=== PATIENT | male | born 1945 | race Hispanic/Latino ===

== ENCOUNTER 2020-06-26 00:04 | Inpatient (IN) | payer MEDICARE ==
[2020-06-26] MEDS ORDERED: SODIUM CHLORIDE 0.9% 1000 ML 1,000 ML IV ONE (00:20)
--- NOTE | 2020-06-26 00:20 | Emergency Department Report ---
ED Altered Mental Status HPI - General Chief Complaint: Neuro Symptoms/Deficit Stated Complaint: AMS PUI?: No Time Seen by Provider: 06/26/20 00:16 Source: EMS Mode of arrival: Stretcher Limitations: No Limitations - History of Present Illness Initial Comments: Patient is a 74-year-old male that presents via EMS for altered mental status. Patient is currently alert and oriented x1. Patient is disoriented to place, date and situation. Patient is oriented to self only. Patient states he is here for a pill to warm him up. Patient denies alcohol use. Patient denies smoking and drug use. Report received from EMS. EMS states the patient was [place] the edge of the tim with 2 full sixpacks of beer in the car but not open. Patient is 50 miles from home. Patient when questioned by the police, the patient did not know how he got here. Patient was found asleep in the car. MD Complaint: altered mental status, confusion -: Sudden Consistency of Symptoms: constant - Related Data Home Medications Medication Instructions Recorded Confirmed Last Taken Gabapentin 300 mg PO 06/26/20 Unknown Metoprolol [Lopressor TAB] 25 mg PO 06/26/20 Unknown lisinopriL [Zestril TAB] 20 mg PO 06/26/20 Unknown Allergies Allergy/AdvReac Type Severity Reaction Status Date / Time No Known Allergies Allergy Unverified 06/26/20 00:31 ED Review of Systems ROS: Stated complaint: AMS Other details as noted in HPI Comment: Unobtainable due to pts medical conditions ED Past Medical Hx - Past Medical History Previous Medical History?: Yes Hx Hypertension: Yes Hx Heart Attack/AMI: Yes - Surgical History Past Surgical History?: Yes Additional Surgical History: hip replacement - Family History Family history: no significant - Social History Smoking Status: Never Smoker Substance Use Type: None - Medications Home Medications: Home Medications Medication Instructions Recorded Confirmed Last Taken Type Gabapentin 300 mg PO 06/26/20 Unknown History Metoprolol [Lopressor TAB] 25 mg PO 06/26/20 Unknown History lisinopriL [Zestril TAB] 20 mg PO 06/26/20 Unknown History ED Physical Exam - General Limitations: No Limitations General appearance: alert, in no apparent distress - Head Head exam: Present: atraumatic, normocephalic - Eye Eye exam: Present: normal appearance - ENT ENT exam: Present: mucous membranes moist - Neck Neck exam: Present: normal inspection - Respiratory Respiratory exam: Present: normal lung sounds bilaterally. Absent: respiratory distress - Cardiovascular Cardiovascular Exam: Present: regular rate, normal rhythm. Absent: systolic murmur, diastolic murmur, rubs, gallop - GI/Abdominal GI/Abdominal exam: Present: soft, normal bowel sounds - Rectal Rectal exam: Present: deferred - Extremities Exam Extremities exam: Present: normal inspection - Back Exam Back exam: Present: normal inspection - Neurological Exam Neurological exam: Present: alert, altered - Skin Skin exam: Present: warm, dry, intact, normal color. Absent: rash - Assessment Assessment Interval: Baseline - Level of Consciousness 1a. Level of Consciousness: alert/keenly responsive - LOC Questions 1b. LOC Questions: answers 1 question correctly - LOC Command 1c. LOC Commands: performs tasks correctly - Best Gaze 2. Best Gaze: normal - Visual 3. Visual: no visual loss - Facial Palsy 4. Facial Palsy: normal symmetrical movement - Motor Arm 5a. Motor Arm Left: no drift 5b. Motor Arm Right: no drift - Motor Leg 6a. Motor Leg Left: no drift 6b. Motor Leg Right: no drift - Limb Ataxia 7. Limb Ataxia: absent - Sensory 8. Sensory: normal - Best Language 9. Best Language: no aphasia - Dysarthria 10. Dysarthria: normal - Extinction and Inattention 11. Extinction/Inattention: no abnormality - Scoring Total Score: 1 Stroke Severity: Minor Stroke ED Course Vital Signs 06/26/20 06/26/20 06/26/20 00:12 00:17 01:06 Temperature 98.3 F Pulse Rate 59 L Respiratory Rate Blood Pressure 135/77 135/77 Blood Pressure 135/77 [left arm] O2 Sat by Pulse 100 99 95 Oximetry 06/26/20 01:30 Temperature Pulse Rate 76 Respiratory 15 Rate Blood Pressure 158/71 Blood Pressure [left arm] O2 Sat by Pulse 98 Oximetry - Reevaluation(s) Reevaluation #1: Patient is still confused. 06/26/20 01:04 Reevaluation #2: I discussed all results with patient. I discussed plan of care with patient. Patient agrees with plan of care and admission. Patient to be admitted to the hospitalist service. 06/26/20 03:04 - Consultations Consultation #1: Hospitalist consulted for admission. Hospitalist to admit patient. 06/26/20 03:04 - Lab Data Result diagrams: 06/26/20 00:45 06/26/20 00:45 Lab Results 06/26/20 06/26/20 06/26/20 Range/Units 00:45 00:45 00:45 WBC 5.6 (4.5-11.0) K/mm3 RBC 3.44 L (3.65-5.03) M/mm3 Hgb 12.1 (11.8-15.2) gm/dl Hct 35.7 (35.5-45.6) % MCV 104 H (84-94) fl MCH 35 H (28-32) pg MCHC 34 (32-34) % RDW 14.8 (13.2-15.2) % Plt Count 279 (140-440) K/mm3 Lymph % (Auto) 16.0 (13.4-35.0) % [place] % (Auto) 8.1 H (0.0-7.3) % Eos % (Auto) 1.2 (0.0-4.3) % Baso % (Auto) 0.6 (0.0-1.8) % Lymph # (Auto) 0.9 L (1.2-5.4) K/mm3 [place] # (Auto) 0.5 (0.0-0.8) K/mm3 Eos # (Auto) 0.1 (0.0-0.4) K/mm3 Baso # (Auto) 0.0 (0.0-0.1) K/mm3 Seg Neutrophils % 74.1 H (40.0-70.0) % Seg Neutrophils # 4.1 (1.8-7.7) K/mm3 Sodium 144 (137-145) mmol/L Potassium 4.1 (3.6-5.0) mmol/L Chloride 104.7 (98-107) mmol/L Carbon Dioxide 19 L (22-30) mmol/L Anion Gap 24 mmol/L BUN 15 (9-20) mg/dL Creatinine 1.0 (0.8-1.3) mg/dL Estimated GFR > 60 ml/min BUN/Creatinine Ratio 15 % Glucose 103 H (75-100) mg/dL Lactic Acid 1.50 (0.7-2.0) mmol/L Calcium 9.8 (8.4-10.2) mg/dL Total Bilirubin 0.50 (0.1-1.2) mg/dL AST 20 (5-40) units/L ALT 13 (7-56) units/L Alkaline Phosphatase 100 (35-129) units/L Ammonia (25-60) umol/L Total Creatine Kinase 138 (55-170) units/L Troponin T < 0.010 (0.00-0.029) ng/mL Total Protein 7.2 (6.3-8.2) g/dL Albumin 4.5 (3.9-5) g/dL Albumin/Globulin Ratio 1.7 % Urine Color (Yellow) Urine Turbidity (Clear) Urine pH (5.0-7.0) Ur Specific [place] (1.003-1.030) Urine Protein (Negative) mg/dL Urine Glucose (UA) (Negative) mg/dL Urine Ketones (Negative) mg/dL Urine Blood (Negative) Urine Nitrite (Negative) Urine Bilirubin (Negative) Urine Urobilinogen (<2.0) mg/dL Ur Leukocyte Esterase (Negative) Urine WBC (Auto) (0.0-6.0) /HPF Urine RBC (Auto) (0.0-6.0) /HPF U Epithel Cells (Auto) (0-13.0) /HPF Urine Mucus /HPF Urine Opiates Screen Urine Methadone Screen Acetaminophen (10.0-30.0) ug/mL Ur Barbiturates Screen Ur Phencyclidine Scrn Ur Amphetamines Screen U Benzodiazepines Scrn Urine Cocaine Screen U Marijuana (THC) Screen Drugs of Abuse Note Plasma/Serum Alcohol (0-0.07) % 06/26/20 06/26/20 06/26/20 Range/Units 00:45 00:45 00:45 WBC (4.5-11.0) K/mm3 RBC (3.65-5.03) M/mm3 Hgb (11.8-15.2) gm/dl Hct (35.5-45.6) % MCV (84-94) fl MCH (28-32) pg MCHC (32-34) % RDW (13.2-15.2) % Plt Count (140-440) K/mm3 Lymph % (Auto) (13.4-35.0) % [place] % (Auto) (0.0-7.3) % Eos % (Auto) (0.0-4.3) % Baso % (Auto) (0.0-1.8) % Lymph # (Auto) (1.2-5.4) K/mm3 [place] # (Auto) (0.0-0.8) K/mm3 Eos # (Auto) (0.0-0.4) K/mm3 Baso # (Auto) (0.0-0.1) K/mm3 Seg Neutrophils % (40.0-70.0) % Seg Neutrophils # (1.8-7.7) K/mm3 Sodium (137-145) mmol/L Potassium (3.6-5.0) mmol/L Chloride (98-107) mmol/L Carbon Dioxide (22-30) mmol/L Anion Gap mmol/L BUN (9-20) mg/dL Creatinine (0.8-1.3) mg/dL Estimated GFR ml/min BUN/Creatinine Ratio % Glucose (75-100) mg/dL Lactic Acid (0.7-2.0) mmol/L Calcium (8.4-10.2) mg/dL Total Bilirubin (0.1-1.2) mg/dL AST (5-40) units/L ALT (7-56) units/L Alkaline Phosphatase (35-129) units/L Ammonia 33.0 (25-60) umol/L Total Creatine Kinase (55-170) units/L Troponin T (0.00-0.029) ng/mL Total Protein (6.3-8.2) g/dL Albumin (3.9-5) g/dL Albumin/Globulin Ratio % Urine Color (Yellow) Urine Turbidity (Clear) Urine pH (5.0-7.0) Ur Specific [place] (1.003-1.030) Urine Protein (Negative) mg/dL Urine Glucose (UA) (Negative) mg/dL Urine Ketones (Negative) mg/dL Urine Blood (Negative) Urine Nitrite (Negative) Urine Bilirubin (Negative) Urine Urobilinogen (<2.0) mg/dL Ur Leukocyte Esterase (Negative) Urine WBC (Auto) (0.0-6.0) /HPF Urine RBC (Auto) (0.0-6.0) /HPF U Epithel Cells (Auto) (0-13.0) /HPF Urine Mucus /HPF Urine Opiates Screen Urine Methadone Screen Acetaminophen 5.0 L (10.0-30.0) ug/mL Ur Barbiturates Screen Ur Phencyclidine Scrn Ur Amphetamines Screen U Benzodiazepines Scrn Urine Cocaine Screen U Marijuana (THC) Screen Drugs of Abuse Note Plasma/Serum Alcohol < 0.01 (0-0.07) % 06/26/20 06/26/20 Range/Units 01:59 01:59 WBC (4.5-11.0) K/mm3 RBC (3.65-5.03) M/mm3 Hgb (11.8-15.2) gm/dl Hct (35.5-45.6) % MCV (84-94) fl MCH (28-32) pg MCHC (32-34) % RDW (13.2-15.2) % Plt Count (140-440) K/mm3 Lymph % (Auto) (13.4-35.0) % [place] % (Auto) (0.0-7.3) % Eos % (Auto) (0.0-4.3) % Baso % (Auto) (0.0-1.8) % Lymph # (Auto) (1.2-5.4) K/mm3 [place] # (Auto) (0.0-0.8) K/mm3 Eos # (Auto) (0.0-0.4) K/mm3 Baso # (Auto) (0.0-0.1) K/mm3 Seg Neutrophils % (40.0-70.0) % Seg Neutrophils # (1.8-7.7) K/mm3 Sodium (137-145) mmol/L Potassium (3.6-5.0) mmol/L Chloride (98-107) mmol/L Carbon Dioxide (22-30) mmol/L Anion Gap mmol/L BUN (9-20) mg/dL Creatinine (0.8-1.3) mg/dL Estimated GFR ml/min BUN/Creatinine Ratio % Glucose (75-100) mg/dL Lactic Acid (0.7-2.0) mmol/L Calcium (8.4-10.2) mg/dL Total Bilirubin (0.1-1.2) mg/dL AST (5-40) units/L ALT (7-56) units/L Alkaline Phosphatase (35-129) units/L Ammonia (25-60) umol/L Total Creatine Kinase (55-170) units/L Troponin T (0.00-0.029) ng/mL Total Protein (6.3-8.2) g/dL Albumin (3.9-5) g/dL Albumin/Globulin Ratio % Urine Color Yellow (Yellow) Urine Turbidity Clear (Clear) Urine pH 6.0 (5.0-7.0) Ur Specific [place] 1.013 (1.003-1.030) Urine Protein <15 mg/dl (Negative) mg/dL Urine Glucose (UA) Neg (Negative) mg/dL Urine Ketones Neg (Negative) mg/dL Urine Blood Neg (Negative) Urine Nitrite Neg (Negative) Urine Bilirubin Neg (Negative) Urine Urobilinogen < 2.0 (<2.0) mg/dL Ur Leukocyte Esterase Neg (Negative) Urine WBC (Auto) 2.0 (0.0-6.0) /HPF Urine RBC (Auto) 2.0 (0.0-6.0) /HPF U Epithel Cells (Auto) 1.0 (0-13.0) /HPF Urine Mucus Few /HPF Urine Opiates Screen Presumptive negative Urine Methadone Screen Presumptive negative Acetaminophen (10.0-30.0) ug/mL Ur Barbiturates Screen Presumptive negative Ur Phencyclidine Scrn Presumptive negative Ur Amphetamines Screen Presumptive negative U Benzodiazepines Scrn Presumptive negative Urine Cocaine Screen Presumptive negative U Marijuana (THC) Screen Presumptive negative Drugs of Abuse Note Disclamer Plasma/Serum Alcohol (0-0.07) % - EKG Data -: EKG Interpreted by Oh EKG shows normal: sinus rhythm, axis, intervals, QRS complexes, ST-T waves Rate: normal - Radiology Data Radiology results: report reviewed CT head without contrast INDICATION : Altered mental status TECHNIQUE: Axial imaging performed from the skull apex through the skull base without the use of contrast. All CT examinations performed at this facility utilize dose modulation, iterative reconstruction or weight-based dosing, when appropriate, to reduce radiation dose to as low as reasonably achievable. COMPARISON: None FINDINGS: Mild diffuse cerebral atrophy with microangiopathic type periventricular white matter changes. No acute intracranial hemorrhage or parenchymal abnormality. Ventricles are normal in size and appear symmetric. Soft tissues including the orbits appear normal. No acute osseous abnormality. Sinuses and mastoid air cells are clear. IMPRESSION: No acute abnormality. CHEST 1 VIEW INDICATION / CLINICAL INFORMATION: Altered Mental Status. FINDINGS: SUPPORT DEVICES: None. HEART / MEDIASTINUM: No significant abnormality. LUNGS / PLEURA: Ill-defined densities within the right mid lung, nonspecific. The left lung is clear. - Medical Decision Making Patient is a 74-year-old male that presents emergency room with altered mental status and confusion. Patient was found asleep in his car at the edge of a [place] area. Patient patient was found by police and brought in by EMS. Report received from EMS. Patient has a past medical history of hypertension, [place]. Patient had labs done which were essentially unremarkable. Patient's chest x- ray was negative. Patient's head CT was negative for any patient is exact cause of his confusion is unknown. Patient require further evaluation and investigation.. Patient admitted to the hospitalist service for further evaluation and treatment. - Differential Diagnosis Altered mental status, encephalopathy, confusion, Critical Care Time: Yes Critical care time in (mins) excluding proc time.: 35 Critical care attestation.: If time is entered above; I have spent that time in minutes in the direct care of this critically ill patient, excluding procedure time. Critical Care Time: 35 minutes ED Disposition Clinical Impression: Confusion, Encephalopathy acute Altered mental state Qualifiers: Altered mental status type: unspecified Qualified Code(s): R41.82 - Altered mental status, unspecified Disposition: DC-09 OP ADMIT IP TO THIS HOSP Is pt being admited?: Yes Does the pt Need Aspirin: No Condition: Critical Time of Disposition: 03:04
[2020-06-26 01:04] LABS: Basophils % (Auto) 0.6 % (0.0-1.8); Eosinophils # (Auto) 0.1 K/mm3 (0.0-0.4); Eosinophils % (Auto) 1.2 % (0.0-4.3); Hematocrit 35.7 % (35.5-45.6); Hemoglobin 12.1 gm/dl (11.8-15.2); Lymphocytes # (Auto) 0.9 K/mm3 (1.2-5.4); Mean Corpuscular HGB Conc 34 % (32-34); Mean Corpuscular Volume 104 fl (84-94); Monocytes # (Auto) 0.5 K/mm3 (0.0-0.8); Monocytes % (Auto) 8.1 % (0.0-7.3); Platelet Count 279 K/mm3 (140-440); Red Blood Count 3.44 M/mm3 (3.65-5.03); Red Cell Distribution Width 14.8 % (13.2-15.2)
--- NOTE | 2020-06-26 01:19 | Cat Scan Report ---
CT head without contrast INDICATION : Altered mental status TECHNIQUE: Axial imaging performed from the skull apex through the skull base without the use of con trast. All CT examinations performed at this facility utilize dose modulation, iterative reconstruct ion or weight-based dosing, when appropriate, to reduce radiation dose to as low as reasonably achiev able. COMPARISON: None FINDINGS: Mild diffuse cerebral atrophy with microangiopathic type periventricular white matter cota es. No acute intracranial hemorrhage or parenchymal abnormality. Ventricles are normal in size and appear symmetric. Soft tissues including the orbits appear normal. No acute osseous abnormality. Sinuses and mastoid air cells are clear. IMPRESSION: No acute abnormality. Signer Name: Jose Kumar MD Signed: 06/26/2020 1:15 AM Workstation Name: [id number]
--- NOTE | 2020-06-26 01:35 | XRay Report ---
CHEST 1 VIEW INDICATION / CLINICAL INFORMATION: Altered Mental Status. FINDINGS: SUPPORT DEVICES: None. HEART / MEDIASTINUM: No significant abnormality. LUNGS / PLEURA: Ill-defined densities within the right mid lung, nonspecific. The left lung is clear. Signer Name: Jose Kumar MD Signed: 06/26/2020 1:30 AM Workstation Name: [id number]
[2020-06-26 02:29] LABS: Alanine Aminotransferase 13 units/L (7-56); Albumin 4.5 g/dL (3.9-5); BUN/Creatinine Ratio 15; Blood Urea Nitrogen 15 mg/dL (9-20); Calcium 9.8 mg/dL (8.4-10.2); Hemolysis Index 18
[2020-06-26 02:33] LABS: Bilirubin,Urine NEG (Negative); Blood,Urine NEG (Negative); Color,Urine Yellow (Yellow); Mucus,Urine FEW /HPF; Protein,Urine <15 mg/dL mg/dL (Negative); Urobilinogen,Urine < 2.0 mg/dL (<2.0)
[2020-06-26 02:42] LABS: Amphetamine Screen,Urine PRESUMPTIVE NEGATIVE; Benzodiazepines Screen,Urine PRESUMPTIVE NEGATIVE; Cannabinoid Screen,Urine PRESUMPTIVE NEGATIVE; Cocaine Screen,Urine PRESUMPTIVE NEGATIVE; Methadone Screen,Urine PRESUMPTIVE NEGATIVE; Opiate Screen,Urine PRESUMPTIVE NEGATIVE
--- NOTE | 2020-06-26 04:55 | History and Physical Report ---
History of Present Illness Date of examination: 06/26/20 Date of admission: 06/26/20 03:05 Chief complaint: ALTERED MENTAL STATUS History of present illness: 74 year old male who presented with altered mental status .There is no history of chest pain, fever, chills,nausea or vomiting. There is no history of dysuria. Past History Past Medical History: CAD, hypertension Past Surgical History: total hip replacement Social history: no significant social history Family history: no significant family history Medications and Allergies Allergies Allergy/AdvReac Type Severity Reaction Status Date / Time No Known Allergies Allergy Verified 06/26/20 04:20 Home Medications Medication Instructions Recorded Confirmed Last Taken Type Gabapentin 300 mg PO 06/26/20 Unknown History Metoprolol [Lopressor TAB] 25 mg PO 06/26/20 Unknown History lisinopriL [Zestril TAB] 20 mg PO 06/26/20 Unknown History Active Meds: Active Medications Acetaminophen (Tylenol) 650 mg PO Q4H PRN PRN Reason: Fever >101 Gabapentin (Gabapentin) 300 mg PO BID LILIAM Heparin Sodium (Porcine) (Heparin) 5,000 unit SUB-Q Q12HR [facility] Lisinopril (Zestril) 20 mg PO DAILY [facility] Metoprolol Tartrate (Metoprolol) 25 mg PO DAILY [facility] Review of Systems Constitutional: weakness, no fever, no chills, no sweats, no malaise Eyes: bilateral: other (NO BILATERAL EYE ) Cardiovascular: no chest pain, no orthopnea, no palpitations, no rapid/irregular heart beat, no syncope, no lightheadedness, no shortness of breath Respiratory: no cough, no cough with sputum, no excessive sputum, no hemoptysis, no shortness of breath, no dyspnea on exertion, no wheezing Gastrointestinal: no abdominal pain, no nausea, no vomiting, no diarrhea, no constipation, no change in bowel habits, no hematemesis Genitourinary Male: no hematuria, no flank pain, no discharge, no urinary frequency Rectal: no pain Musculoskeletal: no neck stiffness, no neck pain Integumentary: no rash, no pruritis, no redness, no sores, no wounds Neurological: no paralysis, no weakness, no seizures, no syncope, no tremors, no vertigo, no headaches Psychiatric: no anxiety, no depression Endocrine: no polyuria, no nocturia Hematologic/Lymphatic: no easy bruising, no easy bleeding Allergic/Immunologic: no persistent infections Exam - Constitutional Vitals: Temp Pulse Resp BP Pulse Ox 98.3 F 63 16 164/72 100 06/26/20 00:12 06/26/20 03:36 06/26/20 03:36 06/26/20 03:36 06/26/20 03:36 General appearance: Present: no acute distress - EENT Eyes: Present: PERRL, EOM intact ENT: hearing intact - Neck Neck: Present: supple, normal ROM - Respiratory Respiratory effort: normal - Cardiovascular Rhythm: regular Heart Sounds: Present: S1 & S2. Absent: gallop, systolic murmur, diastolic murmur - Extremities Extremities: no ischemia, No edema Peripheral Pulses: within normal limits - Abdominal General gastrointestinal: Present: soft, non-tender, non-distended. Absent: tender, distended, rigid, hepatomegaly, splenomegaly Male genitourinary: Present: deferred - Rectal Rectal Exam: deferred - Integumentary Integumentary: Present: clear, warm, dry - Musculoskeletal Musculoskeletal: strength equal bilaterally - Psychiatric Psychiatric: appropriate mood/affect HEART Score - HEART Score Risk factors: 1-2 risk factors Troponin: Troponin T < 0.010 ng/mL (0.00-0.029) 06/26/20 03:05 Troponin: < normal limit - Critical Actions Critical Actions: 0-3 pts:0.9-1.7%risk of adverse cardiac event.Candidate for discharge Results - Labs CBC & Chem 7: 06/26/20 00:45 06/26/20 00:45 Labs: Laboratory Last Values WBC 5.6 K/mm3 (4.5-11.0) 06/26/20 00:45 RBC 3.44 M/mm3 (3.65-5.03) L 06/26/20 00:45 Hgb 12.1 gm/dl (11.8-15.2) 06/26/20 00:45 Hct 35.7 % (35.5-45.6) 06/26/20 00:45 MCV 104 fl (84-94) H 06/26/20 00:45 MCH 35 pg (28-32) H 06/26/20 00:45 MCHC 34 % (32-34) 06/26/20 00:45 RDW 14.8 % (13.2-15.2) 06/26/20 00:45 Plt Count 279 K/mm3 (140-440) 06/26/20 00:45 Lymph % (Auto) 16.0 % (13.4-35.0) 06/26/20 00:45 [place] % (Auto) 8.1 % (0.0-7.3) H 06/26/20 00:45 Eos % (Auto) 1.2 % (0.0-4.3) 06/26/20 00:45 Baso % (Auto) 0.6 % (0.0-1.8) 06/26/20 00:45 Lymph # (Auto) 0.9 K/mm3 (1.2-5.4) L 06/26/20 00:45 [place] # (Auto) 0.5 K/mm3 (0.0-0.8) 06/26/20 00:45 Eos # (Auto) 0.1 K/mm3 (0.0-0.4) 06/26/20 00:45 Baso # (Auto) 0.0 K/mm3 (0.0-0.1) 06/26/20 00:45 Seg Neutrophils % 74.1 % (40.0-70.0) H 06/26/20 00:45 Seg Neutrophils # 4.1 K/mm3 (1.8-7.7) 06/26/20 00:45 Sodium 144 mmol/L (137-145) 06/26/20 00:45 Potassium 4.1 mmol/L (3.6-5.0) 06/26/20 00:45 Chloride 104.7 mmol/L (98-107) 06/26/20 00:45 Carbon Dioxide 19 mmol/L (22-30) L 06/26/20 00:45 Anion Gap 24 mmol/L 06/26/20 00:45 BUN 15 mg/dL (9-20) 06/26/20 00:45 Creatinine 1.0 mg/dL (0.8-1.3) 06/26/20 00:45 Estimated GFR > 60 ml/min 06/26/20 00:45 BUN/Creatinine Ratio 15 % 06/26/20 00:45 Glucose 103 mg/dL (75-100) H 06/26/20 00:45 Lactic Acid 1.50 mmol/L (0.7-2.0) 06/26/20 00:45 Calcium 9.8 mg/dL (8.4-10.2) 06/26/20 00:45 Total Bilirubin 0.50 mg/dL (0.1-1.2) 06/26/20 00:45 AST 20 units/L (5-40) 06/26/20 00:45 ALT 13 units/L (7-56) 06/26/20 00:45 Alkaline Phosphatase 100 units/L (35-129) 06/26/20 00:45 Ammonia 33.0 umol/L (25-60) 06/26/20 00:45 Total Creatine Kinase 138 units/L (55-170) 06/26/20 00:45 Troponin T < 0.010 ng/mL (0.00-0.029) 06/26/20 03:05 Total Protein 7.2 g/dL (6.3-8.2) 06/26/20 00:45 Albumin 4.5 g/dL (3.9-5) 06/26/20 00:45 Albumin/Globulin Ratio 1.7 % 06/26/20 00:45 Urine Color Yellow (Yellow) 06/26/20 01:59 Urine Turbidity Clear (Clear) 06/26/20 01:59 Urine pH 6.0 (5.0-7.0) 06/26/20 01:59 Ur Specific [place] 1.013 (1.003-1.030) 06/26/20 01:59 Urine Protein <15 mg/dl mg/dL (Negative) 06/26/20 01:59 Urine Glucose (UA) Neg mg/dL (Negative) 06/26/20 01:59 Urine Ketones Neg mg/dL (Negative) 06/26/20 01:59 Urine Blood Neg (Negative) 06/26/20 01:59 Urine Nitrite Neg (Negative) 06/26/20 01:59 Urine Bilirubin Neg (Negative) 06/26/20 01:59 Urine Urobilinogen < 2.0 mg/dL (<2.0) 06/26/20 01:59 Ur Leukocyte Esterase Neg (Negative) 06/26/20 01:59 Urine WBC (Auto) 2.0 /HPF (0.0-6.0) 06/26/20 01:59 Urine RBC (Auto) 2.0 /HPF (0.0-6.0) 06/26/20 01:59 U Epithel Cells (Auto) 1.0 /HPF (0-13.0) 06/26/20 01:59 Urine Mucus Few /HPF 06/26/20 01:59 Urine Opiates Screen Presumptive negative 06/26/20 01:59 Urine Methadone Screen Presumptive negative 06/26/20 01:59 Acetaminophen 5.0 ug/mL (10.0-30.0) L 06/26/20 00:45 Ur Barbiturates Screen Presumptive negative 06/26/20 01:59 Ur Phencyclidine Scrn Presumptive negative 06/26/20 01:59 Ur Amphetamines Screen Presumptive negative 06/26/20 01:59 U Benzodiazepines Scrn Presumptive negative 06/26/20 01:59 Urine Cocaine Screen Presumptive negative 06/26/20 01:59 U Marijuana (THC) Screen Presumptive negative 06/26/20 01:59 Drugs of Abuse Note Disclamer 06/26/20 01:59 Plasma/Serum Alcohol < 0.01 % (0-0.07) 06/26/20 00:45 [place]/IV: IV Catheter Type [right Peripheral IV forearm] Assessment and Plan - Patient Problems (1) Altered mental state Current Visit: Yes Status: Acute Qualifiers: Altered mental status type: unspecified Qualified Code(s): R41.82 - Altered mental status, unspecified Plan to address problem: 1. NEUROCHECKS 2. AMMONIA LEVEL
[2020-06-26] MEDS: GABAPENTIN 300 MG CAP PO SCH ×2 (10:04→22:13)
[2020-06-26] MEDS: LISINOPRIL 20 MG TAB PO SCH (10:04)
[2020-06-26] MEDS: HEPARIN 5,000 UNIT/1 ML VIAL SUB-Q SCH ×2 (10:05→22:13)
[2020-06-26] MEDS: METOPROLOL TARTRATE 25 MG TAB PO SCH (10:07)
--- NOTE | 2020-06-26 11:13 | Event Note ---
Date: 06/26/20 Patient was admitted earlier this morning for the management of altered mental status. We will do MRI of the brain. No family members to give more history. Continue management as outlined in H&P.
[2020-06-27 07:00] LABS: BUN/Creatinine Ratio 20; Blood Urea Nitrogen 16 mg/dL (9-20); Calcium 8.9 mg/dL (8.4-10.2); Hemolysis Index 14
[2020-06-27] MEDS: LISINOPRIL 20 MG TAB PO SCH (09:18)
[2020-06-27] MEDS: HEPARIN 5,000 UNIT/1 ML VIAL SUB-Q SCH ×2 (09:19→21:45)
[2020-06-27] MEDS: METOPROLOL TARTRATE 25 MG TAB PO SCH (09:19)
[2020-06-27] MEDS: GABAPENTIN 300 MG CAP PO SCH ×2 (09:19→21:45)
--- NOTE | 2020-06-27 10:25 | Cat Scan Report ---
CT CHEST WITH CONTRAST INDICATION / CLINICAL INFORMATION: ill defined desity in the right lung, shown on x-r. TECHNIQUE: Axial CT images were obtained through the chest after 100 mL Omnipaque [address]. [address] scans at this location are performed using CT dose reduction for ALARA by means of automated exposure contr ol. COMPARISON: Chest radiograph one day prior FINDINGS: HEART: Nonenlarged. Large amount of coronary artery calcification. THORACIC AORTA: No significant abnormality. MEDIASTINUM and GERI: No significant abnormality. LUNGS: No acute air space or interstitial disease. There is no pulmonary consolidation to correspond with the hazy opacities in the right lung seen on recent examination. PLEURA: No significant pleural effusion. No pneumothorax. ADDITIONAL FINDINGS: None. UPPER ABDOMEN: No significant abnormality. SKELETAL SYSTEM: Multilevel mild to moderate compression deformities in the thoracic spine, most prom inent at T7 and T11. Several old healed left rib fractures. IMPRESSION: 1. No acute abnormality identified. Specifically, there is no pulmonary consolidation to correspond w ith the ill-defined densities seen on recent radiograph, suggesting that this was either artifactual in nature or related to atelectasis which has subsequently resolved. 2. Multilevel mild to moderate age-indeterminate compression deformities in the thoracic spine. Signer Name: Santa Shields MD Signed: 06/27/2020 10:21 AM Workstation Name: [id number]
--- NOTE | 2020-06-27 11:51 | Progress Note ---
Assessment and Plan Assessment and plan: Altered mental status -CT head is normal, ammonia level is normal -Cause is unknown, possibly dementia -UDS is negative Hypertension -Lisinopril and metoprolol -Control DVT prophylaxis -On heparin History Interval history: Patient was seen and evaluated this morning Patient is confused and does not give any meaningful history Hospitalist Physical - Physical exam Narrative exam: Not in cardiopulmonary distress. The patient appeared well nourished and normally developed. Vital signs as documented. Head exam is unremarkable. No scleral icterus . Neck is without jugular venous distension, thyromegaly, or carotid bruits. Lungs are clear to auscultation. Cardiac exam reveals regular rate and Rhythm. Abdominal exam reveals normal bowel sounds, nontender, no organomegaly. Extremities are nonedematous and both femoral and pedal pulses are normal. 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., - Constitutional Vitals: Temp Pulse Resp BP Pulse Ox 98.1 F 64 18 144/74 98 06/27/20 07:35 06/27/20 11:16 06/27/20 07:35 06/27/20 09:19 06/27/20 07:35 General appearance: Present: no acute distress HEART Score - HEART Score Risk factors: 1-2 risk factors Troponin: Troponin T < 0.010 ng/mL (0.00-0.029) 06/26/20 03:05 Troponin: < normal limit - Critical Actions Critical Actions: 0-3 pts:0.9-1.7%risk of adverse cardiac event.Candidate for discharge Results - Labs CBC & Chem 7: 06/26/20 00:45 06/27/20 05:08 Labs: Laboratory Last Values WBC 5.6 K/mm3 (4.5-11.0) 06/26/20 00:45 RBC 3.44 M/mm3 (3.65-5.03) L 06/26/20 00:45 Hgb 12.1 gm/dl (11.8-15.2) 06/26/20 00:45 Hct 35.7 % (35.5-45.6) 06/26/20 00:45 MCV 104 fl (84-94) H 06/26/20 00:45 MCH 35 pg (28-32) H 06/26/20 00:45 MCHC 34 % (32-34) 06/26/20 00:45 RDW 14.8 % (13.2-15.2) 06/26/20 00:45 Plt Count 279 K/mm3 (140-440) 06/26/20 00:45 Lymph % (Auto) 16.0 % (13.4-35.0) 06/26/20 00:45 [place] % (Auto) 8.1 % (0.0-7.3) H 06/26/20 00:45 Eos % (Auto) 1.2 % (0.0-4.3) 06/26/20 00:45 Baso % (Auto) 0.6 % (0.0-1.8) 06/26/20 00:45 Lymph # (Auto) 0.9 K/mm3 (1.2-5.4) L 06/26/20 00:45 [place] # (Auto) 0.5 K/mm3 (0.0-0.8) 06/26/20 00:45 Eos # (Auto) 0.1 K/mm3 (0.0-0.4) 06/26/20 00:45 Baso # (Auto) 0.0 K/mm3 (0.0-0.1) 06/26/20 00:45 Seg Neutrophils % 74.1 % (40.0-70.0) H 06/26/20 00:45 Seg Neutrophils # 4.1 K/mm3 (1.8-7.7) 06/26/20 00:45 Sodium 140 mmol/L (137-145) 06/27/20 05:08 Potassium 3.8 mmol/L (3.6-5.0) 06/27/20 05:08 Chloride 104.2 mmol/L (98-107) 06/27/20 05:08 Carbon Dioxide 26 mmol/L (22-30) D 06/27/20 05:08 Anion Gap 14 mmol/L 06/27/20 05:08 BUN 16 mg/dL (9-20) 06/27/20 05:08 Creatinine 0.8 mg/dL (0.8-1.3) 06/27/20 05:08 Estimated GFR > 60 ml/min 06/27/20 05:08 BUN/Creatinine Ratio 20 % 06/27/20 05:08 Glucose 93 mg/dL (75-100) 06/27/20 05:08 Lactic Acid 1.50 mmol/L (0.7-2.0) 06/26/20 00:45 Calcium 8.9 mg/dL (8.4-10.2) 06/27/20 05:08 Total Bilirubin 0.50 mg/dL (0.1-1.2) 06/26/20 00:45 AST 20 units/L (5-40) 06/26/20 00:45 ALT 13 units/L (7-56) 06/26/20 00:45 Alkaline Phosphatase 100 units/L (35-129) 06/26/20 00:45 Ammonia 20.0 umol/L (25-60) L 06/26/20 04:59 Total Creatine Kinase 138 units/L (55-170) 06/26/20 00:45 Troponin T < 0.010 ng/mL (0.00-0.029) 06/26/20 03:05 Total Protein 7.2 g/dL (6.3-8.2) 06/26/20 00:45 Albumin 4.5 g/dL (3.9-5) 06/26/20 00:45 Albumin/Globulin Ratio 1.7 % 06/26/20 00:45 Urine Color Yellow (Yellow) 06/26/20 01:59 Urine Turbidity Clear (Clear) 06/26/20 01:59 Urine pH 6.0 (5.0-7.0) 06/26/20 01:59 Ur Specific [place] 1.013 (1.003-1.030) 06/26/20 01:59 Urine Protein <15 mg/dl mg/dL (Negative) 06/26/20 01:59 Urine Glucose (UA) Neg mg/dL (Negative) 06/26/20 01:59 Urine Ketones Neg mg/dL (Negative) 06/26/20 01:59 Urine Blood Neg (Negative) 06/26/20 01:59 Urine Nitrite Neg (Negative) 06/26/20 01:59 Urine Bilirubin Neg (Negative) 06/26/20 01:59 Urine Urobilinogen < 2.0 mg/dL (<2.0) 06/26/20 01:59 Ur Leukocyte Esterase Neg (Negative) 06/26/20 01:59 Urine WBC (Auto) 2.0 /HPF (0.0-6.0) 06/26/20 01:59 Urine RBC (Auto) 2.0 /HPF (0.0-6.0) 06/26/20 01:59 U Epithel Cells (Auto) 1.0 /HPF (0-13.0) 06/26/20 01:59 Urine Mucus Few /HPF 06/26/20 01:59 Urine Opiates Screen Presumptive negative 06/26/20 01:59 Urine Methadone Screen Presumptive negative 06/26/20 01:59 Acetaminophen 5.0 ug/mL (10.0-30.0) L 06/26/20 00:45 Ur Barbiturates Screen Presumptive negative 06/26/20 01:59 Ur Phencyclidine Scrn Presumptive negative 06/26/20 01:59 Ur Amphetamines Screen Presumptive negative 06/26/20 01:59 U Benzodiazepines Scrn Presumptive negative 06/26/20 01:59 Urine Cocaine Screen Presumptive negative 06/26/20 01:59 U Marijuana (THC) Screen Presumptive negative 06/26/20 01:59 Drugs of Abuse Note Disclamer 06/26/20 01:59 Plasma/Serum Alcohol < 0.01 % (0-0.07) 06/26/20 00:45 Galindo/IV: Voiding Method Urinal IV Catheter Type [right Peripheral IV forearm] Active Medications - Current Medications Current Medications: Generic Name Dose Route Start Last Admin Trade Name Baltazarq PRN Reason Stop Dose Admin Acetaminophen 650 mg 06/26/20 04:16 Tylenol PO Q4H PRN Fever >101 Gabapentin 300 mg 06/26/20 10:00 06/27/20 09:19 Gabapentin PO 300 mg BID LILIAM Administration Heparin Sodium (Porcine) 5,000 unit 06/26/20 10:00 06/27/20 09:19 Heparin SUB-Q 5,000 unit Q12HR LILIAM Administration Lisinopril 20 mg 06/26/20 10:00 06/27/20 09:18 Zestril PO 20 mg DAILY LILIAM Administration Metoprolol Tartrate 25 mg 06/26/20 10:00 06/27/20 09:19 Metoprolol PO Not Given DAILY LILIAM
[2020-06-27] MEDS: ACETAMINOPHEN 325 MG TAB PO PRN (22:41)
[2020-06-28] MEDS: LISINOPRIL 20 MG TAB PO SCH (11:21)
[2020-06-28] MEDS: GABAPENTIN 300 MG CAP PO SCH ×2 (11:26→20:41)
[2020-06-28] MEDS: METOPROLOL TARTRATE 25 MG TAB PO SCH (11:26)
[2020-06-28] MEDS: HEPARIN 5,000 UNIT/1 ML VIAL SUB-Q SCH ×2 (11:27→20:42)
--- NOTE | 2020-06-28 15:04 | Progress Note ---
Assessment and Plan - Patient Problems (1) Metabolic encephalopathy Current Visit: Yes Status: Acute Plan to address problem: CT head neck reviewed, neuro check, seizure precautions, aspiration precautions, fall precautions, thyroid panel, supportive care. (2) Vascular dementia without behavioral disturbance Current Visit: Yes Status: Acute Plan to address problem: Verbal prompting, verbal redirection, benzodiazepine therapy as needed as clinically indicated. (3) Cerebral atherosclerosis Current Visit: Yes Status: Acute Plan to address problem: Supportive care, risk factor reduction. (4) DVT prophylaxis Current Visit: Yes Status: Acute Plan to address problem: SCD to bilateral lower extremities while in bed, prophylactic anticoagulation. History Interval history: 74-year-old male hospital day #3 with metabolic encephalopathy, vascular dementia without behavioral disturbance, cerebral atherosclerosis. Patient is alert and responsive with diminished cognition with concomitant periods of agitation. No reported nursing events. No clinical signs of pain. Case management consulted regarding discharge planning/[facility] facility placement. Hospitalist Physical - Constitutional Vitals: Temp Pulse Resp BP Pulse Ox 97.8 F 61 16 150/68 98 06/28/20 11:55 06/28/20 11:55 06/28/20 11:55 06/28/20 11:55 06/28/20 11:55 General appearance: Present: no acute distress - EENT Eyes: Present: PERRL ENT: hearing intact - Neck Neck: Present: supple - Respiratory Respiratory effort: normal Respiratory: bilateral: CTA - Cardiovascular Rhythm: regular Heart Sounds: Present: S1 & S2 - Extremities Extremities: no ischemia Peripheral Pulses: within normal limits - Abdominal General gastrointestinal: soft, non-tender, non-distended - Integumentary Integumentary: Present: clear, dry - Psychiatric Psychiatric: appropriate mood/affect, no intact judgment & insight, no memory intact, cooperative - Neurologic Neurologic: CNII-XII intact, no gait normal - Allied Health Allied health notes reviewed: case management HEART Score - HEART Score Risk factors: 1-2 risk factors Troponin: Troponin T < 0.010 ng/mL (0.00-0.029) 06/26/20 03:05 Troponin: < normal limit - Critical Actions Critical Actions: 0-3 pts:0.9-1.7%risk of adverse cardiac event.Candidate for discharge Results - Labs CBC & Chem 7: 06/26/20 00:45 06/27/20 05:08 Labs: Laboratory Last Values WBC 5.6 K/mm3 (4.5-11.0) 06/26/20 00:45 RBC 3.44 M/mm3 (3.65-5.03) L 06/26/20 00:45 Hgb 12.1 gm/dl (11.8-15.2) 06/26/20 00:45 Hct 35.7 % (35.5-45.6) 06/26/20 00:45 MCV 104 fl (84-94) H 06/26/20 00:45 MCH 35 pg (28-32) H 06/26/20 00:45 MCHC 34 % (32-34) 06/26/20 00:45 RDW 14.8 % (13.2-15.2) 06/26/20 00:45 Plt Count 279 K/mm3 (140-440) 06/26/20 00:45 Lymph % (Auto) 16.0 % (13.4-35.0) 06/26/20 00:45 [place] % (Auto) 8.1 % (0.0-7.3) H 06/26/20 00:45 Eos % (Auto) 1.2 % (0.0-4.3) 06/26/20 00:45 Baso % (Auto) 0.6 % (0.0-1.8) 06/26/20 00:45 Lymph # (Auto) 0.9 K/mm3 (1.2-5.4) L 06/26/20 00:45 [place] # (Auto) 0.5 K/mm3 (0.0-0.8) 06/26/20 00:45 Eos # (Auto) 0.1 K/mm3 (0.0-0.4) 06/26/20 00:45 Baso # (Auto) 0.0 K/mm3 (0.0-0.1) 06/26/20 00:45 Seg Neutrophils % 74.1 % (40.0-70.0) H 06/26/20 00:45 Seg Neutrophils # 4.1 K/mm3 (1.8-7.7) 06/26/20 00:45 Sodium 140 mmol/L (137-145) 06/27/20 05:08 Potassium 3.8 mmol/L (3.6-5.0) 06/27/20 05:08 Chloride 104.2 mmol/L (98-107) 06/27/20 05:08 Carbon Dioxide 26 mmol/L (22-30) D 06/27/20 05:08 Anion Gap 14 mmol/L 06/27/20 05:08 BUN 16 mg/dL (9-20) 06/27/20 05:08 Creatinine 0.8 mg/dL (0.8-1.3) 06/27/20 05:08 Estimated GFR > 60 ml/min 06/27/20 05:08 BUN/Creatinine Ratio 20 % 06/27/20 05:08 Glucose 93 mg/dL (75-100) 06/27/20 05:08 Lactic Acid 1.50 mmol/L (0.7-2.0) 06/26/20 00:45 Calcium 8.9 mg/dL (8.4-10.2) 06/27/20 05:08 Total Bilirubin 0.50 mg/dL (0.1-1.2) 06/26/20 00:45 AST 20 units/L (5-40) 06/26/20 00:45 ALT 13 units/L (7-56) 06/26/20 00:45 Alkaline Phosphatase 100 units/L (35-129) 06/26/20 00:45 Ammonia 20.0 umol/L (25-60) L 06/26/20 04:59 Total Creatine Kinase 138 units/L (55-170) 06/26/20 00:45 Troponin T < 0.010 ng/mL (0.00-0.029) 06/26/20 03:05 Total Protein 7.2 g/dL (6.3-8.2) 06/26/20 00:45 Albumin 4.5 g/dL (3.9-5) 06/26/20 00:45 Albumin/Globulin Ratio 1.7 % 06/26/20 00:45 Urine Color Yellow (Yellow) 06/26/20 01:59 Urine Turbidity Clear (Clear) 06/26/20 01:59 Urine pH 6.0 (5.0-7.0) 06/26/20 01:59 Ur Specific [place] 1.013 (1.003-1.030) 06/26/20 01:59 Urine Protein <15 mg/dl mg/dL (Negative) 06/26/20 01:59 Urine Glucose (UA) Neg mg/dL (Negative) 06/26/20 01:59 Urine Ketones Neg mg/dL (Negative) 06/26/20 01:59 Urine Blood Neg (Negative) 06/26/20 01:59 Urine Nitrite Neg (Negative) 06/26/20 01:59 Urine Bilirubin Neg (Negative) 06/26/20 01:59 Urine Urobilinogen < 2.0 mg/dL (<2.0) 06/26/20 01:59 Ur Leukocyte Esterase Neg (Negative) 06/26/20 01:59 Urine WBC (Auto) 2.0 /HPF (0.0-6.0) 06/26/20 01:59 Urine RBC (Auto) 2.0 /HPF (0.0-6.0) 06/26/20 01:59 U Epithel Cells (Auto) 1.0 /HPF (0-13.0) 06/26/20 01:59 Urine Mucus Few /HPF 06/26/20 01:59 Urine Opiates Screen Presumptive negative 06/26/20 01:59 Urine Methadone Screen Presumptive negative 06/26/20 01:59 Acetaminophen 5.0 ug/mL (10.0-30.0) L 06/26/20 00:45 Ur Barbiturates Screen Presumptive negative 06/26/20 01:59 Ur Phencyclidine Scrn Presumptive negative 06/26/20 01:59 Ur Amphetamines Screen Presumptive negative 06/26/20 01:59 U Benzodiazepines Scrn Presumptive negative 06/26/20 01:59 Urine Cocaine Screen Presumptive negative 06/26/20 01:59 U Marijuana (THC) Screen Presumptive negative 06/26/20 01:59 Drugs of Abuse Note Disclamer 06/26/20 01:59 Plasma/Serum Alcohol < 0.01 % (0-0.07) 06/26/20 00:45 Galindo/IV: Voiding Method Urinal IV Catheter Type [right Peripheral IV forearm] Active Medications - Current Medications Current Medications: Generic Name Dose Route Start Last Admin Trade Name Freq PRN Reason Stop Dose Admin Acetaminophen 650 mg 06/26/20 04:16 06/27/20 22:41 Tylenol PO 650 mg Q4H PRN Administration Fever >101 Gabapentin 300 mg 06/26/20 10:00 06/28/20 11:26 Gabapentin PO 300 mg BID LILIAM Administration Heparin Sodium (Porcine) 5,000 unit 06/26/20 10:00 06/28/20 11:27 Heparin SUB-Q 5,000 unit Q12HR LILIAM Administration Lisinopril 20 mg 06/26/20 10:00 06/28/20 11:21 Zestril PO 20 mg DAILY LILIAM Administration Metoprolol Tartrate 25 mg 06/26/20 10:00 06/28/20 11:26 Metoprolol PO 25 mg DAILY LILIAM Administration
[2020-06-28 17:15] LABS: Free T4 (Free Thyroxine) 1.17 ng/dL (0.76-1.46)
[2020-06-28] MEDS: ACETAMINOPHEN 325 MG TAB PO PRN (20:41)
[2020-06-29] MEDS: HEPARIN 5,000 UNIT/1 ML VIAL SUB-Q SCH ×3 (00:20→21:51)
[2020-06-29] MEDS: GABAPENTIN 300 MG CAP PO SCH ×3 (00:20→21:51)
[2020-06-29] MEDS: METOPROLOL TARTRATE 25 MG TAB PO SCH (09:59)
[2020-06-29] MEDS: LISINOPRIL 20 MG TAB PO SCH (09:59)
--- NOTE | 2020-06-29 20:27 | Progress Note ---
Assessment and Plan - Patient Problems (1) Metabolic encephalopathy Current Visit: Yes Status: Acute Plan to address problem: CT head neck reviewed, neuro check, seizure precautions, aspiration precautions, fall precautions, thyroid panel, supportive care. (2) Vascular dementia without behavioral disturbance Current Visit: Yes Status: Acute Plan to address problem: Verbal prompting, verbal redirection, benzodiazepine therapy as needed as clinically indicated. (3) Cerebral atherosclerosis Current Visit: Yes Status: Acute Plan to address problem: Supportive care, risk factor reduction. (4) DVT prophylaxis Current Visit: Yes Status: Acute Plan to address problem: SCD to bilateral lower extremities while in bed, prophylactic anticoagulation. History Interval history: 74-year-old male hospital day #4 with metabolic encephalopathy, vascular dementia without behavioral disturbance, cerebral atherosclerosis. Patient is alert and responsive with diminished cognition with concomitant periods of agitation. No reported nursing events. No clinical signs of pain. Case management consulted regarding discharge planning/intermediate facility placement. Patient is awaiting placement. Hospitalist Physical - Constitutional Vitals: Temp Pulse Resp BP Pulse Ox 97.9 F 70 18 127/64 98 06/29/20 11:41 06/29/20 12:00 06/29/20 11:41 06/29/20 11:41 06/29/20 11:41 General appearance: Present: no acute distress - EENT Eyes: Present: PERRL ENT: hearing intact - Neck Neck: Present: supple - Respiratory Respiratory: bilateral: CTA - Cardiovascular Rhythm: regular Heart Sounds: Present: S1 & S2 - Extremities Extremity abnormal: edema Peripheral Pulses: within normal limits - Abdominal General gastrointestinal: soft, non-tender, non-distended - Integumentary Integumentary: Present: clear, dry - Psychiatric Psychiatric: no appropriate mood/affect, no intact judgment & insight, no memory intact - Neurologic Neurologic: CNII-XII intact, no gait normal HEART Score - HEART Score Risk factors: 1-2 risk factors Troponin: Troponin T < 0.010 ng/mL (0.00-0.029) 06/26/20 03:05 Troponin: < normal limit - Critical Actions Critical Actions: 0-3 pts:0.9-1.7%risk of adverse cardiac event.Candidate for discharge Results - Labs CBC & Chem 7: 06/26/20 00:45 06/27/20 05:08 Labs: Laboratory Last Values WBC 5.6 K/mm3 (4.5-11.0) 06/26/20 00:45 RBC 3.44 M/mm3 (3.65-5.03) L 06/26/20 00:45 Hgb 12.1 gm/dl (11.8-15.2) 06/26/20 00:45 Hct 35.7 % (35.5-45.6) 06/26/20 00:45 MCV 104 fl (84-94) H 06/26/20 00:45 MCH 35 pg (28-32) H 06/26/20 00:45 MCHC 34 % (32-34) 06/26/20 00:45 RDW 14.8 % (13.2-15.2) 06/26/20 00:45 Plt Count 279 K/mm3 (140-440) 06/26/20 00:45 Lymph % (Auto) 16.0 % (13.4-35.0) 06/26/20 00:45 [place] % (Auto) 8.1 % (0.0-7.3) H 06/26/20 00:45 Eos % (Auto) 1.2 % (0.0-4.3) 06/26/20 00:45 Baso % (Auto) 0.6 % (0.0-1.8) 06/26/20 00:45 Lymph # (Auto) 0.9 K/mm3 (1.2-5.4) L 06/26/20 00:45 [place] # (Auto) 0.5 K/mm3 (0.0-0.8) 06/26/20 00:45 Eos # (Auto) 0.1 K/mm3 (0.0-0.4) 06/26/20 00:45 Baso # (Auto) 0.0 K/mm3 (0.0-0.1) 06/26/20 00:45 Seg Neutrophils % 74.1 % (40.0-70.0) H 06/26/20 00:45 Seg Neutrophils # 4.1 K/mm3 (1.8-7.7) 06/26/20 00:45 Sodium 140 mmol/L (137-145) 06/27/20 05:08 Potassium 3.8 mmol/L (3.6-5.0) 06/27/20 05:08 Chloride 104.2 mmol/L (98-107) 06/27/20 05:08 Carbon Dioxide 26 mmol/L (22-30) D 06/27/20 05:08 Anion Gap 14 mmol/L 06/27/20 05:08 BUN 16 mg/dL (9-20) 06/27/20 05:08 Creatinine 0.8 mg/dL (0.8-1.3) 06/27/20 05:08 Estimated GFR > 60 ml/min 06/27/20 05:08 BUN/Creatinine Ratio 20 % 06/27/20 05:08 Glucose 93 mg/dL (75-100) 06/27/20 05:08 Lactic Acid 1.50 mmol/L (0.7-2.0) 06/26/20 00:45 Calcium 8.9 mg/dL (8.4-10.2) 06/27/20 05:08 Total Bilirubin 0.50 mg/dL (0.1-1.2) 06/26/20 00:45 AST 20 units/L (5-40) 06/26/20 00:45 ALT 13 units/L (7-56) 06/26/20 00:45 Alkaline Phosphatase 100 units/L (35-129) 06/26/20 00:45 Ammonia 20.0 umol/L (25-60) L 06/26/20 04:59 Total Creatine Kinase 138 units/L (55-170) 06/26/20 00:45 Troponin T < 0.010 ng/mL (0.00-0.029) 06/26/20 03:05 Total Protein 7.2 g/dL (6.3-8.2) 06/26/20 00:45 Albumin 4.5 g/dL (3.9-5) 06/26/20 00:45 Albumin/Globulin Ratio 1.7 % 06/26/20 00:45 TSH 1.620 mlU/mL (0.270-4.200) 06/28/20 15:56 Free T4 1.17 ng/dL (0.76-1.46) 06/28/20 15:56 Urine Color Yellow (Yellow) 06/26/20 01:59 Urine Turbidity Clear (Clear) 06/26/20 01:59 Urine pH 6.0 (5.0-7.0) 06/26/20 01:59 Ur Specific [place] 1.013 (1.003-1.030) 06/26/20 01:59 Urine Protein <15 mg/dl mg/dL (Negative) 06/26/20 01:59 Urine Glucose (UA) Neg mg/dL (Negative) 06/26/20 01:59 Urine Ketones Neg mg/dL (Negative) 06/26/20 01:59 Urine Blood Neg (Negative) 06/26/20 01:59 Urine Nitrite Neg (Negative) 06/26/20 01:59 Urine Bilirubin Neg (Negative) 06/26/20 01:59 Urine Urobilinogen < 2.0 mg/dL (<2.0) 06/26/20 01:59 Ur Leukocyte Esterase Neg (Negative) 06/26/20 01:59 Urine WBC (Auto) 2.0 /HPF (0.0-6.0) 06/26/20 01:59 Urine RBC (Auto) 2.0 /HPF (0.0-6.0) 06/26/20 01:59 U Epithel Cells (Auto) 1.0 /HPF (0-13.0) 06/26/20 01:59 Urine Mucus Few /HPF 06/26/20 01:59 Urine Opiates Screen Presumptive negative 06/26/20 01:59 Urine Methadone Screen Presumptive negative 06/26/20 01:59 Acetaminophen 5.0 ug/mL (10.0-30.0) L 06/26/20 00:45 Ur Barbiturates Screen Presumptive negative 06/26/20 01:59 Ur Phencyclidine Scrn Presumptive negative 06/26/20 01:59 Ur Amphetamines Screen Presumptive negative 06/26/20 01:59 U Benzodiazepines Scrn Presumptive negative 06/26/20 01:59 Urine Cocaine Screen Presumptive negative 06/26/20 01:59 U Marijuana (THC) Screen Presumptive negative 06/26/20 01:59 Drugs of Abuse Note Disclamer 06/26/20 01:59 Plasma/Serum Alcohol < 0.01 % (0-0.07) 06/26/20 00:45 Galindo/IV: Voiding Method Incontinent IV Catheter Type [right Peripheral IV forearm] Active Medications - Current Medications Current Medications: Generic Name Dose Route Start Last Admin Trade Name Freq PRN Reason Stop Dose Admin Acetaminophen 650 mg 06/26/20 04:16 06/28/20 20:41 Tylenol PO 650 mg Q4H PRN Administration Fever >101 Gabapentin 300 mg 06/26/20 10:00 06/29/20 09:59 Gabapentin PO 300 mg BID LILIAM Administration Heparin Sodium (Porcine) 5,000 unit 06/26/20 10:00 06/29/20 09:59 Heparin SUB-Q 5,000 unit Q12HR LILIAM Administration Lisinopril 20 mg 06/26/20 10:00 06/29/20 09:59 Zestril PO 20 mg DAILY LILIAM Administration Lorazepam 1 mg 06/29/20 11:28 Ativan IV Q8H PRN Agitation Metoprolol Tartrate 25 mg 06/26/20 10:00 06/29/20 09:59 Metoprolol PO 25 mg DAILY LILIAM Administration
[2020-06-29] MEDS: LORazepam 2 MG/ML VIAL IV PRN (21:51)
[2020-06-30] MEDS: METOPROLOL TARTRATE 25 MG TAB PO SCH (10:02)
[2020-06-30] MEDS: LISINOPRIL 20 MG TAB PO SCH (10:02)
[2020-06-30] MEDS: GABAPENTIN 300 MG CAP PO SCH ×2 (10:03→21:30)
[2020-06-30] MEDS: HEPARIN 5,000 UNIT/1 ML VIAL SUB-Q SCH ×2 (10:03→21:30)
[2020-06-30] MEDS: 1: FOLIC ACID 1 MG, MULTIPLE VITAMIN INJ, ADULT 10 ML, THIAMINE 100 MG in SODIUM CHLORID IV SCH (10:20)
[2020-06-30] MEDS ORDERED: THIAMINE 100 MG in SODIUM CHLORIDE 0.9% 50 ML IV ONE (10:30)
[2020-06-30] MEDS: LORazepam 2 MG/ML VIAL IV PRN ×2 (10:35→17:30)
[2020-06-30] MEDS ORDERED: chlordiazePOXIDE 25 MG CAP PO PRN (16:53)
--- NOTE | 2020-06-30 16:56 | Progress Note ---
Assessment and Plan Assessment and plan: 74-year-old male with metabolic encephalopathy, vascular dementia without behavioral disturbance, cerebral atherosclerosis. Patient is alert and responsive with diminished cognition with concomitant periods of agitation. No reported nursing events. No clinical signs of pain. Case management consulted regarding discharge planning/half-way facility placement. Patient is awaiting placement. 06/30/20: No clear evidence of vascular dementia but most likely Warnicke en cephalopathy secondary to alcohol use disorder Of note patient was found in the wounds with sixpack of beer. We will initiate EtOH withdrawal management with thiamine and vitamins and folic acid. We will also initiate CIWA protocol considering that patient has been abusive to staff sometimes kicking at staff. CT head: Negative for acute pathology - Patient Problems (1) Metabolic encephalopathy Current Visit: Yes Status: Acute Plan to address problem: CT head neck reviewed, neuro check, seizure precautions, aspiration precautions, fall precautions, thyroid panel, supportive care. (2) Warnicke encephalopathy secondary to EtOH withdrawal Current Visit: Yes Status: Acute Plan to address problem: Verbal prompting, verbal redirection, benzodiazepine therapy as needed as clinically indicated. (3) Cerebral atherosclerosis Current Visit: Yes Status: Acute Plan to address problem: Supportive care, risk factor reduction. (4) DVT prophylaxis Current Visit: Yes Status: Acute Plan to address problem: SCD to bilateral lower extremities while in bed, prophylactic anticoagulation. History Interval history: Patient seen and examined remains confused for confabulations noted. Hospitalist Physical - Physical exam Narrative exam: General appearance: Present: no acute distress, confabulating often aggressive - EENT Eyes: Present: PERRL ENT: hearing intact - Neck Neck: Present: supple - Respiratory Respiratory: bilateral: CTA - Cardiovascular Rhythm: regular Heart Sounds: Present: S1 & S2 - Extremities Extremity abnormal: edema Peripheral Pulses: within normal limits - Abdominal General gastrointestinal: soft, non-tender, non-distended - Integumentary Integumentary: Present: clear, dry - Psychiatric Psychiatric: no appropriate mood/affect, no intact judgment & insight, no memory intact - Neurologic Neurologic: CNII-XII intact, no gait normal - Constitutional Vitals: Temp Pulse Resp BP Pulse Ox 98.0 F 67 16 172/64 100 06/30/20 04:50 06/30/20 04:50 06/30/20 04:50 06/30/20 04:50 06/30/20 04:50 General appearance: Present: no acute distress HEART Score - HEART Score Risk factors: 1-2 risk factors Troponin: Troponin T < 0.010 ng/mL (0.00-0.029) 06/26/20 03:05 Troponin: < normal limit - Critical Actions Critical Actions: 0-3 pts:0.9-1.7%risk of adverse cardiac event.Candidate for discharge Results - Labs CBC & Chem 7: 06/26/20 00:45 06/27/20 05:08 Labs: Laboratory Last Values WBC 5.6 K/mm3 (4.5-11.0) 06/26/20 00:45 RBC 3.44 M/mm3 (3.65-5.03) L 06/26/20 00:45 Hgb 12.1 gm/dl (11.8-15.2) 06/26/20 00:45 Hct 35.7 % (35.5-45.6) 06/26/20 00:45 MCV 104 fl (84-94) H 06/26/20 00:45 MCH 35 pg (28-32) H 06/26/20 00:45 MCHC 34 % (32-34) 06/26/20 00:45 RDW 14.8 % (13.2-15.2) 06/26/20 00:45 Plt Count 279 K/mm3 (140-440) 06/26/20 00:45 Lymph % (Auto) 16.0 % (13.4-35.0) 06/26/20 00:45 [place] % (Auto) 8.1 % (0.0-7.3) H 06/26/20 00:45 Eos % (Auto) 1.2 % (0.0-4.3) 06/26/20 00:45 Baso % (Auto) 0.6 % (0.0-1.8) 06/26/20 00:45 Lymph # (Auto) 0.9 K/mm3 (1.2-5.4) L 06/26/20 00:45 [place] # (Auto) 0.5 K/mm3 (0.0-0.8) 06/26/20 00:45 Eos # (Auto) 0.1 K/mm3 (0.0-0.4) 06/26/20 00:45 Baso # (Auto) 0.0 K/mm3 (0.0-0.1) 06/26/20 00:45 Seg Neutrophils % 74.1 % (40.0-70.0) H 06/26/20 00:45 Seg Neutrophils # 4.1 K/mm3 (1.8-7.7) 06/26/20 00:45 Sodium 140 mmol/L (137-145) 06/27/20 05:08 Potassium 3.8 mmol/L (3.6-5.0) 06/27/20 05:08 Chloride 104.2 mmol/L (98-107) 06/27/20 05:08 Carbon Dioxide 26 mmol/L (22-30) D 06/27/20 05:08 Anion Gap 14 mmol/L 06/27/20 05:08 BUN 16 mg/dL (9-20) 06/27/20 05:08 Creatinine 0.8 mg/dL (0.8-1.3) 06/27/20 05:08 Estimated GFR > 60 ml/min 06/27/20 05:08 BUN/Creatinine Ratio 20 % 06/27/20 05:08 Glucose 93 mg/dL (75-100) 06/27/20 05:08 Lactic Acid 1.50 mmol/L (0.7-2.0) 06/26/20 00:45 Calcium 8.9 mg/dL (8.4-10.2) 06/27/20 05:08 Total Bilirubin 0.50 mg/dL (0.1-1.2) 06/26/20 00:45 AST 20 units/L (5-40) 06/26/20 00:45 ALT 13 units/L (7-56) 06/26/20 00:45 Alkaline Phosphatase 100 units/L (35-129) 06/26/20 00:45 Ammonia 20.0 umol/L (25-60) L 06/26/20 04:59 Total Creatine Kinase 138 units/L (55-170) 06/26/20 00:45 Troponin T < 0.010 ng/mL (0.00-0.029) 06/26/20 03:05 Total Protein 7.2 g/dL (6.3-8.2) 06/26/20 00:45 Albumin 4.5 g/dL (3.9-5) 06/26/20 00:45 Albumin/Globulin Ratio 1.7 % 06/26/20 00:45 TSH 1.620 mlU/mL (0.270-4.200) 06/28/20 15:56 Free T4 1.17 ng/dL (0.76-1.46) 06/28/20 15:56 Urine Color Yellow (Yellow) 06/26/20 01:59 Urine Turbidity Clear (Clear) 06/26/20 01:59 Urine pH 6.0 (5.0-7.0) 06/26/20 01:59 Ur Specific [place] 1.013 (1.003-1.030) 06/26/20 01:59 Urine Protein <15 mg/dl mg/dL (Negative) 06/26/20 01:59 Urine Glucose (UA) Neg mg/dL (Negative) 06/26/20 01:59 Urine Ketones Neg mg/dL (Negative) 06/26/20 01:59 Urine Blood Neg (Negative) 06/26/20 01:59 Urine Nitrite Neg (Negative) 06/26/20 01:59 Urine Bilirubin Neg (Negative) 06/26/20 01:59 Urine Urobilinogen < 2.0 mg/dL (<2.0) 06/26/20 01:59 Ur Leukocyte Esterase Neg (Negative) 06/26/20 01:59 Urine WBC (Auto) 2.0 /HPF (0.0-6.0) 06/26/20 01:59 Urine RBC (Auto) 2.0 /HPF (0.0-6.0) 06/26/20 01:59 U Epithel Cells (Auto) 1.0 /HPF (0-13.0) 06/26/20 01:59 Urine Mucus Few /HPF 06/26/20 01:59 Urine Opiates Screen Presumptive negative 06/26/20 01:59 Urine Methadone Screen Presumptive negative 06/26/20 01:59 Acetaminophen 5.0 ug/mL (10.0-30.0) L 06/26/20 00:45 Ur Barbiturates Screen Presumptive negative 06/26/20 01:59 Ur Phencyclidine Scrn Presumptive negative 06/26/20 01:59 Ur Amphetamines Screen Presumptive negative 06/26/20 01:59 U Benzodiazepines Scrn Presumptive negative 06/26/20 01:59 Urine Cocaine Screen Presumptive negative 06/26/20 01:59 U Marijuana (THC) Screen Presumptive negative 06/26/20 01:59 Drugs of Abuse Note Disclamer 06/26/20 01:59 Plasma/Serum Alcohol < 0.01 % (0-0.07) 06/26/20 00:45 Galindo/IV: Voiding Method Urinal IV Catheter Type [right Peripheral IV forearm] Active Medications - Current Medications Current Medications: Generic Name Dose Route Start Last Admin Trade Name Freq PRN Reason Stop Dose Admin Acetaminophen 650 mg 06/26/20 04:16 06/28/20 20:41 Tylenol PO 650 mg Q4H PRN Administration Fever >101 Chlordiazepoxide HCl 100 mg 06/30/20 16:53 Librium PO Q1HR PRN CIWA-Ar 16-25 Gabapentin 300 mg 06/26/20 10:00 06/30/20 10:03 Gabapentin PO 300 mg BID LILIAM Administration Heparin Sodium (Porcine) 5,000 unit 06/26/20 10:00 06/30/20 10:03 Heparin SUB-Q 5,000 unit Q12HR LILIAM Administration Folic Acid 1 mg/ Multivitamins 1,000 mls @ 125 mls/hr 06/30/20 10:00 06/30/20 10:20 /Minerals 10 ml/ Thiamine HCl IV 125 mls/hr 100 mg/ Sodium Chloride .BY DURATION LILIAM Administration Sodium Chloride 1,000 mls @ 125 mls/hr 06/30/20 10:00 Nacl 0.9% 1000 Ml IV .BY DURATION LILIAM Lisinopril 20 mg 06/26/20 10:00 06/30/20 10:02 Zestril PO 20 mg DAILY LILIAM Administration Lorazepam 2 mg 06/30/20 16:53 Ativan IV Q1HR PRN CIWA-Ar 8-15 Lorazepam 4 mg 06/30/20 16:53 Ativan IV Q1HR PRN CIWA-Ar 16-25 Metoprolol Tartrate 25 mg 06/26/20 10:00 06/30/20 10:02 Metoprolol PO 25 mg DAILY LILIAM Administration
[2020-07-01] MEDS: SODIUM CHLORIDE 0.9% 1000 ML 1,000 ML IV SCH (03:18)
--- NOTE | 2020-07-01 08:34 | Progress Note ---
Assessment and Plan Assessment and plan: 74-year-old male with metabolic encephalopathy, vascular dementia without behavioral disturbance, cerebral atherosclerosis. Patient is alert and responsive with diminished cognition with concomitant periods of agitation. No reported nursing events. No clinical signs of pain. Case management consulted regarding discharge planning/snf facility placement. Patient is awaiting placement. 06/30/20: No clear evidence of vascular dementia but most likely Warnicke en cephalopathy secondary to alcohol use disorder Of note patient was found in the wounds with sixpack of beer. We will initiate EtOH withdrawal management with thiamine and vitamins and folic acid. We will also initiate CIWA protocol considering that patient has been abusive to staff sometimes kicking at staff. 07/01: Ammonia level low. Continue current management, replace magnesium. Continue safety wrist restraints. CT head: Negative for acute pathology - Patient Problems (1) Metabolic encephalopathy Current Visit: Yes Status: Acute Plan to address problem: CT head neck reviewed, neuro check, seizure precautions, aspiration precautions, fall precautions, thyroid panel, supportive care. (2) Warnicke encephalopathy secondary to EtOH withdrawal- POA Current Visit: Yes Status: Acute Plan to address problem: Verbal prompting, verbal redirection, benzodiazepine therapy as needed as clinically indicated. (3) Cerebral atherosclerosis Current Visit: Yes Status: Acute Plan to address problem: Supportive care, risk factor reduction. (4) DVT prophylaxis Current Visit: Yes Status: Acute Plan to address problem: SCD to bilateral lower extremities while in bed, prophylactic anticoagulation. History Interval history: Patient seen and examined remains confused and delirious Hospitalist Physical - Physical exam Narrative exam: General appearance: Present: no acute distress, delirius, confabulating often aggressive - EENT Eyes: Present: PERRL ENT: hearing intact - Neck Neck: Present: supple - Respiratory Respiratory: bilateral: CTA - Cardiovascular Rhythm: regular Heart Sounds: Present: S1 & S2 - Extremities Extremity abnormal: edema Peripheral Pulses: within normal limits - Abdominal General gastrointestinal: soft, non-tender, non-distended - Integumentary Integumentary: Present: clear, dry - Psychiatric Psychiatric: no appropriate mood/affect, no intact judgment & insight, no memory intact - Neurologic Neurologic: CNII-XII intact, no gait normal - Constitutional Vitals: Temp Pulse Resp BP Pulse Ox 98.6 F 91 H 17 190/92 80 L 07/01/20 05:10 07/01/20 06:00 07/01/20 06:00 07/01/20 05:10 07/01/20 05:10 General appearance: Present: no acute distress HEART Score - HEART Score Risk factors: 1-2 risk factors Troponin: Troponin T < 0.010 ng/mL (0.00-0.029) 06/26/20 03:05 Troponin: < normal limit - Critical Actions Critical Actions: 0-3 pts:0.9-1.7%risk of adverse cardiac event.Candidate for discharge Results - Labs CBC & Chem 7: 06/26/20 00:45 06/27/20 05:08 Labs: Laboratory Last Values WBC 5.6 K/mm3 (4.5-11.0) 06/26/20 00:45 RBC 3.44 M/mm3 (3.65-5.03) L 06/26/20 00:45 Hgb 12.1 gm/dl (11.8-15.2) 06/26/20 00:45 Hct 35.7 % (35.5-45.6) 06/26/20 00:45 MCV 104 fl (84-94) H 06/26/20 00:45 MCH 35 pg (28-32) H 06/26/20 00:45 MCHC 34 % (32-34) 06/26/20 00:45 RDW 14.8 % (13.2-15.2) 06/26/20 00:45 Plt Count 279 K/mm3 (140-440) 06/26/20 00:45 Lymph % (Auto) 16.0 % (13.4-35.0) 06/26/20 00:45 [place] % (Auto) 8.1 % (0.0-7.3) H 06/26/20 00:45 Eos % (Auto) 1.2 % (0.0-4.3) 06/26/20 00:45 Baso % (Auto) 0.6 % (0.0-1.8) 06/26/20 00:45 Lymph # (Auto) 0.9 K/mm3 (1.2-5.4) L 06/26/20 00:45 [place] # (Auto) 0.5 K/mm3 (0.0-0.8) 06/26/20 00:45 Eos # (Auto) 0.1 K/mm3 (0.0-0.4) 06/26/20 00:45 Baso # (Auto) 0.0 K/mm3 (0.0-0.1) 06/26/20 00:45 Seg Neutrophils % 74.1 % (40.0-70.0) H 06/26/20 00:45 Seg Neutrophils # 4.1 K/mm3 (1.8-7.7) 06/26/20 00:45 Sodium 140 mmol/L (137-145) 06/27/20 05:08 Potassium 3.8 mmol/L (3.6-5.0) 06/27/20 05:08 Chloride 104.2 mmol/L (98-107) 06/27/20 05:08 Carbon Dioxide 26 mmol/L (22-30) D 06/27/20 05:08 Anion Gap 14 mmol/L 06/27/20 05:08 BUN 16 mg/dL (9-20) 06/27/20 05:08 Creatinine 0.8 mg/dL (0.8-1.3) 06/27/20 05:08 Estimated GFR > 60 ml/min 06/27/20 05:08 BUN/Creatinine Ratio 20 % 06/27/20 05:08 Glucose 93 mg/dL (75-100) 06/27/20 05:08 Lactic Acid 1.50 mmol/L (0.7-2.0) 06/26/20 00:45 Calcium 8.9 mg/dL (8.4-10.2) 06/27/20 05:08 Magnesium 1.50 mg/dL (1.7-2.3) L 06/30/20 19:20 Total Bilirubin 0.50 mg/dL (0.1-1.2) 06/26/20 00:45 AST 20 units/L (5-40) 06/26/20 00:45 ALT 13 units/L (7-56) 06/26/20 00:45 Alkaline Phosphatase 100 units/L (35-129) 06/26/20 00:45 Ammonia 20.0 umol/L (25-60) L 06/30/20 19:20 Total Creatine Kinase 138 units/L (55-170) 06/26/20 00:45 Troponin T < 0.010 ng/mL (0.00-0.029) 06/26/20 03:05 Total Protein 7.2 g/dL (6.3-8.2) 06/26/20 00:45 Albumin 4.5 g/dL (3.9-5) 06/26/20 00:45 Albumin/Globulin Ratio 1.7 % 06/26/20 00:45 TSH 1.620 mlU/mL (0.270-4.200) 06/28/20 15:56 Free T4 1.17 ng/dL (0.76-1.46) 06/28/20 15:56 Urine Color Yellow (Yellow) 06/26/20 01:59 Urine Turbidity Clear (Clear) 06/26/20 01:59 Urine pH 6.0 (5.0-7.0) 06/26/20 01:59 Ur Specific [place] 1.013 (1.003-1.030) 06/26/20 01:59 Urine Protein <15 mg/dl mg/dL (Negative) 06/26/20 01:59 Urine Glucose (UA) Neg mg/dL (Negative) 06/26/20 01:59 Urine Ketones Neg mg/dL (Negative) 06/26/20 01:59 Urine Blood Neg (Negative) 06/26/20 01:59 Urine Nitrite Neg (Negative) 06/26/20 01:59 Urine Bilirubin Neg (Negative) 06/26/20 01:59 Urine Urobilinogen < 2.0 mg/dL (<2.0) 06/26/20 01:59 Ur Leukocyte Esterase Neg (Negative) 06/26/20 01:59 Urine WBC (Auto) 2.0 /HPF (0.0-6.0) 06/26/20 01:59 Urine RBC (Auto) 2.0 /HPF (0.0-6.0) 06/26/20 01:59 U Epithel Cells (Auto) 1.0 /HPF (0-13.0) 06/26/20 01:59 Urine Mucus Few /HPF 06/26/20 01:59 Urine Opiates Screen Presumptive negative 06/26/20 01:59 Urine Methadone Screen Presumptive negative 06/26/20 01:59 Acetaminophen 5.0 ug/mL (10.0-30.0) L 06/26/20 00:45 Ur Barbiturates Screen Presumptive negative 06/26/20 01:59 Ur Phencyclidine Scrn Presumptive negative 06/26/20 01:59 Ur Amphetamines Screen Presumptive negative 06/26/20 01:59 U Benzodiazepines Scrn Presumptive negative 06/26/20 01:59 Urine Cocaine Screen Presumptive negative 06/26/20 01:59 U Marijuana (THC) Screen Presumptive negative 06/26/20 01:59 Drugs of Abuse Note Disclamer 06/26/20 01:59 Plasma/Serum Alcohol < 0.01 % (0-0.07) 06/26/20 00:45 Galindo/IV: Voiding Method Urinal IV Catheter Type [right Peripheral IV forearm] Active Medications - Current Medications Current Medications: Generic Name Dose Route Start Last Admin Trade Name Freq PRN Reason Stop Dose Admin Acetaminophen 650 mg 06/26/20 04:16 06/28/20 20:41 Tylenol PO 650 mg Q4H PRN Administration Fever >101 Chlordiazepoxide HCl 100 mg 06/30/20 16:53 Librium PO Q1HR PRN CIWA-Ar 16-25 Gabapentin 300 mg 06/26/20 10:00 06/30/20 21:30 Gabapentin PO 300 mg BID LILIAM Administration Heparin Sodium (Porcine) 5,000 unit 06/26/20 10:00 06/30/20 21:30 Heparin SUB-Q 5,000 unit Q12HR LILIAM Administration Hydralazine HCl 10 mg 07/01/20 07:41 Apresoline IV Q4HR PRN Hypertension Folic Acid 1 mg/ Multivitamins 1,000 mls @ 125 mls/hr 06/30/20 10:00 06/30/20 10:20 /Minerals 10 ml/ Thiamine HCl IV 125 mls/hr 100 mg/ Sodium Chloride .BY DURATION LILIAM Administration Sodium Chloride 1,000 mls @ 125 mls/hr 06/30/20 10:00 Nacl 0.9% 1000 Ml IV .BY DURATION LILIAM Sodium Chloride 1,000 mls @ 125 mls/hr 07/01/20 03:15 07/01/20 03:18 Nacl 0.9% 1000 Ml IV 125 mls/hr DIRECT LILIAM Administration Lisinopril 20 mg 06/26/20 10:00 06/30/20 10:02 Zestril PO 20 mg DAILY LILIAM Administration Lorazepam 2 mg 06/30/20 16:53 Ativan IV Q1HR PRN CIWA-Ar 8-15 Lorazepam 4 mg 06/30/20 16:53 06/30/20 17:30 Ativan IV 4 mg Q1HR PRN Administration CIWA-Ar 16-25 Metoprolol Tartrate 25 mg 06/26/20 10:00 06/30/20 10:02 Metoprolol PO 25 mg DAILY LILIAM Administration
[2020-07-01] MEDS: HEPARIN 5,000 UNIT/1 ML VIAL SUB-Q SCH ×2 (10:04→23:37)
[2020-07-01] MEDS: GABAPENTIN 300 MG CAP PO SCH ×2 (10:04→23:37)
[2020-07-01] MEDS: METOPROLOL TARTRATE 25 MG TAB PO SCH (10:04)
[2020-07-01] MEDS: LISINOPRIL 20 MG TAB PO SCH (10:04)
[2020-07-01] MEDS ORDERED: MAGNESIUM SULFATE 4 GM/100 ML BAG IV ONE (15:30)
[2020-07-01] MEDS: LORazepam 2 MG/ML VIAL IV PRN ×3 (16:24→23:50)
[2020-07-01] MEDS: 1: FOLIC ACID 1 MG, MULTIPLE VITAMIN INJ, ADULT 10 ML, THIAMINE 100 MG in SODIUM CHLORID IV SCH (18:26)
[2020-07-01] MEDS: hydrALAZINE 20 MG/1 ML INJ IV PRN (23:50)
[2020-07-02] MEDS: LORazepam 2 MG/ML VIAL IV PRN ×3 (02:07→22:20)
[2020-07-02] MEDS: 1: FOLIC ACID 1 MG, MULTIPLE VITAMIN INJ, ADULT 10 ML, THIAMINE 100 MG in SODIUM CHLORID IV SCH ×2 (03:55→21:51)
[2020-07-02] MEDS: METOPROLOL TARTRATE 25 MG TAB PO SCH (09:48)
[2020-07-02] MEDS: LISINOPRIL 20 MG TAB PO SCH (09:48)
[2020-07-02] MEDS: GABAPENTIN 300 MG CAP PO SCH ×3 (09:49→21:57)
[2020-07-02] MEDS: HEPARIN 5,000 UNIT/1 ML VIAL SUB-Q SCH ×2 (09:49→21:51)
[2020-07-02] MEDS: THIAMINE 100 MG in SODIUM CHLORIDE 0.9% 50 ML IV SCH (13:40)
[2020-07-02] MEDS: SODIUM CHLORIDE 0.9% 1000 ML 1,000 ML IV SCH (14:12)
--- NOTE | 2020-07-02 14:33 | Progress Note ---
Assessment and Plan Assessment and plan: 74-year-old male with metabolic encephalopathy, vascular dementia without behavioral disturbance, cerebral atherosclerosis. Patient is alert and responsive with diminished cognition with concomitant periods of agitation. No reported nursing events. No clinical signs of pain. Case management consulted regarding discharge planning/usp facility placement. Patient is awaiting placement. 06/30/20: No clear evidence of vascular dementia but most likely Warnicke en cephalopathy secondary to alcohol use disorder Of note patient was found in the wounds with sixpack of beer. We will initiate EtOH withdrawal management with thiamine and vitamins and folic acid. We will also initiate CIWA protocol considering that patient has been abusive to staff sometimes kicking at staff. 07/01: Ammonia level low. Continue current management, replace magnesium. Continue safety wrist restraints. 07/02: Remains delirious and in restriants, will cut down on the sedation medications, continue Thiamine. Poor prognosis CT head: Negative for acute pathology - Patient Problems (1) Metabolic encephalopathy Current Visit: Yes Status: Acute Plan to address problem: CT head neck reviewed, neuro check, seizure precautions, aspiration precautions, fall precautions, thyroid panel, supportive care. (2) Warnicke encephalopathy secondary to EtOH withdrawal- POA Current Visit: Yes Status: Acute Plan to address problem: Verbal prompting, verbal redirection, benzodiazepine therapy as needed as clinically indicated. (3) Cerebral atherosclerosis Current Visit: Yes Status: Acute Plan to address problem: Supportive care, risk factor reduction. (4) DVT prophylaxis Current Visit: Yes Status: Acute Plan to address problem: SCD to bilateral lower extremities while in bed, prophylactic anticoagulation. History Interval history: Patient seen and examined remains, confused and delirious, remains on restraints Hospitalist Physical - Physical exam Narrative exam: General appearance: Present: no acute distress, delirius, confabulating often aggressive - EENT Eyes: Present: PERRL ENT: hearing intact - Neck Neck: Present: supple - Respiratory Respiratory: bilateral: CTA - Cardiovascular Rhythm: regular Heart Sounds: Present: S1 & S2 - Extremities Extremity abnormal: edema Peripheral Pulses: within normal limits - Abdominal General gastrointestinal: soft, non-tender, non-distended - Integumentary Integumentary: Present: clear, dry - Psychiatric Psychiatric: no appropriate mood/affect, no intact judgment & insight, no memory intact - Neurologic Neurologic: CNII-XII intact, no gait normal - Constitutional Vitals: Temp Pulse Resp BP Pulse Ox 98.0 F 84 20 155/78 97 07/02/20 07:33 07/02/20 09:48 07/02/20 07:33 07/02/20 09:48 07/02/20 07:33 General appearance: Present: no acute distress HEART Score - HEART Score Risk factors: 1-2 risk factors Troponin: Troponin T < 0.010 ng/mL (0.00-0.029) 06/26/20 03:05 Troponin: < normal limit - Critical Actions Critical Actions: 0-3 pts:0.9-1.7%risk of adverse cardiac event.Candidate for d ischarge Results - Labs CBC & Chem 7: 06/26/20 00:45 06/27/20 05:08 Labs: Laboratory Last Values WBC 5.6 K/mm3 (4.5-11.0) 06/26/20 00:45 RBC 3.44 M/mm3 (3.65-5.03) L 06/26/20 00:45 Hgb 12.1 gm/dl (11.8-15.2) 06/26/20 00:45 Hct 35.7 % (35.5-45.6) 06/26/20 00:45 MCV 104 fl (84-94) H 06/26/20 00:45 MCH 35 pg (28-32) H 06/26/20 00:45 MCHC 34 % (32-34) 06/26/20 00:45 RDW 14.8 % (13.2-15.2) 06/26/20 00:45 Plt Count 279 K/mm3 (140-440) 06/26/20 00:45 Lymph % (Auto) 16.0 % (13.4-35.0) 06/26/20 00:45 [place] % (Auto) 8.1 % (0.0-7.3) H 06/26/20 00:45 Eos % (Auto) 1.2 % (0.0-4.3) 06/26/20 00:45 Baso % (Auto) 0.6 % (0.0-1.8) 06/26/20 00:45 Lymph # (Auto) 0.9 K/mm3 (1.2-5.4) L 06/26/20 00:45 [place] # (Auto) 0.5 K/mm3 (0.0-0.8) 06/26/20 00:45 Eos # (Auto) 0.1 K/mm3 (0.0-0.4) 06/26/20 00:45 Baso # (Auto) 0.0 K/mm3 (0.0-0.1) 06/26/20 00:45 Seg Neutrophils % 74.1 % (40.0-70.0) H 06/26/20 00:45 Seg Neutrophils # 4.1 K/mm3 (1.8-7.7) 06/26/20 00:45 Sodium 140 mmol/L (137-145) 06/27/20 05:08 Potassium 3.8 mmol/L (3.6-5.0) 06/27/20 05:08 Chloride 104.2 mmol/L (98-107) 06/27/20 05:08 Carbon Dioxide 26 mmol/L (22-30) D 06/27/20 05:08 Anion Gap 14 mmol/L 06/27/20 05:08 BUN 16 mg/dL (9-20) 06/27/20 05:08 Creatinine 0.8 mg/dL (0.8-1.3) 06/27/20 05:08 Estimated GFR > 60 ml/min 06/27/20 05:08 BUN/Creatinine Ratio 20 % 06/27/20 05:08 Glucose 93 mg/dL (75-100) 06/27/20 05:08 Lactic Acid 1.50 mmol/L (0.7-2.0) 06/26/20 00:45 Calcium 8.9 mg/dL (8.4-10.2) 06/27/20 05:08 Magnesium 1.50 mg/dL (1.7-2.3) L 06/30/20 19:20 Total Bilirubin 0.50 mg/dL (0.1-1.2) 06/26/20 00:45 AST 20 units/L (5-40) 06/26/20 00:45 ALT 13 units/L (7-56) 06/26/20 00:45 Alkaline Phosphatase 100 units/L (35-129) 06/26/20 00:45 Ammonia 20.0 umol/L (25-60) L 06/30/20 19:20 Total Creatine Kinase 138 units/L (55-170) 06/26/20 00:45 Troponin T < 0.010 ng/mL (0.00-0.029) 06/26/20 03:05 Total Protein 7.2 g/dL (6.3-8.2) 06/26/20 00:45 Albumin 4.5 g/dL (3.9-5) 06/26/20 00:45 Albumin/Globulin Ratio 1.7 % 06/26/20 00:45 TSH 1.620 mlU/mL (0.270-4.200) 06/28/20 15:56 Free T4 1.17 ng/dL (0.76-1.46) 06/28/20 15:56 Urine Color Yellow (Yellow) 06/26/20 01:59 Urine Turbidity Clear (Clear) 06/26/20 01:59 Urine pH 6.0 (5.0-7.0) 06/26/20 01:59 Ur Specific [place] 1.013 (1.003-1.030) 06/26/20 01:59 Urine Protein <15 mg/dl mg/dL (Negative) 06/26/20 01:59 Urine Glucose (UA) Neg mg/dL (Negative) 06/26/20 01:59 Urine Ketones Neg mg/dL (Negative) 06/26/20 01:59 Urine Blood Neg (Negative) 06/26/20 01:59 Urine Nitrite Neg (Negative) 06/26/20 01:59 Urine Bilirubin Neg (Negative) 06/26/20 01:59 Urine Urobilinogen < 2.0 mg/dL (<2.0) 06/26/20 01:59 Ur Leukocyte Esterase Neg (Negative) 06/26/20 01:59 Urine WBC (Auto) 2.0 /HPF (0.0-6.0) 06/26/20 01:59 Urine RBC (Auto) 2.0 /HPF (0.0-6.0) 06/26/20 01:59 U Epithel Cells (Auto) 1.0 /HPF (0-13.0) 06/26/20 01:59 Urine Mucus Few /HPF 06/26/20 01:59 Urine Opiates Screen Presumptive negative 06/26/20 01:59 Urine Methadone Screen Presumptive negative 06/26/20 01:59 Acetaminophen 5.0 ug/mL (10.0-30.0) L 06/26/20 00:45 Ur Barbiturates Screen Presumptive negative 06/26/20 01:59 Ur Phencyclidine Scrn Presumptive negative 06/26/20 01:59 Ur Amphetamines Screen Presumptive negative 06/26/20 01:59 U Benzodiazepines Scrn Presumptive negative 06/26/20 01:59 Urine Cocaine Screen Presumptive negative 06/26/20 01:59 U Marijuana (THC) Screen Presumptive negative 06/26/20 01:59 Drugs of Abuse Note Disclamer 06/26/20 01:59 Plasma/Serum Alcohol < 0.01 % (0-0.07) 06/26/20 00:45 Galindo/IV: Voiding Method Condom Catheter IV Catheter Type [right Peripheral IV forearm] Active Medications - Current Medications Current Medications: Generic Name Dose Route Start Last Admin Trade Name Freq PRN Reason Stop Dose Admin Acetaminophen 650 mg 06/26/20 04:16 06/28/20 20:41 Tylenol PO 650 mg Q4H PRN Administration Fever >101 Chlordiazepoxide HCl 25 mg 07/02/20 10:35 Librium PO Q8H PRN Anxiety Gabapentin 300 mg 06/26/20 10:00 07/02/20 09:49 Gabapentin PO 300 mg BID LILIAM Administration Heparin Sodium (Porcine) 5,000 unit 06/26/20 10:00 07/02/20 09:49 Heparin SUB-Q 5,000 unit Q12HR LILIAM Administration Hydralazine HCl 10 mg 07/01/20 07:41 07/01/20 23:50 Apresoline IV 10 mg Q4HR PRN Administration Hypertension Folic Acid 1 mg/ Multivitamins 1,000 mls @ 125 mls/hr 06/30/20 10:00 07/01/20 18:26 /Minerals 10 ml/ Thiamine HCl IV 125 mls/hr 100 mg/ Sodium Chloride .BY DURATION LILIAM Administration Sodium Chloride 1,000 mls @ 125 mls/hr 06/30/20 10:00 07/02/20 03:55 Nacl 0.9% 1000 Ml IV 125 mls/hr .BY DURATION LILIAM Administration Sodium Chloride 1,000 mls @ 125 mls/hr 07/01/20 03:15 07/02/20 14:12 Nacl 0.9% 1000 Ml IV 125 mls/hr DIRECT LILIAM Administration Thiamine HCl 100 mg/ Sodium 51 mls @ 100 mls/hr 07/02/20 11:00 07/02/20 13:40 Chloride IV 100 mls/hr QDAY LILIAM Administration Lisinopril 20 mg 06/26/20 10:00 07/02/20 09:48 Zestril PO 20 mg DAILY LILIAM Administration Lorazepam 1 mg 07/02/20 10:36 Ativan IV Q4H PRN Agitation Metoprolol Tartrate 25 mg 06/26/20 10:00 07/02/20 09:48 Metoprolol PO 25 mg DAILY LILIAM Administration
[2020-07-03] MEDS: LORazepam 2 MG/ML VIAL IV PRN (04:15)
[2020-07-03] MEDS: hydrALAZINE 20 MG/1 ML INJ IV PRN (04:20)
[2020-07-03] MEDS: 1: FOLIC ACID 1 MG, MULTIPLE VITAMIN INJ, ADULT 10 ML, THIAMINE 100 MG in SODIUM CHLORID IV SCH (06:47)
[2020-07-03] MEDS: HEPARIN 5,000 UNIT/1 ML VIAL SUB-Q SCH ×2 (09:30→22:29)
[2020-07-03] MEDS: GABAPENTIN 300 MG CAP PO SCH ×2 (09:59→22:30)
[2020-07-03] MEDS: METOPROLOL TARTRATE 25 MG TAB PO SCH (09:59)
[2020-07-03] MEDS: THIAMINE 100 MG in SODIUM CHLORIDE 0.9% 50 ML IV SCH (10:08)
[2020-07-03] MEDS: LISINOPRIL 20 MG TAB PO SCH (10:23)
--- NOTE | 2020-07-03 19:25 | Progress Note ---
Assessment and Plan Assessment and plan: 74-year-old male with metabolic encephalopathy, vascular dementia without behavioral disturbance, cerebral atherosclerosis. Patient is alert and responsive with diminished cognition with concomitant periods of agitation. No reported nursing events. No clinical signs of pain. Case management consulted regarding discharge planning/jail facility placement. Patient is awaiting placement. 06/30/20: No clear evidence of vascular dementia but most likely Warnicke en cephalopathy secondary to alcohol use disorder Of note patient was found in the wounds with sixpack of beer. We will initiate EtOH withdrawal management with thiamine and vitamins and folic acid. We will also initiate CIWA protocol considering that patient has been abusive to staff sometimes kicking at staff. 07/01: Ammonia level low. Continue current management, replace magnesium. Continue safety wrist restraints. 07/02: Remains delirious and in restriants, will cut down on the sedation medications, continue Thiamine. Poor prognosis 07/03: Discussed with the sister who states that the patient lives about 70 miles from where he was found, and has been recently in the last year diagnosed with alcohol related dementia and this time just up and left his house. [id number] Jones- sister POA. Will wean sedation medications. Monitor for improvement and correct electrolytes. CT head: Negative for acute pathology - Patient Problems (1) Metabolic encephalopathy Current Visit: Yes Status: Acute Plan to address problem: CT head neck reviewed, neuro check, seizure precautions, aspiration precautions, fall precautions, thyroid panel, supportive care. (2) Warnicke encephalopathy secondary to EtOH withdrawal- POA Current Visit: Yes Status: Acute Plan to address problem: Verbal prompting, verbal redirection, benzodiazepine therapy as needed as clinically indicated. Begin to stop some of the sedation medications. IF no improvement will need repeat CT HEAD. (3) Cerebral atherosclerosis Current Visit: Yes Status: Acute Plan to address problem: Supportive care, risk factor reduction. (4) Alcohol induced Dementia (5) DVT prophylaxis Current Visit: Yes Status: Acute Plan to address problem: SCD to bilateral lower extremities while in bed, prophylactic anticoagulation. History Interval history: Patient seen and examined remains, confused and delirious, remains on restraints Hospitalist Physical - Physical exam Narrative exam: General appearance: Present: no acute distress, remains, delirius, confabulating - EENT Eyes: Present: PERRL ENT: hearing intact - Neck Neck: Present: supple - Respiratory Respiratory: bilateral: CTA - Cardiovascular Rhythm: regular Heart Sounds: Present: S1 & S2 - Extremities Extremity abnormal: edema Peripheral Pulses: within normal limits - Abdominal General gastrointestinal: soft, non-tender, non-distended - Integumentary Integumentary: Present: clear, dry - Psychiatric Psychiatric: no appropriate mood/affect, no intact judgment & insight, no memory intact - Neurologic Neurologic: CNII-XII intact, no gait normal - Constitutional Vitals: Temp Pulse Resp BP Pulse Ox 100.1 F H 85 20 168/87 95 07/03/20 15:28 07/03/20 15:28 07/03/20 15:28 07/03/20 15:28 07/03/20 15:28 General appearance: Present: no acute distress HEART Score - HEART Score Risk factors: 1-2 risk factors Troponin: Troponin T < 0.010 ng/mL (0.00-0.029) 06/26/20 03:05 Troponin: < normal limit - Critical Actions Critical Actions: 0-3 pts:0.9-1.7%risk of adverse cardiac event.Candidate for discharge Results - Labs CBC & Chem 7: 06/26/20 00:45 06/27/20 05:08 Labs: Laboratory Last Values WBC 5.6 K/mm3 (4.5-11.0) 06/26/20 00:45 RBC 3.44 M/mm3 (3.65-5.03) L 06/26/20 00:45 Hgb 12.1 gm/dl (11.8-15.2) 06/26/20 00:45 Hct 35.7 % (35.5-45.6) 06/26/20 00:45 MCV 104 fl (84-94) H 06/26/20 00:45 MCH 35 pg (28-32) H 06/26/20 00:45 MCHC 34 % (32-34) 06/26/20 00:45 RDW 14.8 % (13.2-15.2) 06/26/20 00:45 Plt Count 279 K/mm3 (140-440) 06/26/20 00:45 Lymph % (Auto) 16.0 % (13.4-35.0) 06/26/20 00:45 [place] % (Auto) 8.1 % (0.0-7.3) H 06/26/20 00:45 Eos % (Auto) 1.2 % (0.0-4.3) 06/26/20 00:45 Baso % (Auto) 0.6 % (0.0-1.8) 06/26/20 00:45 Lymph # (Auto) 0.9 K/mm3 (1.2-5.4) L 06/26/20 00:45 [place] # (Auto) 0.5 K/mm3 (0.0-0.8) 06/26/20 00:45 Eos # (Auto) 0.1 K/mm3 (0.0-0.4) 06/26/20 00:45 Baso # (Auto) 0.0 K/mm3 (0.0-0.1) 06/26/20 00:45 Seg Neutrophils % 74.1 % (40.0-70.0) H 06/26/20 00:45 Seg Neutrophils # 4.1 K/mm3 (1.8-7.7) 06/26/20 00:45 Sodium 140 mmol/L (137-145) 06/27/20 05:08 Potassium 3.8 mmol/L (3.6-5.0) 06/27/20 05:08 Chloride 104.2 mmol/L (98-107) 06/27/20 05:08 Carbon Dioxide 26 mmol/L (22-30) D 06/27/20 05:08 Anion Gap 14 mmol/L 06/27/20 05:08 BUN 16 mg/dL (9-20) 06/27/20 05:08 Creatinine 0.8 mg/dL (0.8-1.3) 06/27/20 05:08 Estimated GFR > 60 ml/min 06/27/20 05:08 BUN/Creatinine Ratio 20 % 06/27/20 05:08 Glucose 93 mg/dL (75-100) 06/27/20 05:08 Lactic Acid 1.50 mmol/L (0.7-2.0) 06/26/20 00:45 Calcium 8.9 mg/dL (8.4-10.2) 06/27/20 05:08 Magnesium 2.30 mg/dL (1.7-2.3) 07/02/20 16:07 Total Bilirubin 0.50 mg/dL (0.1-1.2) 06/26/20 00:45 AST 20 units/L (5-40) 06/26/20 00:45 ALT 13 units/L (7-56) 06/26/20 00:45 Alkaline Phosphatase 100 units/L (35-129) 06/26/20 00:45 Ammonia 20.0 umol/L (25-60) L 06/30/20 19:20 Total Creatine Kinase 138 units/L (55-170) 06/26/20 00:45 Troponin T < 0.010 ng/mL (0.00-0.029) 06/26/20 03:05 Total Protein 7.2 g/dL (6.3-8.2) 06/26/20 00:45 Albumin 4.5 g/dL (3.9-5) 06/26/20 00:45 Albumin/Globulin Ratio 1.7 % 06/26/20 00:45 TSH 1.620 mlU/mL (0.270-4.200) 06/28/20 15:56 Free T4 1.17 ng/dL (0.76-1.46) 06/28/20 15:56 Urine Color Yellow (Yellow) 06/26/20 01:59 Urine Turbidity Clear (Clear) 06/26/20 01:59 Urine pH 6.0 (5.0-7.0) 06/26/20 01:59 Ur Specific [place] 1.013 (1.003-1.030) 06/26/20 01:59 Urine Protein <15 mg/dl mg/dL (Negative) 06/26/20 01:59 Urine Glucose (UA) Neg mg/dL (Negative) 06/26/20 01:59 Urine Ketones Neg mg/dL (Negative) 06/26/20 01:59 Urine Blood Neg (Negative) 06/26/20 01:59 Urine Nitrite Neg (Negative) 06/26/20 01:59 Urine Bilirubin Neg (Negative) 06/26/20 01:59 Urine Urobilinogen < 2.0 mg/dL (<2.0) 06/26/20 01:59 Ur Leukocyte Esterase Neg (Negative) 06/26/20 01:59 Urine WBC (Auto) 2.0 /HPF (0.0-6.0) 06/26/20 01:59 Urine RBC (Auto) 2.0 /HPF (0.0-6.0) 06/26/20 01:59 U Epithel Cells (Auto) 1.0 /HPF (0-13.0) 06/26/20 01:59 Urine Mucus Few /HPF 06/26/20 01:59 Urine Opiates Screen Presumptive negative 06/26/20 01:59 Urine Methadone Screen Presumptive negative 06/26/20 01:59 Acetaminophen 5.0 ug/mL (10.0-30.0) L 06/26/20 00:45 Ur Barbiturates Screen Presumptive negative 06/26/20 01:59 Ur Phencyclidine Scrn Presumptive negative 06/26/20 01:59 Ur Amphetamines Screen Presumptive negative 06/26/20 01:59 U Benzodiazepines Scrn Presumptive negative 06/26/20 01:59 Urine Cocaine Screen Presumptive negative 06/26/20 01:59 U Marijuana (THC) Screen Presumptive negative 06/26/20 01:59 Drugs of Abuse Note Disclamer 06/26/20 01:59 Plasma/Serum Alcohol < 0.01 % (0-0.07) 06/26/20 00:45 Galindo/IV: Voiding Method Condom Catheter IV Catheter Type [right INT / Saline Lock forearm] Active Medications - Current Medications Current Medications: Generic Name Dose Route Start Last Admin Trade Name Freq PRN Reason Stop Dose Admin Acetaminophen 650 mg 06/26/20 04:16 06/28/20 20:41 Tylenol PO 650 mg Q4H PRN Administration Fever >101 Chlordiazepoxide HCl 25 mg 07/02/20 10:35 Librium PO Q8H PRN Anxiety Gabapentin 300 mg 06/26/20 10:00 07/03/20 09:59 Gabapentin PO Not Given BID LILIAM Heparin Sodium (Porcine) 5,000 unit 06/26/20 10:00 07/03/20 09:30 Heparin SUB-Q 5,000 unit Q12HR LILIAM Administration Hydralazine HCl 10 mg 07/01/20 07:41 07/03/20 04:20 Apresoline IV 10 mg Q4HR PRN Administration Hypertension Folic Acid 1 mg/ Multivitamins 1,000 mls @ 125 mls/hr 06/30/20 10:00 07/02/20 21:51 /Minerals 10 ml/ Thiamine HCl IV 125 mls/hr 100 mg/ Sodium Chloride .BY DURATION LILIAM Administration Sodium Chloride 1,000 mls @ 125 mls/hr 06/30/20 10:00 07/03/20 06:47 Nacl 0.9% 1000 Ml IV 125 mls/hr .BY DURATION LILIAM Administration Sodium Chloride 1,000 mls @ 125 mls/hr 07/01/20 03:15 07/02/20 14:12 Nacl 0.9% 1000 Ml IV 125 mls/hr DIRECT LILIAM Administration Thiamine HCl 100 mg/ Sodium 51 mls @ 100 mls/hr 07/02/20 11:00 07/03/20 10:08 Chloride IV 100 mls/hr QDAY LILIAM Administration Lisinopril 20 mg 06/26/20 10:00 07/03/20 10:23 Zestril PO Not Given DAILY LILIAM Metoprolol Tartrate 25 mg 06/26/20 10:00 07/03/20 09:59 Metoprolol PO Not Given DAILY LILIAM Nutrition/Malnutrition Assess - Dietary Evaluation Nutrition/Malnutrition Findings: Nutrition Notes Start: 07/03/20 12:56 Freq: Status: Active Protocol: Document 07/03/20 12:57 EN (Rec: 07/03/20 13:11 EN [email or web address]) Co-Sign 07/03/20 12:57 LM Nutrition Notes Need for Assessment generated from: LOS Initial or Follow up Assessment Current Diagnosis Coronary Artery Disease, Decubitus(Pressure Ulcer), Hypertension Other Pertinent Diagnosis Encephalopathy, Cerebral atherosclerosis Current Diet low sodium diet Labs/Tests Reviewed Pertinent Medications NS at 125 ml/hr Height 5 ft 10 in Weight 73.9 kg [place] Body Weight (kg) 75.45 BMI 23.3 Weight Status Appropriate Subjective/Other Information Pt screened for LOS. DI unable to wake pt by calling his name as he was asleep. RN reports pt eating 25% of meals because he is easily fatigued and gets tired from chewing. RN states that pt would benefit from ONS TID. Pt has Juan score of 15 with sacral wound Burn Absent Trauma Absent GI Symptoms None Food Allergy No Current % PO Poor (25-49%) Minimum of two criteria No physical signs of malnutrition #2 Nutrition Diagnosis Increased nutrient needs ( specify in comment below) Comments: Protein Etiology wound healing As Evidenced by Signs and Symptoms Sacral wound #1 Nutrition Diagnosis Inadequate oral intake Etiology AMS and alcohol withdrawal As Evidenced by Signs and Symptoms Pt consuming less than 25% of meals Is patient on ventilator? No Is Patient Ambulatory and/or Out of Bed No REE-([place]-confined to bed) [phone] Calculation Used for Recommendations [facility] Additional Notes Protein: 1.25-1.5 g/kg (92- 111g) Fluid: 1 ml/kcal Nutrition Intervention Change Diet Order: Cardiac diet Add Supplement/Snack (indicate name/kcal Ensure Enlive TID /protein ) Provides kCal: 1,050 Provides Protein (gm) 60 Goal #1 Meet 75% of energy and protein needs with PO and ONS Anticipated Discharge Needs: Cardiac diet and ONS as needed Follow-Up By: 07/06/20 Additional Comments F/u for intakes and ONS tolerance
[2020-07-04] MEDS: SODIUM CHLORIDE 0.9% 1000 ML 1,000 ML IV SCH ×2 (06:49→22:43)
[2020-07-04] MEDS: 1: FOLIC ACID 1 MG, MULTIPLE VITAMIN INJ, ADULT 10 ML, THIAMINE 100 MG in SODIUM CHLORID IV SCH ×2 (08:40→11:32)
[2020-07-04] MEDS: HEPARIN 5,000 UNIT/1 ML VIAL SUB-Q SCH ×2 (10:05→22:43)
[2020-07-04] MEDS: LISINOPRIL 20 MG TAB PO SCH (10:25)
[2020-07-04] MEDS: GABAPENTIN 300 MG CAP PO SCH ×2 (10:25→22:45)
[2020-07-04] MEDS: METOPROLOL TARTRATE 25 MG TAB PO SCH (10:25)
[2020-07-04] MEDS: THIAMINE 100 MG in SODIUM CHLORIDE 0.9% 50 ML IV SCH (10:35)
--- NOTE | 2020-07-04 13:40 | Progress Note ---
Assessment and Plan Assessment and plan: 74-year-old male with metabolic encephalopathy, vascular dementia without behavioral disturbance, cerebral atherosclerosis. Patient is alert and responsive with diminished cognition with concomitant periods of agitation. No reported nursing events. No clinical signs of pain. Case management consulted regarding discharge planning/retirement facility placement. Patient is awaiting placement. 06/30/20: No clear evidence of vascular dementia but most likely Warnicke en cephalopathy secondary to alcohol use disorder Of note patient was found in the wounds with sixpack of beer. We will initiate EtOH withdrawal management with thiamine and vitamins and folic acid. We will also initiate CIWA protocol considering that patient has been abusive to staff sometimes kicking at staff. 07/01: Ammonia level low. Continue current management, replace magnesium. Continue safety wrist restraints. 07/02: Remains delirious and in restriants, will cut down on the sedation medications, continue Thiamine. Poor prognosis 07/03: Discussed with the sister who states that the patient lives about 70 miles from where he was found, and has been recently in the last year diagnosed with alcohol related dementia and this time just up and left his house. [id number]-Bcyhys Jones- sister POA. Will wean sedation medications. Monitor for improvement and correct electrolytes. 07/04: Continue current management But discontinue all sedative medications and monitor closely. CT head: Negative for acute pathology - Patient Problems (1) Metabolic encephalopathy Current Visit: Yes Status: Acute Plan to address problem: CT head neck reviewed, neuro check, seizure precautions, aspiration precautions, fall precautions, thyroid panel, supportive care. (2) Warnicke encephalopathy secondary to EtOH withdrawal- POA Current Visit: Yes Status: Acute Plan to address problem: Verbal prompting, verbal redirection, benzodiazepine therapy as needed as clinically indicated. Begin to stop some of the sedation medications. IF no improvement will need repeat CT HEAD. (3) Cerebral atherosclerosis Current Visit: Yes Status: Acute Plan to address problem: Supportive care, risk factor reduction. (4) Alcohol induced Dementia (5) DVT prophylaxis Current Visit: Yes Status: Acute Plan to address problem: SCD to bilateral lower extremities while in bed, prophylactic anticoagulation. History Interval history: Patient seen and examined remains, confused and delirious, remains on restraints Hospitalist Physical - Physical exam Narrative exam: General appearance: Present: no acute distress, remains, delirius, confabulating, just laughs - EENT Eyes: Present: PERRL ENT: hearing intact - Neck Neck: Present: supple - Respiratory Respiratory: bilateral: CTA - Cardiovascular Rhythm: regular Heart Sounds: Present: S1 & S2 - Extremities Extremity abnormal: edema Peripheral Pulses: within normal limits - Abdominal General gastrointestinal: soft, non-tender, non-distended - Integumentary Integumentary: Present: clear, dry - Psychiatric Psychiatric: no appropriate mood/affect, no intact judgment & insight, no memory intact - Neurologic Neurologic: CNII-XII intact, no gait normal - Constitutional Vitals: Temp Pulse Resp BP Pulse Ox 98.8 F 93 H 19 164/82 99 07/04/20 08:10 07/04/20 10:00 07/04/20 08:10 07/04/20 08:10 07/04/20 08:10 General appearance: Present: no acute distress HEART Score - HEART Score Risk factors: 1-2 risk factors Troponin: Troponin T < 0.010 ng/mL (0.00-0.029) 06/26/20 03:05 Troponin: < normal limit - Critical Actions Critical Actions: 0-3 pts:0.9-1.7%risk of adverse cardiac event.Candidate for discharge Results - Labs CBC & Chem 7: 06/26/20 00:45 06/27/20 05:08 Labs: Laboratory Last Values WBC 5.6 K/mm3 (4.5-11.0) 06/26/20 00:45 RBC 3.44 M/mm3 (3.65-5.03) L 06/26/20 00:45 Hgb 12.1 gm/dl (11.8-15.2) 06/26/20 00:45 Hct 35.7 % (35.5-45.6) 06/26/20 00:45 MCV 104 fl (84-94) H 06/26/20 00:45 MCH 35 pg (28-32) H 06/26/20 00:45 MCHC 34 % (32-34) 06/26/20 00:45 RDW 14.8 % (13.2-15.2) 06/26/20 00:45 Plt Count 279 K/mm3 (140-440) 06/26/20 00:45 Lymph % (Auto) 16.0 % (13.4-35.0) 06/26/20 00:45 [place] % (Auto) 8.1 % (0.0-7.3) H 06/26/20 00:45 Eos % (Auto) 1.2 % (0.0-4.3) 06/26/20 00:45 Baso % (Auto) 0.6 % (0.0-1.8) 06/26/20 00:45 Lymph # (Auto) 0.9 K/mm3 (1.2-5.4) L 06/26/20 00:45 [place] # (Auto) 0.5 K/mm3 (0.0-0.8) 06/26/20 00:45 Eos # (Auto) 0.1 K/mm3 (0.0-0.4) 06/26/20 00:45 Baso # (Auto) 0.0 K/mm3 (0.0-0.1) 06/26/20 00:45 Seg Neutrophils % 74.1 % (40.0-70.0) H 06/26/20 00:45 Seg Neutrophils # 4.1 K/mm3 (1.8-7.7) 06/26/20 00:45 Sodium 140 mmol/L (137-145) 06/27/20 05:08 Potassium 3.8 mmol/L (3.6-5.0) 06/27/20 05:08 Chloride 104.2 mmol/L (98-107) 06/27/20 05:08 Carbon Dioxide 26 mmol/L (22-30) D 06/27/20 05:08 Anion Gap 14 mmol/L 06/27/20 05:08 BUN 16 mg/dL (9-20) 06/27/20 05:08 Creatinine 0.8 mg/dL (0.8-1.3) 06/27/20 05:08 Estimated GFR > 60 ml/min 06/27/20 05:08 BUN/Creatinine Ratio 20 % 06/27/20 05:08 Glucose 93 mg/dL (75-100) 06/27/20 05:08 Lactic Acid 1.50 mmol/L (0.7-2.0) 06/26/20 00:45 Calcium 8.9 mg/dL (8.4-10.2) 06/27/20 05:08 Magnesium 2.30 mg/dL (1.7-2.3) 07/02/20 16:07 Total Bilirubin 0.50 mg/dL (0.1-1.2) 06/26/20 00:45 AST 20 units/L (5-40) 06/26/20 00:45 ALT 13 units/L (7-56) 06/26/20 00:45 Alkaline Phosphatase 100 units/L (35-129) 06/26/20 00:45 Ammonia 20.0 umol/L (25-60) L 06/30/20 19:20 Total Creatine Kinase 138 units/L (55-170) 06/26/20 00:45 Troponin T < 0.010 ng/mL (0.00-0.029) 06/26/20 03:05 Total Protein 7.2 g/dL (6.3-8.2) 06/26/20 00:45 Albumin 4.5 g/dL (3.9-5) 06/26/20 00:45 Albumin/Globulin Ratio 1.7 % 06/26/20 00:45 TSH 1.620 mlU/mL (0.270-4.200) 06/28/20 15:56 Free T4 1.17 ng/dL (0.76-1.46) 06/28/20 15:56 Urine Color Yellow (Yellow) 06/26/20 01:59 Urine Turbidity Clear (Clear) 06/26/20 01:59 Urine pH 6.0 (5.0-7.0) 06/26/20 01:59 Ur Specific [place] 1.013 (1.003-1.030) 06/26/20 01:59 Urine Protein <15 mg/dl mg/dL (Negative) 06/26/20 01:59 Urine Glucose (UA) Neg mg/dL (Negative) 06/26/20 01:59 Urine Ketones Neg mg/dL (Negative) 06/26/20 01:59 Urine Blood Neg (Negative) 06/26/20 01:59 Urine Nitrite Neg (Negative) 06/26/20 01:59 Urine Bilirubin Neg (Negative) 06/26/20 01:59 Urine Urobilinogen < 2.0 mg/dL (<2.0) 06/26/20 01:59 Ur Leukocyte Esterase Neg (Negative) 06/26/20 01:59 Urine WBC (Auto) 2.0 /HPF (0.0-6.0) 06/26/20 01:59 Urine RBC (Auto) 2.0 /HPF (0.0-6.0) 06/26/20 01:59 U Epithel Cells (Auto) 1.0 /HPF (0-13.0) 06/26/20 01:59 Urine Mucus Few /HPF 06/26/20 01:59 Urine Opiates Screen Presumptive negative 06/26/20 01:59 Urine Methadone Screen Presumptive negative 06/26/20 01:59 Acetaminophen 5.0 ug/mL (10.0-30.0) L 06/26/20 00:45 Ur Barbiturates Screen Presumptive negative 06/26/20 01:59 Ur Phencyclidine Scrn Presumptive negative 06/26/20 01:59 Ur Amphetamines Screen Presumptive negative 06/26/20 01:59 U Benzodiazepines Scrn Presumptive negative 06/26/20 01:59 Urine Cocaine Screen Presumptive negative 06/26/20 01:59 U Marijuana (THC) Screen Presumptive negative 06/26/20 01:59 Drugs of Abuse Note Disclamer 06/26/20 01:59 Plasma/Serum Alcohol < 0.01 % (0-0.07) 06/26/20 00:45 Galindo/IV: Voiding Method Condom Catheter IV Catheter Type [right INT / Saline Lock forearm] IV Catheter Type [Left Hand] INT / Saline Lock Active Medications - Current Medications Current Medications: Generic Name Dose Route Start Last Admin Trade Name Freq PRN Reason Stop Dose Admin Acetaminophen 650 mg 06/26/20 04:16 06/28/20 20:41 Tylenol PO 650 mg Q4H PRN Administration Fever >101 Chlordiazepoxide HCl 25 mg 07/02/20 10:35 Librium PO Q8H PRN Anxiety Gabapentin 300 mg 06/26/20 10:00 07/04/20 10:25 Gabapentin PO 300 mg BID LILIAM Administration Heparin Sodium (Porcine) 5,000 unit 06/26/20 10:00 07/04/20 10:05 Heparin SUB-Q 5,000 unit Q12HR LILIAM Administration Hydralazine HCl 10 mg 07/01/20 07:41 07/03/20 04:20 Apresoline IV 10 mg Q4HR PRN Administration Hypertension Folic Acid 1 mg/ Multivitamins 1,000 mls @ 125 mls/hr 06/30/20 10:00 07/04/20 11:32 /Minerals 10 ml/ Thiamine HCl IV 125 mls/hr 100 mg/ Sodium Chloride .BY DURATION LILIAM Administration Sodium Chloride 1,000 mls @ 125 mls/hr 06/30/20 10:00 07/03/20 06:47 Nacl 0.9% 1000 Ml IV 125 mls/hr .BY DURATION LILIAM Administration Sodium Chloride 1,000 mls @ 125 mls/hr 07/01/20 03:15 07/04/20 06:49 Nacl 0.9% 1000 Ml IV 125 mls/hr DIRECT LILIAM Administration Thiamine HCl 100 mg/ Sodium 51 mls @ 100 mls/hr 07/02/20 11:00 07/04/20 10:35 Chloride IV 100 mls/hr QDAY LILIAM Administration Lisinopril 20 mg 06/26/20 10:00 07/04/20 10:25 Zestril PO 20 mg DAILY LILIAM Administration Metoprolol Tartrate 25 mg 06/26/20 10:00 07/04/20 10:25 Metoprolol PO 25 mg DAILY LILIAM Administration Nutrition/Malnutrition Assess - Dietary Evaluation Nutrition/Malnutrition Findings: Nutrition Notes Start: 07/03/20 12:56 Freq: Status: Active Protocol: Document 07/03/20 12:57 EN (Rec: 07/03/20 13:11 EN [email or web address]) Co-Sign 07/03/20 12:57 LM Nutrition Notes Need for Assessment generated from: LOS Initial or Follow up Assessment Current Diagnosis Coronary Artery Disease, Decubitus(Pressure Ulcer), Hypertension Other Pertinent Diagnosis Encephalopathy, Cerebral atherosclerosis Current Diet low sodium diet Labs/Tests Reviewed Pertinent Medications NS at 125 ml/hr Height 5 ft 10 in Weight 73.9 kg [place] Body Weight (kg) 75.45 BMI 23.3 Weight Status Appropriate Subjective/Other Information Pt screened for LOS. DI unable to wake pt by calling his name as he was asleep. RN reports pt eating 25% of meals because he is easily fatigued and gets tired from chewing. RN states that pt would benefit from ONS TID. Pt has Juan score of 15 with sacral wound Burn Absent Trauma Absent GI Symptoms None Food Allergy No Current % PO Poor (25-49%) Minimum of two criteria No physical signs of malnutrition #2 Nutrition Diagnosis Increased nutrient needs ( specify in comment below) Comments: Protein Etiology wound healing As Evidenced by Signs and Symptoms Sacral wound #1 Nutrition Diagnosis Inadequate oral intake Etiology AMS and alcohol withdrawal As Evidenced by Signs and Symptoms Pt consuming less than 25% of meals Is patient on ventilator? No Is Patient Ambulatory and/or Out of Bed No REE-([facility]-confined to bed) 1335.609 Calculation Used for Recommendations [facility] Additional Notes Protein: 1.25-1.5 g/kg (92- 111g) Fluid: 1 ml/kcal Nutrition Intervention Change Diet Order: Cardiac diet Add Supplement/Snack (indicate name/kcal Ensure Enlive TID /protein ) Provides kCal: 1,050 Provides Protein (gm) 60 Goal #1 Meet 75% of energy and protein needs with PO and ONS Anticipated Discharge Needs: Cardiac diet and ONS as needed Follow-Up By: 07/06/20 Additional Comments F/u for intakes and ONS tolerance
[2020-07-04 14:42] LABS: BUN/Creatinine Ratio 36; Blood Urea Nitrogen 18 mg/dL (9-20); Hemolysis Index 20
--- NOTE | 2020-07-04 16:24 | Cat Scan Report ---
CT HEAD WITHOUT CONTRAST INDICATION / CLINICAL INFORMATION: persistent encephalopathy. TECHNIQUE: All CT scans at this location are performed using CT dose reduction for ALARA by means of automated e xposure control. COMPARISON: Head CT 06/26/2020 FINDINGS: HEMORRHAGE: No evidence of intracranial hemorrhage or extra-axial fluid collection. EXTRA-AXIAL SPACES: Cortical sulci and sylvian fissures are enlarged reflecting a degree of parenchym al volume loss which is within normal limits for the patient's age of 74 years. Basilar cisterns have an unremarkable appearance. VENTRICULAR SYSTEM: The third and lateral ventricles are enlarged out of proportion to the cortical s ulci. This probably reflects the presence of central greater than cortical atrophy. CEREBRAL PARENCHYMA: Extensive periventricular and deep white matter lucency is observed. This is pro bably secondary to advanced microvascular ischemic change. There is no indication of recent infarctio n. No areas of encephalomalacia are identified. MIDLINE SHIFT OR HERNIATION: There is no mass effect. CEREBELLUM / BRAINSTEM: Brainstem and cerebellum have an unremarkable appearance. MIDLINE STRUCTURES:No abnormalities of the pituitary gland or pineal region are observed INTRACRANIAL VESSELS:Calcified atherosclerotic plaque is present along the course of the cavernous se gments of both internal carotid arteries. Similar findings are seen at the distal vertebral arteries. ORBITS: Status post bilateral cataract surgery. Evidence of remote right orbital floor fracture. No a dditional abnormality. SOFT TISSUES of HEAD: No significant abnormality. CALVARIUM: Evaluation of bone windows reveals no abnormalities. PARANASAL SINUSES / MASTOID AIR CELLS: Paranasal sinuses are free from inflammatory mucosal disease. Mastoid air cells are normally pneumatized. ADDITIONAL FINDINGS: None. IMPRESSION: 1. Central greater than cortical parenchymal volume loss and advanced microvascular ischemic change. 2. No acute intracranial abnormality. No significant interval change. Signer Name: Kody Morris MD Signed: 07/04/2020 4:20 PM Workstation Name: [id number]
[2020-07-05] MEDS: SODIUM CHLORIDE 0.9% 1000 ML 1,000 ML IV SCH (08:48)
[2020-07-05] MEDS: HEPARIN 5,000 UNIT/1 ML VIAL SUB-Q SCH ×2 (10:29→21:32)
[2020-07-05] MEDS: METOPROLOL TARTRATE 25 MG TAB PO SCH (10:32)
[2020-07-05] MEDS: chlordiazePOXIDE 25 MG CAP PO PRN ×2 (10:32→20:06)
[2020-07-05] MEDS: LISINOPRIL 20 MG TAB PO SCH (10:33)
[2020-07-05] MEDS: GABAPENTIN 300 MG CAP PO SCH ×2 (10:33→21:32)
[2020-07-05] MEDS: THIAMINE 100 MG in SODIUM CHLORIDE 0.9% 50 ML IV SCH (11:57)
--- NOTE | 2020-07-05 12:41 | XRay Report ---
XR chest 1V ap INDICATION / CLINICAL INFORMATION: pneumonia COMPARISON: June 26, 2020x-ray FINDINGS: SUPPORT DEVICES: None. HEART / MEDIASTINUM: No significant abnormality. LUNGS / PLEURA: Lungs are clear. Costophrenic sulci are sharp. No pneumothorax. ADDITIONAL FINDINGS: Remote left rib fractures. IMPRESSION: 1. No acute findings. Signer Name: Cong Gudino MD Signed: 07/05/2020 12:36 PM Workstation Name: [id number]
[2020-07-05] MEDS: 1: FOLIC ACID 1 MG, MULTIPLE VITAMIN INJ, ADULT 10 ML, THIAMINE 100 MG in SODIUM CHLORID IV SCH (13:39)
--- NOTE | 2020-07-05 13:51 | Progress Note ---
Assessment and Plan Assessment and plan: 74-year-old male with metabolic encephalopathy, vascular dementia without behavioral disturbance, cerebral atherosclerosis. Patient is alert and responsive with diminished cognition with concomitant periods of agitation. No reported nursing events. No clinical signs of pain. Case management consulted regarding discharge planning/detention facility placement. Patient is awaiting placement. 06/30/20: No clear evidence of vascular dementia but most likely Warnicke en cephalopathy secondary to alcohol use disorder Of note patient was found in the wounds with sixpack of beer. We will initiate EtOH withdrawal management with thiamine and vitamins and folic acid. We will also initiate CIWA protocol considering that patient has been abusive to staff sometimes kicking at staff. 07/01: Ammonia level low. Continue current management, replace magnesium. Continue safety wrist restraints. 07/02: Remains delirious and in restriants, will cut down on the sedation medications, continue Thiamine. Poor prognosis 07/03: Discussed with the sister who states that the patient lives about 70 miles from where he was found, and has been recently in the last year diagnosed with alcohol related dementia and this time just up and left his house. [id number] Jones- sister POA. Will wean sedation medications. Monitor for improvement and correct electrolytes. 07/04: Continue current management But discontinue all sedative medications and monitor closely. 07/05: Continue supportive care, noted fever, triansent, will monitor, if persistent will obtain cultures, cxr and head ct repeat were negative for pathology CT head: Negative for acute pathology - Patient Problems (1) Metabolic encephalopathy Current Visit: Yes Status: Acute Plan to address problem: CT head neck reviewed, neuro check, seizure precautions, aspiration precautions, fall precautions, thyroid panel, supportive care. (2) Warnicke encephalopathy secondary to EtOH withdrawal- POA Current Visit: Yes Status: Acute Plan to address problem: Verbal prompting, verbal redirection, benzodiazepine therapy as needed as clinically indicated. Begin to stop some of the sedation medications. IF no improvement will need repeat CT HEAD. (3) Cerebral atherosclerosis Current Visit: Yes Status: Acute Plan to address problem: Supportive care, risk factor reduction. (4) Alcohol induced Dementia (5) Febrile Illness (6) DVT prophylaxis Current Visit: Yes Status: Acute Plan to address problem: SCD to bilateral lower extremities while in bed, prophylactic anticoagulation. History Interval history: Patient seen and examined remains, confused and delirious, remains on restraints, NOT REQUIRING ANYMORE SEDATIVES. Hospitalist Physical - Physical exam Narrative exam: General appearance: Present: no acute distress, remains, delirius, confabu lating, able to have more communications - EENT Eyes: Present: PERRL ENT: hearing intact - Neck Neck: Present: supple - Respiratory Respiratory: bilateral: CTA - Cardiovascular Rhythm: regular Heart Sounds: Present: S1 & S2 - Extremities Extremity abnormal: edema Peripheral Pulses: within normal limits - Abdominal General gastrointestinal: soft, non-tender, non-distended - Integumentary Integumentary: Present: clear, dry - Psychiatric Psychiatric: no appropriate mood/affect, no intact judgment & insight, no memory intact - Neurologic Neurologic: CNII-XII intact, no gait normal - Constitutional Vitals: Temp Pulse Resp BP Pulse Ox 100.6 F H 65 18 114/57 95 07/05/20 12:03 07/05/20 12:03 07/05/20 12:03 07/05/20 12:03 07/05/20 12:03 General appearance: Present: no acute distress HEART Score - HEART Score Risk factors: 1-2 risk factors Troponin: Troponin T < 0.010 ng/mL (0.00-0.029) 06/26/20 03:05 Troponin: < normal limit - Critical Actions Critical Actions: 0-3 pts:0.9-1.7%risk of adverse cardiac event.Candidate for discharge Results - Labs CBC & Chem 7: 06/26/20 00:45 07/04/20 13:42 Labs: Laboratory Last Values WBC 5.6 K/mm3 (4.5-11.0) 06/26/20 00:45 RBC 3.44 M/mm3 (3.65-5.03) L 06/26/20 00:45 Hgb 12.1 gm/dl (11.8-15.2) 06/26/20 00:45 Hct 35.7 % (35.5-45.6) 06/26/20 00:45 MCV 104 fl (84-94) H 06/26/20 00:45 MCH 35 pg (28-32) H 06/26/20 00:45 MCHC 34 % (32-34) 06/26/20 00:45 RDW 14.8 % (13.2-15.2) 06/26/20 00:45 Plt Count 279 K/mm3 (140-440) 06/26/20 00:45 Lymph % (Auto) 16.0 % (13.4-35.0) 06/26/20 00:45 Titus % (Auto) 8.1 % (0.0-7.3) H 06/26/20 00:45 Eos % (Auto) 1.2 % (0.0-4.3) 06/26/20 00:45 Baso % (Auto) 0.6 % (0.0-1.8) 06/26/20 00:45 Lymph # (Auto) 0.9 K/mm3 (1.2-5.4) L 06/26/20 00:45 Titus # (Auto) 0.5 K/mm3 (0.0-0.8) 06/26/20 00:45 Eos # (Auto) 0.1 K/mm3 (0.0-0.4) 06/26/20 00:45 Baso # (Auto) 0.0 K/mm3 (0.0-0.1) 06/26/20 00:45 Seg Neutrophils % 74.1 % (40.0-70.0) H 06/26/20 00:45 Seg Neutrophils # 4.1 K/mm3 (1.8-7.7) 06/26/20 00:45 Sodium 141 mmol/L (137-145) 07/04/20 13:42 Potassium 3.2 mmol/L (3.6-5.0) L 07/04/20 13:42 Chloride 107.5 mmol/L (98-107) H 07/04/20 13:42 Carbon Dioxide 19 mmol/L (22-30) L 07/04/20 13:42 Anion Gap 18 mmol/L 07/04/20 13:42 BUN 18 mg/dL (9-20) 07/04/20 13:42 Creatinine 0.5 mg/dL (0.8-1.3) L 07/04/20 13:42 Estimated GFR > 60 ml/min 07/04/20 13:42 BUN/Creatinine Ratio 36 % 07/04/20 13:42 Glucose 109 mg/dL (75-100) H 07/04/20 13:42 Lactic Acid 1.50 mmol/L (0.7-2.0) 06/26/20 00:45 Calcium 9.0 mg/dL (8.4-10.2) 07/04/20 13:42 Magnesium 2.30 mg/dL (1.7-2.3) 07/02/20 16:07 Total Bilirubin 0.50 mg/dL (0.1-1.2) 06/26/20 00:45 AST 20 units/L (5-40) 06/26/20 00:45 ALT 13 units/L (7-56) 06/26/20 00:45 Alkaline Phosphatase 100 units/L (35-129) 06/26/20 00:45 Ammonia 20.0 umol/L (25-60) L 06/30/20 19:20 Total Creatine Kinase 138 units/L (55-170) 06/26/20 00:45 Troponin T < 0.010 ng/mL (0.00-0.029) 06/26/20 03:05 Total Protein 7.2 g/dL (6.3-8.2) 06/26/20 00:45 Albumin 4.5 g/dL (3.9-5) 06/26/20 00:45 Albumin/Globulin Ratio 1.7 % 06/26/20 00:45 TSH 1.620 mlU/mL (0.270-4.200) 06/28/20 15:56 Free T4 1.17 ng/dL (0.76-1.46) 06/28/20 15:56 Urine Color Yellow (Yellow) 06/26/20 01:59 Urine Turbidity Clear (Clear) 06/26/20 01:59 Urine pH 6.0 (5.0-7.0) 06/26/20 01:59 Ur Specific Corbin 1.013 (1.003-1.030) 06/26/20 01:59 Urine Protein <15 mg/dl mg/dL (Negative) 06/26/20 01:59 Urine Glucose (UA) Neg mg/dL (Negative) 06/26/20 01:59 Urine Ketones Neg mg/dL (Negative) 06/26/20 01:59 Urine Blood Neg (Negative) 06/26/20 01:59 Urine Nitrite Neg (Negative) 06/26/20 01:59 Urine Bilirubin Neg (Negative) 06/26/20 01:59 Urine Urobilinogen < 2.0 mg/dL (<2.0) 06/26/20 01:59 Ur Leukocyte Esterase Neg (Negative) 06/26/20 01:59 Urine WBC (Auto) 2.0 /HPF (0.0-6.0) 06/26/20 01:59 Urine RBC (Auto) 2.0 /HPF (0.0-6.0) 06/26/20 01:59 U Epithel Cells (Auto) 1.0 /HPF (0-13.0) 06/26/20 01:59 Urine Mucus Few /HPF 06/26/20 01:59 Urine Opiates Screen Presumptive negative 06/26/20 01:59 Urine Methadone Screen Presumptive negative 06/26/20 01:59 Acetaminophen 5.0 ug/mL (10.0-30.0) L 06/26/20 00:45 Ur Barbiturates Screen Presumptive negative 06/26/20 01:59 Ur Phencyclidine Scrn Presumptive negative 06/26/20 01:59 Ur Amphetamines Screen Presumptive negative 06/26/20 01:59 U Benzodiazepines Scrn Presumptive negative 06/26/20 01:59 Urine Cocaine Screen Presumptive negative 06/26/20 01:59 U Marijuana (THC) Screen Presumptive negative 06/26/20 01:59 Drugs of Abuse Note Disclamer 06/26/20 01:59 Plasma/Serum Alcohol < 0.01 % (0-0.07) 06/26/20 00:45 Galindo/IV: Voiding Method Incontinent IV Catheter Type [right INT / Saline Lock forearm] IV Catheter Type [Left Hand] INT / Saline Lock Active Medications - Current Medications Current Medications: Generic Name Dose Route Start Last Admin Trade Name Freq PRN Reason Stop Dose Admin Acetaminophen 650 mg 06/26/20 04:16 06/28/20 20:41 Tylenol PO 650 mg Q4H PRN Administration Fever >101 Chlordiazepoxide HCl 25 mg 07/02/20 10:35 07/05/20 10:32 Librium PO 25 mg Q8H PRN Administration Anxiety Gabapentin 300 mg 06/26/20 10:00 07/05/20 10:33 Gabapentin PO 300 mg BID LILIAM Administration Heparin Sodium (Porcine) 5,000 unit 06/26/20 10:00 07/05/20 10:29 Heparin SUB-Q 5,000 unit Q12HR LILIAM Administration Hydralazine HCl 10 mg 07/01/20 07:41 07/03/20 04:20 Apresoline IV 10 mg Q4HR PRN Administration Hypertension Folic Acid 1 mg/ Multivitamins 1,000 mls @ 125 mls/hr 06/30/20 10:00 07/05/20 13:39 /Minerals 10 ml/ Thiamine HCl IV 125 mls/hr 100 mg/ Sodium Chloride .BY DURATION LILIAM Administration Sodium Chloride 1,000 mls @ 125 mls/hr 06/30/20 10:00 07/03/20 06:47 Nacl 0.9% 1000 Ml IV 125 mls/hr .BY DURATION LILIAM Administration Sodium Chloride 1,000 mls @ 125 mls/hr 07/01/20 03:15 07/05/20 08:48 Nacl 0.9% 1000 Ml IV 125 mls/hr DIRECT LILIAM Administration Thiamine HCl 100 mg/ Sodium 51 mls @ 100 mls/hr 07/02/20 11:00 07/05/20 11:57 Chloride IV 100 mls/hr QDAY LILIAM Administration Lisinopril 20 mg 06/26/20 10:00 07/05/20 10:33 Zestril PO 20 mg DAILY LILIAM Administration Metoprolol Tartrate 25 mg 06/26/20 10:00 07/05/20 10:32 Metoprolol PO 25 mg DAILY LILIAM Administration Nutrition/Malnutrition Assess - Dietary Evaluation Nutrition/Malnutrition Findings: Nutrition Notes Start: 07/03/20 12:56 Freq: Status: Active Protocol: Document 07/03/20 12:57 EN (Rec: 07/03/20 13:11 EN [email or web address]) Co-Sign 07/03/20 12:57 LM Nutrition Notes Need for Assessment generated from: LOS Initial or Follow up Assessment Current Diagnosis Coronary Artery Disease, Decubitus(Pressure Ulcer), Hypertension Other Pertinent Diagnosis Encephalopathy, Cerebral atherosclerosis Current Diet low sodium diet Labs/Tests Reviewed Pertinent Medications NS at 125 ml/hr Height 5 ft 10 in Weight 73.9 kg Flora Body Weight (kg) 75.45 BMI 23.3 Weight Status Appropriate Subjective/Other Information Pt screened for LOS. DI unable to wake pt by calling his name as he was asleep. RN reports pt eating 25% of meals because he is easily fatigued and gets tired from chewing. RN states that pt would benefit from ONS TID. Pt has Juan score of 15 with sacral wound Burn Absent Trauma Absent GI Symptoms None Food Allergy No Current % PO Poor (25-49%) Minimum of two criteria No physical signs of malnutrition #2 Nutrition Diagnosis Increased nutrient needs ( specify in comment below) Comments: Protein Etiology wound healing As Evidenced by Signs and Symptoms Sacral wound #1 Nutrition Diagnosis Inadequate oral intake Etiology AMS and alcohol withdrawal As Evidenced by Signs and Symptoms Pt consuming less than 25% of meals Is patient on ventilator? No Is Patient Ambulatory and/or Out of Bed No REE-([facility]-confined to bed) 4131.126 Calculation Used for Recommendations [facility] Additional Notes Protein: 1.25-1.5 g/kg (92- 111g) Fluid: 1 ml/kcal Nutrition Intervention Change Diet Order: Cardiac diet Add Supplement/Snack (indicate name/kcal Ensure Enlive TID /protein ) Provides kCal: 1,050 Provides Protein (gm) 60 Goal #1 Meet 75% of energy and protein needs with PO and ONS Anticipated Discharge Needs: Cardiac diet and ONS as needed Follow-Up By: 07/06/20 Additional Comments F/u for intakes and ONS tolerance
[2020-07-05] MEDS: POTASSIUM CHLORIDE 20 MEQ PACKET PO ONE ×2 (14:41→15:40)
[2020-07-05] MEDS ORDERED: MAGNESIUM SULFATE 1 GM in SODIUM CHLORIDE 0.9% 50 ML IV ONE (14:49)
[2020-07-05] MEDS ORDERED: POTASSIUM CHLORIDE ER 20 MEQ TAB PO ONE (15:40)
[2020-07-05] MEDS: ACETAMINOPHEN 325 MG TAB PO PRN (20:07)
[2020-07-06] MEDS ORDERED: EPINEPHrine 1 MG/10 ML SYRINGE ONE (00:24)
[2020-07-06] MEDS ORDERED: AMIODARONE 150 MG/3 ML INJ IV ONE (00:24)
[2020-07-06] MEDS ORDERED: SODIUM BICARB 8.4% 50 MEQ/50 ML SYRINGE IV ONE (00:24)
[2020-07-06] MEDS ORDERED: ATROPINE 0.1% (1 MG/10 ML) CARDIAC SYRINGE ONE (00:24)
[2020-07-06] MEDS: 1: FOLIC ACID 1 MG, MULTIPLE VITAMIN INJ, ADULT 10 ML, THIAMINE 100 MG in SODIUM CHLORID IV SCH (03:02)
[2020-07-06] MEDS: SODIUM CHLORIDE 0.9% 1000 ML 1,000 ML IV SCH (03:04)
[2020-07-06] MEDS ORDERED: HALOPERIDOL LACTATE 5 MG/1 ML INJ IM ONE (03:19)
[2020-07-06] MEDS: chlordiazePOXIDE 25 MG CAP PO PRN (04:44)
[2020-07-06 06:18] LABS: Hematocrit 31.7 % (35.5-45.6); Hemoglobin 10.8 gm/dl (11.8-15.2); Mean Corpuscular HGB Conc 34 % (32-34); Mean Corpuscular Volume 103 fl (84-94); Platelet Count 283 K/mm3 (140-440); Red Blood Count 3.08 M/mm3 (3.65-5.03); Red Cell Distribution Width 14.9 % (13.2-15.2)
[2020-07-06 06:35] LABS: Blood Urea Nitrogen 23 mg/dL (9-20); Calcium 8.5 mg/dL (8.4-10.2); Hemolysis Index 14
[2020-07-06 06:36] LABS: BUN/Creatinine Ratio 38
--- NOTE | 2020-07-06 08:26 | Event Note ---
Date: 07/06/20 I was called to the bedside as a CODE BLUE was called to this patient's room. The hospitalist, Dr. Patten, arrived at bedside to run ACLS protocol. I went to the head of the bed to intubate the patient. A MAC 4 blade was used. After some suction I was able to visualize the vocal cords. A 7.5 endotracheal tube was placed through the vocal cords to about 24 cm at the lips. The balloon was inflated about 7 cc with air. There was condensation seen within the tube. There was color change capnography. There was bilateral breath sounds heard. No obvious complications from this procedure.
[2020-07-06] MEDS ORDERED: NORepinephrine/NS 4 MG-250 ML 4 MG/250 ML BAG IV ONE (08:28)
[2020-07-06] MEDS ORDERED: HYDROmorphone 1 MG/1 ML INJ IV PRN (08:41)
[2020-07-06] MEDS ORDERED: ACETAMINOPHEN 325 MG TAB PO PRN (08:41)
--- NOTE | 2020-07-06 08:47 | Event Note ---
Date: 07/06/20 Code blue called. Patient initially with VTACH arrest and went Asystole Full ACLS protocol deployed EPI, Sodium bicarb and patient went into Vfib, recieved Amiodarone, shock, went into PEA, continued Epi with compressions with resulting agonal breathing and Pulse recovered. Transferred to ICU Patients sister notified, will call to decide on code status as she indicated he will not want to leave on a breathing machine. Tree Trimming Line Technician notified.
--- NOTE | 2020-07-06 08:49 | Progress Note ---
Assessment and Plan Assessment and plan: 74-year-old male with metabolic encephalopathy, vascular dementia without behavioral disturbance, cerebral atherosclerosis. Patient is alert and responsive with diminished cognition with concomitant periods of agitation. No reported nursing events. No clinical signs of pain. Case management consulted regarding discharge planning/long term facility placement. Patient is awaiting placement. 06/30/20: No clear evidence of vascular dementia but most likely Warnicke en cephalopathy secondary to alcohol use disorder Of note patient was found in the wounds with sixpack of beer. We will initiate EtOH withdrawal management with thiamine and vitamins and folic acid. We will also initiate CIWA protocol considering that patient has been abusive to staff sometimes kicking at staff. 07/01: Ammonia level low. Continue current management, replace magnesium. Continue safety wrist restraints. 07/02: Remains delirious and in restriants, will cut down on the sedation medications, continue Thiamine. Poor prognosis 07/03: Discussed with the sister who states that the patient lives about 70 miles from where he was found, and has been recently in the last year diagnosed with alcohol related dementia and this time just up and left his house. [id number]-Iddzfy Jones- sister POA. Will wean sedation medications. Monitor for improvement and correct electrolytes. 07/04: Continue current management But discontinue all sedative medications and monitor closely. 07/05: Continue supportive care, noted fever, transient, will monitor, if persistent will obtain cultures, cxr and head ct repeat were negative for pathology 07/06: VFIB ARREST- PEA. Noted with Acute Cardiomyopathy Infarction. Discussed with the family and they recommend DNR status. Pateint is currently intubated and transferred to the ICU, will stop dubotamin, start BB, discussed with cardiology and Intensivit. Await labs. CT head: Negative for acute pathology Acute Respiratory failure -not POA Acute OH Ventricular Fibrillation Acute Metabolic encephalopathy Current Visit: Yes Status: Acute Plan to address problem: CT head neck reviewed, neuro check, seizure precautions, aspiration precautions, fall precautions, thyroid panel, supportive care. Warnicke encephalopathy secondary to EtOH withdrawal- POA Current Visit: Yes Status: Acute Plan to address problem: Verbal prompting, verbal redirection, benzodiazepine therapy as needed as clinically indicated. Begin to stop some of the sedation medications. IF no improvement will need repeat CT HEAD. Cerebral atherosclerosis Current Visit: Yes Status: Acute Plan to address problem: Supportive care, risk factor reduction. Alcohol induced Dementia Febrile Illness DVT prophylaxis Current Visit: Yes Status: Acute Plan to address problem: SCD to bilateral lower extremities while in bed, prophylactic anticoagulation. The high probability of a clinically significant, sudden or life threatening deterioration of the [CARDIAC] system(s) required my full and direct attention, intervention and personal management. The aggregate critical care time was [90] minutes. This time is in addition to time spent performing reported procedures but includes the following: [X] Data Review and interpretation [X] Patient assessment and monitoring of vital signs [X] Documentation [X] Medication orders and management History Interval history: Patient seen and examined this morning, shortly after a code blue was called with [facility]. Hospitalist Physical - Physical exam Narrative exam: General appearance: Present: no acute distress, Unconscious - EENT Eyes: Present: PERRL ENT: hearing intact - Neck Neck: Present: supple - Respiratory Respiratory: bilateral: CTA - Cardiovascular Rhythm: regular Heart Sounds: Present: S1 & S2 - Extremities Extremity abnormal: edema Peripheral Pulses: within normal limits - Abdominal General gastrointestinal: soft, non-tender, non-distended - Integumentary Integumentary: Present: clear, dry - Psychiatric Psychiatric: UnABLE to assess - Neurologic Neurologic: CNII-XII intact, no gait normal - Constitutional Vitals: Temp Pulse Resp BP Pulse Ox 98.2 F 71 16 166/97 97 07/06/20 03:59 07/06/20 03:59 07/06/20 03:59 07/06/20 08:30 07/06/20 03:59 General appearance: Present: no acute distress HEART Score - HEART Score Risk factors: 1-2 risk factors Troponin: Troponin T < 0.010 ng/mL (0.00-0.029) 06/26/20 03:05 Troponin: < normal limit - Critical Actions Critical Actions: 0-3 pts:0.9-1.7%risk of adverse cardiac event.Candidate for discharge Results - Labs CBC & Chem 7: 07/06/20 04:42 07/06/20 04:42 Labs: Laboratory Last Values WBC 9.4 K/mm3 (4.5-11.0) 07/06/20 04:42 RBC 3.08 M/mm3 (3.65-5.03) L 07/06/20 04:42 Hgb 10.8 gm/dl (11.8-15.2) L 07/06/20 04:42 Hct 31.7 % (35.5-45.6) L 07/06/20 04:42 MCV 103 fl (84-94) H 07/06/20 04:42 MCH 35 pg (28-32) H 07/06/20 04:42 MCHC 34 % (32-34) 07/06/20 04:42 RDW 14.9 % (13.2-15.2) 07/06/20 04:42 Plt Count 283 K/mm3 (140-440) 07/06/20 04:42 Lymph % (Auto) 16.0 % (13.4-35.0) 06/26/20 00:45 [place] % (Auto) 8.1 % (0.0-7.3) H 06/26/20 00:45 Eos % (Auto) 1.2 % (0.0-4.3) 06/26/20 00:45 Baso % (Auto) 0.6 % (0.0-1.8) 06/26/20 00:45 Lymph # (Auto) 0.9 K/mm3 (1.2-5.4) L 06/26/20 00:45 [place] # (Auto) 0.5 K/mm3 (0.0-0.8) 06/26/20 00:45 Eos # (Auto) 0.1 K/mm3 (0.0-0.4) 06/26/20 00:45 Baso # (Auto) 0.0 K/mm3 (0.0-0.1) 06/26/20 00:45 Seg Neutrophils % 74.1 % (40.0-70.0) H 06/26/20 00:45 Seg Neutrophils # 4.1 K/mm3 (1.8-7.7) 06/26/20 00:45 Sodium 146 mmol/L (137-145) H 07/06/20 04:42 Potassium 3.3 mmol/L (3.6-5.0) L 07/06/20 04:42 Chloride 113.5 mmol/L (98-107) H 07/06/20 04:42 Carbon Dioxide 21 mmol/L (22-30) L 07/06/20 04:42 Anion Gap 15 mmol/L 07/06/20 04:42 BUN 23 mg/dL (9-20) H 07/06/20 04:42 Creatinine 0.6 mg/dL (0.8-1.3) L 07/06/20 04:42 Estimated GFR > 60 ml/min 07/06/20 04:42 BUN/Creatinine Ratio 38 % 07/06/20 04:42 Glucose 113 mg/dL (75-100) H 07/06/20 04:42 Lactic Acid 1.50 mmol/L (0.7-2.0) 06/26/20 00:45 Calcium 8.5 mg/dL (8.4-10.2) 07/06/20 04:42 Magnesium 2.30 mg/dL (1.7-2.3) 07/02/20 16:07 Total Bilirubin 0.50 mg/dL (0.1-1.2) 06/26/20 00:45 AST 20 units/L (5-40) 06/26/20 00:45 ALT 13 units/L (7-56) 06/26/20 00:45 Alkaline Phosphatase 100 units/L (35-129) 06/26/20 00:45 Ammonia 20.0 umol/L (25-60) L 06/30/20 19:20 Total Creatine Kinase 138 units/L (55-170) 06/26/20 00:45 Troponin T < 0.010 ng/mL (0.00-0.029) 06/26/20 03:05 Total Protein 7.2 g/dL (6.3-8.2) 06/26/20 00:45 Albumin 4.5 g/dL (3.9-5) 06/26/20 00:45 Albumin/Globulin Ratio 1.7 % 06/26/20 00:45 TSH 1.620 mlU/mL (0.270-4.200) 06/28/20 15:56 Free T4 1.17 ng/dL (0.76-1.46) 06/28/20 15:56 Urine Color Yellow (Yellow) 06/26/20 01:59 Urine Turbidity Clear (Clear) 06/26/20 01:59 Urine pH 6.0 (5.0-7.0) 06/26/20 01:59 Ur Specific [place] 1.013 (1.003-1.030) 06/26/20 01:59 Urine Protein <15 mg/dl mg/dL (Negative) 06/26/20 01:59 Urine Glucose (UA) Neg mg/dL (Negative) 06/26/20 01:59 Urine Ketones Neg mg/dL (Negative) 06/26/20 01:59 Urine Blood Neg (Negative) 06/26/20 01:59 Urine Nitrite Neg (Negative) 06/26/20 01:59 Urine Bilirubin Neg (Negative) 06/26/20 01:59 Urine Urobilinogen < 2.0 mg/dL (<2.0) 06/26/20 01:59 Ur Leukocyte Esterase Neg (Negative) 06/26/20 01:59 Urine WBC (Auto) 2.0 /HPF (0.0-6.0) 06/26/20 01:59 Urine RBC (Auto) 2.0 /HPF (0.0-6.0) 06/26/20 01:59 U Epithel Cells (Auto) 1.0 /HPF (0-13.0) 06/26/20 01:59 Urine Mucus Few /HPF 06/26/20 01:59 Urine Opiates Screen Presumptive negative 06/26/20 01:59 Urine Methadone Screen Presumptive negative 06/26/20 01:59 Acetaminophen 5.0 ug/mL (10.0-30.0) L 06/26/20 00:45 Ur Barbiturates Screen Presumptive negative 06/26/20 01:59 Ur Phencyclidine Scrn Presumptive negative 06/26/20 01:59 Ur Amphetamines Screen Presumptive negative 06/26/20 01:59 U Benzodiazepines Scrn Presumptive negative 06/26/20 01:59 Urine Cocaine Screen Presumptive negative 06/26/20 01:59 U Marijuana (THC) Screen Presumptive negative 06/26/20 01:59 Drugs of Abuse Note Disclamer 06/26/20 01:59 Plasma/Serum Alcohol < 0.01 % (0-0.07) 06/26/20 00:45 Galindo/IV: Voiding Method Condom Catheter IV Catheter Type [right INT / Saline Lock forearm] IV Catheter Type [Left Hand] INT / Saline Lock Active Medications - Current Medications Current Medications: Generic Name Dose Route Start Last Admin Trade Name Freq PRN Reason Stop Dose Admin Acetaminophen 650 mg 06/26/20 04:16 07/05/20 20:07 Tylenol PO 650 mg Q4H PRN Administration Fever >101 Acetaminophen 650 mg 07/06/20 08:41 Tylenol PO Q6H PRN Pain, Mild (1-3) Gabapentin 300 mg 06/26/20 10:00 07/05/20 21:32 Gabapentin PO 300 mg BID LILIAM Administration Heparin Sodium (Porcine) 5,000 unit 06/26/20 10:00 07/05/20 21:32 Heparin SUB-Q 5,000 unit Q12HR LILIAM Administration Hydralazine HCl 10 mg 07/01/20 07:41 07/03/20 04:20 Apresoline IV 10 mg Q4HR PRN Administration Hypertension Hydrocortisone Sodium Succinate 50 mg 07/06/20 09:00 Solu-Cortef IV Q6HR LILIAM Hydromorphone HCl 0.25 mg 07/06/20 08:41 Dilaudid IV Q4H PRN Pain, Moderate (4-6) Folic Acid 1 mg/ Multivitamins 1,000 mls @ 125 mls/hr 06/30/20 10:00 07/05/20 13:39 /Minerals 10 ml/ Thiamine HCl IV 125 mls/hr 100 mg/ Sodium Chloride .BY DURATION LILIAM Administration Sodium Chloride 1,000 mls @ 125 mls/hr 06/30/20 10:00 07/06/20 03:02 Nacl 0.9% 1000 Ml IV 125 mls/hr .BY DURATION LILIAM Administration Sodium Chloride 1,000 mls @ 125 mls/hr 07/01/20 03:15 07/06/20 03:04 Nacl 0.9% 1000 Ml IV 125 mls/hr DIRECT LILIAM Administration Thiamine HCl 100 mg/ Sodium 51 mls @ 100 mls/hr 07/02/20 11:00 07/05/20 11:57 Chloride IV 100 mls/hr QDAY LILIAM Administration Norepinephrine 4 mg in 250 mls @ 7.5 mls/hr 07/06/20 09:00 Levophed Drip 4 Mg/Ns 250 Ml IV TITR LILIAM Protocol 2 MCG/MIN Dobutamine HCl/Dextrose 500 mg in 250 mls @ 4.344 mls/hr 07/06/20 09:00 Dobutrex Drip 500mg/D5w 250ml IV TITR LILIAM Protocol 2 MCG/KG/MIN Ceftriaxone Sodium 2 gm in 100 mls @ 200 mls/hr 07/06/20 10:00 Rocephin/Ns 2 Gm/100 Ml IV Q24HR [facility] Protocol Levofloxacin/Dextrose 750 mg in 150 mls @ 100 mls/hr 07/06/20 10:00 Levaquin 750mg/150ml IV Q24HR [facility] Protocol Lisinopril 20 mg 06/26/20 10:00 07/05/20 10:33 Zestril PO 20 mg DAILY LILIAM Administration Metoprolol Tartrate 25 mg 06/26/20 10:00 07/05/20 10:32 Metoprolol PO 25 mg DAILY LILIAM Administration Nutrition/Malnutrition Assess - Dietary Evaluation Nutrition/Malnutrition Findings: Nutrition Notes Start: 07/03/20 12:56 Freq: Status: Active Protocol: Document 07/03/20 12:57 EN (Rec: 07/03/20 13:11 EN [email or web address]) Co-Sign 07/03/20 12:57 LM Nutrition Notes Need for Assessment generated from: LOS Initial or Follow up Assessment Current Diagnosis Coronary Artery Disease, Decubitus(Pressure Ulcer), Hypertension Other Pertinent Diagnosis Encephalopathy, Cerebral atherosclerosis Current Diet low sodium diet Labs/Tests Reviewed Pertinent Medications NS at 125 ml/hr Height 5 ft 10 in Weight 73.9 kg [place] Body Weight (kg) 75.45 BMI 23.3 Weight Status Appropriate Subjective/Other Information Pt screened for LOS. DI unable to wake pt by calling his name as he was asleep. RN reports pt eating 25% of meals because he is easily fatigued and gets tired from chewing. RN states that pt would benefit from ONS TID. Pt has Juan score of 15 with sacral wound Burn Absent Trauma Absent GI Symptoms None Food Allergy No Current % PO Poor (25-49%) Minimum of two criteria No physical signs of malnutrition #2 Nutrition Diagnosis Increased nutrient needs ( specify in comment below) Comments: Protein Etiology wound healing As Evidenced by Signs and Symptoms Sacral wound #1 Nutrition Diagnosis Inadequate oral intake Etiology AMS and alcohol withdrawal As Evidenced by Signs and Symptoms Pt consuming less than 25% of meals Is patient on ventilator? No Is Patient Ambulatory and/or Out of Bed No REE-([facility]-confined to bed) [phone] Calculation Used for Recommendations [facility] Additional Notes Protein: 1.25-1.5 g/kg (92- 111g) Fluid: 1 ml/kcal Nutrition Intervention Change Diet Order: Cardiac diet Add Supplement/Snack (indicate name/kcal Ensure Enlive TID /protein ) Provides kCal: 1,050 Provides Protein (gm) 60 Goal #1 Meet 75% of energy and protein needs with PO and ONS Anticipated Discharge Needs: Cardiac diet and ONS as needed Follow-Up By: 07/06/20 Additional Comments F/u for intakes and ONS tolerance
[2020-07-06] MEDS ORDERED: NORepinephrine/NS 4 MG-250 ML 4 MG/250 ML BAG IV SCH (09:00)
[2020-07-06] MEDS ORDERED: DOBUTamine/D5W 500 MG/250 ML 500 MG/250 ML BAG IV SCH (09:00)
--- NOTE | 2020-07-06 09:14 | Event Note ---
Date: 07/06/20 UPDATED THE Patients sister and she requested that Mr Patterson be made a DNR based on wished he had communicated with her. Nurse obtaining confirmation, orders entered. 35 mins advance directive discussion
--- NOTE | 2020-07-06 09:28 | XRay Report ---
CHEST 1 VIEW INDICATION: post intubation. COMPARISON: 07/05/2020 FINDINGS: Support devices: An endotracheal tube has been inserted which terminates 4.3 cm superior to the jerry a. Heart: Within normal limits. Lungs/Pleura: Mild bilateral perihilar prominence is present which probably represents congestive jc nges. No consolidation, large pleural effusion or pneumothorax. Additional findings: None. IMPRESSION: Adequate placement of the endotracheal tube. Mild central pulmonary venous congestion. ABDOMEN 1 VIEW(S) INDICATION / CLINICAL INFORMATION: Feeding tube placement. COMPARISON: None available. FINDINGS: TUBES / LINES: The sidehole in distal tip of the nasogastric tube terminates in the fundus of the sto mach. BOWEL GAS PATTERN: Only the superior abdomen is included which demonstrates slightly prominent gas-fi lled small bowel loops measuring up to 3 cm in diameter. It is unclear if this represents a partial s mall bowel obstruction or ileus. FREE AIR / EXTRALUMINAL GAS: None seen. ADDITIONAL FINDINGS: No significant additional findings. IMPRESSION: Nasogastric tube as described. Slightly prominent loops of small bowel in the upper abdomen concerning for ileus or partial obstruct ion. Signer Name: Vin Schroeder Jr, MD Signed: 07/06/2020 9:24 AM Workstation Name: [id number]
[2020-07-06] MEDS ORDERED: cefTRIAXone/NS 2 GM/100 ML 2 GM/100 ML BAG IV SCH (10:00)
[2020-07-06] MEDS: METOPROLOL TARTRATE 25 MG TAB PO SCH (10:43)
[2020-07-06] MEDS: LISINOPRIL 20 MG TAB PO SCH (10:43)
[2020-07-06] MEDS: CEFEPIME/NS 2 GM/100 ML 2 GM/100 ML BAG IV SCH ×3 (10:50→23:44)
[2020-07-06] MEDS: HYDROCORTISONE SOD SUCC 100 MG/2 ML VIAL IV SCH ×4 (10:50→23:43)
[2020-07-06] MEDS: FAMOTIDINE 20 MG/2 ML INJ IV SCH ×2 (10:51→23:43)
[2020-07-06] MEDS: GABAPENTIN 300 MG CAP PO SCH ×2 (10:51→23:35)
[2020-07-06] MEDS: HEPARIN 5,000 UNIT/1 ML VIAL SUB-Q SCH (10:51)
[2020-07-06] MEDS: LACTATED RINGERS 1,000 ML IV SCH ×2 (10:56→14:10)
[2020-07-06] MEDS ORDERED: POTASSIUM CHLORIDE 20 MEQ 20 MEQ/100 ML BAG IV ONE (11:00)
[2020-07-06] MEDS ORDERED: POTASSIUM CHLORIDE 20 MEQ PACKET FEEDTUBE ONE (11:00)
--- NOTE | 2020-07-06 11:31 | Consultation ---
History of Present Illness Consult date: 07/06/20 Requesting physician: ELISEO YUSUF Reason for consult: other (V-Fib arrest.) History of present illness: 74 y/o male who has been admitted for the past 10 days with ETOH withdraw who had vfib arrest around 0830 this am. patient is currently unresponsive, on levophed at 4. K was low, mag is pending. Past History Past Medical History: CAD, hypertension Past Surgical History: total hip replacement Social history: no significant social history Family history: no significant family history Medications and Allergies Allergies Allergy/AdvReac Type Severity Reaction Status Date / Time No Known Allergies Allergy Verified 06/26/20 04:20 Home Medications Medication Instructions Recorded Confirmed Last Taken Type Gabapentin 300 mg PO BID 06/26/20 06/28/20 Unknown History Metoprolol [Lopressor TAB] 25 mg PO DAILY 06/26/20 06/28/20 Unknown History lisinopriL [Zestril TAB] 20 mg PO BID 06/26/20 06/28/20 Unknown History Active Meds: Active Medications Acetaminophen (Tylenol) 650 mg PO Q4H PRN PRN Reason: Fever >101 Last Admin: 07/05/20 20:07 Dose: 650 mg Documented by: Acetaminophen (Tylenol) 650 mg PO Q6H PRN PRN Reason: Pain, Mild (1-3) Famotidine (Pepcid) 20 mg IV BID [facility] Last Admin: 07/06/20 10:51 Dose: 20 mg Documented by: Folic Acid (Folvite) 1 mg PO DAILY [facility] Gabapentin (Gabapentin) 300 mg PO BID [facility] Last Admin: 07/06/20 10:51 Dose: 300 mg Documented by: Heparin Sodium (Porcine) (Heparin) 5,000 unit SUB-Q Q12HR [facility] Last Admin: 07/06/20 10:51 Dose: 5,000 unit Documented by: Hydralazine HCl (Apresoline) 10 mg IV Q4HR PRN PRN Reason: Hypertension Last Admin: 07/03/20 04:20 Dose: 10 mg Documented by: Hydrocortisone Sodium Succinate (Solu-Cortef) 50 mg IV Q6HR [facility] Last Admin: 07/06/20 10:50 Dose: 50 mg Documented by: Hydromorphone HCl (Dilaudid) 0.25 mg IV Q4H PRN PRN Reason: Pain, Moderate (4-6) Norepinephrine (Levophed Drip 4 Mg/Ns 250 Ml) 4 mg in 250 mls @ 7.5 mls/hr IV TITR [facility]; Protocol Last Titration: 07/06/20 11:16 Dose: 2 mcg/min, 7.5 mls/hr Documented by: Cefepime HCl (Cefepime/Ns 2 Gm/100 Ml) 2 gm in 100 mls @ 200 mls/hr IV Q8HR [facility]; Protocol Last Admin: 07/06/20 10:50 Dose: 200 mls/hr Documented by: Potassium Chloride (Kcl 20meq/100ml) 20 meq in 100 mls @ 100 mls/hr IV ONCE ONE Stop: 07/06/20 11:59 Last Admin: 07/06/20 10:56 Dose: 100 mls/hr Documented by: Lactated Ringer's (Lactated Ringers) 1,000 mls @ 999 mls/hr IV Q1H [facility] Stop: 07/06/20 12:59 Last Admin: 07/06/20 10:56 Dose: 999 mls/hr Documented by: Lisinopril (Zestril) 20 mg PO DAILY [facility] Last Admin: 07/06/20 10:43 Dose: Not Given Documented by: Metoprolol Tartrate (Metoprolol) 2.5 mg IV Q6HR [facility] Multivitamins (Centrum Liq) 5 ml PO QDAY LILIAM Thiamine HCl (Vitamin B-1) 100 mg PO QDAY [facility] Review of Systems ROS unobtainable: due to endotracheal tube, due to mental status Physical Examination Vital signs: Vital Signs Temp Pulse BP Pulse Ox 98.3 F 59 L 135/77 100 06/26/20 00:12 06/26/20 00:12 06/26/20 00:12 06/26/20 00:12 General appearance: comatose Eyes: non-icteric ENT: other (orally intubated, no sedation) Neck: supple Effort: normal Ascultation: Bilateral: diminished breath sounds Percussion: Bilateral: not dull Tactile fremitus: Bilateral: normal Cardiovascular: other (ST changes seen prior to code) Integumentary: normal Extremities: no cyanosis, no edema, pink and warm, pulses normal Musculoskeletal: no deformities unable to assess Results - Laboratory Findings CBC and BMP: 07/06/20 04:42 07/06/20 04:42 Abnormal lab findings: Abnormal Labs 06/26/20 06/26/20 06/26/20 00:45 00:45 00:45 RBC 3.44 L Hgb Hct MCV 104 H MCH 35 H [place] % (Auto) 8.1 H Lymph # (Auto) 0.9 L Seg Neutrophils % 74.1 H Sodium Potassium Chloride Carbon Dioxide 19 L BUN Creatinine Glucose 103 H POC Glucose Magnesium Ammonia Acetaminophen 5.0 L 06/26/20 06/30/20 06/30/20 04:59 19:20 19:20 RBC Hgb Hct MCV MCH [place] % (Auto) Lymph # (Auto) Seg Neutrophils % Sodium Potassium Chloride Carbon Dioxide BUN Creatinine Glucose POC Glucose Magnesium 1.50 L Ammonia 20.0 L 20.0 L Acetaminophen 07/04/20 07/06/20 07/06/20 13:42 04:42 04:42 RBC 3.08 L Hgb 10.8 L Hct 31.7 L MCV 103 H MCH 35 H [place] % (Auto) Lymph # (Auto) Seg Neutrophils % Sodium 146 H Potassium 3.2 L 3.3 L Chloride 107.5 H 113.5 H Carbon Dioxide 19 L 21 L BUN 23 H Creatinine 0.5 L 0.6 L Glucose 109 H 113 H POC Glucose Magnesium Ammonia Acetaminophen 07/06/20 08:18 RBC Hgb Hct MCV MCH [place] % (Auto) Lymph # (Auto) Seg Neutrophils % Sodium Potassium Chloride Carbon Dioxide BUN Creatinine Glucose POC Glucose 107 H Magnesium Ammonia Acetaminophen - Diagnostic Findings Chest x-ray: image reviewed (cardiomegaly but otherwise clear. Could be some central vascular congestion) Assessment and Plan 74 y/o male with inhouse vfib arrest, currently not responsive 1. No sedation 2. Bolus 2 liters of LR and wean pressors for MAPS >65 3. Agree with ECHO] 4. Place Gal[place] 5. Monitor Urine Output 6. Serial Troponins 7. Replace electrolytes and recheck later today Sister has made DNR. Will not escalate care. Attempt to wean off pressors. Guarded prognosis.
--- NOTE | 2020-07-06 11:34 | XRay Report ---
CHEST 1 VIEW 1052 hours INDICATION: PICC placement. COMPARISON: Earlier today at 0850 hours FINDINGS: Support devices: A left arm PICC has been inserted which terminates in the lower SVC. The remaining l dona and tubes are unchanged. Heart: Stable Lungs/Pleura: Stable mild bilateral perihilar prominence suggesting mild pulmonary venous congestion. No pleural fluid or pneumothorax is identified. Additional findings: Subtle left rib deformities are suggested on this exam which appear to represent fractures. IMPRESSION: Adequate placement of the left arm PICC. Otherwise, no change since earlier today. Subtle left rib fractures are suggested as described. Signer Name: Vin Schroeder Jr, MD Signed: 07/06/2020 11:29 AM Workstation Name: [id number]
--- NOTE | 2020-07-06 12:59 | Consultation ---
History of Present Illness Consult date: 07/06/20 Consult reason: cardiac arrest History of present illness: The patient is a 74-year-old man admitted to the hospital 10 days ago, with altered mental status. He is reported to have a history of chronic alcohol abuse, and was found confused alone in the car many miles from his home. Over the period of his hospitalization here the suggested diagnosis was onset of dementia. This morning, NANO OMEGA was called to the patient's room, he apparently suffered a sudden ventricular fibrillation arrest. ACLS protocol was initiated, the patient was resuscitated with return of circulation, but is currently unresponsive on the vent. Cardiology consultation was requested for assistance in management post arrest. The patient is currently on intravenous dobutamine and norepinephrine. He is in a stable sinus rhythm in the CCU. Current heart rate is 76 and blood pressure is 124 systolic. We are informed that the patient's family member requested that the patient be managed conservatively from this point, is DO NOT RESUSCITATE, and no further heroic measures or therapies be initiated. A review of the telemetry strips leading to the cardiac arrest show that there was transient ST elevation on the monitor and storage bin tender strips, before the patient degenerated into ventricular fibrillation. Post resuscitation EKG shows sinus rhythm with ST changes that suggest an acute inferoposterior injury pattern. My review of the telemetry strips and ECGs from the previous 10 days of this hospitalization show no significant ST changes, and no significant dysrhythmias until this morning. Other pertinent findings a low potassium of 3.2, and a previous low magnesium of 1.5 which has been repleted. Patient's prior cardiac history and prior cardiac work-up is unknown and not documented. Past History Past Medical History: CAD, hypertension Past Surgical History: total hip replacement Social history: no significant social history Family history: no significant family history Medications and Allergies Allergies Allergy/AdvReac Type Severity Reaction Status Date / Time No Known Allergies Allergy Verified 06/26/20 04:20 Home Medications Medication Instructions Recorded Confirmed Last Taken Type Gabapentin 300 mg PO BID 06/26/20 06/28/20 Unknown History Metoprolol [Lopressor TAB] 25 mg PO DAILY 06/26/20 06/28/20 Unknown History lisinopriL [Zestril TAB] 20 mg PO BID 06/26/20 06/28/20 Unknown History Active Meds: Active Medications Acetaminophen (Tylenol) 650 mg PO Q4H PRN PRN Reason: Fever >101 Last Admin: 07/05/20 20:07 Dose: 650 mg Documented by: Acetaminophen (Tylenol) 650 mg PO Q6H PRN PRN Reason: Pain, Mild (1-3) Famotidine (Pepcid) 20 mg IV BID [facility] Last Admin: 07/06/20 10:51 Dose: 20 mg Documented by: Folic Acid (Folvite) 1 mg PO DAILY [facility] Gabapentin (Gabapentin) 300 mg PO BID [facility] Last Admin: 07/06/20 10:51 Dose: 300 mg Documented by: Heparin Sodium (Porcine) (Heparin) 5,000 unit SUB-Q Q12HR [facility] Last Admin: 07/06/20 10:51 Dose: 5,000 unit Documented by: Hydralazine HCl (Apresoline) 10 mg IV Q4HR PRN PRN Reason: Hypertension Last Admin: 07/03/20 04:20 Dose: 10 mg Documented by: Hydrocortisone Sodium Succinate (Solu-Cortef) 50 mg IV Q6HR [facility] Last Admin: 07/06/20 10:50 Dose: 50 mg Documented by: Hydromorphone HCl (Dilaudid) 0.25 mg IV Q4H PRN PRN Reason: Pain, Moderate (4-6) Norepinephrine (Levophed Drip 4 Mg/Ns 250 Ml) 4 mg in 250 mls @ 7.5 mls/hr IV TITR [facility]; Protocol Last Titration: 07/06/20 11:53 Dose: 0 mcg/min, 0 mls/hr Documented by: Cefepime HCl (Cefepime/Ns 2 Gm/100 Ml) 2 gm in 100 mls @ 200 mls/hr IV Q8HR [facility]; Protocol Last Admin: 07/06/20 10:50 Dose: 200 mls/hr Documented by: Lactated Ringer's (Lactated Ringers) 1,000 mls @ 999 mls/hr IV Q1H [facility] Stop: 07/06/20 12:59 Last Admin: 07/06/20 10:56 Dose: 999 mls/hr Documented by: Lisinopril (Zestril) 20 mg PO DAILY [facility] Last Admin: 07/06/20 10:43 Dose: Not Given Documented by: Metoprolol Tartrate (Metoprolol) 2.5 mg IV Q6HR [facility] Multivitamins (Centrum Liq) 5 ml PO QDAY LILIAM Thiamine HCl (Vitamin B-1) 100 mg PO QDAY LILIAM Review of Systems ROS unobtainable: due to endotracheal tube, due to mental status Physical Examination Vital Signs Temp Pulse BP Pulse Ox 98.3 F 59 L 135/77 100 06/26/20 00:12 06/26/20 00:12 06/26/20 00:12 06/26/20 00:12 General appearance: other (Unresponsive, on the vent) HEENT: Positive: Other (Pupils fixed) Neck: Positive: neck supple Cardiac: Positive: Reg Rate and Rhythm Lungs: Positive: Decreased Breath Sounds Neuro: Positive: Other (Unresponsive, on the vent) Abdomen: Positive: Soft Male genitourinary: Positive: deferred Skin: Positive: Clear Extremities: Absent: edema Results 07/06/20 04:42 07/06/20 04:42 CBC 07/06/20 Range/Units 04:42 WBC 9.4 (4.5-11.0) K/mm3 RBC 3.08 L (3.65-5.03) M/mm3 Hgb 10.8 L (11.8-15.2) gm/dl Hct 31.7 L (35.5-45.6) % Plt Count 283 (140-440) K/mm3 Comprehensive Metabolic Panel 07/06/20 Range/Units 04:42 Sodium 146 H (137-145) mmol/L Potassium 3.3 L (3.6-5.0) mmol/L Chloride 113.5 H (98-107) mmol/L Carbon Dioxide 21 L (22-30) mmol/L BUN 23 H (9-20) mg/dL Creatinine 0.6 L (0.8-1.3) mg/dL Glucose 113 H (75-100) mg/dL Calcium 8.5 (8.4-10.2) mg/dL EKG interpretations - Telemetry EKG Rhythm: Sinus Rhythm Assessment and Plan - Patient Problems (1) Acute myocardial infarction Current Visit: Yes Status: Acute Plan to address problem: Patient suffered an acute inferoposterior myocardial infarction followed by ventricular fibrillation arrest. Following resuscitation, the patient's family has requested no additional heroic measures and patient has been made a DO NOT RESUSCITATE. We will continue with conservative medical management as per the family wishes. Guideline directed medical therapy including beta-blockers, nitrates, dual oral antiplatelet therapy and statin therapy as tolerated. (2) Cardiac arrest with ventricular fibrillation Current Visit: Yes Status: Acute Plan to address problem: Patient suffered an acute inferoposterior myocardial infarction followed by ventricular fibrillation arrest. Following resuscitation, the patient's family has requested no additional heroic measures and patient has been made a DO NOT RESUSCITATE. We will continue with conservative medical management as per the family wishes. We will add amiodarone to the medical management, stop dobutamine. Echocardiogram is pending for left ventricular function assessment.
[2020-07-06] MEDS ORDERED: CLOPIDOGREL 300 MG TAB PO SCH (13:08)
[2020-07-06] MEDS ORDERED: ASPIRIN 81 MG TAB CHEW PO SCH (13:30)
[2020-07-06] MEDS ORDERED: AMIODARONE 300 MG in DEXTROSE 5% IN WATER 100 ML IV ONE (13:30)
[2020-07-06] MEDS ORDERED: NITROGLYCERIN DRIP 50 MG/250 ML BOTTLE IV SCH (14:00)
[2020-07-06] MEDS: ENOXAPARIN 80 MG/0.8 ML INJ SUB-Q SCH ×2 (14:06→23:43)
[2020-07-06] MEDS: METOPROLOL TARTRATE 5 MG/5 ML INJ IV SCH ×3 (14:08→23:45)
[2020-07-06] MEDS: AMIODARONE 200 MG TAB PO SCH ×2 (14:14→23:35)
[2020-07-06 15:12] LABS: Bacteria,Urine 2+ /HPF (Negative); Bilirubin,Urine NEG (Negative); Blood,Urine LG (Negative); Color,Urine Yellow (Yellow); Mucus,Urine 3+ /HPF; Urobilinogen,Urine < 2.0 mg/dL (<2.0)
[2020-07-06 15:13] LABS: WBC,Urine > 182.0 /HPF (0.0-6.0)
[2020-07-06 15:58] LABS: Creatine Kinase MB 40.8 ng/mL (0.0-4.0)
[2020-07-07 04:24] LABS: ABG Base Excess -4.9 mmol/L (-2.0-3.0); ABG HCO3 18.7 mmol/L (20.0-26.0); ABG Methemoglobin 0.5 % (0.0-1.5); ABG Oxygen Saturation 91.1 % (95.0-99.0); ABG PCO2 29.9 mm Hg; ABG PH 7.413 pH Units (7.350-7.450)
[2020-07-07] MEDS: CEFEPIME/NS 2 GM/100 ML 2 GM/100 ML BAG IV SCH (06:21)
[2020-07-07] MEDS: METOPROLOL TARTRATE 5 MG/5 ML INJ IV SCH ×2 (06:21→11:06)
[2020-07-07] MEDS: HYDROCORTISONE SOD SUCC 100 MG/2 ML VIAL IV SCH (06:21)
--- NOTE | 2020-07-07 07:58 | Progress Note ---
Assessment and Plan Assessment and plan: --Acute hypoxemic respiratory failure; not present on admission Requiring intubation and mechanical ventilation Continue supportive care, wean as tolerated and extubate Pulmonary critical following --s/p Ventricular fibrillation cardiac arrest; Continue amiodarone, supportive care, cardiology following --Possible metabolic /hypoxic encephalopathy; Supportive care --Acute myocardial infarction; Probably post resuscitation with ST-T changes Possible acute inferoposterior injury pattern Cardiology following --Cardiomyopathy/systolic congestive heart failure; EF 25 to 30% Continue antifailure medications, fluid restriction Input output monitoring, supportive care --Acute kidney injury; vasomotor nephropathy Monitor renal function, avoid nephrotoxins, consider nephrology consult if no improvement --Alcohol withdrawal symptoms/Wernicke's encephalopathy; POA Continue supportive care, this [place] protocol as needed Thiamine folic acid --Alcohol withdrawal symptoms/alcohol induced dementia; Supportive care --DVT prophylaxis; SCDs --DNR status; Consults and recommendations noted and appreciated We will closely monitor the patient and adjust management as needed Plan of care reviewed with the patient's nurse Wean as tolerated and extubate Consider hospice if needed The high probability of a clinically significant, sudden or life threatening deterioration of the [CARDIAC, respiratory, metabolic, neuro] system(s) required my full and direct attention, intervention and personal fabrizio whiteside. The aggregate critical care time was [45] minutes. This time is in addition to time spent p erforming reported procedures but includes the following: [X] Data Review and interpretation [X] Patient assessment and monitoring of vital signs [X] Documentation [X] Medication orders and management History Interval history: I have seen and examined the patient at the bedside this morning in ICU Patient's chart and medications reviewed Patient remains intubated on ventilatory support Patient is more alert today Vital signs reviewed Hospitalist Physical - Constitutional Vitals: Temp Pulse Resp BP Pulse Ox 98.8 F 86 26 H 138/68 100 07/07/20 03:35 07/07/20 07:53 07/07/20 06:00 07/07/20 07:53 07/07/20 07:53 General appearance: Present: no acute distress, well-nourished, other (Patient is more alert, intubated on ventilatory support) - EENT Eyes: Present: PERRL, EOM intact - Neck Neck: Present: supple, normal ROM - Respiratory Respiratory effort: normal Respiratory: bilateral: diminished, rhonchi, negative: rales, wheezing - Cardiovascular Rhythm: regular Heart Sounds: Present: S1 & S2 - Extremities Extremities: no ischemia, No edema - Abdominal General gastrointestinal: soft, non-tender, non-distended, normal bowel sounds - Integumentary Integumentary: Present: clear, warm - Psychiatric Psychiatric: other (Intubated on vent) - Neurologic Neurologic: other (Intubated on vent) HEART Score - HEART Score Risk factors: 1-2 risk factors Troponin: Troponin T 1.310 ng/mL (0.00-0.029) H* 07/06/20 12:00 Troponin: < normal limit - Critical Actions Critical Actions: 0-3 pts:0.9-1.7%risk of adverse cardiac event.Candidate for discharge Results - Labs CBC & Chem 7: 07/07/20 07:48 07/07/20 07:48 Labs: Laboratory Last Values WBC 9.4 K/mm3 (4.5-11.0) 07/06/20 04:42 RBC 3.08 M/mm3 (3.65-5.03) L 07/06/20 04:42 Hgb 10.8 gm/dl (11.8-15.2) L 07/06/20 04:42 Hct 31.7 % (35.5-45.6) L 07/06/20 04:42 MCV 103 fl (84-94) H 07/06/20 04:42 MCH 35 pg (28-32) H 07/06/20 04:42 MCHC 34 % (32-34) 07/06/20 04:42 RDW 14.9 % (13.2-15.2) 07/06/20 04:42 Plt Count 283 K/mm3 (140-440) 07/06/20 04:42 Lymph % (Auto) 16.0 % (13.4-35.0) 06/26/20 00:45 [place] % (Auto) 8.1 % (0.0-7.3) H 06/26/20 00:45 Eos % (Auto) 1.2 % (0.0-4.3) 06/26/20 00:45 Baso % (Auto) 0.6 % (0.0-1.8) 06/26/20 00:45 Lymph # (Auto) 0.9 K/mm3 (1.2-5.4) L 06/26/20 00:45 [place] # (Auto) 0.5 K/mm3 (0.0-0.8) 06/26/20 00:45 Eos # (Auto) 0.1 K/mm3 (0.0-0.4) 06/26/20 00:45 Baso # (Auto) 0.0 K/mm3 (0.0-0.1) 06/26/20 00:45 Seg Neutrophils % 74.1 % (40.0-70.0) H 06/26/20 00:45 Seg Neutrophils # 4.1 K/mm3 (1.8-7.7) 06/26/20 00:45 D-Dimer > 86754 ng/mlDDU (0-234) H 07/06/20 08:42 ABG pH 7.413 pH Units (7.350-7.450) 07/07/20 03:53 POC ABG pCO2 31.3 mmHg (32.0-48.0) L 07/06/20 10:50 ABG pCO2 29.9 mm Hg 07/07/20 03:53 POC ABG pO2 320.0 mmHg (83-108) H 07/06/20 10:50 ABG pO2 58.0 mm Hg (80.0-90.0) L 07/07/20 03:53 POC ABG HCO3 16.9 07/06/20 10:50 ABG HCO3 18.7 mmol/L (20.0-26.0) L 07/07/20 03:53 ABG O2 Saturation 91.1 % (95.0-99.0) L 07/07/20 03:53 ABG O2 Content 14.8 (0.0-44) 07/07/20 03:53 POC ABG Base Excess -7.7 07/06/20 10:50 ABG Base Excess -4.9 mmol/L (-2.0-3.0) L 07/07/20 03:53 ABG Hemoglobin 11.8 gm/dl (14.0-18.0) L 07/07/20 03:53 ABG Oxyhemoglobin 99.3 (94-98) H 07/06/20 10:50 ABG Carboxyhemoglobin 1.3 % (0.0-5.0) 07/07/20 03:53 ABG Methemoglobin 0.5 % (0.0-1.5) 07/07/20 03:53 ABG Sodium 142.1 mmol/L (136.0-145.0) 07/06/20 10:50 ABG Potassium 3.4 mmol/L (3.40-4.50) 07/06/20 10:50 ABG Chloride 114.0 mmol/L (98-107) H 07/06/20 10:50 ABG Glucose 188 mg/dL (65-95) H 07/06/20 10:50 Oxyhemoglobin 89.5 % (95.0-99.0) L 07/07/20 03:53 Carboxyhemoglobin 0.1 (0.5-1.5) L 07/06/20 10:50 FiO2 40 % 07/07/20 03:53 Sodium 146 mmol/L (137-145) H 07/06/20 04:42 Potassium 3.3 mmol/L (3.6-5.0) L 07/06/20 04:42 Chloride 113.5 mmol/L (98-107) H 07/06/20 04:42 Carbon Dioxide 21 mmol/L (22-30) L 07/06/20 04:42 Anion Gap 15 mmol/L 07/06/20 04:42 BUN 23 mg/dL (9-20) H 07/06/20 04:42 Creatinine 0.6 mg/dL (0.8-1.3) L 07/06/20 04:42 Estimated GFR > 60 ml/min 07/06/20 04:42 BUN/Creatinine Ratio 38 % 07/06/20 04:42 Glucose 113 mg/dL (75-100) H 07/06/20 04:42 POC Glucose 122 mg/dL (70-105) H 07/07/20 05:26 Lactic Acid 1.50 mmol/L (0.7-2.0) 06/26/20 00:45 Calcium 8.5 mg/dL (8.4-10.2) 07/06/20 04:42 Magnesium 2.00 mg/dL (1.7-2.3) 07/06/20 04:42 Total Bilirubin 0.50 mg/dL (0.1-1.2) 06/26/20 00:45 AST 20 units/L (5-40) 06/26/20 00:45 ALT 13 units/L (7-56) 06/26/20 00:45 Alkaline Phosphatase 100 units/L (35-129) 06/26/20 00:45 Ammonia 20.0 umol/L (25-60) L 06/30/20 19:20 Total Creatine Kinase 606 units/L (55-170) H 07/06/20 12:00 CK-MB (CK-2) 40.8 ng/mL (0.0-4.0) H 07/06/20 12:00 CK-MB (CK-2) Rel Index 6.7 (0-4) H 07/06/20 12:00 Troponin T 1.310 ng/mL (0.00-0.029) H* 07/06/20 12:00 Total Protein 7.2 g/dL (6.3-8.2) 06/26/20 00:45 Albumin 4.5 g/dL (3.9-5) 06/26/20 00:45 Albumin/Globulin Ratio 1.7 % 06/26/20 00:45 Triglycerides 57 mg/dL (2-149) 07/06/20 12:00 Cholesterol 90 mg/dL (50-199) 07/06/20 12:00 LDL Cholesterol Direct 49 mg/dL (50-130) L 07/06/20 12:00 HDL Cholesterol 30 mg/dL (40-59) L 07/06/20 12:00 Cholesterol/HDL Ratio 3.00 % 07/06/20 12:00 TSH 1.620 mlU/mL (0.270-4.200) 06/28/20 15:56 Free T4 1.17 ng/dL (0.76-1.46) 06/28/20 15:56 Arterial Blood Glucose 188 mg/dL (65-95) H 07/06/20 10:50 Arterial Blood Ionized Calcium 4.5 mg/dL (4.6-5.3) L 07/06/20 10:50 Urine Color Yellow (Yellow) 07/06/20 14:20 Urine Turbidity Cloudy (Clear) 07/06/20 14:20 Urine pH 5.0 (5.0-7.0) 07/06/20 14:20 Ur Specific [place] 1.009 (1.003-1.030) 07/06/20 14:20 Urine Protein 100 mg/dl mg/dL (Negative) 07/06/20 14:20 Urine Glucose (UA) 50 mg/dL (Negative) 07/06/20 14:20 Urine Ketones Tr mg/dL (Negative) 07/06/20 14:20 Urine Blood Lg (Negative) 07/06/20 14:20 Urine Nitrite Neg (Negative) 07/06/20 14:20 Urine Bilirubin Neg (Negative) 07/06/20 14:20 Urine Urobilinogen < 2.0 mg/dL (<2.0) 07/06/20 14:20 Ur Leukocyte Esterase Lg (Negative) 07/06/20 14:20 Urine WBC (Auto) > 182.0 /HPF (0.0-6.0) H 07/06/20 14:20 Urine RBC (Auto) 104.0 /HPF (0.0-6.0) 07/06/20 14:20 U Epithel Cells (Auto) 3.0 /HPF (0-13.0) 07/06/20 14:20 Urine Bacteria (Auto) 2+ /HPF (Negative) 07/06/20 14:20 Urine WBC Clumps 3+ /HPF 07/06/20 14:20 Urine Mucus 3+ /HPF 07/06/20 14:20 Urine Opiates Screen Presumptive negative 06/26/20 01:59 Urine Methadone Screen Presumptive negative 06/26/20 01:59 Acetaminophen 5.0 ug/mL (10.0-30.0) L 06/26/20 00:45 Ur Barbiturates Screen Presumptive negative 06/26/20 01:59 Ur Phencyclidine Scrn Presumptive negative 06/26/20 01:59 Ur Amphetamines Screen Presumptive negative 06/26/20 01:59 U Benzodiazepines Scrn Presumptive negative 06/26/20 01:59 Urine Cocaine Screen Presumptive negative 06/26/20 01:59 U Marijuana (THC) Screen Presumptive negative 06/26/20 01:59 Drugs of Abuse Note Disclamer 06/26/20 01:59 Plasma/Serum Alcohol < 0.01 % (0-0.07) 06/26/20 00:45 Blood Type O NEGATIVE 07/06/20 14:40 Antibody Screen Negative 07/06/20 14:40 Microbiology: Microbiology 07/06/20 14:09 Peripheral/Venous Blood Culture - Preliminary Culture in Progress 07/06/20 14:09 Peripheral/Venous Blood Culture - Preliminary Culture in Progress - Diagnostic Impressions Diagnostic Impressions: Echocardiogram 07/06/20 08:39 Transthoracic Echocardiogram Indication: Cardiomyopathy BP: 106/58 HR: 98 Conclusions *The study quality is technically difficult. *The left ventricular size is mild to moderately dilated. *Mild concentric left ventricular hypertrophy is observed. *Global left ventricular systolic function is severely decreased. *The estimated ejection fraction is 25%. *There is mild mitral regurgitation. *There is mild tricuspid regurgitation. *There is mild-moderate pulmonary hypertension. *The right ventricular systolic pressure is calculated at 40 mmHg. Findings Procedure Info: The study quality is technically difficult. Left Ventricle: The left ventricular size is mild to moderately dilated. Mild concentric left ventricular hypertrophy is observed. Global left ventricular systolic function is severely decreased. The estimated ejection fraction is 25-30%. Left Atrium: The left atrium is mildly dilated. Right Ventricle: The right ventricle is slightly dilated. Right Atrium: The right atrial cavity size is normal. Aortic Valve: The aortic valve leaflets are moderately thickened. There is trace of aortic regurgitation. There is no evidence of aortic stenosis. Mitral Valve: The mitral valve leaflets are moderately thickened. There is mild mitral regurgitation. There is no evidence of mitral stenosis. Tricuspid Valve: There is mild tricuspid regurgitation. The right ventricular systolic pressure is calculated at 40 mmHg. There is evidence of mild pulmonary hypertension. Pulmonic Valve: There is trace pulmonic regurgitation. Pericardium: There is no pericardial effusion. Aorta: There is no dilatation of the aortic root. Venous: The inferior vena cava is dilated. Measurements Chambers 2D Name Value Normal Range IVSd (2D) 1.34 cm (0.6 - 1.1) LVPWd (2D) 1.33 cm (0.6 - 1.1) LVIDd (2D) 3.86 cm (3.7 - 5.6) LVIDs (2D) 2.85 cm (2 - 3.8) LV FS (2D) 26.34 % - EF Teichholz (2D) 52.28 % - Ao root diameter (2D) 3.54 cm (2 - 3.7) Volumes/Mass Name Value Normal Range LA ESV SP 4CH (A/L) 50.07 ml - LA ESV SP 2CH (A/L) 54.16 ml - LA ESV BP (A/L) 56.5 ml - LA ESV SP 4CH (MOD) 44.38 ml - LA ESV SP 2CH (MOD) 52.76 ml - Diastolic/Systolic Function Name Value Normal Range MV E-wave Vmax 0.85 m/sec - MV deceleration time 163.03 msec - MV A-wave Vmax 0.85 m/sec - MV E:A ratio 0.99 ratio - Aortic Valve Name Value Normal Range AV Vmax 0.77 m/sec - AV VTI 14.25 cm - AV peak gradient 2.38 mmHg - AV mean gradient 1.5 mmHg - LVOT diameter 2 cm - LVOT Vmax 0.57 m/sec - LVOT VTI 9.44 cm - LVOT peak gradient 1.31 mmHg - LVOT mean gradient 0.72 mmHg - SV LVOT 29.56 ml - MICHAEL (continuity Vmax) 2.33 cm2 - MICHAEL (continuity VTI) 2.07 cm2 - Mitral Valve Name Value Normal Range MR Vmax 3.93 m/sec - Tricuspid Valve Name Value Normal Range TR Vmax 2.87 m/sec - TR peak gradient 32.85 mmHg - RVSP 40 mmHg - IVC diameter 2.3 cm (1.2 - 2.3) Pulmonic Valve/Qp:Qs Name Value Normal Range PV acceleration time 79.92 msec - Galindo/IV: Voiding Method Indwelling Catheter IV Catheter Type [right INT / Saline Lock forearm] IV Catheter Type [Left Upper PICC Line arm] IV Catheter Type [Left Hand] INT / Saline Lock Active Medications - Current Medications Current Medications: Generic Name Dose Route Start Last Admin Trade Name Freq PRN Reason Stop Dose Admin Acetaminophen 650 mg 06/26/20 04:16 07/05/20 20:07 Tylenol PO 650 mg Q4H PRN Administration Fever >101 Acetaminophen 650 mg 07/06/20 08:41 Tylenol PO Q6H PRN Pain, Mild (1-3) Amiodarone HCl 200 mg 07/06/20 14:00 07/06/20 23:35 Cordarone PO Not Given BID LILIAM Aspirin 81 mg 07/07/20 10:00 Baby Aspirin PO 07/07/20 10:01 ONCE ONE Atorvastatin Calcium 40 mg 07/06/20 22:00 07/06/20 23:35 Lipitor PO Not Given QHS [facility] Clopidogrel Bisulfate 75 mg 07/07/20 10:00 Plavix PO QDAY [facility] Enoxaparin Sodium 80 mg 07/06/20 14:00 07/06/20 23:43 Enoxaparin SUB-Q 80 mg BID [facility] Administration Protocol Famotidine 20 mg 07/06/20 10:00 07/06/20 23:43 Pepcid IV 20 mg BID [facility] Administration Folic Acid 1 mg 07/07/20 10:00 Folvite PO DAILY [facility] Gabapentin 300 mg 06/26/20 10:00 07/06/20 23:35 Gabapentin PO Not Given BID [facility] Hydralazine HCl 10 mg 07/01/20 07:41 07/03/20 04:20 Apresoline IV 10 mg Q4HR PRN Administration Hypertension Hydrocortisone Sodium Succinate 50 mg 07/06/20 09:00 07/07/20 06:21 Solu-Cortef IV 50 mg Q6HR [facility] Administration Hydromorphone HCl 0.25 mg 07/06/20 08:41 Dilaudid IV Q4H PRN Pain, Moderate (4-6) Norepinephrine 4 mg in 250 mls @ 7.5 mls/hr 07/06/20 09:00 07/06/20 11:53 Levophed Drip 4 Mg/Ns 250 Ml IV 0 mcg/min TITR LILIAM 0 mls/hr Titration Protocol 2 MCG/MIN Cefepime HCl 2 gm in 100 mls @ 200 mls/hr 07/06/20 09:00 07/07/20 06:21 Cefepime/Ns 2 Gm/100 Ml IV 200 mls/hr Q8HR [facility] Administration Protocol Nitroglycerin/Dextrose 50 mg in 250 mls @ 3 mls/hr 07/06/20 14:00 Tridil Drip 50mg/250ml IV TITR LILIAM Protocol 10 MCG/MIN Metoprolol Tartrate 2.5 mg 07/06/20 12:00 07/07/20 06:21 Metoprolol IV 2.5 mg Q6HR [facility] Administration Multivitamins 5 ml 07/07/20 10:00 Centrum Liq PO QDAY [facility] Thiamine HCl 100 mg 07/07/20 10:00 Vitamin B-1 PO QDAY [facility] Nutrition/Malnutrition Assess - Dietary Evaluation Nutrition/Malnutrition Findings: Nutrition Notes Start: 07/03/20 12:56 Freq: Status: Active Protocol: Document 07/06/20 10:27 (Rec: 07/06/20 10:34 [id number]) Nutrition Notes Initial or Follow up Reassessment Current Diagnosis Coronary Artery Disease, Decubitus(Pressure Ulcer), Hypertension Other Pertinent Diagnosis Encephalopathy, Cerebral atherosclerosis Current Diet NPO Labs/Tests Na 146 K 3.3 BUN 23 Cr 0.6 Pertinent Medications Levophed NS at 125 ml/hr Height 5 ft 10 in Weight 72.4 kg Goodman Body Weight (kg) 75.45 BMI 22.8 Weight Status Appropriate Subjective/Other Information FU for intakes. Pt had a carrdiac arrest this AM and is now intubated. Per RN, will start TF when medically able. Percent of energy/protein needs met: 0%/0% Burn Absent Trauma Absent Current % PO Negligible Minimum of two criteria No physical signs of malnutrition #2 Nutrition Diagnosis Increased nutrient needs ( specify in comment below) Comments: Protein Diagnosis Progress(for reassessment Continues documentation) #1 Nutrition Diagnosis Inadequate oral intake Etiology acute respiratory failure As Evidenced by Signs and Symptoms pt on vent and unable to consume PO Diagnosis Progress(for reassessment Worsened documentation) Is patient on ventilator? Yes Is Patient Ambulatory and/or Out of Bed No REE-([facility]-confined to bed) [phone] Calculation Used for Recommendations [facility] Additional Notes Protein: 92-145g (1.25-2 g/kg) Fluid: 1 ml/kcal Nutrition Intervention Change Diet Order: TF when medically able or diet advancement Nutrition Support: Vital AF at 65 ml/hr (goal rate) Flush 100 ml q4h Kcal 1,872 Protein (gm) 117 Fluid (mL) 1,265 Add Supplement/Snack (indicate name/kcal D/C /protein ) Goal #1 TF when medically able or diet advancement Anticipated Discharge Needs: Unable to determine at this time Follow-Up By: 07/08/20 Additional Comments FU for TF start or diet advancement
[2020-07-07 08:14] LABS: Hematocrit 33.5 % (35.5-45.6); Hemoglobin 11.2 gm/dl (11.8-15.2); Mean Corpuscular HGB Conc 33 % (32-34); Mean Corpuscular Volume 102 fl (84-94); Platelet Count 271 K/mm3 (140-440); Red Blood Count 3.28 M/mm3 (3.65-5.03); Red Cell Distribution Width 15.2 % (13.2-15.2)
[2020-07-07 08:34] LABS: Calcium 8.7 mg/dL (8.4-10.2)
[2020-07-07 08:39] LABS: Creatine Kinase MB 128.7 ng/mL (0.0-4.0)
--- NOTE | 2020-07-07 09:03 | Progress Note ---
Assessment and Plan 74 y/o male with inhouse vfib arrest, currently not responsive 1. No sedation 2. Cards has seen and added BB with ASA, Plavix and statin therapy. No LETI or ARB. Nitro was ordered but this was not started. patient was on pressors yes terday but weaned off late morning. 3. Agree with ECHO 4. Continue strict I/O given worsening renal function. 5. Mental status is still not normal Sister has made DNR. Will not escalate care. Guarded prognosis. Subjective Date of service: 07/07/20 Interval history: Trops trending up. Off pressors. Renal function is worse despite ortega placement. Positive almost 3 liters. Objective Vital Signs - 12hr 07/06/20 07/06/20 07/06/20 21:30 21:31 22:00 Temperature Pulse Rate 81 77 Pulse Rate [ 79 From Monitor] Respiratory 19 22 16 Rate Blood Pressure 122/77 125/77 O2 Sat by Pulse 100 100 100 Oximetry 07/06/20 07/06/20 07/06/20 22:30 23:00 23:06 Temperature Pulse Rate 74 73 74 Pulse Rate [ From Monitor] Respiratory 19 21 21 Rate Blood Pressure 124/78 123/76 123/76 O2 Sat by Pulse 100 100 100 Oximetry 07/06/20 07/06/20 07/06/20 23:30 23:31 23:45 Temperature 98.5 F Pulse Rate 71 69 Pulse Rate [ From Monitor] Respiratory 20 Rate Blood Pressure 126/74 119/70 O2 Sat by Pulse 100 Oximetry 07/06/20 07/07/20 07/07/20 23:53 00:00 00:30 Temperature Pulse Rate 74 76 74 Pulse Rate [ From Monitor] Respiratory 24 22 Rate Blood Pressure 119/70 127/76 127/72 O2 Sat by Pulse 100 100 100 Oximetry 07/07/20 07/07/20 07/07/20 00:46 01:00 01:30 Temperature Pulse Rate 74 71 70 Pulse Rate [ 74 From Monitor] Respiratory 22 19 23 Rate Blood Pressure 116/68 120/71 O2 Sat by Pulse 100 100 100 Oximetry 07/07/20 07/07/20 07/07/20 02:00 02:30 03:00 Temperature Pulse Rate 73 76 69 Pulse Rate [ From Monitor] Respiratory 19 23 18 Rate Blood Pressure 129/78 127/78 119/70 O2 Sat by Pulse 100 100 100 Oximetry 07/07/20 07/07/20 07/07/20 03:30 03:35 04:00 Temperature 98.8 F Pulse Rate 81 79 Pulse Rate [ From Monitor] Respiratory 20 19 Rate Blood Pressure 120/84 132/74 O2 Sat by Pulse 100 100 Oximetry 07/07/20 07/07/20 07/07/20 04:28 04:30 05:00 Temperature Pulse Rate 83 83 83 Pulse Rate [ 74 From Monitor] Respiratory 26 H 27 H Rate Blood Pressure 133/79 133/79 130/77 O2 Sat by Pulse 100 100 100 Oximetry 07/07/20 07/07/20 07/07/20 05:30 06:00 06:21 Temperature Pulse Rate 83 79 86 Pulse Rate [ From Monitor] Respiratory 20 26 H Rate Blood Pressure 133/74 131/74 138/68 O2 Sat by Pulse 100 100 Oximetry 07/07/20 07:53 Temperature Pulse Rate 86 Pulse Rate [ From Monitor] Respiratory Rate Blood Pressure 138/68 O2 Sat by Pulse 100 Oximetry Constitutional: comatose Eyes: non-icteric ENT: other (orally intubated, no sedation) Neck: supple Effort: normal Ascultation: Bilateral: diminished breath sounds Percussion: Bilateral: not dull Tactile fremitus: Bilateral: normal Cardiovascular: other (ST changes seen prior to code) Integumentary: normal Extremities: no cyanosis, no edema, pink and warm, pulses normal Neurologic: unable to assess CBC and BMP: 07/07/20 07:48 07/07/20 07:48 ABG, PT/INR, D-dimer: ABG ABG pH 7.413 pH Units (7.350-7.450) 07/07/20 03:53 POC ABG pCO2 31.3 mmHg (32.0-48.0) L 07/06/20 10:50 ABG pCO2 29.9 mm Hg 07/07/20 03:53 POC ABG pO2 320.0 mmHg (83-108) H 07/06/20 10:50 ABG pO2 58.0 mm Hg (80.0-90.0) L 07/07/20 03:53 POC ABG HCO3 16.9 07/06/20 10:50 ABG O2 Saturation 91.1 % (95.0-99.0) L 11/17/20 03:53 PT/INR, D-dimer D-Dimer > 80550 ng/mlDDU (0-234) H 07/06/20 08:42 Abnormal lab findings: Abnormal Labs 06/26/20 06/26/20 06/26/20 00:45 00:45 00:45 WBC RBC 3.44 L Hgb Hct MCV 104 H MCH 35 H Emmet % (Auto) 8.1 H Lymph # (Auto) 0.9 L Seg Neutrophils % 74.1 H D-Dimer POC ABG pCO2 POC ABG pO2 ABG pO2 ABG HCO3 ABG O2 Saturation ABG Base Excess ABG Hemoglobin ABG Oxyhemoglobin ABG Chloride ABG Glucose Oxyhemoglobin Carboxyhemoglobin Sodium Potassium Chloride Carbon Dioxide 19 L BUN Creatinine Glucose 103 H POC Glucose Magnesium Ammonia Total Creatine Kinase CK-MB (CK-2) CK-MB (CK-2) Rel Index Troponin T LDL Cholesterol Direct HDL Cholesterol Arterial Blood Glucose Arterial Blood Ionized Calcium Urine WBC (Auto) Acetaminophen 5.0 L 06/26/20 06/30/20 06/30/20 04:59 19:20 19:20 WBC RBC Hgb Hct MCV MCH Emmet % (Auto) Lymph # (Auto) Seg Neutrophils % D-Dimer POC ABG pCO2 POC ABG pO2 ABG pO2 ABG HCO3 ABG O2 Saturation ABG Base Excess ABG Hemoglobin ABG Oxyhemoglobin ABG Chloride ABG Glucose Oxyhemoglobin Carboxyhemoglobin Sodium Potassium Chloride Carbon Dioxide BUN Creatinine Glucose POC Glucose Magnesium 1.50 L Ammonia 20.0 L 20.0 L Total Creatine Kinase CK-MB (CK-2) CK-MB (CK-2) Rel Index Troponin T LDL Cholesterol Direct HDL Cholesterol Arterial Blood Glucose Arterial Blood Ionized Calcium Urine WBC (Auto) Acetaminophen 07/04/20 07/06/20 07/06/20 13:42 04:42 04:42 WBC RBC 3.08 L Hgb 10.8 L Hct 31.7 L MCV 103 H MCH 35 H Emmet % (Auto) Lymph # (Auto) Seg Neutrophils % D-Dimer POC ABG pCO2 POC ABG pO2 ABG pO2 ABG HCO3 ABG O2 Saturation ABG Base Excess ABG Hemoglobin ABG Oxyhemoglobin ABG Chloride ABG Glucose Oxyhemoglobin Carboxyhemoglobin Sodium 146 H Potassium 3.2 L 3.3 L Chloride 107.5 H 113.5 H Carbon Dioxide 19 L 21 L BUN 23 H Creatinine 0.5 L 0.6 L Glucose 109 H 113 H POC Glucose Magnesium Ammonia Total Creatine Kinase CK-MB (CK-2) CK-MB (CK-2) Rel Index Troponin T LDL Cholesterol Direct HDL Cholesterol Arterial Blood Glucose Arterial Blood Ionized Calcium Urine WBC (Auto) Acetaminophen 07/06/20 07/06/20 07/06/20 08:18 08:42 10:50 WBC RBC Hgb Hct MCV MCH Emmet % (Auto) Lymph # (Auto) Seg Neutrophils % D-Dimer > 03981 H POC ABG pCO2 31.3 L POC ABG pO2 320.0 H ABG pO2 ABG HCO3 ABG O2 Saturation ABG Base Excess ABG Hemoglobin 11.3 L ABG Oxyhemoglobin 99.3 H ABG Chloride 114.0 H ABG Glucose 188 H Oxyhemoglobin Carboxyhemoglobin 0.1 L Sodium Potassium Chloride Carbon Dioxide BUN Creatinine Glucose POC Glucose 107 H Magnesium Ammonia Total Creatine Kinase CK-MB (CK-2) CK-MB (CK-2) Rel Index Troponin T LDL Cholesterol Direct HDL Cholesterol Arterial Blood Glucose 188 H Arterial Blood Ionized Calcium 4.5 L Urine WBC (Auto) Acetaminophen 07/06/20 07/06/20 07/06/20 12:00 12:23 14:20 WBC RBC Hgb Hct MCV MCH Emmet % (Auto) Lymph # (Auto) Seg Neutrophils % D-Dimer POC ABG pCO2 POC ABG pO2 ABG pO2 ABG HCO3 ABG O2 Saturation ABG Base Excess ABG Hemoglobin ABG Oxyhemoglobin ABG Chloride ABG Glucose Oxyhemoglobin Carboxyhemoglobin Sodium Potassium Chloride Carbon Dioxide BUN Creatinine Glucose POC Glucose 147 H Magnesium Ammonia Total Creatine Kinase 606 H CK-MB (CK-2) 40.8 H CK-MB (CK-2) Rel Index 6.7 H Troponin T 1.310 H* LDL Cholesterol Direct 49 L HDL Cholesterol 30 L Arterial Blood Glucose Arterial Blood Ionized Calcium Urine WBC (Auto) > 182.0 H Acetaminophen 07/06/20 07/06/20 07/07/20 18:10 23:31 03:53 WBC RBC Hgb Hct MCV MCH Emmet % (Auto) Lymph # (Auto) Seg Neutrophils % D-Dimer POC ABG pCO2 POC ABG pO2 ABG pO2 58.0 L ABG HCO3 18.7 L ABG O2 Saturation 91.1 L ABG Base Excess -4.9 L ABG Hemoglobin 11.8 L ABG Oxyhemoglobin ABG Chloride ABG Glucose Oxyhemoglobin 89.5 L Carboxyhemoglobin Sodium Potassium Chloride Carbon Dioxide BUN Creatinine Glucose POC Glucose 167 H 139 H Magnesium Ammonia Total Creatine Kinase CK-MB (CK-2) CK-MB (CK-2) Rel Index Troponin T LDL Cholesterol Direct HDL Cholesterol Arterial Blood Glucose Arterial Blood Ionized Calcium Urine WBC (Auto) Acetaminophen 07/07/20 07/07/20 07/07/20 05:26 07:48 07:48 WBC 11.8 H RBC 3.28 L Hgb 11.2 L Hct 33.5 L MCV 102 H MCH 34 H Emmet % (Auto) Lymph # (Auto) Seg Neutrophils % D-Dimer POC ABG pCO2 POC ABG pO2 ABG pO2 ABG HCO3 ABG O2 Saturation ABG Base Excess ABG Hemoglobin ABG Oxyhemoglobin ABG Chloride ABG Glucose Oxyhemoglobin Carboxyhemoglobin Sodium Potassium Chloride Carbon Dioxide BUN Creatinine Glucose POC Glucose 122 H Magnesium Ammonia Total Creatine Kinase 1351 H CK-MB (CK-2) 128.7 H CK-MB (CK-2) Rel Index 9.5 H Troponin T 4.010 H* D LDL Cholesterol Direct HDL Cholesterol Arterial Blood Glucose Arterial Blood Ionized Calcium Urine WBC (Auto) Acetaminophen 07/07/20 07:48 WBC RBC Hgb Hct MCV MCH Emmet % (Auto) Lymph # (Auto) Seg Neutrophils % D-Dimer POC ABG pCO2 POC ABG pO2 ABG pO2 ABG HCO3 ABG O2 Saturation ABG Base Excess ABG Hemoglobin ABG Oxyhemoglobin ABG Chloride ABG Glucose Oxyhemoglobin Carboxyhemoglobin Sodium Potassium Chloride 113.1 H Carbon Dioxide 18 L BUN 44 H Creatinine 2.3 H D Glucose 148 H POC Glucose Magnesium Ammonia Total Creatine Kinase CK-MB (CK-2) CK-MB (CK-2) Rel Index Troponin T LDL Cholesterol Direct HDL Cholesterol Arterial Blood Glucose Arterial Blood Ionized Calcium Urine WBC (Auto) Acetaminophen
[2020-07-07] MEDS ORDERED: FAMOTIDINE 20 MG TAB PO SCH (10:00)
[2020-07-07] MEDS ORDERED: ASPIRIN 81 MG TAB CHEW PO ONE (10:00)
[2020-07-07] MEDS: CLOPIDOGREL 75 MG TAB PO SCH (11:05)
[2020-07-07] MEDS: THIAMINE 100 MG TAB PO SCH (11:05)
[2020-07-07] MEDS: MULTIVITAMINS 5 ML ORAL LIQUID PO SCH (11:06)
[2020-07-07] MEDS: AMIODARONE 200 MG TAB PO SCH ×2 (11:06→21:57)
[2020-07-07] MEDS: FOLIC ACID 1 MG TAB PO SCH (11:06)
[2020-07-07] MEDS: ENOXAPARIN 80 MG/0.8 ML INJ SUB-Q SCH (11:06)
--- NOTE | 2020-07-07 11:39 | Progress Note ---
Assessment and Plan Altered mental status Ventricular fibrillation arrest Acute [place] post resuscitation EKG shows sinus rhythm with ST changes that suggest an a cute inferoposterior injury pattern. LVEF 25-30% by echo DNR status Continue medical therapy including beta-blockers, nitrates, dual oral antiplatelet therapy and statin therapy as tolerated for underlying CAD. Continue amiodarone for suppression of arrhythmias. Subjective Date of service: 07/07/20 Interval history: Remains intubated on mechanical ventilation. No cardiac events reported overnight. Objective Vital Signs Temp Pulse Pulse Resp BP Pulse Ox 07/07/20 11:06 80 145/88 07/07/20 11:00 79 25 H 145/88 100 07/07/20 10:30 81 30 H 154/92 100 07/07/20 10:00 77 34 H 143/88 100 07/07/20 09:30 87 21 145/86 100 07/07/20 09:00 78 31 H 148/87 100 07/07/20 08:30 79 17 132/100 100 07/07/20 08:00 80 22 139/85 99 07/07/20 07:53 86 138/68 100 07/07/20 07:30 78 30 H 141/82 100 07/07/20 07:00 78 32 H 138/83 100 07/07/20 06:30 81 24 140/84 99 07/07/20 06:21 86 138/68 07/07/20 06:00 79 26 H 131/74 100 07/07/20 05:30 83 20 133/74 100 07/07/20 05:00 83 74 27 H 130/77 100 07/07/20 04:30 83 26 H 133/79 100 07/07/20 04:28 83 133/79 100 07/07/20 04:00 79 19 132/74 100 07/07/20 03:35 98.8 F 07/07/20 03:30 81 20 120/84 100 07/07/20 03:00 69 18 119/70 100 07/07/20 02:30 76 23 127/78 100 07/07/20 02:00 73 19 129/78 100 07/07/20 01:30 70 23 120/71 100 07/07/20 01:00 71 19 116/68 100 07/07/20 00:46 74 74 22 100 07/07/20 00:30 74 22 127/72 100 07/07/20 00:00 76 24 127/76 100 07/06/20 23:53 74 119/70 100 07/06/20 23:45 69 119/70 07/06/20 23:31 98.5 F 07/06/20 23:30 71 20 126/74 100 07/06/20 23:06 74 21 123/76 100 07/06/20 23:00 73 21 123/76 100 07/06/20 22:30 74 19 124/78 100 07/06/20 22:00 77 16 125/77 100 07/06/20 21:31 79 22 100 07/06/20 21:30 81 19 122/77 100 07/06/20 21:00 74 21 116/74 100 07/06/20 20:30 83 24 122/77 100 07/06/20 20:21 83 123/75 100 07/06/20 20:00 79 18 121/70 100 07/06/20 19:55 99.1 F 07/06/20 19:30 79 20 123/80 100 07/06/20 19:00 77 18 113/71 100 07/06/20 18:00 78 19 108/66 100 07/06/20 17:50 79 19 104/72 100 07/06/20 17:40 85 10 L 105/68 100 07/06/20 17:30 83 23 105/68 100 07/06/20 17:20 86 22 118/75 100 07/06/20 17:10 87 24 104/65 100 07/06/20 17:09 86 104/65 100 07/06/20 17:00 77 22 104/65 100 07/06/20 16:50 82 20 107/69 100 20 16:40 81 20 111/70 100 20 16:33 97.8 F 07/06/20 16:30 82 26 H 111/70 100 20 16:20 84 24 117/78 100 07/06/20 16:10 86 18 100 07/06/20 16:00 83 23 105/70 100 20 15:50 83 22 105/70 100 1620 15:40 77 14 105/70 100 20 15:30 83 13 105/70 100 20 15:20 82 22 108/77 100 11/16/20 15:10 87 25 H 111/75 100 07/06/20 15:00 86 24 111/75 07/06/20 14:50 86 25 H 103/75 100 07/06/20 14:40 89 22 102/69 100 07/06/20 14:30 91 H 24 102/69 07/06/20 14:20 99 H 17 131/86 100 07/06/20 14:10 100 H 25 H 124/82 99 07/06/20 14:08 97 H 124/82 07/06/20 14:00 98 H 21 124/82 07/06/20 13:55 96 H 129/87 100 07/06/20 13:50 100 H 26 H 129/87 100 07/06/20 13:40 102 H 29 H 130/86 100 07/06/20 13:30 103 H 28 H 130/86 100 07/06/20 13:20 100 H 29 H 125/76 100 07/06/20 13:10 102 H 31 H 126/84 100 07/06/20 13:00 103 H 29 H 126/84 100 07/06/20 12:50 103 H 30 H 124/80 100 07/06/20 12:40 97 H 29 H 119/83 99 07/06/20 12:30 107 H 21 119/83 100 07/06/20 12:20 103 H 32 H 128/73 99 07/06/20 12:10 105 H 33 H 129/81 99 07/06/20 12:00 105 H 34 H 129/81 100 07/06/20 11:50 103 H 34 H 129/83 99 07/06/20 11:40 107 H 27 H 130/77 98 - Physical Examination General: Other (intubated on the vent) Cardiac: Positive: Reg Rate and Rhythm Extremities: Absent: edema - Labs and Meds Cardiac Enzymes 07/06/20 07/07/20 Range/Units 12:00 07:48 CK-MB (CK-2) 40.8 H 128.7 H (0.0-4.0) ng/mL Lipids 07/06/20 Range/Units 12:00 Triglycerides 57 (2-149) mg/dL Cholesterol 90 (50-199) mg/dL HDL Cholesterol 30 L (40-59) mg/dL Cholesterol/HDL Ratio 3.00 % CBC 11/17/20 Range/Units 07:48 WBC 11.8 H (4.5-11.0) K/mm3 RBC 3.28 L (3.65-5.03) M/mm3 Hgb 11.2 L (11.8-15.2) gm/dl Hct 33.5 L (35.5-45.6) % Plt Count 271 (140-440) K/mm3 Comprehensive Metabolic Panel 07/07/20 Range/Units 07:48 Sodium 143 (137-145) mmol/L Potassium 4.2 D (3.6-5.0) mmol/L Chloride 113.1 H (98-107) mmol/L Carbon Dioxide 18 L (22-30) mmol/L BUN 44 H (9-20) mg/dL Creatinine 2.3 H D (0.8-1.3) mg/dL Glucose 148 H (75-100) mg/dL Calcium 8.7 (8.4-10.2) mg/dL
[2020-07-07] MEDS ORDERED: SODIUM BICARBONATE 325 MG TAB FEEDTUBE PRN (12:29)
[2020-07-07] MEDS ORDERED: SIMPLE SYRUP 15 ML FEEDTUBE PRN ×2 (12:29)
[2020-07-07] MEDS ORDERED: LIPASE 10,500/PROTEASE 25,000/AMYLASE 43,750 (UNITS) DR CAP FEEDTUBE PRN (12:29)
[2020-07-07] MEDS: NITROGLYCERIN 2% OINT 1 GM TP SCH (15:00)
[2020-07-08] MEDS: METOPROLOL TARTRATE 5 MG/5 ML INJ IV SCH ×5 (01:00→17:49)
[2020-07-08] MEDS: NITROGLYCERIN 2% OINT 1 GM TP SCH ×4 (05:22→17:50)
[2020-07-08 06:20] LABS: Albumin 2.6 g/dL (3.9-5); Calcium 8.3 mg/dL (8.4-10.2)
--- NOTE | 2020-07-08 08:09 | Progress Note ---
Assessment and Plan Assessment and plan: --Acute hypoxemic respiratory failure; Requiring intubation and mechanical ventilation Continue supportive care, wean as tolerated and extubate Pulmonary critical following --s/p Ventricular fibrillation cardiac arrest; Continue amiodarone, supportive care, cardiology following --Possible anoxic/hypoxic encephalopathy; Very poor prognosis --Acute myocardial infarction; Probably post resuscitation with ST-T changes Possible acute inferoposterior injury pattern Cardiology following, continue cardiac medications full dose Lovenox --Cardiomyopathy/acute systolic congestive heart failure; EF 25 to 30% Continue antifailure medications, fluid restriction Input output monitoring, supportive care --Acute kidney injury; vasomotor nephropathy Monitor renal function, avoid nephrotoxins, consider nephrology consult if no improvement --Alcohol withdrawal symptoms/Wernicke's encephalopathy; POA Continue supportive care, this [facility] protocol as needed Thiamine folic acid --Alcohol withdrawal symptoms/alcohol induced dementia; Supportive care --DVT prophylaxis; SCDs --DNR status; Consults and recommendations noted and appreciated We will closely monitor the patient and adjust management as needed Plan of care reviewed with the patient's nurse Patient is critically ill, with history of cardiac arrest and anoxic brain injury Very poor prognosis, patient is DNR status, recommend palliative care/hospice I called patient's sister and discussed patient's condition poor prognosis goals of treatment Options of palliative/comfort care/hospice[home hospice versus inpatient hospice] Patient's sister Ms. Raz Nye had many questions answered all of them Inform Ms. Youngblood to consult hospice. Patient is DNR status at this point The high probability of a clinically significant, sudden or life threatening deterioration of the [CARDIAC, respiratory, metabolic, neuro] system(s) required my full and direct attention, intervention and personal management. The aggregate critical care time was [45] minutes. This time is in addition to time spent performing reported procedures but includes the following: [X] Data Review and interpretation [X] Patient assessment and monitoring of vital signs [X] Documentation [X] Medication orders and management History Interval history: I have seen and examined the patient at the bedside in ICU this morning Patient's chart and medications reviewed. Patient remains intubated on ventilatory support, unresponsive Vital signs noted Hospitalist Physical - Constitutional Vitals: Temp Pulse Resp BP Pulse Ox 99.2 F 69 30 H 126/75 99 07/08/20 04:00 07/08/20 08:03 07/08/20 08:03 07/08/20 08:03 07/08/20 08:03 General appearance: Present: no acute distress, well-nourished, other (Patient is more alert, intubated on ventilatory support) - EENT Eyes: Present: PERRL, EOM intact ENT: other (ET tube and Dobbhoff in place) - Neck Neck: Present: supple, normal ROM - Respiratory Respiratory effort: normal Respiratory: bilateral: diminished, rhonchi, negative: rales, wheezing - Cardiovascular Rhythm: regular Heart Sounds: Present: S1 & S2 - Extremities Extremities: no ischemia, No edema - Abdominal General gastrointestinal: soft, non-tender, non-distended, normal bowel sounds - Integumentary Integumentary: Present: clear, warm - Psychiatric Psychiatric: other (Unresponsive on ventilatory support) - Neurologic Neurologic: other (Unresponsive, intubated on vent) HEART Score - HEART Score Risk factors: 1-2 risk factors Troponin: Troponin T 4.010 ng/mL (0.00-0.029) H* D 07/07/20 07:48 Troponin: < normal limit - Critical Actions Critical Actions: 0-3 pts:0.9-1.7%risk of adverse cardiac event.Candidate for discharge Results - Labs CBC & Chem 7: 07/07/20 07:48 07/08/20 05:30 Labs: Laboratory Last Values WBC 11.8 K/mm3 (4.5-11.0) H 07/07/20 07:48 RBC 3.28 M/mm3 (3.65-5.03) L 07/07/20 07:48 Hgb 11.2 gm/dl (11.8-15.2) L 07/07/20 07:48 Hct 33.5 % (35.5-45.6) L 07/07/20 07:48 MCV 102 fl (84-94) H 07/07/20 07:48 MCH 34 pg (28-32) H 07/07/20 07:48 MCHC 33 % (32-34) 07/07/20 07:48 RDW 15.2 % (13.2-15.2) 07/07/20 07:48 Plt Count 271 K/mm3 (140-440) 07/07/20 07:48 Lymph % (Auto) 16.0 % (13.4-35.0) 06/26/20 00:45 [place] % (Auto) 8.1 % (0.0-7.3) H 06/26/20 00:45 Eos % (Auto) 1.2 % (0.0-4.3) 06/26/20 00:45 Baso % (Auto) 0.6 % (0.0-1.8) 06/26/20 00:45 Lymph # (Auto) 0.9 K/mm3 (1.2-5.4) L 06/26/20 00:45 [place] # (Auto) 0.5 K/mm3 (0.0-0.8) 06/26/20 00:45 Eos # (Auto) 0.1 K/mm3 (0.0-0.4) 06/26/20 00:45 Baso # (Auto) 0.0 K/mm3 (0.0-0.1) 06/26/20 00:45 Seg Neutrophils % 74.1 % (40.0-70.0) H 06/26/20 00:45 Seg Neutrophils # 4.1 K/mm3 (1.8-7.7) 06/26/20 00:45 D-Dimer > 25091 ng/mlDDU (0-234) H 07/06/20 08:42 ABG pH 7.432 (7.320-7.450) 07/08/20 04:41 POC ABG pCO2 29.5 mmHg (32.0-48.0) L 07/08/20 04:41 ABG pCO2 29.9 mm Hg 07/07/20 03:53 POC ABG pO2 175.8 mmHg (83-108) H 07/08/20 04:41 ABG pO2 58.0 mm Hg (80.0-90.0) L 07/07/20 03:53 POC ABG HCO3 19.2 07/08/20 04:41 ABG HCO3 18.7 mmol/L (20.0-26.0) L 07/07/20 03:53 ABG O2 Saturation 91.1 % (95.0-99.0) L 07/07/20 03:53 ABG O2 Content 14.8 (0.0-44) 07/07/20 03:53 POC ABG Base Excess -3.7 07/08/20 04:41 ABG Base Excess -4.9 mmol/L (-2.0-3.0) L 07/07/20 03:53 ABG Hemoglobin 15 (12.0-17.5) 07/08/20 04:41 ABG Oxyhemoglobin 99.3 (94-98) H 07/06/20 10:50 ABG Carboxyhemoglobin 1.3 % (0.0-5.0) 07/07/20 03:53 ABG Methemoglobin 0.5 % (0.0-1.5) 07/07/20 03:53 ABG Sodium 142.3 mmol/L (136.0-145.0) 07/08/20 04:41 ABG Potassium 3.4 mmol/L (3.40-4.50) 07/08/20 04:41 ABG Chloride 113.0 mmol/L (98-107) H 07/08/20 04:41 ABG Glucose 166 mg/dL (65-95) H 07/08/20 04:41 Oxyhemoglobin 89.5 % (95.0-99.0) L 07/07/20 03:53 Carboxyhemoglobin 0.1 (0.5-1.5) L 07/06/20 10:50 FiO2 45 07/08/20 04:41 Sodium 146 mmol/L (137-145) H 07/08/20 05:30 Potassium 3.4 mmol/L (3.6-5.0) L 07/08/20 05:30 Chloride 113.6 mmol/L (98-107) H 07/08/20 05:30 Carbon Dioxide 22 mmol/L (22-30) 07/08/20 05:30 Anion Gap 14 mmol/L 07/08/20 05:30 BUN 59 mg/dL (9-20) H 07/08/20 05:30 Creatinine 2.9 mg/dL (0.8-1.3) H 07/08/20 05:30 Estimated GFR 21 ml/min 07/08/20 05:30 BUN/Creatinine Ratio 20 % 07/08/20 05:30 Glucose 150 mg/dL (75-100) H 07/08/20 05:30 POC Glucose 135 mg/dL (70-105) H 07/08/20 05:54 Lactic Acid 1.50 mmol/L (0.7-2.0) 06/26/20 00:45 Calcium 8.3 mg/dL (8.4-10.2) L 07/08/20 05:30 Magnesium 1.80 mg/dL (1.7-2.3) 07/08/20 05:30 Total Bilirubin 0.40 mg/dL (0.1-1.2) 07/08/20 05:30 AST 91 units/L (5-40) H 07/08/20 05:30 ALT 62 units/L (7-56) H 07/08/20 05:30 Alkaline Phosphatase 84 units/L (35-129) 07/08/20 05:30 Ammonia 20.0 umol/L (25-60) L 06/30/20 19:20 Total Creatine Kinase 1351 units/L (55-170) H 07/07/20 07:48 CK-MB (CK-2) 128.7 ng/mL (0.0-4.0) H 07/07/20 07:48 CK-MB (CK-2) Rel Index 9.5 (0-4) H 07/07/20 07:48 Troponin T 4.010 ng/mL (0.00-0.029) H* D 07/07/20 07:48 Total Protein 5.4 g/dL (6.3-8.2) L 07/08/20 05:30 Albumin 2.6 g/dL (3.9-5) L 07/08/20 05:30 Albumin/Globulin Ratio 0.9 % 07/08/20 05:30 Triglycerides 57 mg/dL (2-149) 07/06/20 12:00 Cholesterol 90 mg/dL (50-199) 07/06/20 12:00 LDL Cholesterol Direct 49 mg/dL (50-130) L 07/06/20 12:00 HDL Cholesterol 30 mg/dL (40-59) L 07/06/20 12:00 Cholesterol/HDL Ratio 3.00 % 07/06/20 12:00 TSH 1.620 mlU/mL (0.270-4.200) 06/28/20 15:56 Free T4 1.17 ng/dL (0.76-1.46) 06/28/20 15:56 Arterial Blood Glucose 166 mg/dL (65-95) H 07/08/20 04:41 Arterial Blood Ionized Calcium 4.8 mg/dL (4.6-5.3) 07/08/20 04:41 Urine Color Yellow (Yellow) 07/06/20 14:20 Urine Turbidity Cloudy (Clear) 07/06/20 14:20 Urine pH 5.0 (5.0-7.0) 07/06/20 14:20 Ur Specific [place] 1.009 (1.003-1.030) 07/06/20 14:20 Urine Protein 100 mg/dl mg/dL (Negative) 07/06/20 14:20 Urine Glucose (UA) 50 mg/dL (Negative) 07/06/20 14:20 Urine Ketones Tr mg/dL (Negative) 07/06/20 14:20 Urine Blood Lg (Negative) 07/06/20 14:20 Urine Nitrite Neg (Negative) 07/06/20 14:20 Urine Bilirubin Neg (Negative) 07/06/20 14:20 Urine Urobilinogen < 2.0 mg/dL (<2.0) 07/06/20 14:20 Ur Leukocyte Esterase Lg (Negative) 07/06/20 14:20 Urine WBC (Auto) > 182.0 /HPF (0.0-6.0) H 07/06/20 14:20 Urine RBC (Auto) 104.0 /HPF (0.0-6.0) 07/06/20 14:20 U Epithel Cells (Auto) 3.0 /HPF (0-13.0) 07/06/20 14:20 Urine Bacteria (Auto) 2+ /HPF (Negative) 07/06/20 14:20 Urine WBC Clumps 3+ /HPF 07/06/20 14:20 Urine Mucus 3+ /HPF 07/06/20 14:20 Urine Opiates Screen Presumptive negative 06/26/20 01:59 Urine Methadone Screen Presumptive negative 06/26/20 01:59 Acetaminophen 5.0 ug/mL (10.0-30.0) L 06/26/20 00:45 Ur Barbiturates Screen Presumptive negative 06/26/20 01:59 Ur Phencyclidine Scrn Presumptive negative 06/26/20 01:59 Ur Amphetamines Screen Presumptive negative 06/26/20 01:59 U Benzodiazepines Scrn Presumptive negative 06/26/20 01:59 Urine Cocaine Screen Presumptive negative 06/26/20 01:59 U Marijuana (THC) Screen Presumptive negative 06/26/20 01:59 Drugs of Abuse Note Disclamer 06/26/20 01:59 Plasma/Serum Alcohol < 0.01 % (0-0.07) 06/26/20 00:45 Blood Type O NEGATIVE 07/06/20 14:40 Antibody Screen Negative 07/06/20 14:40 Microbiology: Microbiology 07/06/20 14:09 Peripheral/Venous Blood Culture - Preliminary NO GROWTH AFTER 24 HOURS 07/06/20 14:09 Peripheral/Venous Blood Culture - Preliminary NO GROWTH AFTER 24 HOURS - Diagnostic Impressions Diagnostic Impressions: Echocardiogram 07/06/20 08:39 Transthoracic Echocardiogram Indication: Cardiomyopathy BP: 106/58 HR: 98 Conclusions *The study quality is technically difficult. *The left ventricular size is mild to moderately dilated. *Mild concentric left ventricular hypertrophy is observed. *Global left ventricular systolic function is severely decreased. *The estimated ejection fraction is 25%. *There is mild mitral regurgitation. *There is mild tricuspid regurgitation. *There is mild-moderate pulmonary hypertension. *The right ventricular systolic pressure is calculated at 40 mmHg. Findings Procedure Info: The study quality is technically difficult. Left Ventricle: The left ventricular size is mild to moderately dilated. Mild concentric left ventricular hypertrophy is observed. Global left ventricular systolic function is severely decreased. The estimated ejection fraction is 25-30%. Left Atrium: The left atrium is mildly dilated. Right Ventricle: The right ventricle is slightly dilated. Right Atrium: The right atrial cavity size is normal. Aortic Valve: The aortic valve leaflets are moderately thickened. There is trace of aortic regurgitation. There is no evidence of aortic stenosis. Mitral Valve: The mitral valve leaflets are moderately thickened. There is mild mitral regurgitation. There is no evidence of mitral stenosis. Tricuspid Valve: There is mild tricuspid regurgitation. The right ventricular systolic pressure is calculated at 40 mmHg. There is evidence of mild pulmonary hypertension. Pulmonic Valve: There is trace pulmonic regurgitation. Pericardium: There is no pericardial effusion. Aorta: There is no dilatation of the aortic root. Venous: The inferior vena cava is dilated. Measurements Chambers 2D Name Value Normal Range IVSd (2D) 1.34 cm (0.6 - 1.1) LVPWd (2D) 1.33 cm (0.6 - 1.1) LVIDd (2D) 3.86 cm (3.7 - 5.6) LVIDs (2D) 2.85 cm (2 - 3.8) LV FS (2D) 26.34 % - EF Teichholz (2D) 52.28 % - Ao root diameter (2D) 3.54 cm (2 - 3.7) Volumes/Mass Name Value Normal Range LA ESV SP 4CH (A/L) 50.07 ml - LA ESV SP 2CH (A/L) 54.16 ml - LA ESV BP (A/L) 56.5 ml - LA ESV SP 4CH (MOD) 44.38 ml - LA ESV SP 2CH (MOD) 52.76 ml - Diastolic/Systolic Function Name Value Normal Range MV E-wave Vmax 0.85 m/sec - MV deceleration time 163.03 msec - MV A-wave Vmax 0.85 m/sec - MV E:A ratio 0.99 ratio - Aortic Valve Name Value Normal Range AV Vmax 0.77 m/sec - AV VTI 14.25 cm - AV peak gradient 2.38 mmHg - AV mean gradient 1.5 mmHg - LVOT diameter 2 cm - LVOT Vmax 0.57 m/sec - LVOT VTI 9.44 cm - LVOT peak gradient 1.31 mmHg - LVOT mean gradient 0.72 mmHg - SV LVOT 29.56 ml - MICHAEL (continuity Vmax) 2.33 cm2 - MICHAEL (continuity VTI) 2.07 cm2 - Mitral Valve Name Value Normal Range MR Vmax 3.93 m/sec - Tricuspid Valve Name Value Normal Range TR Vmax 2.87 m/sec - TR peak gradient 32.85 mmHg - RVSP 40 mmHg - IVC diameter 2.3 cm (1.2 - 2.3) Pulmonic Valve/Qp:Qs Name Value Normal Range PV acceleration time 79.92 msec - Galindo/IV: Voiding Method Indwelling Catheter IV Catheter Type [right INT / Saline Lock forearm] IV Catheter Type [Left Upper PICC Line arm] IV Catheter Type [Left Hand] INT / Saline Lock Active Medications - Current Medications Current Medications: Generic Name Dose Route Start Last Admin Trade Name Freq PRN Reason Stop Dose Admin Acetaminophen 650 mg 06/26/20 04:16 11/15/20 20:07 Tylenol PO 650 mg Q4H PRN Administration Fever >101 Acetaminophen 650 mg 07/06/20 08:41 Tylenol PO Q6H PRN Pain, Mild (1-3) Amiodarone HCl 200 mg 07/06/20 14:00 07/07/20 21:57 Cordarone PO 200 mg BID LILIAM Administration Lipase/Protease/Amylase 1 each 07/07/20 12:29 Pancrefe Willis 10,500 Unit FEEDTUBE PRN PRN For Clogged Feeding Tube Aspirin 81 mg 07/08/20 10:00 Baby Aspirin PO QDAY [facility] Atorvastatin Calcium 40 mg 07/06/20 22:00 07/07/20 22:33 Lipitor PO 40 mg QHS [facility] Administration Clopidogrel Bisulfate 75 mg 07/07/20 10:00 07/07/20 11:05 Plavix PO 75 mg QDAY [facility] Administration Enoxaparin Sodium 80 mg 07/08/20 10:00 Enoxaparin SUB-Q DAILY [facility] Protocol Famotidine 20 mg 07/08/20 10:00 Pepcid PO DAILY [facility] Folic Acid 1 mg 07/07/20 10:00 07/07/20 11:06 Folvite PO 1 mg DAILY [facility] Administration Hydralazine HCl 10 mg 07/01/20 07:41 07/03/20 04:20 Apresoline IV 10 mg Q4HR PRN Administration Hypertension Cefepime HCl 2 gm in 100 mls @ 200 mls/hr 07/08/20 10:00 Cefepime/Ns 2 Gm/100 Ml IV Q24HR [facility] Protocol Metoprolol Tartrate 2.5 mg 07/06/20 12:00 07/08/20 05:22 Metoprolol IV 2.5 mg Q6HR [facility] Administration Multivitamins 5 ml 07/07/20 10:00 07/07/20 11:06 Centrum Liq PO 5 ml QDAY [facility] Administration Nitroglycerin 1 inch 07/07/20 14:00 07/08/20 05:22 Nitro-Bid 2% TP 1 inch QIDNTG [facility] Administration Protocol Simple Syrup 15 ml 07/07/20 12:29 Simple Syrup FEEDTUBE PRN PRN Hypoglycemia Simple Syrup 30 ml 07/07/20 12:29 Simple Syrup FEEDTUBE PRN PRN Hypoglycemia Sodium Bicarbonate 325 mg 07/07/20 12:29 Sodium Bicarbonate FEEDTUBE PRN PRN For Clogged Feeding Tube Thiamine HCl 100 mg 07/07/20 10:00 07/07/20 11:05 Vitamin B-1 PO 100 mg QDAY LILIAM Administration Nutrition/Malnutrition Assess - Dietary Evaluation Nutrition/Malnutrition Findings: Nutrition Notes Start: 07/03/20 12:56 Freq: Status: Active Protocol: Document 07/07/20 12:14 EN (Rec: 07/07/20 12:28 EN [id number]) Co-Sign 07/07/20 12:14 MK Nutrition Notes Initial or Follow up Reassessment Current Diagnosis Coronary Artery Disease, Decubitus(Pressure Ulcer), Hypertension Other Pertinent Diagnosis Encephalopathy, Cerebral atherosclerosis Current Diet NPO Labs/Tests BUN 44 Cr 2.3 Glu 148 Pertinent Medications Folic Acid 1mg Thiamine HCl 100mg Height 5 ft 10 in Weight 72.4 kg [place] Body Weight (kg) 75.45 BMI 22.8 Weight Status Appropriate Subjective/Other Information RD consulted for TF start. Pt has worsening kidney function and requires less protein than wound healing recommendations provide. Percent of energy/protein needs met: 0%/0% Burn Absent Trauma Absent GI Symptoms None Food Allergy No Current % PO Negligible Minimum of two criteria No physical signs of malnutrition #2 Nutrition Diagnosis Increased nutrient needs ( specify in comment below) Comments: Protein Diagnosis Progress(for reassessment Continues documentation) #1 Nutrition Diagnosis Inadequate oral intake Diagnosis Progress(for reassessment Continues documentation) Is patient on ventilator? Yes Is Patient Ambulatory and/or Out of Bed No REE-([facility]-confined to bed) 6639.[address] Calculation Used for Recommendations [facility] Additional Notes Protein: 58-87g (0.8-1.2 g/kg) Fluid: 1 ml/kcal Nutrition Intervention Change Diet Order: TF start Nutrition Support: Osmolite 1.5 at 50 ml/hr (goal rate) Flush 150 ml q4h Kcal 1,800 Protein (gm) 75 Fluid (mL) 914 Goal #1 TF start Goal #2 Meet at least 75% fo energy and protein needs via TF Anticipated Discharge Needs: Unable to determine at this time Follow-Up By: 07/09/20 Additional Comments F/u for TF start, tolerance and K+ labs
[2020-07-08] MEDS: CEFEPIME/NS 2 GM/100 ML 2 GM/100 ML BAG IV SCH (09:02)
[2020-07-08] MEDS: THIAMINE 100 MG TAB PO SCH (09:03)
[2020-07-08] MEDS: ASPIRIN 81 MG TAB CHEW PO SCH (09:03)
[2020-07-08] MEDS: CLOPIDOGREL 75 MG TAB PO SCH (09:03)
[2020-07-08] MEDS: FAMOTIDINE 20 MG TAB PO SCH (09:03)
[2020-07-08] MEDS: AMIODARONE 200 MG TAB PO SCH ×2 (09:03→21:15)
[2020-07-08] MEDS: FOLIC ACID 1 MG TAB PO SCH (09:03)
[2020-07-08] MEDS: MULTIVITAMINS 5 ML ORAL LIQUID PO SCH (09:04)
[2020-07-08] MEDS: ENOXAPARIN 80 MG/0.8 ML INJ SUB-Q SCH (09:04)
[2020-07-08] MEDS ORDERED: POTASSIUM CHLORIDE 20 MEQ PACKET FEEDTUBE ONE (10:00)
[2020-07-08] MEDS ORDERED: MAGNESIUM SULFATE 2 GM/50 ML BAG IV SCH (11:09)
--- NOTE | 2020-07-08 11:14 | Progress Note ---
Assessment and Plan 74 y/o male with inhouse vfib arrest, currently not responsive 1. Patient is not and has not been on any sedation since his cardiac arrest. 2. Follow up cardiology recs in regards to recent echo findings and other medical therapy. 3. Renal function is worsening, given new found diagnosis of CHF, could this be from poor forward flow. Did not respond to fluids. Suggest checking renal ultra sound and urine lights. Would consider renal consult as well. Doubt cardiology will support inotropic support given recent vfib arrest but could help given poor EF. 4. Continue strict I/O given worsening renal function. 5. Mental status is still not normal, but better today 6. Not ready for extubation yet, once renal sees, may actually need some diuresis to help with this. Sister has made DNR. Will not escalate care in regards to critical care. Guarded prognosis. CCT 31 minutes Subjective Date of service: 07/08/20 Interval history: More wake today but still not following commands. Failed PSV this am with tachypne and tachycardia and HYPERTENSION. Echo done and shows and EF of 25% and moderate pulmonary HTN. Objective Vital Signs - 12hr 07/07/20 07/07/20 07/08/20 23:30 23:49 00:00 Temperature 99.4 F Pulse Rate 95 H 115 H 120 H Pulse Rate [ From Monitor] Respiratory 26 H 30 H Rate Respiratory Rate [ Generalized] Blood Pressure 133/97 135/91 137/83 O2 Sat by Pulse 100 100 Oximetry 07/08/20 07/08/20 07/08/20 00:30 01:00 01:30 Temperature Pulse Rate 111 H 113 H 92 H Pulse Rate [ From Monitor] Respiratory 22 18 21 Rate Respiratory Rate [ Generalized] Blood Pressure 129/88 131/86 124/78 O2 Sat by Pulse 99 100 99 Oximetry 07/08/20 07/08/20 07/08/20 02:00 02:30 03:00 Temperature Pulse Rate 89 85 83 Pulse Rate [ From Monitor] Respiratory 20 26 H 22 Rate Respiratory Rate [ Generalized] Blood Pressure 127/83 124/76 124/79 O2 Sat by Pulse 99 98 99 Oximetry 07/08/20 07/08/20 07/08/20 03:30 04:00 04:19 Temperature 99.2 F Pulse Rate 90 113 H 89 Pulse Rate [ From Monitor] Respiratory 24 15 Rate Respiratory Rate [ Generalized] Blood Pressure 117/82 132/88 127/90 O2 Sat by Pulse 98 100 100 Oximetry 07/08/20 07/08/20 07/08/20 04:30 05:00 05:22 Temperature Pulse Rate 95 H 93 H 102 H Pulse Rate [ From Monitor] Respiratory 15 30 H Rate Respiratory Rate [ Generalized] Blood Pressure 127/90 131/78 134/78 O2 Sat by Pulse 100 Oximetry 07/08/20 07/08/20 07/08/20 05:30 06:00 06:30 Temperature Pulse Rate 97 H 69 76 Pulse Rate [ From Monitor] Respiratory 35 H 22 34 H Rate Respiratory Rate [ Generalized] Blood Pressure 128/84 126/75 125/72 O2 Sat by Pulse 99 99 99 Oximetry 07/08/20 07/08/20 07/08/20 07:00 07:30 08:00 Temperature 98.9 F Pulse Rate 83 90 76 Pulse Rate [ 83 From Monitor] Respiratory 33 H 32 H 31 H Rate Respiratory Rate [ Generalized] Blood Pressure 117/70 111/75 129/70 O2 Sat by Pulse 99 99 Oximetry 07/08/20 07/08/20 07/08/20 08:03 09:04 10:00 Temperature Pulse Rate 69 96 H Pulse Rate [ From Monitor] Respiratory 30 H Rate Respiratory 30 H Rate [ Generalized] Blood Pressure 126/75 126/74 O2 Sat by Pulse 99 Oximetry 07/08/20 10:16 Temperature Pulse Rate 96 H Pulse Rate [ From Monitor] Respiratory Rate Respiratory Rate [ Generalized] Blood Pressure 126/74 O2 Sat by Pulse 99 Oximetry Constitutional: comatose Eyes: non-icteric ENT: other (orally intubated, no sedation) Neck: supple Effort: normal Ascultation: Bilateral: diminished breath sounds Percussion: Bilateral: not dull Tactile fremitus: Bilateral: normal Cardiovascular: other (ST changes seen prior to code) Integumentary: normal Extremities: no cyanosis, no edema, pink and warm, pulses normal Neurologic: unable to assess CBC and BMP: 07/07/20 07:48 07/08/20 05:30 ABG, PT/INR, D-dimer: ABG ABG pH 7.432 (7.320-7.450) 07/08/20 04:41 POC ABG pCO2 29.5 mmHg (32.0-48.0) L 07/08/20 04:41 ABG pCO2 29.9 mm Hg 07/07/20 03:53 POC ABG pO2 175.8 mmHg (83-108) H 07/08/20 04:41 ABG pO2 58.0 mm Hg (80.0-90.0) L 07/07/20 03:53 POC ABG HCO3 19.2 07/08/20 04:41 ABG O2 Saturation 91.1 % (95.0-99.0) L 07/07/20 03:53 PT/INR, D-dimer D-Dimer > 49943 ng/mlDDU (0-234) H 07/06/20 08:42 Abnormal lab findings: Abnormal Labs 06/26/20 06/26/20 06/26/20 00:45 00:45 00:45 WBC RBC 3.44 L Hgb Hct MCV 104 H MCH 35 H [place] % (Auto) 8.1 H Lymph # (Auto) 0.9 L Seg Neutrophils % 74.1 H D-Dimer POC ABG pCO2 POC ABG pO2 ABG pO2 ABG HCO3 ABG O2 Saturation ABG Base Excess ABG Hemoglobin ABG Oxyhemoglobin ABG Chloride ABG Glucose Oxyhemoglobin Carboxyhemoglobin Sodium Potassium Chloride Carbon Dioxide 19 L BUN Creatinine Glucose 103 H POC Glucose Calcium Magnesium AST ALT Ammonia Total Creatine Kinase CK-MB (CK-2) CK-MB (CK-2) Rel Index Troponin T Total Protein Albumin LDL Cholesterol Direct HDL Cholesterol Arterial Blood Glucose Arterial Blood Ionized Calcium Urine WBC (Auto) Acetaminophen 5.0 L 06/26/20 06/30/20 06/30/20 04:59 19:20 19:20 WBC RBC Hgb Hct MCV MCH [place] % (Auto) Lymph # (Auto) Seg Neutrophils % D-Dimer POC ABG pCO2 POC ABG pO2 ABG pO2 ABG HCO3 ABG O2 Saturation ABG Base Excess ABG Hemoglobin ABG Oxyhemoglobin ABG Chloride ABG Glucose Oxyhemoglobin Carboxyhemoglobin Sodium Potassium Chloride Carbon Dioxide BUN Creatinine Glucose POC Glucose Calcium Magnesium 1.50 L AST ALT Ammonia 20.0 L 20.0 L Total Creatine Kinase CK-MB (CK-2) CK-MB (CK-2) Rel Index Troponin T Total Protein Albumin LDL Cholesterol Direct HDL Cholesterol Arterial Blood Glucose Arterial Blood Ionized Calcium Urine WBC (Auto) Acetaminophen 07/04/20 07/06/20 07/06/20 13:42 04:42 04:42 WBC RBC 3.08 L Hgb 10.8 L Hct 31.7 L MCV 103 H MCH 35 H [place] % (Auto) Lymph # (Auto) Seg Neutrophils % D-Dimer POC ABG pCO2 POC ABG pO2 ABG pO2 ABG HCO3 ABG O2 Saturation ABG Base Excess ABG Hemoglobin ABG Oxyhemoglobin ABG Chloride ABG Glucose Oxyhemoglobin Carboxyhemoglobin Sodium 146 H Potassium 3.2 L 3.3 L Chloride 107.5 H 113.5 H Carbon Dioxide 19 L 21 L BUN 23 H Creatinine 0.5 L 0.6 L Glucose 109 H 113 H POC Glucose Calcium Magnesium AST ALT Ammonia Total Creatine Kinase CK-MB (CK-2) CK-MB (CK-2) Rel Index Troponin T Total Protein Albumin LDL Cholesterol Direct HDL Cholesterol Arterial Blood Glucose Arterial Blood Ionized Calcium Urine WBC (Auto) Acetaminophen 07/06/20 07/06/20 07/06/20 08:18 08:42 10:50 WBC RBC Hgb Hct MCV MCH [place] % (Auto) Lymph # (Auto) Seg Neutrophils % D-Dimer > 20253 H POC ABG pCO2 31.3 L POC ABG pO2 320.0 H ABG pO2 ABG HCO3 ABG O2 Saturation ABG Base Excess ABG Hemoglobin 11.3 L ABG Oxyhemoglobin 99.3 H ABG Chloride 114.0 H ABG Glucose 188 H Oxyhemoglobin Carboxyhemoglobin 0.1 L Sodium Potassium Chloride Carbon Dioxide BUN Creatinine Glucose POC Glucose 107 H Calcium Magnesium AST ALT Ammonia Total Creatine Kinase CK-MB (CK-2) CK-MB (CK-2) Rel Index Troponin T Total Protein Albumin LDL Cholesterol Direct HDL Cholesterol Arterial Blood Glucose 188 H Arterial Blood Ionized Calcium 4.5 L Urine WBC (Auto) Acetaminophen 07/06/20 07/06/20 07/06/20 12:00 12:23 14:20 WBC RBC Hgb Hct MCV MCH [place] % (Auto) Lymph # (Auto) Seg Neutrophils % D-Dimer POC ABG pCO2 POC ABG pO2 ABG pO2 ABG HCO3 ABG O2 Saturation ABG Base Excess ABG Hemoglobin ABG Oxyhemoglobin ABG Chloride ABG Glucose Oxyhemoglobin Carboxyhemoglobin Sodium Potassium Chloride Carbon Dioxide BUN Creatinine Glucose POC Glucose 147 H Calcium Magnesium AST ALT Ammonia Total Creatine Kinase 606 H CK-MB (CK-2) 40.8 H CK-MB (CK-2) Rel Index 6.7 H Troponin T 1.310 H* Total Protein Albumin LDL Cholesterol Direct 49 L HDL Cholesterol 30 L Arterial Blood Glucose Arterial Blood Ionized Calcium Urine WBC (Auto) > 182.0 H Acetaminophen 07/06/20 07/06/20 07/07/20 18:10 23:31 03:53 WBC RBC Hgb Hct MCV MCH [place] % (Auto) Lymph # (Auto) Seg Neutrophils % D-Dimer POC ABG pCO2 POC ABG pO2 ABG pO2 58.0 L ABG HCO3 18.7 L ABG O2 Saturation 91.1 L ABG Base Excess -4.9 L ABG Hemoglobin 11.8 L ABG Oxyhemoglobin ABG Chloride ABG Glucose Oxyhemoglobin 89.5 L Carboxyhemoglobin Sodium Potassium Chloride Carbon Dioxide BUN Creatinine Glucose POC Glucose 167 H 139 H Calcium Magnesium AST ALT Ammonia Total Creatine Kinase CK-MB (CK-2) CK-MB (CK-2) Rel Index Troponin T Total Protein Albumin LDL Cholesterol Direct HDL Cholesterol Arterial Blood Glucose Arterial Blood Ionized Calcium Urine WBC (Auto) Acetaminophen 07/07/20 07/07/20 07/07/20 05:26 07:48 07:48 WBC 11.8 H RBC 3.28 L Hgb 11.2 L Hct 33.5 L MCV 102 H MCH 34 H [place] % (Auto) Lymph # (Auto) Seg Neutrophils % D-Dimer POC ABG pCO2 POC ABG pO2 ABG pO2 ABG HCO3 ABG O2 Saturation ABG Base Excess ABG Hemoglobin ABG Oxyhemoglobin ABG Chloride ABG Glucose Oxyhemoglobin Carboxyhemoglobin Sodium Potassium Chloride Carbon Dioxide BUN Creatinine Glucose POC Glucose 122 H Calcium Magnesium AST ALT Ammonia Total Creatine Kinase 1351 H CK-MB (CK-2) 128.7 H CK-MB (CK-2) Rel Index 9.5 H Troponin T 4.010 H* D Total Protein Albumin LDL Cholesterol Direct HDL Cholesterol Arterial Blood Glucose Arterial Blood Ionized Calcium Urine WBC (Auto) Acetaminophen 07/07/20 07/07/20 07/07/20 07:48 12:23 19:04 WBC RBC Hgb Hct MCV MCH [place] % (Auto) Lymph # (Auto) Seg Neutrophils % D-Dimer POC ABG pCO2 POC ABG pO2 ABG pO2 ABG HCO3 ABG O2 Saturation ABG Base Excess ABG Hemoglobin ABG Oxyhemoglobin ABG Chloride ABG Glucose Oxyhemoglobin Carboxyhemoglobin Sodium Potassium Chloride 113.1 H Carbon Dioxide 18 L BUN 44 H Creatinine 2.3 H D Glucose 148 H POC Glucose 140 H 136 H Calcium Magnesium AST ALT Ammonia Total Creatine Kinase CK-MB (CK-2) CK-MB (CK-2) Rel Index Troponin T Total Protein Albumin LDL Cholesterol Direct HDL Cholesterol Arterial Blood Glucose Arterial Blood Ionized Calcium Urine WBC (Auto) Acetaminophen 07/07/20 07/08/20 07/08/20 23:59 04:41 05:30 WBC RBC Hgb Hct MCV MCH [place] % (Auto) Lymph # (Auto) Seg Neutrophils % D-Dimer POC ABG pCO2 29.5 L POC ABG pO2 175.8 H ABG pO2 ABG HCO3 ABG O2 Saturation ABG Base Excess ABG Hemoglobin ABG Oxyhemoglobin ABG Chloride 113.0 H ABG Glucose 166 H Oxyhemoglobin Carboxyhemoglobin Sodium 146 H Potassium 3.4 L Chloride 113.6 H Carbon Dioxide BUN 59 H Creatinine 2.9 H Glucose 150 H POC Glucose 158 H Calcium 8.3 L Magnesium AST 91 H ALT 62 H Ammonia Total Creatine Kinase CK-MB (CK-2) CK-MB (CK-2) Rel Index Troponin T Total Protein 5.4 L Albumin 2.6 L LDL Cholesterol Direct HDL Cholesterol Arterial Blood Glucose 166 H Arterial Blood Ionized Calcium Urine WBC (Auto) Acetaminophen 07/08/20 05:54 WBC RBC Hgb Hct MCV MCH [place] % (Auto) Lymph # (Auto) Seg Neutrophils % D-Dimer POC ABG pCO2 POC ABG pO2 ABG pO2 ABG HCO3 ABG O2 Saturation ABG Base Excess ABG Hemoglobin ABG Oxyhemoglobin ABG Chloride ABG Glucose Oxyhemoglobin Carboxyhemoglobin Sodium Potassium Chloride Carbon Dioxide BUN Creatinine Glucose POC Glucose 135 H Calcium Magnesium AST ALT Ammonia Total Creatine Kinase CK-MB (CK-2) CK-MB (CK-2) Rel Index Troponin T Total Protein Albumin LDL Cholesterol Direct HDL Cholesterol Arterial Blood Glucose Arterial Blood Ionized Calcium Urine WBC (Auto) Acetaminophen
--- NOTE | 2020-07-08 11:26 | Progress Note ---
Assessment and Plan Altered mental status Ventricular fibrillation arrest Acute [place] post resuscitation EKG shows sinus rhythm with ST changes that suggest an a cute inferoposterior injury pattern. LVEF 25-30% by echo DNR status Continue medical therapy as tolerated for suppression of arrhythmias and underlying CAD. Otherwise, conservative cardiac management. Subjective Date of service: 07/08/20 Interval history: Remains intubated on mechanical ventilation. Family wishes conservative cardiac measures. Objective Vital Signs Temp Pulse Pulse Resp Resp BP Pulse Ox 07/08/20 11:00 94 H 22 128/59 100 07/08/20 10:30 115 H 27 H 125/76 98 07/08/20 10:16 96 H 126/74 99 07/08/20 10:00 79 32 H 30 H 125/76 100 07/08/20 09:30 79 30 H 120/75 07/08/20 09:04 96 H 126/74 07/08/20 09:00 87 32 H 126/74 99 07/08/20 08:30 89 30 H 124/76 99 07/08/20 08:03 69 30 H 126/75 99 07/08/20 08:00 98.9 F 76 83 31 H 129/70 99 07/08/20 07:30 90 32 H 111/75 99 07/08/20 07:00 83 33 H 117/70 07/08/20 06:30 76 34 H 125/72 99 07/08/20 06:00 69 22 126/75 99 07/08/20 05:30 97 H 35 H 128/84 99 07/08/20 05:22 102 H 134/78 07/08/20 05:00 93 H 30 H 131/78 07/08/20 04:30 95 H 15 127/90 100 07/08/20 04:19 89 127/90 100 07/08/20 04:00 99.2 F 113 H 15 132/88 100 07/08/20 03:30 90 24 117/82 98 07/08/20 03:00 83 22 124/79 99 07/08/20 02:30 85 26 H 124/76 98 07/08/20 02:00 89 20 127/83 99 07/08/20 01:30 92 H 21 124/78 99 07/08/20 01:00 113 H 18 131/86 100 07/08/20 00:30 111 H 22 129/88 99 07/08/20 00:00 99.4 F 120 H 30 H 137/83 100 07/07/20 23:49 115 H 135/91 100 07/07/20 23:30 95 H 26 H 133/97 07/07/20 23:00 97 H 22 147/84 100 07/07/20 22:34 104 H 22 136/80 100 07/07/20 22:30 94 H 22 136/80 100 07/07/20 22:00 89 21 126/80 99 07/07/20 21:30 93 H 22 124/80 99 07/07/20 21:00 84 19 132/85 100 07/07/20 20:30 90 26 H 129/78 100 07/07/20 20:14 82 27 H 119/79 100 07/07/20 20:00 99.3 F 89 25 H 123/77 99 07/07/20 19:30 85 28 H 117/76 100 07/07/20 19:00 84 21 132/81 99 07/07/20 18:00 100 H 13 134/80 100 07/07/20 17:30 94 H 30 H 140/86 100 07/07/20 17:00 88 33 H 142/80 100 07/07/20 16:30 93 H 20 154/112 100 07/07/20 16:00 99.0 F 85 30 H 132/81 100 07/07/20 15:54 90 32 H 142/88 100 07/07/20 15:30 87 27 H 142/88 100 07/07/20 15:00 78 19 136/82 100 07/07/20 14:30 74 26 H 139/82 100 07/07/20 14:00 90 30 H 141/83 100 07/07/20 13:30 75 17 123/78 07/07/20 13:00 67 25 H 120/71 100 07/07/20 12:30 69 26 H 131/70 100 07/07/20 12:00 99.2 F 74 26 H 140/77 100 07/07/20 11:38 80 25 H 145/88 100 07/07/20 11:30 81 39 H 146/85 87 - Physical Examination General: Other (intubated on the vent) Cardiac: Positive: Reg Rate and Rhythm Neuro: Positive: Other (unable to follow commands) Extremities: Absent: edema - Labs and Meds Cardiac Enzymes 07/08/20 Range/Units 05:30 AST 91 H (5-40) units/L Comprehensive Metabolic Panel 07/08/20 Range/Units 05:30 Sodium 146 H (137-145) mmol/L Potassium 3.4 L (3.6-5.0) mmol/L Chloride 113.6 H (98-107) mmol/L Carbon Dioxide 22 (22-30) mmol/L BUN 59 H (9-20) mg/dL Creatinine 2.9 H (0.8-1.3) mg/dL Glucose 150 H (75-100) mg/dL Calcium 8.3 L (8.4-10.2) mg/dL AST 91 H (5-40) units/L ALT 62 H (7-56) units/L Alkaline Phosphatase 84 (35-129) units/L Total Protein 5.4 L (6.3-8.2) g/dL Albumin 2.6 L (3.9-5) g/dL
--- NOTE | 2020-07-08 13:41 | Event Note ---
Date: 07/08/20 I called patient's sister POA Ms. Raz Nye at [phone] and discussed in detail patient's condition, tests and reports, consultants recommendation Poor prognosis, goals of treatment, options of palliative /comfort care /hospice at home versus inpatient hospice, answered all her questions Encouraged her to discuss with her family and inform us the goals of care.
[2020-07-08] MEDS: HALOPERIDOL LACTATE 5 MG/1 ML INJ IV PRN (17:49)
--- NOTE | 2020-07-08 17:58 | Vascular Lab Report ---
DUPLEX DOPPLER LOWER EXTREMITY VEINS, BILATERAL INDICATION / CLINICAL INFORMATION: bilateral edema, concern for clot. TECHNIQUE: Duplex doppler imaging was performed through the veins of both lower extremities using venous dyllan ben and other maneuvers. COMPARISON: None available. FINDINGS: RIGHT COMMON FEMORAL VEIN: Negative. RIGHT FEMORAL VEIN: Negative. RIGHT POPLITEAL VEIN: Negative. RIGHT CALF VEINS: Negative. LEFT COMMON FEMORAL VEIN: Negative. LEFT FEMORAL VEIN: Negative. LEFT POPLITEAL VEIN: Negative. LEFT CALF VEINS: Negative. ADDITIONAL FINDINGS: None. IMPRESSION: 1. No sonographic evidence for DVT in either lower extremity. Signer Name: Anatoliy Kruse MD FACR Signed: 07/08/2020 5:58 PM Workstation Name: [id number]
[2020-07-09] MEDS: METOPROLOL TARTRATE 5 MG/5 ML INJ IV SCH ×5 (00:21→23:14)
[2020-07-09] MEDS: HALOPERIDOL LACTATE 5 MG/1 ML INJ IV PRN ×2 (01:58→09:51)
[2020-07-09] MEDS ORDERED: LORazepam 2 MG/ML VIAL IV ONE (04:26)
[2020-07-09] MEDS: NITROGLYCERIN 2% OINT 1 GM TP SCH ×5 (05:28→18:06)
[2020-07-09] MEDS: ENOXAPARIN 80 MG/0.8 ML INJ SUB-Q SCH (09:43)
[2020-07-09] MEDS: CEFEPIME/NS 2 GM/100 ML 2 GM/100 ML BAG IV SCH (09:43)
[2020-07-09] MEDS: MULTIVITAMINS 5 ML ORAL LIQUID PO SCH (09:43)
[2020-07-09] MEDS: AMIODARONE 200 MG TAB PO SCH ×2 (09:44→23:14)
[2020-07-09] MEDS: ASPIRIN 81 MG TAB CHEW PO SCH (09:44)
[2020-07-09] MEDS: FAMOTIDINE 20 MG TAB PO SCH (09:44)
[2020-07-09] MEDS: FOLIC ACID 1 MG TAB PO SCH (09:45)
[2020-07-09] MEDS: CLOPIDOGREL 75 MG TAB PO SCH (09:45)
[2020-07-09] MEDS: THIAMINE 100 MG TAB PO SCH (09:45)
--- NOTE | 2020-07-09 11:41 | Progress Note ---
Assessment and Plan 74 y/o male with inhouse vfib arrest, currently not responsive 1. Patient is not and has not been on any sedation since his cardiac arrest. 2. Appreciate cards speaking with family. Recs noted. 3. No renal consult, likely secondary to conversations had yesterday. no renal labs checked today. 4. Continue strict I/O given worsening renal function. 5. Mental status is unchanged today. 6. Not ready for extubation yet, once renal sees, may actually need some diuresis to help with this. Sister has made DNR. Will not escalate care in regards to critical care. Guarded prognosis. No objection to hospice if that is the route family chooses. CCT 31 minutes Subjective Date of service: 07/09/20 Interval history: No acute events. Mental status still precludes extubation. ABG is good. Spoke with CM and they are considering hospice. Reviewed cardiology note and appreciate them speaking with sister. Objective Vital Signs - 12hr 07/09/20 07/09/20 07/09/20 00:00 00:09 00:21 Temperature 99.0 F Pulse Rate 75 74 73 Pulse Rate [ From Monitor] Respiratory 23 Rate Blood Pressure 130/76 130/76 130/76 O2 Sat by Pulse 100 100 Oximetry 07/09/20 07/09/20 07/09/20 00:30 01:00 01:30 Temperature Pulse Rate 74 71 70 Pulse Rate [ From Monitor] Respiratory 17 23 22 Rate Blood Pressure 118/71 118/71 119/69 O2 Sat by Pulse 100 100 99 Oximetry 07/09/20 07/09/20 07/09/20 02:00 02:30 03:00 Temperature Pulse Rate 96 H 77 70 Pulse Rate [ From Monitor] Respiratory 28 H 16 20 Rate Blood Pressure 119/69 117/70 111/64 O2 Sat by Pulse 100 100 100 Oximetry 07/09/20 07/09/20 07/09/20 03:30 04:00 04:06 Temperature 98.8 F Pulse Rate 71 105 H 118 H Pulse Rate [ From Monitor] Respiratory 20 32 H Rate Blood Pressure 121/68 121/68 O2 Sat by Pulse 100 100 95 Oximetry 07/09/20 07/09/20 07/09/20 04:30 05:00 05:28 Temperature Pulse Rate 123 H 78 96 H Pulse Rate [ From Monitor] Respiratory 30 H 20 Rate Blood Pressure 121/68 111/66 111/66 O2 Sat by Pulse 96 99 Oximetry 07/09/20 07/09/20 07/09/20 05:30 06:00 06:30 Temperature Pulse Rate 104 H 75 74 Pulse Rate [ From Monitor] Respiratory 14 20 19 Rate Blood Pressure 111/66 107/66 115/70 O2 Sat by Pulse 98 100 100 Oximetry 07/09/20 07/09/20 07/09/20 07:00 07:08 07:30 Temperature Pulse Rate 76 75 76 Pulse Rate [ From Monitor] Respiratory 16 12 Rate Blood Pressure 123/80 107/66 125/73 O2 Sat by Pulse 98 100 100 Oximetry 07/09/20 07/09/20 07/09/20 08:00 08:30 09:44 Temperature 98.4 F Pulse Rate 84 77 94 H Pulse Rate [ 75 From Monitor] Respiratory 30 H 19 Rate Blood Pressure 125/73 139/82 133/81 O2 Sat by Pulse 98 99 Oximetry 07/09/20 11:17 Temperature Pulse Rate 94 H Pulse Rate [ From Monitor] Respiratory Rate Blood Pressure 133/81 O2 Sat by Pulse 99 Oximetry Constitutional: comatose Eyes: non-icteric ENT: other (orally intubated, no sedation) Neck: supple Effort: normal Ascultation: Bilateral: diminished breath sounds Percussion: Bilateral: not dull Tactile fremitus: Bilateral: normal Cardiovascular: other (ST changes seen prior to code) Integumentary: normal Extremities: no cyanosis, no edema, pink and warm, pulses normal Neurologic: unable to assess CBC and BMP: 07/07/20 07:48 07/08/20 05:30 ABG, PT/INR, D-dimer: ABG ABG pH 7.410 (7.320-7.450) 07/09/20 03:52 POC ABG pCO2 31.4 mmHg (32.0-48.0) L 07/09/20 03:52 ABG pCO2 29.9 mm Hg 07/07/20 03:53 POC ABG pO2 105.9 mmHg (83-108) 07/09/20 03:52 ABG pO2 58.0 mm Hg (80.0-90.0) L 07/07/20 03:53 POC ABG HCO3 19.5 07/09/20 03:52 ABG O2 Saturation 91.1 % (95.0-99.0) L 07/07/20 03:53 PT/INR, D-dimer D-Dimer > 97472 ng/mlDDU (0-234) H 07/06/20 08:42 Abnormal lab findings: Abnormal Labs 06/26/20 06/26/20 06/26/20 00:45 00:45 00:45 WBC RBC 3.44 L Hgb Hct MCV 104 H MCH 35 H [place] % (Auto) 8.1 H Lymph # (Auto) 0.9 L Seg Neutrophils % 74.1 H D-Dimer POC ABG pCO2 POC ABG pO2 ABG pO2 ABG HCO3 ABG O2 Saturation ABG Base Excess ABG Hemoglobin ABG Oxyhemoglobin ABG Chloride ABG Glucose Oxyhemoglobin Carboxyhemoglobin Sodium Potassium Chloride Carbon Dioxide 19 L BUN Creatinine Glucose 103 H POC Glucose Calcium Magnesium AST ALT Ammonia Total Creatine Kinase CK-MB (CK-2) CK-MB (CK-2) Rel Index Troponin T Total Protein Albumin LDL Cholesterol Direct HDL Cholesterol Arterial Blood Glucose Arterial Blood Ionized Calcium Urine WBC (Auto) Acetaminophen 5.0 L 06/26/20 06/30/20 06/30/20 04:59 19:20 19:20 WBC RBC Hgb Hct MCV MCH [place] % (Auto) Lymph # (Auto) Seg Neutrophils % D-Dimer POC ABG pCO2 POC ABG pO2 ABG pO2 ABG HCO3 ABG O2 Saturation ABG Base Excess ABG Hemoglobin ABG Oxyhemoglobin ABG Chloride ABG Glucose Oxyhemoglobin Carboxyhemoglobin Sodium Potassium Chloride Carbon Dioxide BUN Creatinine Glucose POC Glucose Calcium Magnesium 1.50 L AST ALT Ammonia 20.0 L 20.0 L Total Creatine Kinase CK-MB (CK-2) CK-MB (CK-2) Rel Index Troponin T Total Protein Albumin LDL Cholesterol Direct HDL Cholesterol Arterial Blood Glucose Arterial Blood Ionized Calcium Urine WBC (Auto) Acetaminophen 07/04/20 07/06/20 07/06/20 13:42 04:42 04:42 WBC RBC 3.08 L Hgb 10.8 L Hct 31.7 L MCV 103 H MCH 35 H [place] % (Auto) Lymph # (Auto) Seg Neutrophils % D-Dimer POC ABG pCO2 POC ABG pO2 ABG pO2 ABG HCO3 ABG O2 Saturation ABG Base Excess ABG Hemoglobin ABG Oxyhemoglobin ABG Chloride ABG Glucose Oxyhemoglobin Carboxyhemoglobin Sodium 146 H Potassium 3.2 L 3.3 L Chloride 107.5 H 113.5 H Carbon Dioxide 19 L 21 L BUN 23 H Creatinine 0.5 L 0.6 L Glucose 109 H 113 H POC Glucose Calcium Magnesium AST ALT Ammonia Total Creatine Kinase CK-MB (CK-2) CK-MB (CK-2) Rel Index Troponin T Total Protein Albumin LDL Cholesterol Direct HDL Cholesterol Arterial Blood Glucose Arterial Blood Ionized Calcium Urine WBC (Auto) Acetaminophen 07/06/20 07/06/20 07/06/20 08:18 08:42 10:50 WBC RBC Hgb Hct MCV MCH [place] % (Auto) Lymph # (Auto) Seg Neutrophils % D-Dimer > 07016 H POC ABG pCO2 31.3 L POC ABG pO2 320.0 H ABG pO2 ABG HCO3 ABG O2 Saturation ABG Base Excess ABG Hemoglobin 11.3 L ABG Oxyhemoglobin 99.3 H ABG Chloride 114.0 H ABG Glucose 188 H Oxyhemoglobin Carboxyhemoglobin 0.1 L Sodium Potassium Chloride Carbon Dioxide BUN Creatinine Glucose POC Glucose 107 H Calcium Magnesium AST ALT Ammonia Total Creatine Kinase CK-MB (CK-2) CK-MB (CK-2) Rel Index Troponin T Total Protein Albumin LDL Cholesterol Direct HDL Cholesterol Arterial Blood Glucose 188 H Arterial Blood Ionized Calcium 4.5 L Urine WBC (Auto) Acetaminophen 07/06/20 07/06/20 07/06/20 12:00 12:23 14:20 WBC RBC Hgb Hct MCV MCH [place] % (Auto) Lymph # (Auto) Seg Neutrophils % D-Dimer POC ABG pCO2 POC ABG pO2 ABG pO2 ABG HCO3 ABG O2 Saturation ABG Base Excess ABG Hemoglobin ABG Oxyhemoglobin ABG Chloride ABG Glucose Oxyhemoglobin Carboxyhemoglobin Sodium Potassium Chloride Carbon Dioxide BUN Creatinine Glucose POC Glucose 147 H Calcium Magnesium AST ALT Ammonia Total Creatine Kinase 606 H CK-MB (CK-2) 40.8 H CK-MB (CK-2) Rel Index 6.7 H Troponin T 1.310 H* Total Protein Albumin LDL Cholesterol Direct 49 L HDL Cholesterol 30 L Arterial Blood Glucose Arterial Blood Ionized Calcium Urine WBC (Auto) > 182.0 H Acetaminophen 07/06/20 07/06/20 07/07/20 18:10 23:31 03:53 WBC RBC Hgb Hct MCV MCH [place] % (Auto) Lymph # (Auto) Seg Neutrophils % D-Dimer POC ABG pCO2 POC ABG pO2 ABG pO2 58.0 L ABG HCO3 18.7 L ABG O2 Saturation 91.1 L ABG Base Excess -4.9 L ABG Hemoglobin 11.8 L ABG Oxyhemoglobin ABG Chloride ABG Glucose Oxyhemoglobin 89.5 L Carboxyhemoglobin Sodium Potassium Chloride Carbon Dioxide BUN Creatinine Glucose POC Glucose 167 H 139 H Calcium Magnesium AST ALT Ammonia Total Creatine Kinase CK-MB (CK-2) CK-MB (CK-2) Rel Index Troponin T Total Protein Albumin LDL Cholesterol Direct HDL Cholesterol Arterial Blood Glucose Arterial Blood Ionized Calcium Urine WBC (Auto) Acetaminophen 07/07/20 07/07/20 07/07/20 05:26 07:48 07:48 WBC 11.8 H RBC 3.28 L Hgb 11.2 L Hct 33.5 L MCV 102 H MCH 34 H [place] % (Auto) Lymph # (Auto) Seg Neutrophils % D-Dimer POC ABG pCO2 POC ABG pO2 ABG pO2 ABG HCO3 ABG O2 Saturation ABG Base Excess ABG Hemoglobin ABG Oxyhemoglobin ABG Chloride ABG Glucose Oxyhemoglobin Carboxyhemoglobin Sodium Potassium Chloride Carbon Dioxide BUN Creatinine Glucose POC Glucose 122 H Calcium Magnesium AST ALT Ammonia Total Creatine Kinase 1351 H CK-MB (CK-2) 128.7 H CK-MB (CK-2) Rel Index 9.5 H Troponin T 4.010 H* D Total Protein Albumin LDL Cholesterol Direct HDL Cholesterol Arterial Blood Glucose Arterial Blood Ionized Calcium Urine WBC (Auto) Acetaminophen 07/07/20 07/07/20 07/07/20 07:48 12:23 19:04 WBC RBC Hgb Hct MCV MCH [place] % (Auto) Lymph # (Auto) Seg Neutrophils % D-Dimer POC ABG pCO2 POC ABG pO2 ABG pO2 ABG HCO3 ABG O2 Saturation ABG Base Excess ABG Hemoglobin ABG Oxyhemoglobin ABG Chloride ABG Glucose Oxyhemoglobin Carboxyhemoglobin Sodium Potassium Chloride 113.1 H Carbon Dioxide 18 L BUN 44 H Creatinine 2.3 H D Glucose 148 H POC Glucose 140 H 136 H Calcium Magnesium AST ALT Ammonia Total Creatine Kinase CK-MB (CK-2) CK-MB (CK-2) Rel Index Troponin T Total Protein Albumin LDL Cholesterol Direct HDL Cholesterol Arterial Blood Glucose Arterial Blood Ionized Calcium Urine WBC (Auto) Acetaminophen 07/07/20 07/08/20 07/08/20 23:59 04:41 05:30 WBC RBC Hgb Hct MCV MCH [place] % (Auto) Lymph # (Auto) Seg Neutrophils % D-Dimer POC ABG pCO2 29.5 L POC ABG pO2 175.8 H ABG pO2 ABG HCO3 ABG O2 Saturation ABG Base Excess ABG Hemoglobin ABG Oxyhemoglobin ABG Chloride 113.0 H ABG Glucose 166 H Oxyhemoglobin Carboxyhemoglobin Sodium 146 H Potassium 3.4 L Chloride 113.6 H Carbon Dioxide BUN 59 H Creatinine 2.9 H Glucose 150 H POC Glucose 158 H Calcium 8.3 L Magnesium AST 91 H ALT 62 H Ammonia Total Creatine Kinase CK-MB (CK-2) CK-MB (CK-2) Rel Index Troponin T Total Protein 5.4 L Albumin 2.6 L LDL Cholesterol Direct HDL Cholesterol Arterial Blood Glucose 166 H Arterial Blood Ionized Calcium Urine WBC (Auto) Acetaminophen 07/08/20 07/08/20 07/08/20 05:54 12:41 14:00 WBC RBC Hgb Hct MCV MCH [place] % (Auto) Lymph # (Auto) Seg Neutrophils % D-Dimer POC ABG pCO2 POC ABG pO2 ABG pO2 ABG HCO3 ABG O2 Saturation ABG Base Excess ABG Hemoglobin ABG Oxyhemoglobin ABG Chloride ABG Glucose Oxyhemoglobin Carboxyhemoglobin Sodium Potassium Chloride Carbon Dioxide BUN Creatinine Glucose POC Glucose 135 H 147 H Calcium Magnesium AST ALT Ammonia Total Creatine Kinase 362 H CK-MB (CK-2) CK-MB (CK-2) Rel Index Troponin T Total Protein Albumin LDL Cholesterol Direct HDL Cholesterol Arterial Blood Glucose Arterial Blood Ionized Calcium Urine WBC (Auto) Acetaminophen 07/08/20 07/09/20 07/09/20 23:30 03:52 05:37 WBC RBC Hgb Hct MCV MCH [place] % (Auto) Lymph # (Auto) Seg Neutrophils % D-Dimer POC ABG pCO2 31.4 L POC ABG pO2 ABG pO2 ABG HCO3 ABG O2 Saturation ABG Base Excess ABG Hemoglobin 10.8 L ABG Oxyhemoglobin ABG Chloride 114.0 H ABG Glucose 166 H Oxyhemoglobin Carboxyhemoglobin Sodium Potassium Chloride Carbon Dioxide BUN Creatinine Glucose POC Glucose 174 H 128 H Calcium Magnesium AST ALT Ammonia Total Creatine Kinase CK-MB (CK-2) CK-MB (CK-2) Rel Index Troponin T Total Protein Albumin LDL Cholesterol Direct HDL Cholesterol Arterial Blood Glucose 166 H Arterial Blood Ionized Calcium Urine WBC (Auto) Acetaminophen
--- NOTE | 2020-07-09 11:45 | Progress Note ---
Assessment and Plan Altered mental status Ventricular fibrillation arrest Acute [place] post resuscitation EKG shows sinus rhythm with ST changes that suggest an a cute inferoposterior injury pattern. LVEF 25-30% by echo DNR status Continue medical therapy as tolerated for suppression of arrhythmias and underlying CAD. Otherwise, conservative cardiac management. Subjective Date of service: 07/09/20 Interval history: No interval cardiac changes overnight. Objective Vital Signs Temp Pulse Pulse Resp BP Pulse Ox 07/09/20 11:17 94 H 133/81 99 07/09/20 09:44 94 H 133/81 07/09/20 08:30 77 19 139/82 99 07/09/20 08:00 98.4 F 84 75 30 H 125/73 98 07/09/20 07:30 76 12 125/73 100 07/09/20 07:08 75 107/66 100 07/09/20 07:00 76 16 123/80 98 07/09/20 06:30 74 19 115/70 100 07/09/20 06:00 75 20 107/66 100 07/09/20 05:30 104 H 14 111/66 98 07/09/20 05:28 96 H 111/66 07/09/20 05:00 78 20 111/66 99 07/09/20 04:30 123 H 30 H 121/68 96 07/09/20 04:06 118 H 95 07/09/20 04:00 98.8 F 105 H 32 H 121/68 100 07/09/20 03:30 71 20 121/68 100 07/09/20 03:00 70 20 111/64 100 07/09/20 02:30 77 16 117/70 100 07/09/20 02:00 96 H 28 H 119/69 100 07/09/20 01:30 70 22 119/69 99 07/09/20 01:00 71 23 118/71 100 07/09/20 00:30 74 17 118/71 100 07/09/20 00:21 73 130/76 07/09/20 00:09 74 130/76 100 07/09/20 00:00 99.0 F 75 23 130/76 100 07/08/20 23:30 72 12 117/69 100 07/08/20 23:00 73 20 120/68 100 07/08/20 22:32 70 19 120/68 100 07/08/20 22:30 71 20 120/68 100 07/08/20 22:00 71 24 126/75 100 07/08/20 21:30 73 24 119/72 100 07/08/20 21:00 69 19 118/68 100 07/08/20 20:30 72 25 H 120/72 100 07/08/20 20:15 74 125/76 100 07/08/20 20:00 99.3 F 73 20 125/76 100 07/08/20 19:41 75 07/08/20 19:30 72 24 124/74 100 07/08/20 19:00 72 22 117/75 100 07/08/20 18:30 75 20 111/70 100 07/08/20 18:00 93 H 24 117/61 100 07/08/20 17:50 133 H 122/78 07/08/20 17:49 133 H 122/78 07/08/20 17:30 128 H 28 H 124/74 100 07/08/20 17:00 78 21 122/78 100 07/08/20 16:30 74 23 124/74 100 07/08/20 16:00 98.8 F 74 83 23 123/77 100 07/08/20 15:30 72 22 116/72 100 07/08/20 15:12 74 121/7 100 07/08/20 15:00 73 22 120/74 100 07/08/20 14:43 74 121/7 07/08/20 14:30 74 20 121/75 100 07/08/20 14:00 72 21 127/77 100 07/08/20 13:30 74 20 122/71 100 07/08/20 13:00 71 21 111/70 100 07/08/20 12:32 105 H 119/77 07/08/20 12:30 96 H 25 H 119/77 07/08/20 12:00 99.0 F 104 H 86 25 H 116/66 97 - Physical Examination General: Other (intubated on the vent) Cardiac: Positive: Reg Rate and Rhythm Neuro: Positive: Other (unable to follow commands) Extremities: Present: +1 Edema
--- NOTE | 2020-07-09 15:31 | Progress Note ---
Assessment and Plan Assessment and plan: --Hodgson PCR positive; --Acute hypoxemic respiratory failure; Requiring intubation and mechanical ventilation Continue supportive care, wean as tolerated and extubate Pulmonary critical following --s/p Ventricular fibrillation cardiac arrest; Continue amiodarone, supportive care, cardiology following --Possible anoxic/hypoxic encephalopathy; Very poor prognosis --Acute myocardial infarction; Probably post resuscitation with ST-T changes Possible acute inferoposterior injury pattern Cardiology following, continue cardiac medications full dose Lovenox --Cardiomyopathy/acute systolic congestive heart failure; EF 25 to 30% Continue antifailure medications, fluid restriction Input output monitoring, supportive care --Acute kidney injury; vasomotor nephropathy Monitor renal function, avoid nephrotoxins, consider nephrology consult if no improvement --Alcohol withdrawal symptoms/Wernicke's encephalopathy; POA Continue supportive care, this CIWA protocol as needed Thiamine folic acid --Alcohol withdrawal symptoms/alcohol induced dementia; Supportive care --DVT prophylaxis; SCDs --DNR status; Consults and recommendations noted and appreciated We will closely monitor the patient and adjust management as needed Plan of care reviewed with the patient's nurse Patient is critically ill, with history of cardiac arrest and anoxic brain injury Very poor prognosis, patient is DNR status, recommend palliative care/hospice On 07/08/2020 I called patient's sister and discussed patient's condition poor prognosis goals of treatment Options of palliative/comfort care/hospice[home hospice versus inpatient hospice] Patient's sister Ms. Raz Nye had many questions answered all of them Informed Ms. Youngblood to consult hospice. Patient is DNR status at this point The high probability of a clinically significant, sudden or life threatening deterioration of the [CARDIAC, respiratory, metabolic, neuro] system(s) required my full and direct attention, intervention and personal management. The aggregate critical care time was [35] minutes. This time is in addition to time spent performing reported procedures but includes the following: [X] Data Review and interpretation [X] Patient assessment and monitoring of vital signs [X] Documentation [X] Medication orders and management 06/30/20: No clear evidence of vascular dementia but most likely Warnicke encephalopathy secondary to alcohol use disorder Of note patient was found in the wounds with sixpack of beer. We will initiate EtOH withdrawal management with thiamine and vitamins and folic acid. We will also initiate CIWA protocol considering that patient has been abusive to staff sometimes kicking at staff. 07/01: Ammonia level low. Continue current management, replace magnesium. Continue safety wrist restraints. 07/02: Remains delirious and in restriants, will cut down on the sedation medications, continue Thiamine. Poor prognosis 07/03: Discussed with the sister who states that the patient lives about 70 miles from where he was found, and has been recently in the last year diagnosed with alcohol related dementia and this time just up and left his house. [phone]-Jacxvr Jones- sister POA. Will wean sedation medications. Monitor for improvement and correct electrolytes. 07/04: Continue current management But discontinue all sedative medications and monitor closely. 07/05: Continue supportive care, noted fever, transient, will monitor, if persistent will obtain cultures, cxr and head ct repeat were negative for pathology 07/06: VFIB ARREST- PEA. Noted with Acute Cardiomyopathy Infarction. Discussed with the family and they recommend DNR status. Pateint is currently intubated and transferred to the ICU, will stop dubotamin, start BB, discussed with cardiology and Intensivit. Await labs. 07/08; discussed with family/POA/sister Ms. Raz Nye extensively about patient's condition treatment plan, tests and reports, poor prognosis Options of inpatient versus at home hospice, answered all her questions, Ms. Nye requested inpatient hospice., Hospice was consulted 07/09; patient was accepted for inpatient hospice, Covid test done prior to discharge, which came back positive, hospice refused as Inpatient hospice facilities will not accept a covid positive patient. Family made aware History Interval history: I have seen and examined the patient at the bedside this morning in ICU Patient is DNR status intubated on vent Family planning to discharge to inpatient hospice Covid test was done prior to discharge came back positive Hospice refused for inpatient admission Patient remains intubated on ventilatory support Unresponsive Hospitalist Physical - Constitutional Vitals: Temp Pulse Resp BP Pulse Ox 98.3 F 108 H 23 126/84 95 07/09/20 12:00 07/09/20 15:00 07/09/20 15:00 07/09/20 15:00 07/09/20 15:00 General appearance: Present: no acute distress, well-nourished, other (Patient is more alert, intubated on ventilatory support) - EENT Eyes: Present: PERRL, EOM intact - Neck Neck: Present: supple, normal ROM - Respiratory Respiratory effort: normal Respiratory: bilateral: diminished, rhonchi, negative: rales, wheezing - Cardiovascular Rhythm: regular Heart Sounds: Present: S1 & S2 - Extremities Extremities: no ischemia, No edema - Abdominal General gastrointestinal: soft, non-tender, non-distended, normal bowel sounds - Integumentary Integumentary: Present: clear, warm - Psychiatric Psychiatric: other (Intubated on vent unresponsive) - Neurologic Neurologic: other (Unresponsive, intubated on vent) HEART Score - HEART Score Risk factors: 1-2 risk factors Troponin: Troponin T 4.010 ng/mL (0.00-0.029) H* D 07/07/20 07:48 Troponin: < normal limit - Critical Actions Critical Actions: 0-3 pts:0.9-1.7%risk of adverse cardiac event.Candidate for d ischarge Results - Labs CBC & Chem 7: 07/07/20 07:48 07/08/20 05:30 Labs: Laboratory Last Values WBC 11.8 K/mm3 (4.5-11.0) H 07/07/20 07:48 RBC 3.28 M/mm3 (3.65-5.03) L 07/07/20 07:48 Hgb 11.2 gm/dl (11.8-15.2) L 07/07/20 07:48 Hct 33.5 % (35.5-45.6) L 07/07/20 07:48 MCV 102 fl (84-94) H 07/07/20 07:48 MCH 34 pg (28-32) H 07/07/20 07:48 MCHC 33 % (32-34) 07/07/20 07:48 RDW 15.2 % (13.2-15.2) 07/07/20 07:48 Plt Count 271 K/mm3 (140-440) 07/07/20 07:48 Lymph % (Auto) 16.0 % (13.4-35.0) 06/26/20 00:45 [place] % (Auto) 8.1 % (0.0-7.3) H 06/26/20 00:45 Eos % (Auto) 1.2 % (0.0-4.3) 06/26/20 00:45 Baso % (Auto) 0.6 % (0.0-1.8) 06/26/20 00:45 Lymph # (Auto) 0.9 K/mm3 (1.2-5.4) L 06/26/20 00:45 [place] # (Auto) 0.5 K/mm3 (0.0-0.8) 06/26/20 00:45 Eos # (Auto) 0.1 K/mm3 (0.0-0.4) 06/26/20 00:45 Baso # (Auto) 0.0 K/mm3 (0.0-0.1) 06/26/20 00:45 Seg Neutrophils % 74.1 % (40.0-70.0) H 06/26/20 00:45 Seg Neutrophils # 4.1 K/mm3 (1.8-7.7) 06/26/20 00:45 D-Dimer > 54634 ng/mlDDU (0-234) H 07/06/20 08:42 ABG pH 7.410 (7.320-7.450) 07/09/20 03:52 POC ABG pCO2 31.4 mmHg (32.0-48.0) L 07/09/20 03:52 ABG pCO2 29.9 mm Hg 07/07/20 03:53 POC ABG pO2 105.9 mmHg (83-108) 07/09/20 03:52 ABG pO2 58.0 mm Hg (80.0-90.0) L 07/07/20 03:53 POC ABG HCO3 19.5 07/09/20 03:52 ABG HCO3 18.7 mmol/L (20.0-26.0) L 07/07/20 03:53 ABG O2 Saturation 91.1 % (95.0-99.0) L 07/07/20 03:53 ABG O2 Content 14.8 (0.0-44) 07/07/20 03:53 POC ABG Base Excess -4.3 07/09/20 03:52 ABG Base Excess -4.9 mmol/L (-2.0-3.0) L 07/07/20 03:53 ABG Hemoglobin 10.8 (12.0-17.5) L 07/09/20 03:52 ABG Oxyhemoglobin 99.3 (94-98) H 07/06/20 10:50 ABG Carboxyhemoglobin 1.3 % (0.0-5.0) 07/07/20 03:53 ABG Methemoglobin 0.5 % (0.0-1.5) 07/07/20 03:53 ABG Sodium 139.5 mmol/L (136.0-145.0) 07/09/20 03:52 ABG Potassium 3.8 mmol/L (3.40-4.50) 07/09/20 03:52 ABG Chloride 114.0 mmol/L (98-107) H 07/09/20 03:52 ABG Glucose 166 mg/dL (65-95) H 07/09/20 03:52 Oxyhemoglobin 89.5 % (95.0-99.0) L 07/07/20 03:53 Carboxyhemoglobin 0.1 (0.5-1.5) L 07/06/20 10:50 FiO2 35 07/09/20 03:52 Sodium 146 mmol/L (137-145) H 07/08/20 05:30 Potassium 3.4 mmol/L (3.6-5.0) L 07/08/20 05:30 Chloride 113.6 mmol/L (98-107) H 07/08/20 05:30 Carbon Dioxide 22 mmol/L (22-30) 07/08/20 05:30 Anion Gap 14 mmol/L 07/08/20 05:30 BUN 59 mg/dL (9-20) H 07/08/20 05:30 Creatinine 2.9 mg/dL (0.8-1.3) H 07/08/20 05:30 Estimated GFR 21 ml/min 07/08/20 05:30 BUN/Creatinine Ratio 20 % 07/08/20 05:30 Glucose 150 mg/dL (75-100) H 07/08/20 05:30 POC Glucose 119 mg/dL (70-105) H 07/09/20 11:47 Lactic Acid 1.50 mmol/L (0.7-2.0) 06/26/20 00:45 Calcium 8.3 mg/dL (8.4-10.2) L 07/08/20 05:30 Magnesium 1.80 mg/dL (1.7-2.3) 07/08/20 05:30 Total Bilirubin 0.40 mg/dL (0.1-1.2) 07/08/20 05:30 AST 91 units/L (5-40) H 07/08/20 05:30 ALT 62 units/L (7-56) H 07/08/20 05:30 Alkaline Phosphatase 84 units/L (35-129) 07/08/20 05:30 Ammonia 20.0 umol/L (25-60) L 06/30/20 19:20 Total Creatine Kinase 362 units/L (55-170) H 07/08/20 14:00 CK-MB (CK-2) 128.7 ng/mL (0.0-4.0) H 07/07/20 07:48 CK-MB (CK-2) Rel Index 9.5 (0-4) H 07/07/20 07:48 Troponin T 4.010 ng/mL (0.00-0.029) H* D 07/07/20 07:48 Total Protein 5.4 g/dL (6.3-8.2) L 07/08/20 05:30 Albumin 2.6 g/dL (3.9-5) L 07/08/20 05:30 Albumin/Globulin Ratio 0.9 % 07/08/20 05:30 Triglycerides 57 mg/dL (2-149) 07/06/20 12:00 Cholesterol 90 mg/dL (50-199) 07/06/20 12:00 LDL Cholesterol Direct 49 mg/dL (50-130) L 07/06/20 12:00 HDL Cholesterol 30 mg/dL (40-59) L 07/06/20 12:00 Cholesterol/HDL Ratio 3.00 % 07/06/20 12:00 TSH 1.620 mlU/mL (0.270-4.200) 06/28/20 15:56 Free T4 1.17 ng/dL (0.76-1.46) 06/28/20 15:56 Arterial Blood Glucose 166 mg/dL (65-95) H 07/09/20 03:52 Arterial Blood Ionized Calcium 4.8 mg/dL (4.6-5.3) 07/09/20 03:52 Urine Color Yellow (Yellow) 07/06/20 14:20 Urine Turbidity Cloudy (Clear) 07/06/20 14:20 Urine pH 5.0 (5.0-7.0) 07/06/20 14:20 Ur Specific [place] 1.009 (1.003-1.030) 07/06/20 14:20 Urine Protein 100 mg/dl mg/dL (Negative) 07/06/20 14:20 Urine Glucose (UA) 50 mg/dL (Negative) 07/06/20 14:20 Urine Ketones Tr mg/dL (Negative) 07/06/20 14:20 Urine Blood Lg (Negative) 07/06/20 14:20 Urine Nitrite Neg (Negative) 07/06/20 14:20 Urine Bilirubin Neg (Negative) 07/06/20 14:20 Urine Urobilinogen < 2.0 mg/dL (<2.0) 07/06/20 14:20 Ur Leukocyte Esterase Lg (Negative) 07/06/20 14:20 Urine WBC (Auto) > 182.0 /HPF (0.0-6.0) H 07/06/20 14:20 Urine RBC (Auto) 104.0 /HPF (0.0-6.0) 07/06/20 14:20 U Epithel Cells (Auto) 3.0 /HPF (0-13.0) 07/06/20 14:20 Urine Bacteria (Auto) 2+ /HPF (Negative) 07/06/20 14:20 Urine WBC Clumps 3+ /HPF 07/06/20 14:20 Urine Mucus 3+ /HPF 07/06/20 14:20 Urine Opiates Screen Presumptive negative 06/26/20 01:59 Urine Methadone Screen Presumptive negative 06/26/20 01:59 Acetaminophen 5.0 ug/mL (10.0-30.0) L 06/26/20 00:45 Ur Barbiturates Screen Presumptive negative 06/26/20 01:59 Ur Phencyclidine Scrn Presumptive negative 06/26/20 01:59 Ur Amphetamines Screen Presumptive negative 06/26/20 01:59 U Benzodiazepines Scrn Presumptive negative 06/26/20 01:59 Urine Cocaine Screen Presumptive negative 06/26/20 01:59 U Marijuana (THC) Screen Presumptive negative 06/26/20 01:59 Drugs of Abuse Note Disclamer 06/26/20 01:59 Plasma/Serum Alcohol < 0.01 % (0-0.07) 06/26/20 00:45 Coronavirus (PCR) Positive (Negative) A 07/09/20 10:45 Blood Type O NEGATIVE 07/06/20 14:40 Antibody Screen Negative 07/06/20 14:40 Microbiology: Microbiology 07/06/20 14:09 Peripheral/Venous Blood Culture - Preliminary NO GROWTH AFTER 72 HOURS 07/06/20 14:09 Peripheral/Venous Blood Culture - Preliminary NO GROWTH AFTER 72 HOURS 07/06/20 17:08 Tracheal Aspirate Sputum Culture - Final [place] 07/06/20 14:40 Stool Stool Culture - Preliminary - Diagnostic Impressions Diagnostic Impressions: Echocardiogram 07/06/20 08:39 Transthoracic Echocardiogram Indication: Cardiomyopathy BP: 106/58 HR: 98 Conclusions *The study quality is technically difficult. *The left ventricular size is mild to moderately dilated. *Mild concentric left ventricular hypertrophy is observed. *Global left ventricular systolic function is severely decreased. *The estimated ejection fraction is 25%. *There is mild mitral regurgitation. *There is mild tricuspid regurgitation. *There is mild-moderate pulmonary hypertension. *The right ventricular systolic pressure is calculated at 40 mmHg. Findings Procedure Info: The study quality is technically difficult. Left Ventricle: The left ventricular size is mild to moderately dilated. Mild concentric left ventricular hypertrophy is observed. Global left ventricular systolic function is severely decreased. The estimated ejection fraction is 25-30%. Left Atrium: The left atrium is mildly dilated. Right Ventricle: The right ventricle is slightly dilated. Right Atrium: The right atrial cavity size is normal. Aortic Valve: The aortic valve leaflets are moderately thickened. There is trace of aortic regurgitation. There is no evidence of aortic stenosis. Mitral Valve: The mitral valve leaflets are moderately thickened. There is mild mitral regurgitation. There is no evidence of mitral stenosis. Tricuspid Valve: There is mild tricuspid regurgitation. The right ventricular systolic pressure is calculated at 40 mmHg. There is evidence of mild pulmonary hypertension. Pulmonic Valve: There is trace pulmonic regurgitation. Pericardium: There is no pericardial effusion. Aorta: There is no dilatation of the aortic root. Venous: The inferior vena cava is dilated. Measurements Chambers 2D Name Value Normal Range IVSd (2D) 1.34 cm (0.6 - 1.1) LVPWd (2D) 1.33 cm (0.6 - 1.1) LVIDd (2D) 3.86 cm (3.7 - 5.6) LVIDs (2D) 2.85 cm (2 - 3.8) LV FS (2D) 26.34 % - EF Teichholz (2D) 52.28 % - Ao root diameter (2D) 3.54 cm (2 - 3.7) Volumes/Mass Name Value Normal Range LA ESV SP 4CH (A/L) 50.07 ml - LA ESV SP 2CH (A/L) 54.16 ml - LA ESV BP (A/L) 56.5 ml - LA ESV SP 4CH (MOD) 44.38 ml - LA ESV SP 2CH (MOD) 52.76 ml - Diastolic/Systolic Function Name Value Normal Range MV E-wave Vmax 0.85 m/sec - MV deceleration time 163.03 msec - MV A-wave Vmax 0.85 m/sec - MV E:A ratio 0.99 ratio - Aortic Valve Name Value Normal Range AV Vmax 0.77 m/sec - AV VTI 14.25 cm - AV peak gradient 2.38 mmHg - AV mean gradient 1.5 mmHg - LVOT diameter 2 cm - LVOT Vmax 0.57 m/sec - LVOT VTI 9.44 cm - LVOT peak gradient 1.31 mmHg - LVOT mean gradient 0.72 mmHg - SV LVOT 29.56 ml - MICHAEL (continuity Vmax) 2.33 cm2 - MICHAEL (continuity VTI) 2.07 cm2 - Mitral Valve Name Value Normal Range MR Vmax 3.93 m/sec - Tricuspid Valve Name Value Normal Range TR Vmax 2.87 m/sec - TR peak gradient 32.85 mmHg - RVSP 40 mmHg - IVC diameter 2.3 cm (1.2 - 2.3) Pulmonic Valve/Qp:Qs Name Value Normal Range PV acceleration time 79.92 msec - [place]/IV: Voiding Method Indwelling Catheter IV Catheter Type [right INT / Saline Lock forearm] IV Catheter Type [Left Upper PICC Line arm] IV Catheter Type [Left Hand] INT / Saline Lock Active Medications - Current Medications Current Medications: Generic Name Dose Route Start Last Admin Trade Name Freq PRN Reason Stop Dose Admin Acetaminophen 650 mg 06/26/20 04:16 07/05/20 20:07 Tylenol PO 650 mg Q4H PRN Administration Fever >101 Acetaminophen 650 mg 07/06/20 08:41 Tylenol PO Q6H PRN Pain, Mild (1-3) Amiodarone HCl 200 mg 07/06/20 14:00 07/09/20 09:44 Cordarone PO 200 mg BID LILIAM Administration Lipase/Protease/Amylase 1 each 07/07/20 12:29 Pan[place]fe Willis 10,500 Unit FEEDTUBE PRN PRN For Clogged Feeding Tube Aspirin 81 mg 07/08/20 10:00 07/09/20 09:44 Baby Aspirin PO 81 mg QDAY LILIAM Administration Atorvastatin Calcium 40 mg 07/06/20 22:00 07/08/20 21:15 Lipitor PO 40 mg QHS LILIAM Administration Clopidogrel Bisulfate 75 mg 07/07/20 10:00 07/09/20 09:45 Plavix PO 75 mg QDAY LILIAM Administration Enoxaparin Sodium 80 mg 07/08/20 10:00 07/09/20 09:43 Enoxaparin SUB-Q 80 mg DAILY [facility] Administration Protocol Famotidine 20 mg 07/08/20 10:00 07/09/20 09:44 Pepcid PO 20 mg DAILY LILIAM Administration Folic Acid 1 mg 07/07/20 10:00 07/09/20 09:45 Folvite PO 1 mg DAILY LILIAM Administration Haloperidol Lactate 5 mg 07/08/20 12:09 07/09/20 09:51 Haldol IV 5 mg Q6H PRN Administration Agitation Hydralazine HCl 10 mg 07/01/20 07:41 07/03/20 04:20 Apresoline IV 10 mg Q4HR PRN Administration Hypertension Cefepime HCl 2 gm in 100 mls @ 200 mls/hr 07/08/20 10:00 07/09/20 09:43 Cefepime/Ns 2 Gm/100 Ml IV 200 mls/hr Q24HR LILIAM Administration Protocol Lorazepam 2 mg 07/09/20 14:32 Ativan IV Q4H PRN Agitation Metoprolol Tartrate 2.5 mg 07/06/20 12:00 07/09/20 13:12 Metoprolol IV 2.5 mg Q6HR LILIAM Administration Multivitamins 5 ml 07/07/20 10:00 07/09/20 09:43 Centrum Liq PO 5 ml QDAY LILIAM Administration Nitroglycerin 1 inch 07/07/20 14:00 07/09/20 13:13 Nitro-Bid 2% TP 1 inch QIDNTG LILIAM Administration Protocol Simple Syrup 15 ml 07/07/20 12:29 Simple Syrup FEEDTUBE PRN PRN Hypoglycemia Simple Syrup 30 ml 07/07/20 12:29 Simple Syrup FEEDTUBE PRN PRN Hypoglycemia Sodium Bicarbonate 325 mg 07/07/20 12:29 Sodium Bicarbonate FEEDTUBE PRN PRN For Clogged Feeding Tube Thiamine HCl 100 mg 07/07/20 10:00 07/09/20 09:45 Vitamin B-1 PO 100 mg QDAY LILIAM Administration Nutrition/Malnutrition Assess - Dietary Evaluation Nutrition/Malnutrition Findings: Nutrition Notes Start: 07/03/20 12:56 Freq: Status: Active Protocol: Document 07/09/20 14:13 AL (Rec: 07/09/20 14:20 AL [id number]) Co-Sign 07/09/20 14:13 LP Nutrition Notes Initial or Follow up Reassessment Current Diagnosis Coronary Artery Disease, Decubitus(Pressure Ulcer), Hypertension Other Pertinent Diagnosis Encephalopathy, Cerebral atherosclerosis Current Diet Osmolite 1.5 at 50 mL/hr (goal rate) Labs/Tests Na 146 K 3.4 BUN 59 Cr 2.9 Pertinent Medications MVI Thiamine Folic Acid KCl (07/08) Mag Sulfate (07/08) Height 5 ft 10 in Weight 72.4 kg [place] Body Weight (kg) 75.45 BMI 22.8 Weight Status Appropriate Subjective/Other Information F/U for TF start/tolerance. Per RN, patient is tolerating TF well at goal rate. Family is declining HD, per chart. MD states that patient will d/c to hospice care. Percent of energy/protein needs met: 100%/100% Burn Absent Trauma Absent GI Symptoms None Food Allergy No Current % PO Negligible Minimum of two criteria No physical signs of malnutrition #2 Nutrition Diagnosis Increased nutrient needs ( specify in comment below) Comments: Protein Diagnosis Progress(for reassessment Continues documentation) #1 Nutrition Diagnosis Inadequate oral intake Diagnosis Progress(for reassessment Continues documentation) Is patient on ventilator? Yes Is Patient Ambulatory and/or Out of Bed No REE-([facility]-confined to bed) 8024.878 Calculation Used for Recommendations [facility] Additional Notes Protein: 58-87g (0.8-1.2 g/kg) Fluid: 1 ml/kcal Nutrition Intervention Change Diet Order: Continue TF Nutrition Support: Osmolite 1.5 at 50 ml/hr (goal rate) Flush 150 ml q4h Kcal 1,800 Protein (gm) 75 Fluid (mL) 914 Goal #1 Meet at least 75% fo energy and protein needs via TF Anticipated Discharge Needs: Unable to determine at this time Follow-Up By: 07/16/20 Additional Comments F/U for TF tolerance
[2020-07-09] MEDS: LORazepam 2 MG/ML VIAL IV PRN (16:40)
[2020-07-10] MEDS: METOPROLOL TARTRATE 5 MG/5 ML INJ IV SCH ×4 (06:30→23:00)
[2020-07-10] MEDS: NITROGLYCERIN 2% OINT 1 GM TP SCH ×4 (06:30→18:22)
--- NOTE | 2020-07-10 08:14 | Progress Note ---
Assessment and Plan Assessment and plan: --Hodgson PCR positive; --Acute hypoxemic respiratory failure; Requiring intubation and mechanical ventilation Continue supportive care, wean as tolerated and extubate Pulmonary critical following --s/p Ventricular fibrillation cardiac arrest; Continue amiodarone, supportive care, cardiology following --Possible anoxic/hypoxic encephalopathy; Very poor prognosis --Acute myocardial infarction; Probably post resuscitation with ST-T changes Possible acute inferoposterior injury pattern Cardiology following, continue cardiac medications full dose Lovenox --Cardiomyopathy/acute systolic congestive heart failure; EF 25 to 30% Continue antifailure medications, fluid restriction Input output monitoring, supportive care --Acute kidney injury; vasomotor nephropathy Monitor renal function, avoid nephrotoxins, We will consult nephrology today --Alcohol withdrawal symptoms/Wernicke's encephalopathy; POA Continue supportive care, this CIWA protocol as needed Thiamine folic acid --Alcohol withdrawal symptoms/alcohol induced dementia; Supportive care --DVT prophylaxis; SCDs --DNR status; Consults and recommendations noted and appreciated We will closely monitor the patient and adjust management as needed Plan of care reviewed with the patient's nurse Patient is critically ill, with history of cardiac arrest and anoxic brain injury Very poor prognosis, patient is DNR status, recommend palliative care/hospice On 07/08/2020 I called patient's sister and discussed patient's condition poor prognosis goals of treatment Options of palliative/comfort care/hospice[home hospice versus inpatient hospice] Patient's sister Ms. Raz Nye had many questions answered all of them Informed Ms. Youngblood to consult hospice. Patient is DNR status at this point The high probability of a clinically significant, sudden or life threatening deterioration of the [CARDIAC, respiratory, metabolic, neuro] system(s) required my full and direct attention, intervention and personal management. The aggregate critical care time was [45] minutes. This time is in addition to time spent performing reported procedures but includes the following: [X] Data Review and interpretation [X] Patient assessment and monitoring of vital signs [X] Documentation [X] Medication orders and management 06/30/20: No clear evidence of vascular dementia but most likely Warnicke encephalopathy secondary to alcohol use disorder Of note patient was found in the wounds with sixpack of beer. We will initiate EtOH withdrawal management with thiamine and vitamins and folic acid. We will also initiate CIWA protocol considering that patient has been abusive to staff sometimes kicking at staff. 11/11: Ammonia level low. Continue current management, replace magnesium. Continue safety wrist restraints. 07/02: Remains delirious and in restriants, will cut down on the sedation medications, continue Thiamine. Poor prognosis 07/03: Discussed with the sister who states that the patient lives about 70 miles from where he was found, and has been recently in the last year diagnosed with alcohol related dementia and this time just up and left his house. [phone]-[id number] Jones- sister POA. Will wean sedation medications. Monitor for improvement and correct electrolytes. 07/04: Continue current management But discontinue all sedative medications and monitor closely. 07/05: Continue supportive care, noted fever, transient, will monitor, if persistent will obtain cultures, cxr and head ct repeat were negative for pathology 07/06: VFIB ARREST- PEA. Noted with Acute Cardiomyopathy Infarction. Discussed with the family and they recommend DNR status. Pateint is currently intubated and transferred to the ICU, will stop dubotamin, start BB, discussed with cardiology and Intensivit. Await labs. 07/08; discussed with family/POA/sister Ms. Raz Nye extensively about patient's condition treatment plan, tests and reports, poor prognosis Options of inpatient versus at home hospice, answered all her questions, Ms. Nye requested inpatient hospice., Hospice was consulted 07/09; patient was accepted for inpatient hospice, Covid test done prior to discharge came back positive, hospice refused Inpatient hospice facilities will not accept a covid positive patient. Family made aware 07/10; family is considering to extubate and withdraw care, Ms. Youngblood, patient's nurse, verified the POA, withdrawal of care documents and confirmed History Interval history: I have seen and examined the patient at the bedside this morning in ICU Covid positive patient in droplet and contact isolation Isolation precautions and PPE protocol strictly followed Patient remains intubated on ventilatory support Agitated and restless, restrained for safety vital signs reviewed Hospitalist Physical - Constitutional Vitals: Temp Pulse Resp BP Pulse Ox 98.8 F 81 21 132/78 100 07/10/20 03:49 07/10/20 06:30 07/10/20 06:30 07/10/20 06:30 07/10/20 06:30 General appearance: Present: no acute distress, well-nourished, other (Patient is more alert, intubated on ventilatory support) - EENT Eyes: Present: PERRL, EOM intact - Neck Neck: Present: supple, normal ROM - Respiratory Respiratory effort: normal Respiratory: bilateral: diminished, rhonchi, negative: rales, wheezing - Cardiovascular Rhythm: regular Heart Sounds: Present: S1 & S2 - Extremities Extremities: no ischemia, No edema - Abdominal General gastrointestinal: soft, non-tender, non-distended, normal bowel sounds - Integumentary Integumentary: Present: clear, warm - Psychiatric Psychiatric: other (Intubated on vent) - Neurologic Neurologic: other (Intubated on vent) HEART Score - HEART Score Risk factors: 1-2 risk factors Troponin: Troponin T 4.010 ng/mL (0.00-0.029) H* D 07/07/20 07:48 Troponin: < normal limit - Critical Actions Critical Actions: 0-3 pts:0.9-1.7%risk of adverse cardiac event.Candidate for discharge Results - Labs CBC & Chem 7: 07/07/20 07:48 07/08/20 05:30 Labs: Laboratory Last Values WBC 11.8 K/mm3 (4.5-11.0) H 07/07/20 07:48 RBC 3.28 M/mm3 (3.65-5.03) L 07/07/20 07:48 Hgb 11.2 gm/dl (11.8-15.2) L 07/07/20 07:48 Hct 33.5 % (35.5-45.6) L 07/07/20 07:48 MCV 102 fl (84-94) H 07/07/20 07:48 MCH 34 pg (28-32) H 07/07/20 07:48 MCHC 33 % (32-34) 07/07/20 07:48 RDW 15.2 % (13.2-15.2) 07/07/20 07:48 Plt Count 271 K/mm3 (140-440) 07/07/20 07:48 Lymph % (Auto) 16.0 % (13.4-35.0) 06/26/20 00:45 [place] % (Auto) 8.1 % (0.0-7.3) H 06/26/20 00:45 Eos % (Auto) 1.2 % (0.0-4.3) 06/26/20 00:45 Baso % (Auto) 0.6 % (0.0-1.8) 06/26/20 00:45 Lymph # (Auto) 0.9 K/mm3 (1.2-5.4) L 06/26/20 00:45 [place] # (Auto) 0.5 K/mm3 (0.0-0.8) 06/26/20 00:45 Eos # (Auto) 0.1 K/mm3 (0.0-0.4) 06/26/20 00:45 Baso # (Auto) 0.0 K/mm3 (0.0-0.1) 06/26/20 00:45 Seg Neutrophils % 74.1 % (40.0-70.0) H 06/26/20 00:45 Seg Neutrophils # 4.1 K/mm3 (1.8-7.7) 06/26/20 00:45 D-Dimer > 74614 ng/mlDDU (0-234) H 07/06/20 08:42 ABG pH 7.469 (7.320-7.450) H 07/10/20 04:32 POC ABG pCO2 28.0 mmHg (32.0-48.0) L 07/10/20 04:32 ABG pCO2 29.9 mm Hg 07/07/20 03:53 POC ABG pO2 147.5 mmHg (83-108) H 07/10/20 04:32 ABG pO2 58.0 mm Hg (80.0-90.0) L 07/07/20 03:53 POC ABG HCO3 19.9 07/10/20 04:32 ABG HCO3 18.7 mmol/L (20.0-26.0) L 07/07/20 03:53 ABG O2 Saturation 91.1 % (95.0-99.0) L 07/07/20 03:53 ABG O2 Content 14.8 (0.0-44) 07/07/20 03:53 POC ABG Base Excess -2.9 07/10/20 04:32 ABG Base Excess -4.9 mmol/L (-2.0-3.0) L 07/07/20 03:53 ABG Hemoglobin 10.2 (12.0-17.5) L 07/10/20 04:32 ABG Oxyhemoglobin 99.3 (94-98) H 07/06/20 10:50 ABG Carboxyhemoglobin 1.3 % (0.0-5.0) 07/07/20 03:53 ABG Methemoglobin 0.5 % (0.0-1.5) 07/07/20 03:53 ABG Sodium 141.0 mmol/L (136.0-145.0) 07/10/20 04:32 ABG Potassium 3.8 mmol/L (3.40-4.50) 07/10/20 04:32 ABG Chloride 115.0 mmol/L (98-107) H 07/10/20 04:32 ABG Glucose 119 mg/dL (65-95) H 07/10/20 04:32 Oxyhemoglobin 89.5 % (95.0-99.0) L 07/07/20 03:53 Carboxyhemoglobin 0.1 (0.5-1.5) L 07/06/20 10:50 FiO2 35 07/10/20 04:32 Sodium 146 mmol/L (137-145) H 07/08/20 05:30 Potassium 3.4 mmol/L (3.6-5.0) L 07/08/20 05:30 Chloride 113.6 mmol/L (98-107) H 07/08/20 05:30 Carbon Dioxide 22 mmol/L (22-30) 07/08/20 05:30 Anion Gap 14 mmol/L 07/08/20 05:30 BUN 59 mg/dL (9-20) H 07/08/20 05:30 Creatinine 2.9 mg/dL (0.8-1.3) H 07/08/20 05:30 Estimated GFR 21 ml/min 07/08/20 05:30 BUN/Creatinine Ratio 20 % 07/08/20 05:30 Glucose 150 mg/dL (75-100) H 07/08/20 05:30 POC Glucose 102 mg/dL (70-105) 07/10/20 04:39 Lactic Acid 1.50 mmol/L (0.7-2.0) 06/26/20 00:45 Calcium 8.3 mg/dL (8.4-10.2) L 07/08/20 05:30 Magnesium 1.80 mg/dL (1.7-2.3) 07/08/20 05:30 Total Bilirubin 0.40 mg/dL (0.1-1.2) 07/08/20 05:30 AST 91 units/L (5-40) H 07/08/20 05:30 ALT 62 units/L (7-56) H 07/08/20 05:30 Alkaline Phosphatase 84 units/L (35-129) 07/08/20 05:30 Ammonia 20.0 umol/L (25-60) L 06/30/20 19:20 Total Creatine Kinase 362 units/L (55-170) H 07/08/20 14:00 CK-MB (CK-2) 128.7 ng/mL (0.0-4.0) H 07/07/20 07:48 CK-MB (CK-2) Rel Index 9.5 (0-4) H 07/07/20 07:48 Troponin T 4.010 ng/mL (0.00-0.029) H* D 07/07/20 07:48 Total Protein 5.4 g/dL (6.3-8.2) L 07/08/20 05:30 Albumin 2.6 g/dL (3.9-5) L 07/08/20 05:30 Albumin/Globulin Ratio 0.9 % 07/08/20 05:30 Triglycerides 57 mg/dL (2-149) 07/06/20 12:00 Cholesterol 90 mg/dL (50-199) 07/06/20 12:00 LDL Cholesterol Direct 49 mg/dL (50-130) L 07/06/20 12:00 HDL Cholesterol 30 mg/dL (40-59) L 07/06/20 12:00 Cholesterol/HDL Ratio 3.00 % 07/06/20 12:00 TSH 1.620 mlU/mL (0.270-4.200) 06/28/20 15:56 Free T4 1.17 ng/dL (0.76-1.46) 06/28/20 15:56 Arterial Blood Glucose 119 mg/dL (65-95) H 07/10/20 04:32 Arterial Blood Ionized Calcium 4.7 mg/dL (4.6-5.3) 07/10/20 04:32 Urine Color Yellow (Yellow) 07/06/20 14:20 Urine Turbidity Cloudy (Clear) 07/06/20 14:20 Urine pH 5.0 (5.0-7.0) 07/06/20 14:20 Ur Specific [place] 1.009 (1.003-1.030) 07/06/20 14:20 Urine Protein 100 mg/dl mg/dL (Negative) 07/06/20 14:20 Urine Glucose (UA) 50 mg/dL (Negative) 07/06/20 14:20 Urine Ketones Tr mg/dL (Negative) 07/06/20 14:20 Urine Blood Lg (Negative) 07/06/20 14:20 Urine Nitrite Neg (Negative) 07/06/20 14:20 Urine Bilirubin Neg (Negative) 07/06/20 14:20 Urine Urobilinogen < 2.0 mg/dL (<2.0) 07/06/20 14:20 Ur Leukocyte Esterase Lg (Negative) 07/06/20 14:20 Urine WBC (Auto) > 182.0 /HPF (0.0-6.0) H 07/06/20 14:20 Urine RBC (Auto) 104.0 /HPF (0.0-6.0) 07/06/20 14:20 U Epithel Cells (Auto) 3.0 /HPF (0-13.0) 07/06/20 14:20 Urine Bacteria (Auto) 2+ /HPF (Negative) 07/06/20 14:20 Urine WBC Clumps 3+ /HPF 07/06/20 14:20 Urine Mucus 3+ /HPF 07/06/20 14:20 Urine Opiates Screen Presumptive negative 06/26/20 01:59 Urine Methadone Screen Presumptive negative 06/26/20 01:59 Acetaminophen 5.0 ug/mL (10.0-30.0) L 06/26/20 00:45 Ur Barbiturates Screen Presumptive negative 06/26/20 01:59 Ur Phencyclidine Scrn Presumptive negative 06/26/20 01:59 Ur Amphetamines Screen Presumptive negative 06/26/20 01:59 U Benzodiazepines Scrn Presumptive negative 06/26/20 01:59 Urine Cocaine Screen Presumptive negative 06/26/20 01:59 U Marijuana (THC) Screen Presumptive negative 06/26/20 01:59 Drugs of Abuse Note Disclamer 06/26/20 01:59 Plasma/Serum Alcohol < 0.01 % (0-0.07) 06/26/20 00:45 Coronavirus (PCR) Positive (Negative) A 07/09/20 10:45 Blood Type O NEGATIVE 07/06/20 14:40 Antibody Screen Negative 07/06/20 14:40 Microbiology: Microbiology 07/06/20 14:09 Peripheral/Venous Blood Culture - Preliminary NO GROWTH AFTER 72 HOURS 07/06/20 14:09 Peripheral/Venous Blood Culture - Preliminary NO GROWTH AFTER 72 HOURS - Diagnostic Impressions Diagnostic Impressions: Echocardiogram 07/06/20 08:39 Transthoracic Echocardiogram Indication: Cardiomyopathy BP: 106/58 HR: 98 Conclusions *The study quality is technically difficult. *The left ventricular size is mild to moderately dilated. *Mild concentric left ventricular hypertrophy is observed. *Global left ventricular systolic function is severely decreased. *The estimated ejection fraction is 25%. *There is mild mitral regurgitation. *There is mild tricuspid regurgitation. *There is mild-moderate pulmonary hypertension. *The right ventricular systolic pressure is calculated at 40 mmHg. Findings Procedure Info: The study quality is technically difficult. Left Ventricle: The left ventricular size is mild to moderately dilated. Mild concentric left ventricular hypertrophy is observed. Global left ventricular systolic function is severely decreased. The estimated ejection fraction is 25-30%. Left Atrium: The left atrium is mildly dilated. Right Ventricle: The right ventricle is slightly dilated. Right Atrium: The right atrial cavity size is normal. Aortic Valve: The aortic valve leaflets are moderately thickened. There is trace of aortic regurgitation. There is no evidence of aortic stenosis. Mitral Valve: The mitral valve leaflets are moderately thickened. There is mild mitral regurgitation. There is no evidence of mitral stenosis. Tricuspid Valve: There is mild tricuspid regurgitation. The right ventricular systolic pressure is calculated at 40 mmHg. There is evidence of mild pulmonary hypertension. Pulmonic Valve: There is trace pulmonic regurgitation. Pericardium: There is no pericardial effusion. Aorta: There is no dilatation of the aortic root. Venous: The inferior vena cava is dilated. Measurements Chambers 2D Name Value Normal Range IVSd (2D) 1.34 cm (0.6 - 1.1) LVPWd (2D) 1.33 cm (0.6 - 1.1) LVIDd (2D) 3.86 cm (3.7 - 5.6) LVIDs (2D) 2.85 cm (2 - 3.8) LV FS (2D) 26.34 % - EF Teichholz (2D) 52.28 % - Ao root diameter (2D) 3.54 cm (2 - 3.7) Volumes/Mass Name Value Normal Range LA ESV SP 4CH (A/L) 50.07 ml - LA ESV SP 2CH (A/L) 54.16 ml - LA ESV BP (A/L) 56.5 ml - LA ESV SP 4CH (MOD) 44.38 ml - LA ESV SP 2CH (MOD) 52.76 ml - Diastolic/Systolic Function Name Value Normal Range MV E-wave Vmax 0.85 m/sec - MV deceleration time 163.03 msec - MV A-wave Vmax 0.85 m/sec - MV E:A ratio 0.99 ratio - Aortic Valve Name Value Normal Range AV Vmax 0.77 m/sec - AV VTI 14.25 cm - AV peak gradient 2.38 mmHg - AV mean gradient 1.5 mmHg - LVOT diameter 2 cm - LVOT Vmax 0.57 m/sec - LVOT VTI 9.44 cm - LVOT peak gradient 1.31 mmHg - LVOT mean gradient 0.72 mmHg - SV LVOT 29.56 ml - MICHAEL (continuity Vmax) 2.33 cm2 - MICHAEL (continuity VTI) 2.07 cm2 - Mitral Valve Name Value Normal Range MR Vmax 3.93 m/sec - Tricuspid Valve Name Value Normal Range TR Vmax 2.87 m/sec - TR peak gradient 32.85 mmHg - RVSP 40 mmHg - IVC diameter 2.3 cm (1.2 - 2.3) Pulmonic Valve/Qp:Qs Name Value Normal Range PV acceleration time 79.92 msec - Galindo/IV: Voiding Method Indwelling Catheter IV Catheter Type [right INT / Saline Lock forearm] IV Catheter Type [Left Upper PICC Line arm] IV Catheter Type [Left Hand] INT / Saline Lock Active Medications - Current Medications Current Medications: Generic Name Dose Route Start Last Admin Trade Name Freq PRN Reason Stop Dose Admin Acetaminophen 650 mg 06/26/20 04:16 07/05/20 20:07 Tylenol PO 650 mg Q4H PRN Administration Fever >101 Acetaminophen 650 mg 07/06/20 08:41 Tylenol PO Q6H PRN Pain, Mild (1-3) Amiodarone HCl 200 mg 07/06/20 14:00 07/09/20 23:14 Cordarone PO 200 mg BID LILIAM Administration Lipase/Protease/Amylase 1 each 07/07/20 12:29 Pancreaze 10,500 Unit FEEDTUBE PRN PRN For Clogged Feeding Tube Aspirin 81 mg 07/08/20 10:00 07/09/20 09:44 Baby Aspirin PO 81 mg QDAY LILIAM Administration Atorvastatin Calcium 40 mg 07/06/20 22:00 07/09/20 23:14 Lipitor PO 40 mg QHS LILIAM Administration Clopidogrel Bisulfate 75 mg 07/07/20 10:00 07/09/20 09:45 Plavix PO 75 mg QDAY LILIAM Administration Enoxaparin Sodium 80 mg 07/08/20 10:00 07/09/20 09:43 Enoxaparin SUB-Q 80 mg DAILY LILIAM Administration Protocol Famotidine 20 mg 07/08/20 10:00 07/09/20 09:44 Pepcid PO 20 mg DAILY LILIAM Administration Folic Acid 1 mg 07/07/20 10:00 07/09/20 09:45 Folvite PO 1 mg DAILY LILIAM Administration Haloperidol Lactate 5 mg 07/08/20 12:09 07/09/20 09:51 Haldol IV 5 mg Q6H PRN Administration Agitation Hydralazine HCl 10 mg 07/01/20 07:41 07/03/20 04:20 Apresoline IV 10 mg Q4HR PRN Administration Hypertension Cefepime HCl 2 gm in 100 mls @ 200 mls/hr 07/08/20 10:00 07/09/20 09:43 Cefepime/Ns 2 Gm/100 Ml IV 07/10/20 23:59 200 mls/hr Q24HR LILIAM Administration Protocol Lorazepam 2 mg 07/09/20 14:32 07/09/20 16:40 Ativan IV 2 mg Q4H PRN Administration Agitation Metoprolol Tartrate 2.5 mg 07/06/20 12:00 07/10/20 06:30 Metoprolol IV 2.5 mg Q6HR LILIAM Administration Multivitamins 5 ml 07/07/20 10:00 07/09/20 09:43 Centrum Liq PO 5 ml QDAY LILIAM Administration Nitroglycerin 1 inch 07/07/20 14:00 07/10/20 06:30 Nitro-Bid 2% TP 1 inch QIDNTG LILIAM Administration Protocol Simple Syrup 15 ml 07/07/20 12:29 Simple Syrup FEEDTUBE PRN PRN Hypoglycemia Simple Syrup 30 ml 07/07/20 12:29 Simple Syrup FEEDTUBE PRN PRN Hypoglycemia Sodium Bicarbonate 325 mg 07/07/20 12:29 Sodium Bicarbonate FEEDTUBE PRN PRN For Clogged Feeding Tube Thiamine HCl 100 mg 07/07/20 10:00 07/09/20 09:45 Vitamin B-1 PO 100 mg QDAY LILIAM Administration Nutrition/Malnutrition Assess - Dietary Evaluation Nutrition/Malnutrition Findings: Nutrition Notes Start: 07/03/20 12:56 Freq: Status: Active Protocol: Document 07/09/20 14:13 AL (Rec: 07/09/20 14:20 AL [id number]) Co-Sign 07/09/20 14:13 LP Nutrition Notes Initial or Follow up Reassessment Current Diagnosis Coronary Artery Disease, Decubitus(Pressure Ulcer), Hypertension Other Pertinent Diagnosis Encephalopathy, Cerebral atherosclerosis Current Diet Osmolite 1.5 at 50 mL/hr (goal rate) Labs/Tests Na 146 K 3.4 BUN 59 Cr 2.9 Pertinent Medications MVI Thiamine Folic Acid KCl (07/08) Mag Sulfate (07/08) Height 5 ft 10 in Weight 72.4 kg [place] Body Weight (kg) 75.45 BMI 22.8 Weight Status Appropriate Subjective/Other Information F/U for TF start/tolerance. Per RN, patient is tolerating TF well at goal rate. Family is declining HD, per chart. states that patient will d/c to hospice care. Percent of energy/protein needs met: 100%/100% Burn Absent Trauma Absent GI Symptoms None Food Allergy No Current % PO Negligible Minimum of two criteria No physical signs of malnutrition #2 Nutrition Diagnosis Increased nutrient needs ( specify in comment below) Comments: Protein Diagnosis Progress(for reassessment Continues documentation) #1 Nutrition Diagnosis Inadequate oral intake Diagnosis Progress(for reassessment Continues documentation) Is patient on ventilator? Yes Is Patient Ambulatory and/or Out of Bed No REE-([place]-[facility] Jeor-confined to bed) 7020.116 Calculation Used for Recommendations [facility] Additional Notes Protein: 58-87g (0.8-1.2 g/kg) Fluid: 1 ml/kcal Nutrition Intervention Change Diet Order: Continue TF Nutrition Support: Osmolite 1.5 at 50 ml/hr (goal rate) Flush 150 ml q4h Kcal 1,800 Protein (gm) 75 Fluid (mL) 914 Goal #1 Meet at least 75% fo energy and protein needs via TF Anticipated Discharge Needs: Unable to determine at this time Follow-Up By: 07/16/20 Additional Comments F/U for TF tolerance
[2020-07-10] MEDS: MULTIVITAMINS 5 ML ORAL LIQUID PO SCH (09:29)
[2020-07-10] MEDS: AMIODARONE 200 MG TAB PO SCH (09:29)
[2020-07-10] MEDS: ASPIRIN 81 MG TAB CHEW PO SCH (09:29)
[2020-07-10] MEDS: FAMOTIDINE 20 MG TAB PO SCH (09:29)
[2020-07-10] MEDS: FOLIC ACID 1 MG TAB PO SCH (09:29)
[2020-07-10] MEDS: CLOPIDOGREL 75 MG TAB PO SCH (09:29)
[2020-07-10] MEDS: CEFEPIME/NS 2 GM/100 ML 2 GM/100 ML BAG IV SCH (09:30)
[2020-07-10] MEDS: ENOXAPARIN 80 MG/0.8 ML INJ SUB-Q SCH (09:30)
[2020-07-10] MEDS: THIAMINE 100 MG TAB PO SCH (09:31)
--- NOTE | 2020-07-10 09:54 | Progress Note ---
Assessment and Plan 74 y/o male with inhouse vfib arrest, currently not responsive Patient has now tested covid positive. He had no test on admission and was not on the "covid" floor. He honestly has not respiratory issues that we have seen from typical COVID patients. He is intubated secondary to his cardiac arrest and remains intubated secondary to impaired mental state. Is his mental state secondary to COVID? That is what is unknown at this time. Will attempt to discuss this case with ID and see what their opinion is in regards to therapy. Will continue supportive measures. CCT 31 minutes Subjective Date of service: 07/10/20 Interval history: Patient not able to go to inpatient hospice as he has tested positive for coronavirus. Currently he has not had any symptoms to suggest active infection or need for experimental therapy. This test was requested by hospice prior to admission. He remains essentially unresponsive on the vent. ABG this am was good. Objective Vital Signs - 12hr 07/09/20 07/09/20 07/09/20 22:00 22:30 22:58 Temperature 98.4 F Pulse Rate 79 72 Pulse Rate [ From Monitor] Respiratory 26 H 22 Rate Respiratory 26 H Rate [ Generalized] Blood Pressure 130/83 130/83 O2 Sat by Pulse 100 100 Oximetry 07/09/20 07/09/20 07/09/20 23:00 23:14 23:30 Temperature Pulse Rate 72 79 69 Pulse Rate [ From Monitor] Respiratory 17 22 Rate Respiratory Rate [ Generalized] Blood Pressure 125/76 134/80 127/78 O2 Sat by Pulse 100 100 Oximetry 07/09/20 07/09/20 07/10/20 23:50 23:52 00:00 Temperature Pulse Rate 70 68 75 Pulse Rate [ 72 From Monitor] Respiratory 22 22 Rate Respiratory Rate [ Generalized] Blood Pressure 127/78 127/78 127/78 O2 Sat by Pulse 100 100 100 Oximetry 07/10/20 07/10/20 07/10/20 00:30 01:00 01:30 Temperature Pulse Rate 73 75 75 Pulse Rate [ From Monitor] Respiratory 23 22 26 H Rate Respiratory Rate [ Generalized] Blood Pressure 132/78 127/77 128/76 O2 Sat by Pulse 100 100 100 Oximetry 07/10/20 07/10/20 07/10/20 02:00 02:30 03:00 Temperature Pulse Rate 75 75 76 Pulse Rate [ From Monitor] Respiratory 21 21 22 Rate Respiratory Rate [ Generalized] Blood Pressure 128/76 124/73 128/78 O2 Sat by Pulse 100 100 100 Oximetry 07/10/20 07/10/20 07/10/20 03:30 03:49 04:00 Temperature 98.8 F Pulse Rate 78 79 Pulse Rate [ 77 From Monitor] Respiratory 21 22 Rate Respiratory Rate [ Generalized] Blood Pressure 128/78 133/77 O2 Sat by Pulse 100 100 Oximetry 07/10/20 07/10/20 07/10/20 04:06 04:30 05:01 Temperature Pulse Rate 77 81 79 Pulse Rate [ From Monitor] Respiratory 19 21 Rate Respiratory Rate [ Generalized] Blood Pressure 133/77 133/77 127/72 O2 Sat by Pulse 100 100 100 Oximetry 07/10/20 07/10/20 07/10/20 05:31 06:00 06:30 Temperature Pulse Rate 87 81 81 Pulse Rate [ From Monitor] Respiratory 21 18 21 Rate Respiratory Rate [ Generalized] Blood Pressure 118/79 129/75 132/78 O2 Sat by Pulse 100 100 100 Oximetry 07/10/20 07/10/20 08:00 09:30 Temperature Pulse Rate 78 83 Pulse Rate [ From Monitor] Respiratory Rate Respiratory Rate [ Generalized] Blood Pressure 134/79 131/79 O2 Sat by Pulse 100 Oximetry Constitutional: other (will only open eyes to name call) Eyes: non-icteric ENT: other (orally intubated, no sedation) Neck: supple Effort: normal Ascultation: Bilateral: diminished breath sounds Percussion: Bilateral: not dull Tactile fremitus: Bilateral: normal Cardiovascular: other (ST changes seen prior to code) Integumentary: normal Extremities: no cyanosis, no edema, pink and warm, pulses normal Neurologic: unable to assess CBC and BMP: 07/07/20 07:48 07/08/20 05:30 ABG, PT/INR, D-dimer: ABG ABG pH 7.469 (7.320-7.450) H 07/10/20 04:32 POC ABG pCO2 28.0 mmHg (32.0-48.0) L 07/10/20 04:32 ABG pCO2 29.9 mm Hg 07/07/20 03:53 POC ABG pO2 147.5 mmHg (83-108) H 07/10/20 04:32 ABG pO2 58.0 mm Hg (80.0-90.0) L 07/07/20 03:53 POC ABG HCO3 19.9 07/10/20 04:32 ABG O2 Saturation 91.1 % (95.0-99.0) L 07/07/20 03:53 PT/INR, D-dimer D-Dimer > 85512 ng/mlDDU (0-234) H 07/06/20 08:42 Abnormal lab findings: Abnormal Labs 06/26/20 06/26/20 06/26/20 00:45 00:45 00:45 WBC RBC 3.44 L Hgb Hct MCV 104 H MCH 35 H Burke % (Auto) 8.1 H Lymph # (Auto) 0.9 L Seg Neutrophils % 74.1 H D-Dimer ABG pH POC ABG pCO2 POC ABG pO2 ABG pO2 ABG HCO3 ABG O2 Saturation ABG Base Excess ABG Hemoglobin ABG Oxyhemoglobin ABG Chloride ABG Glucose Oxyhemoglobin Carboxyhemoglobin Sodium Potassium Chloride Carbon Dioxide 19 L BUN Creatinine Glucose 103 H POC Glucose Calcium Magnesium AST ALT Ammonia Total Creatine Kinase CK-MB (CK-2) CK-MB (CK-2) Rel Index Troponin T Total Protein Albumin LDL Cholesterol Direct HDL Cholesterol Arterial Blood Glucose Arterial Blood Ionized Calcium Urine WBC (Auto) Acetaminophen 5.0 L Coronavirus (PCR) 06/26/20 06/30/20 06/30/20 04:59 19:20 19:20 WBC RBC Hgb Hct MCV MCH Burke % (Auto) Lymph # (Auto) Seg Neutrophils % D-Dimer ABG pH POC ABG pCO2 POC ABG pO2 ABG pO2 ABG HCO3 ABG O2 Saturation ABG Base Excess ABG Hemoglobin ABG Oxyhemoglobin ABG Chloride ABG Glucose Oxyhemoglobin Carboxyhemoglobin Sodium Potassium Chloride Carbon Dioxide BUN Creatinine Glucose POC Glucose Calcium Magnesium 1.50 L AST ALT Ammonia 20.0 L 20.0 L Total Creatine Kinase CK-MB (CK-2) CK-MB (CK-2) Rel Index Troponin T Total Protein Albumin LDL Cholesterol Direct HDL Cholesterol Arterial Blood Glucose Arterial Blood Ionized Calcium Urine WBC (Auto) Acetaminophen Coronavirus (PCR) 07/04/20 07/06/20 07/06/20 13:42 04:42 04:42 WBC RBC 3.08 L Hgb 10.8 L Hct 31.7 L MCV 103 H MCH 35 H Burke % (Auto) Lymph # (Auto) Seg Neutrophils % D-Dimer ABG pH POC ABG pCO2 POC ABG pO2 ABG pO2 ABG HCO3 ABG O2 Saturation ABG Base Excess ABG Hemoglobin ABG Oxyhemoglobin ABG Chloride ABG Glucose Oxyhemoglobin Carboxyhemoglobin Sodium 146 H Potassium 3.2 L 3.3 L Chloride 107.5 H 113.5 H Carbon Dioxide 19 L 21 L BUN 23 H Creatinine 0.5 L 0.6 L Glucose 109 H 113 H POC Glucose Calcium Magnesium AST ALT Ammonia Total Creatine Kinase CK-MB (CK-2) CK-MB (CK-2) Rel Index Troponin T Total Protein Albumin LDL Cholesterol Direct HDL Cholesterol Arterial Blood Glucose Arterial Blood Ionized Calcium Urine WBC (Auto) Acetaminophen Coronavirus (PCR) 07/06/20 07/06/20 07/06/20 08:18 08:42 10:50 WBC RBC Hgb Hct MCV MCH Burke % (Auto) Lymph # (Auto) Seg Neutrophils % D-Dimer > 12796 H ABG pH POC ABG pCO2 31.3 L POC ABG pO2 320.0 H ABG pO2 ABG HCO3 ABG O2 Saturation ABG Base Excess ABG Hemoglobin 11.3 L ABG Oxyhemoglobin 99.3 H ABG Chloride 114.0 H ABG Glucose 188 H Oxyhemoglobin Carboxyhemoglobin 0.1 L Sodium Potassium Chloride Carbon Dioxide BUN Creatinine Glucose POC Glucose 107 H Calcium Magnesium AST ALT Ammonia Total Creatine Kinase CK-MB (CK-2) CK-MB (CK-2) Rel Index Troponin T Total Protein Albumin LDL Cholesterol Direct HDL Cholesterol Arterial Blood Glucose 188 H Arterial Blood Ionized Calcium 4.5 L Urine WBC (Auto) Acetaminophen Coronavirus (PCR) 07/06/20 07/06/20 07/06/20 12:00 12:23 14:20 WBC RBC Hgb Hct MCV MCH Burke % (Auto) Lymph # (Auto) Seg Neutrophils % D-Dimer ABG pH POC ABG pCO2 POC ABG pO2 ABG pO2 ABG HCO3 ABG O2 Saturation ABG Base Excess ABG Hemoglobin ABG Oxyhemoglobin ABG Chloride ABG Glucose Oxyhemoglobin Carboxyhemoglobin Sodium Potassium Chloride Carbon Dioxide BUN Creatinine Glucose POC Glucose 147 H Calcium Magnesium AST ALT Ammonia Total Creatine Kinase 606 H CK-MB (CK-2) 40.8 H CK-MB (CK-2) Rel Index 6.7 H Troponin T 1.310 H* Total Protein Albumin LDL Cholesterol Direct 49 L HDL Cholesterol 30 L Arterial Blood Glucose Arterial Blood Ionized Calcium Urine WBC (Auto) > 182.0 H Acetaminophen Coronavirus (PCR) 07/06/20 07/06/20 07/07/20 18:10 23:31 03:53 WBC RBC Hgb Hct MCV MCH Burke % (Auto) Lymph # (Auto) Seg Neutrophils % D-Dimer ABG pH POC ABG pCO2 POC ABG pO2 ABG pO2 58.0 L ABG HCO3 18.7 L ABG O2 Saturation 91.1 L ABG Base Excess -4.9 L ABG Hemoglobin 11.8 L ABG Oxyhemoglobin ABG Chloride ABG Glucose Oxyhemoglobin 89.5 L Carboxyhemoglobin Sodium Potassium Chloride Carbon Dioxide BUN Creatinine Glucose POC Glucose 167 H 139 H Calcium Magnesium AST ALT Ammonia Total Creatine Kinase CK-MB (CK-2) CK-MB (CK-2) Rel Index Troponin T Total Protein Albumin LDL Cholesterol Direct HDL Cholesterol Arterial Blood Glucose Arterial Blood Ionized Calcium Urine WBC (Auto) Acetaminophen Coronavirus (PCR) 07/07/20 07/07/20 07/07/20 05:26 07:48 07:48 WBC 11.8 H RBC 3.28 L Hgb 11.2 L Hct 33.5 L MCV 102 H MCH 34 H Burke % (Auto) Lymph # (Auto) Seg Neutrophils % D-Dimer ABG pH POC ABG pCO2 POC ABG pO2 ABG pO2 ABG HCO3 ABG O2 Saturation ABG Base Excess ABG Hemoglobin ABG Oxyhemoglobin ABG Chloride ABG Glucose Oxyhemoglobin Carboxyhemoglobin Sodium Potassium Chloride Carbon Dioxide BUN Creatinine Glucose POC Glucose 122 H Calcium Magnesium AST ALT Ammonia Total Creatine Kinase 1351 H CK-MB (CK-2) 128.7 H CK-MB (CK-2) Rel Index 9.5 H Troponin T 4.010 H* D Total Protein Albumin LDL Cholesterol Direct HDL Cholesterol Arterial Blood Glucose Arterial Blood Ionized Calcium Urine WBC (Auto) Acetaminophen Coronavirus (PCR) 07/07/20 07/07/20 07/07/20 07:48 12:23 19:04 WBC RBC Hgb Hct MCV MCH Burke % (Auto) Lymph # (Auto) Seg Neutrophils % D-Dimer ABG pH POC ABG pCO2 POC ABG pO2 ABG pO2 ABG HCO3 ABG O2 Saturation ABG Base Excess ABG Hemoglobin ABG Oxyhemoglobin ABG Chloride ABG Glucose Oxyhemoglobin Carboxyhemoglobin Sodium Potassium Chloride 113.1 H Carbon Dioxide 18 L BUN 44 H Creatinine 2.3 H D Glucose 148 H POC Glucose 140 H 136 H Calcium Magnesium AST ALT Ammonia Total Creatine Kinase CK-MB (CK-2) CK-MB (CK-2) Rel Index Troponin T Total Protein Albumin LDL Cholesterol Direct HDL Cholesterol Arterial Blood Glucose Arterial Blood Ionized Calcium Urine WBC (Auto) Acetaminophen Coronavirus (PCR) 07/07/20 07/08/20 07/08/20 23:59 04:41 05:30 WBC RBC Hgb Hct MCV MCH Burke % (Auto) Lymph # (Auto) Seg Neutrophils % D-Dimer ABG pH POC ABG pCO2 29.5 L POC ABG pO2 175.8 H ABG pO2 ABG HCO3 ABG O2 Saturation ABG Base Excess ABG Hemoglobin ABG Oxyhemoglobin ABG Chloride 113.0 H ABG Glucose 166 H Oxyhemoglobin Carboxyhemoglobin Sodium 146 H Potassium 3.4 L Chloride 113.6 H Carbon Dioxide BUN 59 H Creatinine 2.9 H Glucose 150 H POC Glucose 158 H Calcium 8.3 L Magnesium AST 91 H ALT 62 H Ammonia Total Creatine Kinase CK-MB (CK-2) CK-MB (CK-2) Rel Index Troponin T Total Protein 5.4 L Albumin 2.6 L LDL Cholesterol Direct HDL Cholesterol Arterial Blood Glucose 166 H Arterial Blood Ionized Calcium Urine WBC (Auto) Acetaminophen Coronavirus (PCR) 07/08/20 07/08/20 07/08/20 05:54 12:41 14:00 WBC RBC Hgb Hct MCV MCH Burke % (Auto) Lymph # (Auto) Seg Neutrophils % D-Dimer ABG pH POC ABG pCO2 POC ABG pO2 ABG pO2 ABG HCO3 ABG O2 Saturation ABG Base Excess ABG Hemoglobin ABG Oxyhemoglobin ABG Chloride ABG Glucose Oxyhemoglobin Carboxyhemoglobin Sodium Potassium Chloride Carbon Dioxide BUN Creatinine Glucose POC Glucose 135 H 147 H Calcium Magnesium AST ALT Ammonia Total Creatine Kinase 362 H CK-MB (CK-2) CK-MB (CK-2) Rel Index Troponin T Total Protein Albumin LDL Cholesterol Direct HDL Cholesterol Arterial Blood Glucose Arterial Blood Ionized Calcium Urine WBC (Auto) Acetaminophen Coronavirus (PCR) 07/08/20 07/09/20 07/09/20 23:30 03:52 05:37 WBC RBC Hgb Hct MCV MCH Burke % (Auto) Lymph # (Auto) Seg Neutrophils % D-Dimer ABG pH POC ABG pCO2 31.4 L POC ABG pO2 ABG pO2 ABG HCO3 ABG O2 Saturation ABG Base Excess ABG Hemoglobin 10.8 L ABG Oxyhemoglobin ABG Chloride 114.0 H ABG Glucose 166 H Oxyhemoglobin Carboxyhemoglobin Sodium Potassium Chloride Carbon Dioxide BUN Creatinine Glucose POC Glucose 174 H 128 H Calcium Magnesium AST ALT Ammonia Total Creatine Kinase CK-MB (CK-2) CK-MB (CK-2) Rel Index Troponin T Total Protein Albumin LDL Cholesterol Direct HDL Cholesterol Arterial Blood Glucose 166 H Arterial Blood Ionized Calcium Urine WBC (Auto) Acetaminophen Coronavirus (PCR) 07/09/20 07/09/20 07/09/20 10:45 11:47 23:43 WBC RBC Hgb Hct MCV MCH Burke % (Auto) Lymph # (Auto) Seg Neutrophils % D-Dimer ABG pH POC ABG pCO2 POC ABG pO2 ABG pO2 ABG HCO3 ABG O2 Saturation ABG Base Excess ABG Hemoglobin ABG Oxyhemoglobin ABG Chloride ABG Glucose Oxyhemoglobin Carboxyhemoglobin Sodium Potassium Chloride Carbon Dioxide BUN Creatinine Glucose POC Glucose 119 H 108 H Calcium Magnesium AST ALT Ammonia Total Creatine Kinase CK-MB (CK-2) CK-MB (CK-2) Rel Index Troponin T Total Protein Albumin LDL Cholesterol Direct HDL Cholesterol Arterial Blood Glucose Arterial Blood Ionized Calcium Urine WBC (Auto) Acetaminophen Coronavirus (PCR) Positive A 07/10/20 04:32 WBC RBC Hgb Hct MCV MCH Burke % (Auto) Lymph # (Auto) Seg Neutrophils % D-Dimer ABG pH 7.469 H POC ABG pCO2 28.0 L POC ABG pO2 147.5 H ABG pO2 ABG HCO3 ABG O2 Saturation ABG Base Excess ABG Hemoglobin 10.2 L ABG Oxyhemoglobin ABG Chloride 115.0 H ABG Glucose 119 H Oxyhemoglobin Carboxyhemoglobin Sodium Potassium Chloride Carbon Dioxide BUN Creatinine Glucose POC Glucose Calcium Magnesium AST ALT Ammonia Total Creatine Kinase CK-MB (CK-2) CK-MB (CK-2) Rel Index Troponin T Total Protein Albumin LDL Cholesterol Direct HDL Cholesterol Arterial Blood Glucose 119 H Arterial Blood Ionized Calcium Urine WBC (Auto) Acetaminophen Coronavirus (PCR)
--- NOTE | 2020-07-10 12:48 | Progress Note ---
Assessment and Plan - Patient Problems (1) Acute myocardial infarction Current Visit: Yes Status: Acute Plan to address problem: Optimal medical therapy will be continued per family wishes. We will follow intermittently. (2) Cardiac arrest with ventricular fibrillation Current Visit: Yes Status: Acute Plan to address problem: Patient has a stable sinus rhythm on medical therapy, continue conservative cardiac management per family wishes. Subjective Date of service: 07/10/20 Interval history: Patient is sedated, on the vent. He remains in a stable sinus rhythm at 88, blood pressure 133 systolic. A coronavirus test was ordered as part of the protocol for his transition to hospice, and the result was positive. Objective Vital Signs Temp Pulse Pulse Resp Resp BP Pulse Ox 07/10/20 12:01 113 H 21 167/115 97 07/10/20 12:00 84 77 24 100 07/10/20 11:30 85 23 132/78 99 07/10/20 11:05 83 20 133/82 98 07/10/20 11:00 82 20 133/78 99 07/10/20 10:31 84 25 H 130/77 100 07/10/20 10:01 87 26 H 133/82 100 07/10/20 09:30 85 24 132/82 100 07/10/20 09:00 81 20 134/86 100 07/10/20 08:31 82 21 134/86 100 07/10/20 08:01 76 19 129/76 100 07/10/20 08:00 79 79 24 134/79 100 07/10/20 07:31 83 21 131/87 99 07/10/20 07:00 76 21 130/77 100 07/10/20 06:30 81 21 132/78 100 07/10/20 06:00 81 18 129/75 100 07/10/20 05:31 87 21 118/79 100 07/10/20 05:01 79 21 127/72 100 07/10/20 04:30 81 19 133/77 100 07/10/20 04:06 77 133/77 100 07/10/20 04:00 79 77 22 133/77 100 07/10/20 03:49 98.8 F 07/10/20 03:30 78 21 128/78 100 07/10/20 03:00 76 22 128/78 100 07/10/20 02:30 75 21 124/73 100 07/10/20 02:00 75 21 128/76 100 07/10/20 01:30 75 26 H 128/76 100 07/10/20 01:00 75 22 127/77 100 07/10/20 00:30 73 23 132/78 100 07/10/20 00:00 75 72 22 127/78 100 07/09/20 23:52 68 127/78 100 07/09/20 23:50 70 22 127/78 100 07/09/20 23:30 69 22 127/78 100 07/09/20 23:14 79 134/80 07/09/20 23:00 72 17 125/76 100 07/09/20 22:58 98.4 F 07/09/20 22:30 72 22 130/83 100 07/09/20 22:00 79 26 H 26 H 130/83 100 07/09/20 21:30 77 23 131/80 100 07/09/20 21:00 74 17 130/77 100 07/09/20 20:35 76 128/78 100 07/09/20 20:30 74 20 128/78 100 07/09/20 20:00 98.9 F 73 82 21 130/77 100 07/09/20 19:30 75 21 137/80 100 07/09/20 19:00 75 22 132/76 100 07/09/20 18:30 69 16 129/79 100 07/09/20 18:06 81 129/79 07/09/20 18:00 79 22 129/79 100 07/09/20 17:30 80 22 123/79 100 07/09/20 17:00 88 27 H 123/79 100 07/09/20 16:30 96 H 29 H 125/77 99 07/09/20 16:05 108 H 126/84 95 07/09/20 16:00 97.9 F 78 92 H 19 125/77 100 07/09/20 15:30 89 26 H 133/79 99 07/09/20 15:00 108 H 23 126/84 95 07/09/20 14:30 77 19 126/84 100 07/09/20 14:00 70 19 125/98 07/09/20 13:30 67 21 142/91 100 07/09/20 13:13 92 H 142/91 07/09/20 13:12 92 H 142/91 07/09/20 13:00 96 H 21 131/76 100 - Physical Examination General: Other (intubated on the vent) HEENT: Positive: Other (Pupils fixed) Neck: Positive: neck supple Cardiac: Positive: Reg Rate and Rhythm Lungs: Positive: Decreased Breath Sounds Neuro: Positive: Other (unable to follow commands) Abdomen: Positive: Soft Skin: Positive: Clear Extremities: Absent: edema
--- NOTE | 2020-07-10 13:33 | Consultation ---
History of Present Illness - Reason for Consult Consult date: 07/10/20 COVID-19 Requesting physician: SARAY DEUTSCH - History of Present Illness The patient is a 74-year-old male with coronary artery disease, hypertension admitted to the hospital on 06/26/2020 with altered mental status. Patient also with history of alcohol abuse, there was concern for alcohol withdrawal and possible Wernicke's encephalopathy. Hospital course was complicated by V. fib a rrest on 07/06/2020, subsequently intubated. After discussion with family, patient was placed on inpatient hospice. Due to need for placement, patient had a Covid test done on 07/09/2020 which is positive. Factious diseases was consulted for additional evaluation. Currently, remains on the vent. Review of Systems: reviewed in the chart, unable to obtain directly due to PPE preservation and minimize risk of transmission Past History Past Medical History: CAD, hypertension Past Surgical History: total hip replacement Social history: no significant social history Family history: no significant family history Medications and Allergies Allergies Allergy/AdvReac Type Severity Reaction Status Date / Time No Known Allergies Allergy Verified 06/26/20 04:20 Home Medications Medication Instructions Recorded Confirmed Last Taken Type Gabapentin 300 mg PO BID 06/26/20 06/28/20 Unknown History Metoprolol [Lopressor TAB] 25 mg PO DAILY 06/26/20 06/28/20 Unknown History lisinopriL [Zestril TAB] 20 mg PO BID 06/26/20 06/28/20 Unknown History Active Meds: Active Medications Acetaminophen (Tylenol) 650 mg PO Q4H PRN PRN Reason: Fever >101 Last Admin: 07/05/20 20:07 Dose: 650 mg Documented by: Acetaminophen (Tylenol) 650 mg PO Q6H PRN PRN Reason: Pain, Mild (1-3) Amiodarone HCl (Cordarone) 200 mg PO BID [facility] Last Admin: 07/10/20 09:29 Dose: 200 mg Documented by: Lipase/Protease/Amylase ([place] 10,500 Unit) 1 each FEEDTUBE PRN PRN PRN Reason: For Clogged Feeding Tube Aspirin (Baby Aspirin) 81 mg PO QDAY [facility] Last Admin: 07/10/20 09:29 Dose: 81 mg Documented by: Atorvastatin Calcium (Lipitor) 40 mg PO QHS [facility] Last Admin: 07/09/20 23:14 Dose: 40 mg Documented by: Clopidogrel Bisulfate (Plavix) 75 mg PO QDAY [facility] Last Admin: 07/10/20 09:29 Dose: 75 mg Documented by: Enoxaparin Sodium (Enoxaparin) 80 mg SUB-Q DAILY [facility]; Protocol Last Admin: 07/10/20 09:30 Dose: 80 mg Documented by: Famotidine (Pepcid) 20 mg PO DAILY [facility] Last Admin: 07/10/20 09:29 Dose: 20 mg Documented by: Folic Acid (Folvite) 1 mg PO DAILY [facility] Last Admin: 07/10/20 09:29 Dose: 1 mg Documented by: Haloperidol Lactate (Haldol) 5 mg IV Q6H PRN PRN Reason: Agitation Last Admin: 07/09/20 09:51 Dose: 5 mg Documented by: Hydralazine HCl (Apresoline) 10 mg IV Q4HR PRN PRN Reason: Hypertension Last Admin: 07/03/20 04:20 Dose: 10 mg Documented by: Cefepime HCl (Cefepime/Ns 2 Gm/100 Ml) 2 gm in 100 mls @ 200 mls/hr IV Q24HR [facility]; Protocol Stop: 07/10/20 23:59 Last Admin: 07/10/20 09:30 Dose: 200 mls/hr Documented by: Lorazepam (Ativan) 2 mg IV Q4H PRN PRN Reason: Agitation Last Admin: 07/09/20 16:40 Dose: 2 mg Documented by: Metoprolol Tartrate (Metoprolol) 2.5 mg IV Q6HR [facility] Last Admin: 07/10/20 13:05 Dose: 2.5 mg Documented by: Multivitamins (Centrum Liq) 5 ml PO QDAY [facility] Last Admin: 07/10/20 09:29 Dose: 5 ml Documented by: Nitroglycerin (Nitro-Bid 2%) 1 inch TP QIDNTG [facility]; Protocol Last Admin: 07/10/20 13:06 Dose: 1 inch Documented by: Simple Syrup (Simple Syrup) 15 ml FEEDTUBE PRN PRN PRN Reason: Hypoglycemia Simple Syrup (Simple Syrup) 30 ml FEEDTUBE PRN PRN PRN Reason: Hypoglycemia Sodium Bicarbonate (Sodium Bicarbonate) 325 mg FEEDTUBE PRN PRN PRN Reason: For Clogged Feeding Tube Thiamine HCl (Vitamin B-1) 100 mg PO QDAY [facility] Last Admin: 07/10/20 09:31 Dose: 100 mg Documented by: Physical Examination - Physical Exam Narrative exam: Physical Exam (reviewed in chart due to PPE conservation and minimize risk of transmission) Constitutional: limited due to PPE conservation strategy Head, Ears, Nose: limited due to PPE conservation strategy Eyes: limited due to PPE conservation strategy Neck: limited due to PPE conservation strategy Oral: limited due to PPE conservation strategy Cardiovascular: limited due to PPE conservation strategy Respiratory: limited due to PPE conservation strategy GI: limited due to PPE conservation strategy Musculoskeletal: limited due to PPE conservation strategy Skin: limited due to PPE conservation strategy Hem/Lymphatic: limited due to PPE conservation strategy Psych: limited due to PPE conservation strategy Neurological: limited due to PPE conservation strategy - Constitutional Vitals: Vital Signs Temp Pulse Resp BP Pulse Ox 98.8 F 89 21 133/73 97 07/10/20 03:49 07/10/20 13:06 07/10/20 12:01 07/10/20 13:06 07/10/20 12:01 Temperature -Last 24 Hours Temperature 98.8 F Temperature 98.4 F Temperature 98.9 F Temperature 97.9 F Results - Labs CBC & Chem 7: 07/07/20 07:48 07/08/20 05:30 Labs: Abnormal lab results 07/09/20 07/09/20 07/10/20 Range/Units 10:45 23:43 04:32 ABG pH 7.469 H (7.320-7.450) POC ABG pCO2 28.0 L (32.0-48.0) mmHg POC ABG pO2 147.5 H (83-108) mmHg ABG Hemoglobin 10.2 L (12.0-17.5) ABG Chloride 115.0 H (98-107) mmol/L ABG Glucose 119 H (65-95) mg/dL POC Glucose 108 H (70-105) mg/dL Arterial Blood Glucose 119 H (65-95) mg/dL Coronavirus (PCR) Positive A (Negative) 07/10/20 Range/Units 12:21 ABG pH (7.320-7.450) POC ABG pCO2 (32.0-48.0) mmHg POC ABG pO2 (83-108) mmHg ABG Hemoglobin (12.0-17.5) ABG Chloride (98-107) mmol/L ABG Glucose (65-95) mg/dL POC Glucose 126 H (70-105) mg/dL Arterial Blood Glucose (65-95) mg/dL Coronavirus (PCR) (Negative) - Imaging and Cardiology Chest x-ray: report reviewed, image reviewed (ET tube +, no significant pneumonia seen ) Assessment and Plan Cultures: SARS CoV2 PCR: Positive Blood culture: Negative Urine culture: Mixed growth A/P: 74-year-old male with coronary artery disease, hypertension admitted to the hospital on 06/26/2020 with altered mental status. Patient also with history of alcohol abuse, there was concern for alcohol withdrawal and possible Wernicke's encephalopathy. Hospital course was complicated by V. fib arrest on 07/06/2020, subsequently intubated: #COVID-19: Incidental finding, test was performed due to need for placement. Patient has been afebrile for the last several days. No significant hypoxia noted on ABG from today. No typical COVID pneumonia seen on CXR. #Acute respiratory failure: On the ventilator. #Acute encephalopathy: Initially with alcohol withdrawal and concern for Wernicke's encephalopathy. #Status post V. fib cardiac arrest on 07/06/2020 #LUCIO Recs: Patient overall with poor prognosis. Is awaiting hospice. I doubt there is going to be any additional benefit with COVID-19 related therapeutics / steroids. With renal failure, he is anyways not a candidate for Remdesivir ID will sign off. Please call with questions. D/W Dr. Abena Singh MD, FACP [facility] O: [phone] F: [phone]
[2020-07-10] MEDS: LORazepam 2 MG/ML VIAL IV PRN (15:11)
--- NOTE | 2020-07-10 18:36 | Event Note ---
Date: 07/10/20 Note; family requested extubation and withdrawal of care. LG Ms. Youngblood checked the POA documents And confirmed, family gave verbal consent to the ed case manager and the nurse, necessary documents are signed Will order to extubate and withdraw care per family's request which was signed and filed in the chart.
[2020-07-11] MEDS: AMIODARONE 200 MG TAB PO SCH ×2 (00:37→09:38)
[2020-07-11] MEDS: MORPHINE 2 MG/1 ML INJ IV PRN ×5 (00:38→16:11)
[2020-07-11] MEDS: LORazepam 2 MG/ML VIAL IV PRN (00:38)
[2020-07-11] MEDS ORDERED: D5W/LACTATED RINGERS 1,000 ML IV SCH ×2 (01:00→08:00)
[2020-07-11] MEDS: METOPROLOL TARTRATE 5 MG/5 ML INJ IV SCH ×3 (06:19→17:46)
[2020-07-11] MEDS: NITROGLYCERIN 2% OINT 1 GM TP SCH ×4 (06:20→17:47)
[2020-07-11] MEDS: FOLIC ACID 1 MG TAB PO SCH (09:38)
[2020-07-11] MEDS: CLOPIDOGREL 75 MG TAB PO SCH (09:38)
[2020-07-11] MEDS: THIAMINE 100 MG TAB PO SCH (09:38)
[2020-07-11] MEDS: MULTIVITAMINS 5 ML ORAL LIQUID PO SCH (09:38)
[2020-07-11] MEDS: FAMOTIDINE 20 MG TAB PO SCH (09:38)
[2020-07-11] MEDS: ASPIRIN 81 MG TAB CHEW PO SCH (09:38)
[2020-07-11] MEDS: ENOXAPARIN 80 MG/0.8 ML INJ SUB-Q SCH (09:39)
--- NOTE | 2020-07-11 10:56 | Event Note ---
Date: 07/11/20 Above noted with regards to family wishes for comfort care only. No further cardiac recommendations, we will sign off.
--- NOTE | 2020-07-11 11:41 | Progress Note ---
Assessment and Plan 74 y/o male with in house vfib arrest, currently not responsive Comfort measures only Transfer to [facility]/surge COVID positive Subjective Date of service: 07/11/20 Interval history: Family elected terminal withdrawal. Extubated on yesterday. Objective - Constitutional Vitals: Vital Signs - 12hr 07/11/20 07/11/20 07/11/20 00:00 00:30 01:00 Temperature Pulse Rate 80 79 79 Pulse Rate [ 85 From Monitor] Respiratory 37 H 37 H 29 H Rate Blood Pressure 132/82 131/76 122/73 O2 Sat by Pulse 97 98 97 Oximetry 07/11/20 07/11/20 07/11/20 01:30 02:00 02:30 Temperature Pulse Rate 80 81 79 Pulse Rate [ From Monitor] Respiratory 33 H 34 H 32 H Rate Blood Pressure 124/75 122/80 130/76 O2 Sat by Pulse 100 99 100 Oximetry 07/11/20 07/11/20 07/11/20 02:53 03:01 03:31 Temperature 97.6 F Pulse Rate 77 73 Pulse Rate [ From Monitor] Respiratory 33 H 29 H Rate Blood Pressure 126/76 105/60 O2 Sat by Pulse 97 95 Oximetry 07/11/20 07/11/20 07/11/20 04:00 04:01 04:31 Temperature Pulse Rate 76 74 77 Pulse Rate [ 76 From Monitor] Respiratory 28 H 28 H 31 H Rate Blood Pressure 126/78 130/77 O2 Sat by Pulse 97 100 100 Oximetry 07/11/20 07/11/20 07/11/20 05:01 05:31 06:01 Temperature Pulse Rate 75 74 78 Pulse Rate [ From Monitor] Respiratory 35 H 27 H 33 H Rate Blood Pressure 131/77 130/74 136/81 O2 Sat by Pulse 100 100 100 Oximetry 07/11/20 07/11/20 07/11/20 06:19 06:20 06:30 Temperature Pulse Rate 72 74 74 Pulse Rate [ From Monitor] Respiratory 24 Rate Blood Pressure 136/81 136/81 132/80 O2 Sat by Pulse 100 Oximetry 07/11/20 07/11/20 07/11/20 07:01 07:31 07:37 Temperature Pulse Rate 71 69 Pulse Rate [ From Monitor] Respiratory 30 H 25 H Rate Blood Pressure 135/88 128/75 O2 Sat by Pulse 100 100 98 Oximetry 11/07/11/20 07/11/20 08:00 08:31 09:00 Temperature 98.4 F Pulse Rate 69 71 72 Pulse Rate [ 69 From Monitor] Respiratory 24 28 H 29 H Rate Blood Pressure 133/73 129/75 135/78 O2 Sat by Pulse 100 100 93 Oximetry 07/11/20 07/11/20 07/11/20 09:30 09:39 10:00 Temperature Pulse Rate 72 71 76 Pulse Rate [ From Monitor] Respiratory 27 H 29 H 26 H Rate Blood Pressure 132/76 132/76 129/73 O2 Sat by Pulse 100 97 Oximetry 07/11/20 07/11/20 07/11/20 10:09 10:30 11:00 Temperature Pulse Rate 78 75 Pulse Rate [ From Monitor] Respiratory 21 30 H 27 H Rate Blood Pressure 122/80 122/72 O2 Sat by Pulse 96 96 Oximetry - Labs CBC & Chem 7: 07/07/20 07:48 07/08/20 05:30 Labs: Abnormal lab results 07/10/20 07/10/20 07/11/20 Range/Units 12:21 17:09 05:13 POC Glucose 126 H 118 H 114 H (70-105) mg/dL Medications & Allergies - Medications Allergies/Adverse Reactions: Allergies No Known Allergies Allergy (Verified 06/26/20 04:20) Home Medications: Home Medications Medication Instructions Recorded Confirmed Last Taken Type Gabapentin 300 mg PO BID 06/26/20 06/28/20 Unknown History Metoprolol [Lopressor TAB] 25 mg PO DAILY 06/26/20 06/28/20 Unknown History lisinopriL [Zestril TAB] 20 mg PO BID 06/26/20 06/28/20 Unknown History Active Medications: Generic Name Dose Route Start Last Admin Trade Name Freq PRN Reason Stop Dose Admin Acetaminophen 650 mg 06/26/20 04:16 07/05/20 20:07 Tylenol PO 650 mg Q4H PRN Administration Fever >101 Acetaminophen 650 mg 07/06/20 08:41 Tylenol PO Q6H PRN Pain, Mild (1-3) Amiodarone HCl 200 mg 07/06/20 14:00 07/11/20 09:38 Cordarone PO 200 mg BID LILIAM Administration Lipase/Protease/Amylase 1 each 07/07/20 12:29 Pancreazelizabeth Willis 10,500 Unit FEEDTUBE PRN PRN For Clogged Feeding Tube Aspirin 81 mg 07/08/20 10:00 07/11/20 09:38 Baby Aspirin PO 81 mg QDAY LILIAM Administration Atorvastatin Calcium 40 mg 07/06/20 22:00 07/11/20 00:37 Lipitor PO 40 mg QHS LILIAM Administration Clopidogrel Bisulfate 75 mg 07/07/20 10:00 07/11/20 09:38 Plavix PO 75 mg QDAY LILIAM Administration Enoxaparin Sodium 80 mg 07/08/20 10:00 07/11/20 09:39 Enoxaparin SUB-Q 80 mg DAILY [facility] Administration Protocol Famotidine 20 mg 07/08/20 10:00 07/11/20 09:38 Pepcid PO 20 mg DAILY LILIAM Administration Folic Acid 1 mg 07/07/20 10:00 07/11/20 09:38 Folvite PO 1 mg DAILY [facility] Administration Haloperidol Lactate 5 mg 07/08/20 12:09 07/09/20 09:51 Haldol IV 5 mg Q6H PRN Administration Agitation Hydralazine HCl 10 mg 07/01/20 07:41 07/03/20 04:20 Apresoline IV 10 mg Q4HR PRN Administration Hypertension Dextrose/Lactated Ringer's 1,000 mls @ 42 mls/hr 07/11/20 08:00 D5lr IV DIRECT LILIAM Lorazepam 2 mg 07/09/20 14:32 07/11/20 00:38 Ativan IV 2 mg Q4H PRN Administration Agitation Metoprolol Tartrate 2.5 mg 07/06/20 12:00 07/11/20 06:19 Metoprolol IV 2.5 mg Q6HR LILIAM Administration Morphine Sulfate 2 mg 07/11/20 00:18 07/11/20 09:39 Morphine IV 2 mg Q2HR PRN Administration Pain, Moderate (4-6) Multivitamins 5 ml 07/07/20 10:00 07/11/20 09:38 Centrum Liq PO 5 ml QDAY [facility] Administration Nitroglycerin 1 inch 07/07/20 14:00 07/11/20 09:39 Nitro-Bid 2% TP 1 inch QIDNTG [facility] Administration Protocol Simple Syrup 15 ml 07/07/20 12:29 Simple Syrup FEEDTUBE PRN PRN Hypoglycemia Simple Syrup 30 ml 07/07/20 12:29 Simple Syrup FEEDTUBE PRN PRN Hypoglycemia Sodium Bicarbonate 325 mg 07/07/20 12:29 Sodium Bicarbonate FEEDTUBE PRN PRN For Clogged Feeding Tube Thiamine HCl 100 mg 07/07/20 10:00 07/11/20 09:38 Vitamin B-1 PO 100 mg QDAY LILIAM Administration HEART Score - HEART Score Risk factors: 1-2 risk factors Troponin: Troponin T 4.010 ng/mL (0.00-0.029) H* D 07/07/20 07:48 Troponin: < normal limit - Critical Actions Critical Actions: 0-3 pts:0.9-1.7%risk of adverse cardiac event.Candidate for discharge
--- NOTE | 2020-07-11 15:24 | Progress Note ---
Assessment and Plan Hodgson PCR positive; --Acute hypoxemic respiratory failure; Currently extubated. Prognosis remains grave. Pulmonary critical following --s/p Ventricular fibrillation cardiac arrest; Continue amiodarone, supportive care, await hospice services prognosis remains grave. --Possible anoxic/hypoxic encephalopathy; Very poor prognosis --Acute myocardial infarction; Probably post resuscitation with ST-T changes Possible acute inferoposterior injury pattern Cardiology following, continue cardiac medications full dose Lovenox --Cardiomyopathy/acute systolic congestive heart failure; EF 25 to 30% Continue antifailure medications, would not be so aggressive with the monitoring transfer to floor. --Acute kidney injury; vasomotor nephropathy Monitor renal function, avoid nephrotoxins, this will not improve. Gentle rehydration. 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 We will initiate EtOH withdrawal management with thiamine and vitamins and folic acid. We will also initiate CIWA protocol considering that patient has been ab usive to staff sometimes kicking at staff. 07/01: Ammonia level low. Continue current management, replace magnesium. Continue safety wrist restraints. 07/02: Remains delirious and in restriants, will cut down on the sedation medications, continue Thiamine. Poor prognosis 07/03: Discussed with the sister who states that the patient lives about 70 miles from where he was found, and has been recently in the last year diagnosed with alcohol related dementia and this time just up and left his house. [id number] Jones- sister POA. Will wean sedation medications. Monitor for improvement and correct electrolytes. 07/04: Continue current management But discontinue all sedative medications and monitor closely. 07/05: Continue supportive care, noted fever, transient, will monitor, if persistent will obtain cultures, cxr and head ct repeat were negative for pathology 07/06: VFIB ARREST- PEA. Noted with Acute Cardiomyopathy Infarction. Discussed with the family and they recommend DNR status. Pateint is currently intubated and transferred to the ICU, will stop dubotamin, start BB, discussed with cardiology and [facility]. Await labs. 07/08; discussed with family/POA/sister Ms. Raz Nye extensively about patient's condition treatment plan, tests and reports, poor prognosis Options of inpatient versus at home hospice, answered all her questions, Ms. Nye requested inpatient hospice., Hospice was consulted 07/09; patient was accepted for inpatient hospice, Covid test done prior to discharge came back positive, hospice refused Inpatient hospice facilities will not accept a covid positive patient. Family made aware 07/10; family is considering to extubate and withdraw care, CM Ms. Youngblood, patient's nurse, verified the POA, withdrawal of care documents and confirmed 07/11/20 patient now scheduled for hospice services has been extubated remains unresponsive withdrawal care complete. Subjective Date of service: 07/11/20 Principal diagnosis: Cardiorespiratory arrest. Interval history: 74-year-old male Objective - Constitutional Vitals: Vital Signs - 12hr 07/11/20 07/11/20 07/11/20 03:31 04:00 04:01 Temperature Pulse Rate 73 76 74 Pulse Rate [ 76 From Monitor] Respiratory 29 H 28 H 28 H Rate Blood Pressure 105/60 126/78 O2 Sat by Pulse 95 97 100 Oximetry 07/11/20 07/11/20 07/11/20 04:31 05:01 05:31 Temperature Pulse Rate 77 75 74 Pulse Rate [ From Monitor] Respiratory 31 H 35 H 27 H Rate Blood Pressure 130/77 131/77 130/74 O2 Sat by Pulse 100 100 100 Oximetry 07/11/20 07/11/20 07/11/20 06:01 06:19 06:20 Temperature Pulse Rate 78 72 74 Pulse Rate [ From Monitor] Respiratory 33 H Rate Blood Pressure 136/81 136/81 136/81 O2 Sat by Pulse 100 Oximetry 07/11/20 07/11/20 07/11/20 06:30 07:01 07:31 Temperature Pulse Rate 74 71 69 Pulse Rate [ From Monitor] Respiratory 24 30 H 25 H Rate Blood Pressure 132/80 135/88 128/75 O2 Sat by Pulse 100 100 100 Oximetry 07/11/20 07/11/20 07/11/20 07:37 08:00 08:31 Temperature 98.4 F Pulse Rate 80 71 Pulse Rate [ 69 From Monitor] Respiratory 24 28 H Rate Blood Pressure 133/73 129/75 O2 Sat by Pulse 98 100 100 Oximetry 07/11/20 07/11/20 07/11/20 09:00 09:30 09:39 Temperature Pulse Rate 72 72 71 Pulse Rate [ From Monitor] Respiratory 29 H 27 H 29 H Rate Blood Pressure 135/78 132/76 132/76 O2 Sat by Pulse 93 100 Oximetry 07/11/20 07/11/20 07/11/20 10:00 10:09 10:30 Temperature Pulse Rate 76 78 Pulse Rate [ From Monitor] Respiratory 26 H 21 30 H Rate Blood Pressure 129/73 122/80 O2 Sat by Pulse 97 96 Oximetry 07/11/20 07/11/20 07/11/20 11:00 11:31 12:00 Temperature 98.0 F Pulse Rate 75 72 70 Pulse Rate [ 74 From Monitor] Respiratory 27 H 32 H 28 H Rate Blood Pressure 122/72 122/82 122/82 O2 Sat by Pulse 96 100 99 Oximetry 07/11/20 07/11/20 07/11/20 12:30 12:54 12:55 Temperature Pulse Rate 79 76 Pulse Rate [ From Monitor] Respiratory 24 34 H Rate Blood Pressure 138/82 138/82 O2 Sat by Pulse 100 Oximetry 07/11/20 07/11/20 07/11/20 13:01 13:30 14:00 Temperature Pulse Rate 74 68 71 Pulse Rate [ From Monitor] Respiratory 30 H 25 H 24 Rate Blood Pressure 130/79 125/70 130/73 O2 Sat by Pulse 99 100 100 Oximetry 07/11/20 07/11/20 07/11/20 14:31 14:37 15:00 Temperature Pulse Rate 75 72 70 Pulse Rate [ From Monitor] Respiratory 28 H 23 Rate Blood Pressure 133/75 133/75 121/75 O2 Sat by Pulse 100 100 Oximetry General appearance: Present: no acute distress, cachectic - Respiratory Respiratory: bilateral: diminished, rales - Cardiovascular Rhythm: regular Extremities: pulses intact, No edema, normal color, Full ROM - Musculoskeletal Musculoskeletal: generalized weakness - Neurologic Neurologic: focal deficits - Psychiatric Psychiatric: other (Encephalopathic unresponsive.) - Labs CBC & Chem 7: 07/07/20 07:48 07/08/20 05:30 Labs: Abnormal lab results 07/10/20 07/11/20 Range/Units 17:09 05:13 POC Glucose 118 H 114 H (70-105) mg/dL HEART Score - HEART Score Risk factors: 1-2 risk factors Troponin: Troponin T 4.010 ng/mL (0.00-0.029) H* D 07/07/20 07:48 Troponin: < normal limit - Critical Actions Critical Actions: 0-3 pts:0.9-1.7%risk of adverse cardiac event.Candidate for discharge
[2020-07-12] MEDS: LORazepam 2 MG/ML VIAL IV PRN (02:14)
[2020-07-12] MEDS: NITROGLYCERIN 2% OINT 1 GM TP SCH ×4 (05:44→17:14)
--- NOTE | 2020-07-12 12:48 | Event Note ---
Date: 07/12/20 Discussed with nursing staff, patient extubated yesterday. Pending hospice care at this time. Nephrology will sign off.
[2020-07-12] MEDS: MORPHINE 2 MG/1 ML INJ IV PRN (14:50)
--- NOTE | 2020-07-12 15:12 | Progress Note ---
Assessment and Plan Hodgson PCR positive; --Acute hypoxemic respiratory failure; Currently extubated. Prognosis remains grave. Pulmonary critical following plan is for hospice services. --s/p Ventricular fibrillation cardiac arrest; Discontinue all essential medicines. Comfort measures only. Amiodarone, supportive care, await hospice services prognosis remains grave. --Possible anoxic/hypoxic encephalopathy; Very poor prognosis at present appears comfortable. Prognosis less than 6 weeks. --Acute myocardial infarction; Probably post resuscitation with ST-T changes Possible acute inferoposterior injury pattern Cardiology following, continue cardiac medications full dose Lovenox --Cardiomyopathy/acute systolic congestive heart failure; EF 25 to 30% Continue antifailure medications, would not be so aggressive with the monitoring transfer to floor. --Acute kidney injury; vasomotor nephropathy Monitor renal function, avoid nephrotoxins, this will not improve. Gentle rehydration. 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 We will initiate EtOH withdrawal management with thiamine and vitamins and folic acid. We will also initiate CIWA protocol considering that patient has been abusive to staff sometimes kicking at staff. 07/01: Ammonia level low. Continue current management, replace magnesium. Continue safety wrist restraints. 07/02: Remains delirious and in restriants, will cut down on the sedation medications, continue Thiamine. Poor prognosis 07/03: Discussed with the sister who states that the patient lives about 70 miles from where he was found, and has been recently in the last year diagnosed with alcohol related dementia and this time just up and left his house. [id number]-Uvyvve Jones- sister POA. Will wean sedation medications. Monitor for improvement and correct electrolytes. 07/04: Continue current management But discontinue all sedative medications and monitor closely. 07/05: Continue supportive care, noted fever, transient, will monitor, if pers istent will obtain cultures, cxr and head ct repeat were negative for pathology 07/06: VFIB ARREST- PEA. Noted with Acute Cardiomyopathy Infarction. Discussed with the family and they recommend DNR status. Pateint is currently intubated and transferred to the ICU, will stop dubotamin, start BB, discussed with cardiology and [facility]. Await labs. 07/08; discussed with family/POA/sister Ms. Raz Nye extensively about patient's condition treatment plan, tests and reports, poor prognosis Options of inpatient versus at home hospice, answered all her questions, Ms. Nye requested inpatient hospice., Hospice was consulted 07/09; patient was accepted for inpatient hospice, Covid test done prior to discharge came back positive, hospice refused Inpatient hospice facilities will not accept a covid positive patient. Family made aware 07/10; family is considering to extubate and withdraw care, CM Ms. Youngblood, patient's nurse, verified the POA, withdrawal of care documents and confirmed 07/11/20 patient now scheduled for hospice services has been extubated remains unresponsive withdrawal care complete. 07/12/2020 patient extubated remains calm comfortable somewhat increased work of breathing hospice services Monday. Subjective Date of service: 07/12/20 Principal diagnosis: Cardiorespiratory arrest. Interval history: 74-year-old male status post cardiorespiratory arrest. Patient was extubated yesterday after prolonged hospital stay. Patient has remained unresponsive throughout time. Scheduled to have hospice evaluation in a.m. Home with home hospice. Objective - Constitutional Vitals: Vital Signs - 12hr 07/12/20 07/12/20 07/12/20 04:36 05:44 09:15 Temperature 99.9 F H Pulse Rate 88 88 Respiratory 24 Rate Blood Pressure 126/78 126/78 O2 Sat by Pulse 99 98 Oximetry 07/12/20 07/12/20 10:17 10:33 Temperature 97.6 F Pulse Rate 97 H 97 H Respiratory 19 Rate Blood Pressure 182/91 170/86 O2 Sat by Pulse 97 Oximetry General appearance: Present: other (Remains unresponsive.) - EENT ENT: other (Unable to make needs known.) - Respiratory Respiratory: bilateral: diminished Extremities: no ischemia Extremity abnormal: edema - Gastrointestinal General gastrointestinal: Present: other (Scaphoid hypoactive bowel sounds.) - Neurologic Neurologic: other (Unresponsive nonsedated) - Labs CBC & Chem 7: 07/07/20 07:48 07/08/20 05:30 Labs: Abnormal lab results 07/11/20 07/12/20 07/12/20 Range/Units 23:21 05:26 11:35 POC Glucose 109 H 108 H 122 H (70-105) mg/dL HEART Score - HEART Score Risk factors: 1-2 risk factors Troponin: Troponin T 4.010 ng/mL (0.00-0.029) H* D 07/07/20 07:48 Troponin: < normal limit - Critical Actions Critical Actions: 0-3 pts:0.9-1.7%risk of adverse cardiac event.Candidate for discharge
[2020-07-13 05:11] VITALS: BP 152/72
[2020-07-13] MEDS: NITROGLYCERIN 2% OINT 1 GM TP SCH (05:32)
--- NOTE | 2020-07-13 08:21 | Progress Note ---
Assessment and Plan Assessment and plan: Hodgson PCR positive; --Acute hypoxemic respiratory failure; Currently extubated. Prognosis remains grave. Pulmonary critical following plan is for hospice services. --s/p Ventricular fibrillation cardiac arrest; Discontinue all essential medicines. Comfort measures only. Amiodarone, supportive care, await hospice services prognosis remains grave. --Possible anoxic/hypoxic encephalopathy; Very poor prognosis at present appears comfortable. Prognosis less than 6 weeks. --Acute myocardial infarction; Probably post resuscitation with ST-T changes Possible acute inferoposterior injury pattern Cardiology following, continue cardiac medications full dose Lovenox --Cardiomyopathy/acute systolic congestive heart failure; EF 25 to 30% Continue antifailure medications, would not be so aggressive with the monitoring transfer to floor. --Acute kidney injury; vasomotor nephropathy Monitor renal function, avoid nephrotoxins, this will not improve. Gentle rehydration. 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 We will initiate EtOH withdrawal management with thiamine and vitamins and folic acid. We will also initiate CIWA protocol considering that patient has been abusive to staff sometimes kicking at staff. 07/01: Ammonia level low. Continue current management, replace magnesium. Continue safety wrist restraints. 07/02: Remains delirious and in restriants, will cut down on the sedation medications, continue Thiamine. Poor prognosis 07/03: Discussed with the sister who states that the patient lives about 70 miles from where he was found, and has been recently in the last year diagnosed with alcohol related dementia and this time just up and left his house. [phone]-Dgupje Jones- sister POA. Will wean sedation medications. Monitor for improvement and correct electrolytes. 07/04: Continue current management But discontinue all sedative medications and monitor closely. 07/05: Continue supportive care, noted fever, transient, will monitor, if persistent will obtain cultures, cxr and head ct repeat were negative for pathology 07/06: VFIB ARREST- PEA. Noted with Acute Cardiomyopathy Infarction. Discussed with the family and they recommend DNR status. Pateint is currently intubated and transferred to the ICU, will stop dubotamin, start BB, discussed with cardiology and Intensivit. Await labs. 07/08; discussed with family/POA/sister Ms. Raz Nye extensively about patient's condition treatment plan, tests and reports, poor prognosis Options of inpatient versus at home hospice, answered all her questions, Ms. Nye requested inpatient hospice., Hospice was consulted 07/09; patient was accepted for inpatient hospice, Covid test done prior to discharge came back positive, hospice refused Inpatient hospice facilities will not accept a covid positive patient. Family made aware 07/10; family is considering to extubate and withdraw care, CM Ms. Youngblood, patient's nurse, verified the POA, withdrawal of care documents and confirmed 07/11/20 patient now scheduled for hospice services has been extubated remains unresponsive withdrawal care complete. 07/12/2020 patient extubated remains calm comfortable somewhat increased work of breathing hospice services Monday. Hospitalist Physical - Constitutional Vitals: Temp Pulse Resp BP Pulse Ox 99.8 F H 77 28 H 152/72 97 07/13/20 04:18 07/13/20 05:32 07/13/20 04:18 07/13/20 05:32 07/13/20 04:18 General appearance: Present: other (Remains unresponsive.) HEART Score - HEART Score Risk factors: 1-2 risk factors Troponin: Troponin T 4.010 ng/mL (0.00-0.029) H* D 07/07/20 07:48 Troponin: < normal limit - Critical Actions Critical Actions: 0-3 pts:0.9-1.7%risk of adverse cardiac event.Candidate for discharge Results - Labs CBC & Chem 7: 07/07/20 07:48 07/08/20 05:30 Labs: Laboratory Last Values WBC 11.8 K/mm3 (4.5-11.0) H 07/07/20 07:48 RBC 3.28 M/mm3 (3.65-5.03) L 07/07/20 07:48 Hgb 11.2 gm/dl (11.8-15.2) L 07/07/20 07:48 Hct 33.5 % (35.5-45.6) L 07/07/20 07:48 MCV 102 fl (84-94) H 07/07/20 07:48 MCH 34 pg (28-32) H 07/07/20 07:48 MCHC 33 % (32-34) 07/07/20 07:48 RDW 15.2 % (13.2-15.2) 07/07/20 07:48 Plt Count 271 K/mm3 (140-440) 07/07/20 07:48 Lymph % (Auto) 16.0 % (13.4-35.0) 06/26/20 00:45 Davis % (Auto) 8.1 % (0.0-7.3) H 06/26/20 00:45 Eos % (Auto) 1.2 % (0.0-4.3) 06/26/20 00:45 Baso % (Auto) 0.6 % (0.0-1.8) 06/26/20 00:45 Lymph # (Auto) 0.9 K/mm3 (1.2-5.4) L 06/26/20 00:45 Davis # (Auto) 0.5 K/mm3 (0.0-0.8) 06/26/20 00:45 Eos # (Auto) 0.1 K/mm3 (0.0-0.4) 06/26/20 00:45 Baso # (Auto) 0.0 K/mm3 (0.0-0.1) 06/26/20 00:45 Seg Neutrophils % 74.1 % (40.0-70.0) H 06/26/20 00:45 Seg Neutrophils # 4.1 K/mm3 (1.8-7.7) 06/26/20 00:45 D-Dimer > 49148 ng/mlDDU (0-234) H 07/06/20 08:42 ABG pH 7.469 (7.320-7.450) H 07/10/20 04:32 POC ABG pCO2 28.0 mmHg (32.0-48.0) L 07/10/20 04:32 ABG pCO2 29.9 mm Hg 07/07/20 03:53 POC ABG pO2 147.5 mmHg (83-108) H 07/10/20 04:32 ABG pO2 58.0 mm Hg (80.0-90.0) L 07/07/20 03:53 POC ABG HCO3 19.9 07/10/20 04:32 ABG HCO3 18.7 mmol/L (20.0-26.0) L 07/07/20 03:53 ABG O2 Saturation 91.1 % (95.0-99.0) L 07/07/20 03:53 ABG O2 Content 14.8 (0.0-44) 07/07/20 03:53 POC ABG Base Excess -2.9 07/10/20 04:32 ABG Base Excess -4.9 mmol/L (-2.0-3.0) L 07/07/20 03:53 ABG Hemoglobin 10.2 (12.0-17.5) L 07/10/20 04:32 ABG Oxyhemoglobin 99.3 (94-98) H 07/06/20 10:50 ABG Carboxyhemoglobin 1.3 % (0.0-5.0) 07/07/20 03:53 ABG Methemoglobin 0.5 % (0.0-1.5) 07/07/20 03:53 ABG Sodium 141.0 mmol/L (136.0-145.0) 07/10/20 04:32 ABG Potassium 3.8 mmol/L (3.40-4.50) 07/10/20 04:32 ABG Chloride 115.0 mmol/L (98-107) H 07/10/20 04:32 ABG Glucose 119 mg/dL (65-95) H 07/10/20 04:32 Oxyhemoglobin 89.5 % (95.0-99.0) L 07/07/20 03:53 Carboxyhemoglobin 0.1 (0.5-1.5) L 07/06/20 10:50 FiO2 35 07/10/20 04:32 Sodium 146 mmol/L (137-145) H 07/08/20 05:30 Potassium 3.4 mmol/L (3.6-5.0) L 07/08/20 05:30 Chloride 113.6 mmol/L (98-107) H 07/08/20 05:30 Carbon Dioxide 22 mmol/L (22-30) 07/08/20 05:30 Anion Gap 14 mmol/L 07/08/20 05:30 BUN 59 mg/dL (9-20) H 07/08/20 05:30 Creatinine 2.9 mg/dL (0.8-1.3) H 07/08/20 05:30 Estimated GFR 21 ml/min 07/08/20 05:30 BUN/Creatinine Ratio 20 % 07/08/20 05:30 Glucose 150 mg/dL (75-100) H 07/08/20 05:30 POC Glucose 143 mg/dL (70-105) H 07/13/20 05:13 Lactic Acid 1.50 mmol/L (0.7-2.0) 06/26/20 00:45 Calcium 8.3 mg/dL (8.4-10.2) L 07/08/20 05:30 Magnesium 1.80 mg/dL (1.7-2.3) 07/08/20 05:30 Total Bilirubin 0.40 mg/dL (0.1-1.2) 07/08/20 05:30 AST 91 units/L (5-40) H 07/08/20 05:30 ALT 62 units/L (7-56) H 07/08/20 05:30 Alkaline Phosphatase 84 units/L (35-129) 07/08/20 05:30 Ammonia 20.0 umol/L (25-60) L 06/30/20 19:20 Total Creatine Kinase 362 units/L (55-170) H 07/08/20 14:00 CK-MB (CK-2) 128.7 ng/mL (0.0-4.0) H 07/07/20 07:48 CK-MB (CK-2) Rel Index 9.5 (0-4) H 07/07/20 07:48 Troponin T 4.010 ng/mL (0.00-0.029) H* D 07/07/20 07:48 Total Protein 5.4 g/dL (6.3-8.2) L 07/08/20 05:30 Albumin 2.6 g/dL (3.9-5) L 07/08/20 05:30 Albumin/Globulin Ratio 0.9 % 07/08/20 05:30 Triglycerides 57 mg/dL (2-149) 07/06/20 12:00 Cholesterol 90 mg/dL (50-199) 07/06/20 12:00 LDL Cholesterol Direct 49 mg/dL (50-130) L 07/06/20 12:00 HDL Cholesterol 30 mg/dL (40-59) L 07/06/20 12:00 Cholesterol/HDL Ratio 3.00 % 07/06/20 12:00 TSH 1.620 mlU/mL (0.270-4.200) 06/28/20 15:56 Free T4 1.17 ng/dL (0.76-1.46) 06/28/20 15:56 Arterial Blood Glucose 119 mg/dL (65-95) H 07/10/20 04:32 Arterial Blood Ionized Calcium 4.7 mg/dL (4.6-5.3) 07/10/20 04:32 Urine Color Yellow (Yellow) 07/06/20 14:20 Urine Turbidity Cloudy (Clear) 07/06/20 14:20 Urine pH 5.0 (5.0-7.0) 07/06/20 14:20 Ur Specific [place] 1.009 (1.003-1.030) 07/06/20 14:20 Urine Protein 100 mg/dl mg/dL (Negative) 07/06/20 14:20 Urine Glucose (UA) 50 mg/dL (Negative) 07/06/20 14:20 Urine Ketones Tr mg/dL (Negative) 07/06/20 14:20 Urine Blood Lg (Negative) 07/06/20 14:20 Urine Nitrite Neg (Negative) 07/06/20 14:20 Urine Bilirubin Neg (Negative) 07/06/20 14:20 Urine Urobilinogen < 2.0 mg/dL (<2.0) 07/06/20 14:20 Ur Leukocyte Esterase Lg (Negative) 07/06/20 14:20 Urine WBC (Auto) > 182.0 /HPF (0.0-6.0) H 07/06/20 14:20 Urine RBC (Auto) 104.0 /HPF (0.0-6.0) 07/06/20 14:20 U Epithel Cells (Auto) 3.0 /HPF (0-13.0) 07/06/20 14:20 Urine Bacteria (Auto) 2+ /HPF (Negative) 07/06/20 14:20 Urine WBC Clumps 3+ /HPF 07/06/20 14:20 Urine Mucus 3+ /HPF 07/06/20 14:20 Urine Opiates Screen Presumptive negative 11/06/20 01:59 Urine Methadone Screen Presumptive negative 06/26/20 01:59 Acetaminophen 5.0 ug/mL (10.0-30.0) L 06/26/20 00:45 Ur Barbiturates Screen Presumptive negative 06/26/20 01:59 Ur Phencyclidine Scrn Presumptive negative 06/26/20 01:59 Ur Amphetamines Screen Presumptive negative 06/26/20 01:59 U Benzodiazepines Scrn Presumptive negative 06/26/20 01:59 Urine Cocaine Screen Presumptive negative 06/26/20 01:59 U Marijuana (THC) Screen Presumptive negative 06/26/20 01:59 Drugs of Abuse Note Disclamer 06/26/20 01:59 Plasma/Serum Alcohol < 0.01 % (0-0.07) 06/26/20 00:45 Coronavirus (PCR) Positive (Negative) A 07/09/20 10:45 Blood Type O NEGATIVE 07/06/20 14:40 Antibody Screen Negative 07/06/20 14:40 - Diagnostic Impressions Diagnostic Impressions: Echocardiogram 07/06/20 08:39 Transthoracic Echocardiogram Indication: Cardiomyopathy BP: 106/58 HR: 98 Conclusions *The study quality is technically difficult. *The left ventricular size is mild to moderately dilated. *Mild concentric left ventricular hypertrophy is observed. *Global left ventricular systolic function is severely decreased. *The estimated ejection fraction is 25%. *There is mild mitral regurgitation. *There is mild tricuspid regurgitation. *There is mild-moderate pulmonary hypertension. *The right ventricular systolic pressure is calculated at 40 mmHg. Findings Procedure Info: The study quality is technically difficult. Left Ventricle: The left ventricular size is mild to moderately dilated. Mild concentric left ventricular hypertrophy is observed. Global left ventricular systolic function is severely decreased. The estimated ejection fraction is 25-30%. Left Atrium: The left atrium is mildly dilated. Right Ventricle: The right ventricle is slightly dilated. Right Atrium: The right atrial cavity size is normal. Aortic Valve: The aortic valve leaflets are moderately thickened. There is trace of aortic regurgitation. There is no evidence of aortic stenosis. Mitral Valve: The mitral valve leaflets are moderately thickened. There is mild mitral regurgitation. There is no evidence of mitral stenosis. Tricuspid Valve: There is mild tricuspid regurgitation. The right ventricular systolic pressure is calculated at 40 mmHg. There is evidence of mild pulmonary hypertension. Pulmonic Valve: There is trace pulmonic regurgitation. Pericardium: There is no pericardial effusion. Aorta: There is no dilatation of the aortic root. Venous: The inferior vena cava is dilated. Measurements Chambers 2D Name Value Normal Range IVSd (2D) 1.34 cm (0.6 - 1.1) LVPWd (2D) 1.33 cm (0.6 - 1.1) LVIDd (2D) 3.86 cm (3.7 - 5.6) LVIDs (2D) 2.85 cm (2 - 3.8) LV FS (2D) 26.34 % - EF Teichholz (2D) 52.28 % - Ao root diameter (2D) 3.54 cm (2 - 3.7) Volumes/Mass Name Value Normal Range LA ESV SP 4CH (A/L) 50.07 ml - LA ESV SP 2CH (A/L) 54.16 ml - LA ESV BP (A/L) 56.5 ml - LA ESV SP 4CH (MOD) 44.38 ml - LA ESV SP 2CH (MOD) 52.76 ml - Diastolic/Systolic Function Name Value Normal Range MV E-wave Vmax 0.85 m/sec - MV deceleration time 163.03 msec - MV A-wave Vmax 0.85 m/sec - MV E:A ratio 0.99 ratio - Aortic Valve Name Value Normal Range AV Vmax 0.77 m/sec - AV VTI 14.25 cm - AV peak gradient 2.38 mmHg - AV mean gradient 1.5 mmHg - LVOT diameter 2 cm - LVOT Vmax 0.57 m/sec - LVOT VTI 9.44 cm - LVOT peak gradient 1.31 mmHg - LVOT mean gradient 0.72 mmHg - SV LVOT 29.56 ml - MICHAEL (continuity Vmax) 2.33 cm2 - MICHAEL (continuity VTI) 2.07 cm2 - Mitral Valve Name Value Normal Range MR Vmax 3.93 m/sec - Tricuspid Valve Name Value Normal Range TR Vmax 2.87 m/sec - TR peak gradient 32.85 mmHg - RVSP 40 mmHg - IVC diameter 2.3 cm (1.2 - 2.3) Pulmonic Valve/Qp:Qs Name Value Normal Range PV acceleration time 79.92 msec - Galindo/IV: Voiding Method Indwelling Catheter IV Catheter Type [right INT / Saline Lock forearm] IV Catheter Type [Left Upper PICC Line arm] IV Catheter Type [Left Hand] INT / Saline Lock Active Medications - Current Medications Current Medications: Generic Name Dose Route Start Last Admin Trade Name Freq PRN Reason Stop Dose Admin Acetaminophen 650 mg 07/06/20 08:41 Tylenol PO Q6H PRN Pain, Mild (1-3) Haloperidol Lactate 5 mg 07/08/20 12:09 07/09/20 09:51 Haldol IV 5 mg Q6H PRN Administration Agitation Lorazepam 2 mg 07/09/20 14:32 07/12/20 02:14 Ativan IV 2 mg Q4H PRN Administration Agitation Morphine Sulfate 2 mg 07/11/20 00:18 07/12/20 14:50 Morphine IV 2 mg Q2HR PRN Administration Pain, Moderate (4-6) Nitroglycerin 1 inch 07/07/20 14:00 07/13/20 05:32 Nitro-Bid 2% TP 1 inch QIDNTG LILIAM Administration Protocol Nutrition/Malnutrition Assess - Dietary Evaluation Nutrition/Malnutrition Findings: Nutrition Notes Start: 07/03/20 12:56 Freq: Status: Active Protocol: Document 07/09/20 14:13 AL (Rec: 07/09/20 14:20 AL [id number]) Co-Sign 07/09/20 14:13 LP Nutrition Notes Initial or Follow up Reassessment Current Diagnosis Coronary Artery Disease, Decubitus(Pressure Ulcer), Hypertension Other Pertinent Diagnosis Encephalopathy, Cerebral atherosclerosis Current Diet Osmolite 1.5 at 50 mL/hr (goal rate) Labs/Tests Na 146 K 3.4 BUN 59 Cr 2.9 Pertinent Medications MVI Thiamine Folic Acid KCl (07/08) Mag Sulfate (07/08) Height 5 ft 10 in Weight 72.4 kg [place] Body Weight (kg) 75.45 BMI 22.8 Weight Status Appropriate Subjective/Other Information F/U for TF start/tolerance. Per RN, patient is tolerating TF well at goal rate. Family is declining HD, per chart. MD states that patient will d/c to hospice care. Percent of energy/protein needs met: 100%/100% Burn Absent Trauma Absent GI Symptoms None Food Allergy No Current % PO Negligible Minimum of two criteria No physical signs of malnutrition #2 Nutrition Diagnosis Increased nutrient needs ( specify in comment below) Comments: Protein Diagnosis Progress(for reassessment Continues documentation) #1 Nutrition Diagnosis Inadequate oral intake Diagnosis Progress(for reassessment Continues documentation) Is patient on ventilator? Yes Is Patient Ambulatory and/or Out of Bed No REE-([facility]-confined to bed) [phone] Calculation Used for Recommendations [facility] Additional Notes Protein: 58-87g (0.8-1.2 g/kg) Fluid: 1 ml/kcal Nutrition Intervention Change Diet Order: Continue TF Nutrition Support: Osmolite 1.5 at 50 ml/hr (goal rate) Flush 150 ml q4h Kcal 1,800 Protein (gm) 75 Fluid (mL) 914 Goal #1 Meet at least 75% fo energy and protein needs via TF Anticipated Discharge Needs: Unable to determine at this time Follow-Up By: 07/16/20 Additional Comments F/U for TF tolerance
--- NOTE | 2020-07-13 10:45 | Event Note ---
Date: 07/13/20 Nurse called and reported that patient I went and evaluated the patient patient is unresponsive, pupils dilated and fixed No cardiopulmonary activity noted, patient pronounced at 10:35 on 07/13/2020 Time of ; 10:35 on 07/13/2020 I called patient's sister, Howard Nye is the POA and informed her of the patient's passing and encouraged her to talk to the nurse for the other arrangements and formalities
--- NOTE | 2020-07-13 10:45 | Discharge Summary ---
Providers - Providers Date of Admission: 06/26/20 12:47 Date of discharge: 07/13/20 Attending physician: SARAY DEUTSCH 06/30/20 08:28 Physical Therapy Evaluation and Treat [CONS] Routine Comment: Reason For Exam: debility Date of last referral: 06/30/20 06/30/20 09:49 Consult to Case Management [CONS] Routine Services Needed at Discharge: Inside Upholsterer Notified:: CM 07/05/20 08:11 Occupational Therapy Evaluate and Treat [CONS] Routine Comment: Reason For Exam: debility Physical Therapy Evaluation and Treat [CONS] Routine Comment: Reason For Exam: debility 07/06/20 07:47 Physical Therapy Evaluation and Treat [CONS] Routine Comment: Reason For Exam: revaluate please 07/06/20 07:49 Occupational Therapy Evaluate and Treat [CONS] Routine Comment: Reason For Exam: revaluate please 07/06/20 08:47 Consult to PICC Line RN [CONS] Routine Reason For Exam: PRESSORS Type Line:: PICC 07/06/20 09:00 Consult to Wound/ET Nurse [CONS] Urgent Reason For Exam: wound eval sacrum 07/07/20 11:03 Consult to Dietitian/Nutrition [CONS] Stat Physician Instructions: Reason For Exam: Reason for Consult: Write/Manage Tube Feeding 07/10/20 10:17 Consult to Physician [CONS] Routine Comment: Consulting Provider: GWENDOLYN LEONARD Physician Instructions: Reason For Exam: Acute kidney injury 07/10/20 12:42 Consult to Physician [CONS] Routine Comment: Consulting Provider: MAYRA ACEVEDO Physician Instructions: Reason For Exam: positive Covid test/resp failure intubated Primary care physician: [employer]SEM[employer]ER Hospitalization Condition: Critical Disposition: DC-30 STILL A PATIENT Exam - Constitutional Vitals: Temp Pulse Resp BP Pulse Ox 99.8 F H 77 28 H 152/72 97 07/13/20 04:18 07/13/20 05:32 07/13/20 04:18 07/13/20 05:32 07/13/20 04:18 Plan Follow up with: PRIMARY CAREMD [Primary Care Provider] - 7 Days
--- NOTE | 2020-07-13 10:49 | Death Summary ---
Summary - Providers Date of service: 07/13/20 Consults: 06/30/20 08:28 Physical Therapy Evaluation and Treat [CONS] Routine Comment: Reason For Exam: debility Date of last referral: 06/30/20 06/30/20 09:49 Consult to Case Management [CONS] Routine Services Needed at Discharge: Food And Drug Inspector Notified:: CM 07/05/20 08:11 Occupational Therapy Evaluate and Treat [CONS] Routine Comment: Reason For Exam: debility Physical Therapy Evaluation and Treat [CONS] Routine Comment: Reason For Exam: debility 07/06/20 07:47 Physical Therapy Evaluation and Treat [CONS] Routine Comment: Reason For Exam: revaluate please 07/06/20 07:49 Occupational Therapy Evaluate and Treat [CONS] Routine Comment: Reason For Exam: revaluate please 07/06/20 08:47 Consult to PICC Line RN [CONS] Routine Reason For Exam: PRESSORS Type Line:: PICC 07/06/20 09:00 Consult to Wound/ET Nurse [CONS] Urgent Reason For Exam: wound eval sacrum 07/07/20 11:03 Consult to Dietitian/Nutrition [CONS] Stat Physician Instructions: Reason For Exam: Reason for Consult: Write/Manage Tube Feeding 07/10/20 10:17 Consult to Physician [CONS] Routine Comment: Consulting Provider: GWENDOLYN LEONARD Physician Instructions: Reason For Exam: Acute kidney injury 07/10/20 12:42 Consult to Physician [CONS] Routine Comment: Consulting Provider: MAYRA ACEVEDO Physician Instructions: Reason For Exam: positive Covid test/resp failure intubated Attending: SARAY DEUTSCH - summary Date of admission: 06/26/20 12:47
== END 2020-07-13 15:30 | DRG 70 ==
LOC: ED 00:04 → 4A 03:05 → OBSVTOIN 12:47 → CC1 07-06 08:39 → 3A 07-11 18:51
PROVIDERS: ADMIT Internal Medicine; ATTEND Internal Medicine
PROC: 0BH17EZ Insertion of Endotracheal Airway into Trachea, Via Natural or Artificial Opening (ICD-10-PCS; principal; 2020-07-06)
PROC: 5A1955Z Respiratory Ventilation, Greater than 96 Consecutive Hours (ICD-10-PCS; 2020-07-06)
PROC: 4A033R1 Measurement of Arterial Saturation, Peripheral, Percutaneous Approach (ICD-10-PCS; 2020-07-06)
PROC: 02HV33Z Insertion of Infusion Device into Superior Vena Cava, Percutaneous Approach (ICD-10-PCS; 2020-07-06)
DX: G93.41 Metabolic encephalopathy (principal); J96.01 Acute respiratory failure with hypoxia; U07.1 COVID-19; N17.0 Acute kidney failure with tubular necrosis; I21.9 Acute myocardial infarction, unspecified; E51.2 Wernicke's encephalopathy; G93.1 Anoxic brain damage, not elsewhere classified; F10.27 Alcohol dependence with alcohol-induced persisting dementia; I42.9 Cardiomyopathy, unspecified; I50.20 Unspecified systolic (congestive) heart failure; F01.50 Vascular dementia, unspecified severity, without behavioral disturbance, psychotic disturbance, mood disturbance, and anxiety; I67.2 Cerebral atherosclerosis; I11.0 Hypertensive heart disease with heart failure; I49.01 Ventricular fibrillation; I25.10 Atherosclerotic heart disease of native coronary artery without angina pectoris; R29.701 NIHSS score 1; I46.9 Cardiac arrest, cause unspecified; Z66 Do not resuscitate; Z79.899 Other long term (current) drug therapy
CPT/HCPCS: 36415; 36600; 70450; 71045; 71260; 74018; 80048; 80053; 80061; 80307; 80320; 81001; 82140; 82550; 82553; 82803; 82805; 82962; 83735; 84439; 84443; 84484; 85025; 85027; 85379; 86850; 86900; 86901; 87040; 87045; 87070; 87086; 87205; 92950; 93005; 93306; 93970; 94002; 94003; 94760; 96360; G0378; A9270-GY; G0480; J0171; J0282; J0360; J0461; J0692; J1630; J1644; J1650; J1720; J2060; J2270; J3411; J3475; J3480; J7030; J7120; J7121; Q9967; U0003